=== PATIENT | female | born 1960 | race Caucasian/White ===

== ENCOUNTER 2017-07-10 11:45 | Emergency (ER) | payer BC ==
[2017-07-10] VITALS (10 sets, daily range): BP systolic 111–155; BP diastolic 61–92; PULSE 74–87; TEMP 36.5–37.1; O2SAT 96–100; Ht 157.5 cm; Wt 58.9 kg
[~2017-07-10] VITALS: Ht 157.5 cm; Wt 58.9 kg
--- NOTE | 2017-07-10 12:15 | EMERGENCY ROOM VISIT NOTE ---
History Report prepared by Anupama: Shruthi Robles Under the Supervision of: Dr. Manuel Cummings D.O. First contact with patient: 12:02 Chief Complaint: OTHER COMPLAINT Stated Complaint: "SENT FROM DR FOR TRANSFUSION AND SCAN" History of Present Illness The patient is a 56 year old female who presents to the Emergency Room with complaints of constant leg swelling beginning four days ago. The patient went to her PCP, Dr. Fontenot, four days ago for her leg swelling. Her PCP ordered the patient to have blood work done. The patient had blood work done yesterday and her hemoglobin level was 5. The patient states her PCP told her she needed to come into the ED for a blood transfusion and scan of her pancreas. The patient states she was told by her PCP that she would be able to go home tonight if she came into the ED for a blood transfusion. The patient states she is unable to stay in the hospital tonight because she does not have "coverage" at work. The patient denies any chest pain, shortness of breath, dark stool, nausea, or vomiting. The patient has a history of hypertension and she is on lisinopril. She notes tobacco use. The patient states she drinks alcohol every night. Source of History: patient Onset: four days ago Position: leg (bilateral) Quality: other (swelling) Timing: constant Associated Symptoms: No chest pain, No SOB, No nausea, No vomiting Review of Systems See HPI for pertinent positives & negatives. A total of 10 systems reviewed and were otherwise negative. Past Medical & Surgical Medical Problems: (1) Hypertension Family History Patient reports no known family medical history. Social History Smoking Status: Current Every Day Smoker Alcohol Use: other (daily) Marital Status: Housing Status: lives with family Occupation Status: employed Current/Historical Medications Scheduled Lisinopril (Zestril), 30 MG PO DAILY Allergies Coded Allergies: No Known Allergies (Unverified , 07/10/17) Physical Exam Vital Signs Date Time Temp Pulse Resp B/P (MAP) Pulse Ox O2 Delivery O2 Flow Rate FiO2 07/10/17 18:13 82 18 144/89 98 Room Air 07/10/17 18:11 36.5 82 18 144/89 96 07/10/17 17:13 36.7 74 20 155/92 97 07/10/17 16:39 36.8 80 18 132/88 96 07/10/17 16:26 80 18 135/81 95 Room Air 07/10/17 16:18 36.8 78 16 135/81 96 07/10/17 15:00 37.1 84 20 125/77 98 07/10/17 14:56 07/10/17 14:35 36.9 83 20 122/61 99 07/10/17 14:20 36.7 85 20 125/82 100 07/10/17 14:10 36.9 87 18 111/74 99 07/10/17 14:04 36.6 84 20 130/64 100 07/10/17 12:56 80 18 134/89 98 Room Air 07/10/17 12:24 81 07/10/17 12:10 97 Room Air 07/10/17 12:09 86 18 136/94 97 Room Air 07/10/17 11:53 36.6 86 20 118/68 98 Room Air Physical Exam GENERAL: Patient is awake, alert, and in no acute distress. Patient is resting comfortably and showing no signs of anxiety EYES: The conjunctivae are clear. The pupils are round and reactive. EARS, NOSE, MOUTH AND THROAT: The nose is without any evidence of any deformity. Mucous membranes are moist tongue is midline NECK: The neck is nontender and supple. RESPIRATORY: Normal respiratory effort is noted there is no evidence of wheezing rhonchi or rales CARDIOVASCULAR: Regular rate and rhythm noted there no murmurs rubs or gallops normal S1 normal S2 GASTROINTESTINAL: The abdomen is soft. Bowel sounds are present in all quadrants. Abdomen is nontender MUSCULOSKELETAL/EXTREMITIES: Pedal edema bilaterally. There is no evidence of gross deformity full range of motion is noted in the hips and shoulders SKIN: There is no obvious evidence of any rash. There are no petechiae, pallor or cyanosis noted. RECTAL: brown stool heme negative. NEUROLOGIC: Patient is awake alert and oriented x3 Medical Decision & Procedures ER Provider Diagnostic Interpretation: Radiology results as stated below per my review and radiologist interpretation: CHEST ONE VIEW PORTABLE FINDINGS: Mild cardiomegaly. Prominent basilar pulmonary vasculature are combined with mild interstitial curly B lines. IMPRESSION: Developing congestive heart failure. Mild cardia megaly. The above report was generated using voice recognition software. It may contain grammatical, syntax or spelling errors. Electronically signed by: Marcos Carla, M.D. CT SCAN OF THE ABDOMEN AND PELVIS WITH IV CONTRAST FINDINGS: Lung bases: The heart is normal in size and without pericardial effusion. Emphysematous change is present at both lung bases. No airspace consolidation or pleural effusion is identified atelectasis is noted at the right lung base. Liver: The contrast-enhanced liver is normal in size, contour, and attenuation. There is no intrahepatic biliary ductal dilatation. The hepatic veins and portal veins are patent. Gallbladder: Unremarkable. Spleen: Normal in size and attenuation. Pancreas: The pancreas is normal as visualized. No peripancreatic stranding or fluid is identified. The gland enhances homogeneously. Adrenal glands: Unremarkable. Kidneys: The contrast enhanced kidneys are normal in size and without hydronephrosis. The kidneys enhance symmetrically. Abdominal vasculature: The abdominal aorta is normal in course and caliber noting advanced atherosclerotic calcification. Bowel: The small bowel and colon are normal in course and caliber. The appendix is well-visualized and normal. Peritoneum: There is no intraperitoneal free air or abdominal ascites. Lymphadenopathy: None. Pelvic viscera: The bladder is partially decompressed and grossly unremarkable. The uterus and adnexa are normal as visualized. There is trace free fluid in the cul-de-sac. Skeletal structures: No lytic or blastic lesions are seen. IMPRESSION: 1. There are no acute infectious or inflammatory findings in the abdomen or pelvis. 2. There is trace nonspecific free fluid in the cul-de-sac, possibly within physiologic limits. Clinical correlation will be required. 3. Emphysema. 4. Additional findings as above. Electronically signed by: Marcelino Webb M.D. Laboratory Results 07/10/17 12:06 Red Blood Count 3.70, Mean Corpuscular Volume 64.6, Mean Corpuscular Hemoglobin 16.8, Mean Corpuscular Hemoglobin Concent 25.9, Mean Platelet Volume 8.3, Neutrophils (%) (Auto) 61.0, Lymphocytes (%) (Auto) 25.7, Monocytes (%) (Auto) 9.5, Eosinophils (%) (Auto) 1.4, Basophils (%) (Auto) 2.2, Neutrophils # (Auto) 3.85, Lymphocytes # (Auto) 1.62, Monocytes # (Auto) 0.60, Eosinophils # (Auto) 0.09, Basophils # (Auto) 0.14 07/10/17 12:06 Test 07/10/17 12:06 07/10/17 12:57 White Blood Count 6.31 K/uL (4.8-10.8) Red Blood Count 3.70 M/uL (4.2-5.4) Hemoglobin 6.2 g/dL (12.0-16.0) Hematocrit 23.9 % (37-47) Mean Corpuscular Volume 64.6 fL (80-100) Mean Corpuscular Hemoglobin 16.8 pg (25-34) Mean Corpuscular Hemoglobin Concent 25.9 g/dl (32-36) Platelet Count 886 K/uL (130-400) Mean Platelet Volume 8.3 fL (7.4-10.4) Neutrophils (%) (Auto) 61.0 % Lymphocytes (%) (Auto) 25.7 % Monocytes (%) (Auto) 9.5 % Eosinophils (%) (Auto) 1.4 % Basophils (%) (Auto) 2.2 % Neutrophils # (Auto) 3.85 K/uL (1.4-6.5) Lymphocytes # (Auto) 1.62 K/uL (1.2-3.4) Monocytes # (Auto) 0.60 K/uL (0.11-0.59) Eosinophils # (Auto) 0.09 K/uL (0-0.5) Basophils # (Auto) 0.14 K/uL (0-0.2) RDW Standard Deviation 66.2 fL (36.4-46.3) RDW Coefficient of Variation 28.0 % (11.5-14.5) Immature Granulocyte % (Auto) 0.2 % Immature Granulocyte # (Auto) 0.01 K/uL (0.00-0.02) Nucleated RBC Absolute Count (auto) 0.28 K/uL (0-0) Nucleated Red Blood Cells % 4.4 % Hypersegmented Polys 1+ Polychromasia 1+ Hypochromasia PRESENT Anisocytosis PRESENT Microcytosis PRESENT Tear Drop Cells 2+ Schistocytes 1+ Prothrombin Time 11.5 SECONDS (9.0-12.0) Prothromb Time International Ratio 1.1 (0.9-1.1) Activated Partial Thromboplast Time 24.3 SECONDS (21.0-31.0) Partial Thromboplastin Ratio 0.9 Anion Gap 6.0 mmol/L (3-11) Est Creatinine Clear Calc Drug Dose 88.7 ml/min Estimated GFR () 120.8 Estimated GFR (Non- 104.2 BUN/Creatinine Ratio 14.1 (10-20) Calcium Level 8.4 mg/dl (8.5-10.1) Magnesium Level 2.0 mg/dl (1.8-2.4) Total Bilirubin 0.6 mg/dl (0.2-1) Direct Bilirubin 0.2 mg/dl (0-0.2) Aspartate Amino Transf (AST/SGOT) 17 U/L (15-37) Alanine Aminotransferase (ALT/SGPT) 23 U/L (12-78) Alkaline Phosphatase 52 U/L (45-117) Troponin I < 0.015 ng/ml (0-0.045) Total Protein 7.2 gm/dl (6.4-8.2) Albumin 3.6 gm/dl (3.4-5.0) Amylase Level 96 U/L (25-115) Lipase 597 U/L (73-393) Urine Color YELLOW Urine Appearance CLEAR (CLEAR) Urine pH 7.0 (4.5-7.5) Urine Specific [place] 1.012 (1.000-1.030) Urine Protein NEG (NEG) Urine Glucose (UA) NEG (NEG) Urine Ketones NEG (NEG) Urine Occult Blood NEG (NEG) Urine Nitrite NEG (NEG) Urine Bilirubin NEG (NEG) Urine Urobilinogen NEG (NEG) Urine Leukocyte Esterase NEG (NEG) Laboratory results per my review. ECG Indication: other (abnormal labs) Rate (beats per minute): 79 Rhythm: normal sinus Findings: no ectopy, other (no acute ST segments ) Comparison ECG Date: no prior available Change: EKG interpreted by me. ED Course 1203: The patient was evaluated in room A9B. A complete history and physical examination were performed. 1222: I discussed the patient's case with Dr. [place]ot[place] [place] She acknowledged the patient would most likely not want to stay in the hospital. She advised we do as much testing as the patient would allow. She will follow up with the patient. 1228: I updated the patient on my conversation with Dr. Fontenot. 1650: I updated the patient on her test results. 1820: Upon reevaluation, the patient is resting comfortably. I discussed the results and treatment plan with the patient. She verbalized agreement of the treatment plan. The patient was discharged home. Medical Decision Differential diagnosis: Etiologies such as metabolic, infection, hypo/hyperglycemia, electrolyte abnormalities, cardiac sources, intracerebral event, toxicologic, neurologic, as well as others were entertained. Nursing notes reviewed. Additional history is obtained from the patient's primary care physician. The patient is a 56-year-old female who presented to the emergency department for an evaluation of abnormal laboratory studies. She states that she's had ongoing lower extremity edema for approximately 1 year. Her symptoms started to worsen and she started noticing weakness and dyspnea exertion. The patient had laboratory tests done with her primary care physician this week. She was sent to the emergency department because of significant anemia. The patient did not wish to stay in the hospital although I discussed that she should likely be considered for inpatient management for blood transfusion as well as for further testing including trying to figure out why the patient is anemic. She was heme-negative on rectal exam. The patient does have a significant alcohol history and it is possible that she may have chronic abnormality secondary to this. She was also found have a very high platelet count. I discussed the patient's laboratory radiographic studies with her. She was encouraged to rest and avoid any strenuous activity. She was also encouraged to follow-up with primary care physician for further evaluation and for further testing. She was also encouraged return to the emergency department immediately if symptoms change or if the need arises. She was also encouraged to avoid any further alcoholic beverages. Medication Reconcilliation Current Medication List: was personally reviewed by me Blood Pressure Screening Patient's blood pressure: Normal blood pressure Consults Time Called: 1220 Consulting Physician: Dr. Emeka DUKE Returned Call: 1222 I discussed the patient's case with Dr. Kruger. She acknowledged the patient would most likely not want to stay in the hospital. She advised we do as much testing as the patient would allow. She will follow up with the patient. Impression Primary Impression: Anemia Additional Impressions: Peripheral edema Alcohol abuse Thrombocythemia Scribe Attestation The scribe's documentation has been prepared under my direction and personally reviewed by me in its entirety. I confirm that the note above accurately reflects all work, treatment, procedures, and medical decision making performed by me. Departure Information Dispostion Being Evaluated By Hospitalist Referrals Cookie Fontenot C.R.N.P. (PCP) Forms HOME CARE DOCUMENTATION FORM, IMPORTANT VISIT INFORMATION, WORK / SCHOOL INSTRUCTIONS Patient Instructions Anemia, ED Leg Swelling Bilateral, My [facility] Additional Instructions Continue all medications as prescribed. Call your family doctor in the morning to schedule a follow-up appointment for further testing and possibly further blood transfusion. Rest and avoid any strenuous activity. Return to the emergency department immediately if symptoms change worsen or the need arises. Problem Qualifiers Primary Impression: Anemia Anemia type: unspecified type Qualified Codes: D64.9 - Anemia, unspecified
[2017-07-10 12:33] LABS: INR 1.1 (0.9-1.1); PTT PATIENT 24.3 SECONDS (21.0-31.0)
[2017-07-10 12:34] LABS: HEMATOCRIT 23.9 % (37-47); HEMOGLOBIN 6.2 g/dL (12.0-16.0); MEAN CELL VOLUME 64.6 fL (80-100); MEAN CORPUSCULAR HEMOGLOBIN 16.8 pg (25-34); MEAN CORPUSCULAR HGB CONC 25.9 g/dl (32-36); MEAN PLATELET VOLUME 8.3 fL (7.4-10.4); NUCLEATED RED BLOOD CELL ABS 0.28 K/uL (0-0); PLATELET COUNT 886 K/uL (130-400); RED CELL DISTRIBUTION WIDTH SD 66.2 fL (36.4-46.3); WHITE BLOOD COUNT 6.31 K/uL (4.8-10.8)
[2017-07-10 12:40] LABS: ALBUMIN 3.6 gm/dl (3.4-5.0); ALT/SGPT 23 U/L (12-78); AST/SGOT 17 U/L (15-37); BLOOD UREA NITROGEN 8 mg/dl (7-18); CALCIUM 8.4 mg/dl (8.5-10.1); CARBON DIOXIDE 29 mmol/L (21-32); CREATININE 0.56 mg/dl (0.60-1.20); GLUCOSE 89 mg/dl (70-99); LIPASE 597 U/L (73-393); POTASSIUM 3.7 mmol/L (3.5-5.1); SODIUM 128 mmol/L (136-145)
[2017-07-10 12:45] LABS: ALKALINE PHOSPHATASE 52 U/L (45-117); TOTAL PROTEIN 7.2 gm/dl (6.4-8.2)
[2017-07-10 12:50] LABS: BASO % 2.2 %; BASO ABS # 0.14 K/uL (0-0.2); EOS % 1.4 %; EOS ABS # 0.09 K/uL (0-0.5); IG# 0.01 K/uL (0.00-0.02); LYMPH % 25.7 %; LYMPH ABS # 1.62 K/uL (1.2-3.4); MONO % 9.5 %; NEUT ABS # 3.85 K/uL (1.4-6.5)
[2017-07-10] MEDS ORDERED: OPTIRAY 320 IV PRN (13:00)
--- NOTE | 2017-07-10 13:20 | DIAGNOSTIC IMAGING REPORT ---
CHEST ONE VIEW PORTABLE CLINICAL HISTORY: ABDOMINAL PAIN/GI pain. Nausea. COMPARISON STUDY: No previous studies for comparison. FINDINGS: Mild cardiomegaly. Prominent basilar pulmonary vasculature are combined with mild interstitial curly B lines. IMPRESSION: Developing congestive heart failure. Mild cardia megaly. The above report was generated using voice recognition software. It may contain grammatical, syntax or spelling errors. Electronically signed by: Marcos Aguirre M.D. 07/10/2017 1:18 PM Dictated Date/Time: 07/10/2017 1:18 PM
[2017-07-10] MEDS ORDERED: LISI1TAB3 PO (14:04)
--- NOTE | 2017-07-10 16:28 | DIAGNOSTIC IMAGING REPORT ---
CT SCAN OF THE ABDOMEN AND PELVIS WITH IV CONTRAST CLINICAL HISTORY: Epigastric abdominal pain. Elevated pancreatic enzymes. COMPARISON STUDY: No priors. TECHNIQUE: Following the IV administration of 116 cc of Optiray 320, CT scan of the abdomen and pelvis is performed from the lung bases to the proximal femora. Images are reviewed in the axial, sagittal, and coronal planes. IV contrast was administered without complication. A dose lowering technique was utilized adhering to the principles of ALARA. CT DOSE: 293.02 mGycm FINDINGS: Lung bases: The heart is normal in size and without pericardial effusion. Emphysematous change is present at both lung bases. No airspace consolidation or pleural effusion is identified atelectasis is noted at the right lung base. Liver: The contrast-enhanced liver is normal in size, contour, and attenuation. There is no intrahepatic biliary ductal dilatation. The hepatic veins and portal veins are patent. Gallbladder: Unremarkable. Spleen: Normal in size and attenuation. Pancreas: The pancreas is normal as visualized. No peripancreatic stranding or fluid is identified. The gland enhances homogeneously. Adrenal glands: Unremarkable. Kidneys: The contrast enhanced kidneys are normal in size and without hydronephrosis. The kidneys enhance symmetrically. Abdominal vasculature: The abdominal aorta is normal in course and caliber noting advanced atherosclerotic calcification. Bowel: The small bowel and colon are normal in course and caliber. The appendix is well-visualized and normal. Peritoneum: There is no intraperitoneal free air or abdominal ascites. Lymphadenopathy: None. Pelvic viscera: The bladder is partially decompressed and grossly unremarkable. The uterus and adnexa are normal as visualized. There is trace free fluid in the cul-de-sac. Skeletal structures: No lytic or blastic lesions are seen. IMPRESSION: 1. There are no acute infectious or inflammatory findings in the abdomen or pelvis. 2. There is trace nonspecific free fluid in the cul-de-sac, possibly within physiologic limits. Clinical correlation will be required. 3. Emphysema. 4. Additional findings as above. Electronically signed by: Marcelino Webb M.D. 07/10/2017 4:27 PM Dictated Date/Time: 07/10/2017 4:22 PM
== END 2017-07-10 18:20 | disposition home or self-care (01) ==
LOC: C.EDB 11:47 → C.EDA 18:20
DX: D64.9 Anemia, unspecified (principal); R60.9 Edema, unspecified; F10.10 Alcohol abuse, uncomplicated; D47.3 Essential (hemorrhagic) thrombocythemia; J43.9 Emphysema, unspecified; F17.200 Nicotine dependence, unspecified, uncomplicated; I10 Essential (primary) hypertension

== ENCOUNTER 2017-09-25 13:04 | Inpatient (IN) | payer OTHER ==
[~2017-09-25] VITALS: Ht 157.5 cm; Wt 50.3 kg
[~2017-09-25 13:04] MED LIST: LISI1TAB3 PO
[2017-09-25] MEDS ORDERED: SODIUM CHLORIDE 0.9% 1000ML 1,000 ML IV STA (13:27)
--- NOTE | 2017-09-25 13:49 | DIAGNOSTIC IMAGING REPORT ---
CHEST ONE VIEW PORTABLE CLINICAL HISTORY: EVALUATE RESPIRATORY DISTRESS.DYSPNEA COMPARISON STUDY: Chest radiograph July 10, 2017. FINDINGS: There is no pneumothorax. Slight blunting of both costophrenic angles is unchanged. Cardiomediastinal silhouette is stable. Linear left suprahilar opacity favors atelectasis or normal vessels. There is no consolidation to suggest pneumonia. There is pulmonary vascular congestion without overt pulmonary edema. IMPRESSION: Pulmonary vascular congestion without overt pulmonary edema. Electronically signed by: Ortiz Mojica M.D. 09/25/2017 1:48 PM Dictated Date/Time: 09/25/2017 1:46 PM
[2017-09-25 14:25] LABS: HEMATOCRIT 31.4 % (37-47); HEMOGLOBIN 8.4 g/dL (12.0-16.0); MEAN CELL VOLUME 67.4 fL (80-100); MEAN CORPUSCULAR HGB CONC 26.8 g/dl (32-36); NUCLEATED RED BLOOD CELL ABS 0.06 K/uL (0-0); PLATELET COUNT 198 K/uL (130-400); RED CELL DISTRIBUTION WIDTH CV 24.8 % (11.5-14.5); RED CELL DISTRIBUTION WIDTH SD 60.3 fL (36.4-46.3); WHITE BLOOD COUNT 6.59 K/uL (4.8-10.8)
[2017-09-25 14:27] LABS: INR 1.1 (0.9-1.1)
[2017-09-25 14:31] LABS: ALBUMIN 3.9 gm/dl (3.4-5.0); ALT/SGPT 32 U/L (12-78); BLOOD UREA NITROGEN 4 mg/dl (7-18); CALCIUM 8.3 mg/dl (8.5-10.1); CARBON DIOXIDE 28 mmol/L (21-32); GLUCOSE 95 mg/dl (70-99); POTASSIUM 4.2 mmol/L (3.5-5.1); SODIUM 124 mmol/L (136-145)
[2017-09-25 14:36] LABS: BASO % 2.3 %; BASO ABS # 0.15 K/uL (0-0.2); EOS % 0.2 %; EOS ABS # 0.01 K/uL (0-0.5); IG# 0.02 K/uL (0.00-0.02); LYMPH ABS # 0.79 K/uL (1.2-3.4); MONO % 11.4 %; MONO ABS # 0.75 K/uL (0.11-0.59); NEUT % 73.8 %; NEUT ABS # 4.87 K/uL (1.4-6.5)
[2017-09-25 14:38] LABS: ALKALINE PHOSPHATASE 60 U/L (45-117); AST/SGOT 34 U/L (15-37); TOTAL PROTEIN 7.4 gm/dl (6.4-8.2)
[2017-09-25] MEDS ORDERED: CEFTRIAXONE SOD INJ 1 GM ADDVIAL IV STA (15:10)
[2017-09-25] MEDS ORDERED: PANTOprazole INJ 80 MG in DEXTROSE 5% 100ML IV STA (15:14)
[2017-09-25] MEDS ORDERED: OPTIRAY 320 IV PRN (15:30)
[2017-09-25] MEDS ORDERED: PANTOprazole INJ 40 MG in DEXTROSE 5% 100ML IV SCH (15:30)
--- NOTE | 2017-09-25 15:46 | DIAGNOSTIC IMAGING REPORT ---
CT ANGIOGRAM OF THE CHEST CLINICAL HISTORY: Hypoxia. COMPARISON STUDY: Chest x-ray dated 09/25/2017. TECHNIQUE: Following the IV administration of 85 cc of Optiray 320, CT angiogram of the chest was performed from the upper abdomen to the thoracic inlet utilizing the pulmonary embolus protocol. Images are reviewed in the axial, sagittal, and coronal planes. 3-D MIPS images are created and assessed. IV contrast was administered without complication. A dose lowering technique was utilized adhering to the principles of ALARA. CT DOSE: 201.01 mGy.cm FINDINGS: Thyroid: Imaged portions of the thyroid gland are normal in size and attenuation. A 1.4 cm low-attenuation nodule is seen in the left lobe. Thoracic aorta: There is advanced atherosclerotic calcification of the thoracic aorta, which is normal in caliber and demonstrates standard 3-vessel arch anatomy. No dissection is seen. Pulmonary vasculature: The pulmonary trunk is mildly dilated suggesting pulmonary artery hypertension. There are no filling defects identified in main, lobar, or segmental pulmonary branches to suggest pulmonary embolus. Heart: The heart is enlarged and without pericardial effusion. The coronary arteries are densely calcified. Lungs and pleural spaces: Advanced emphysematous change is identified. 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 The trachea and central airways are clear. There is patchy consolidation identified in the left upper lobe, best seen on image #199. Milder patchy consolidative change is seen in the right lower lobe. Scarring/fibrosis is present in the right middle lobe and lingula. Foci of linear atelectasis/scarring are present in the lower lobes. Mediastinum: There is no mediastinal lymphadenopathy. Kendy: Clear. Axillae: There is no axillary lymphadenopathy. Upper abdomen: Partially visualized upper abdominal viscera is within normal limits. Skeletal structures: The skeletal structures are osteopenic. No lytic or blastic bony lesions are seen. IMPRESSION: 1. There is no evidence of pulmonary embolus in the main, lobar, or segmental pulmonary arteries. 2. Cardiomegaly and advanced emphysema. 3. Patchy airspace consolidation is identified in the left upper lobe. Mild patchy opacities are also seen at the right lung base. This likely represents an infectious/inflammatory pneumonitis. 3-4 month follow-up chest CT is recommended to document resolution. 4. There is a 1.4 cm low-attenuation nodule identified in the left lobe of the thyroid gland. Follow-up with a nonemergent thyroid ultrasound is recommended for further assessment. Electronically signed by: Marcelino Webb M.D. 09/25/2017 3:44 PM Dictated Date/Time: 09/25/2017 3:39 PM
[2017-09-25] MEDS ORDERED: LEVAQUIN 750MG / 150ML D5W IV STA (15:54)
--- NOTE | 2017-09-25 16:04 | History and Physical ---
History & Physical Date & Time of Service: Sep 25, 2017 at 16:04 Chief Complaint: Low Hemoglobin Primary Care Physician: Cookie Fontenot C.R.NHaiPHai History of Present Illness Source: patient 57 yo female presents to the hospital with SOB and fatigue for the past few days. Patient is known to the [facility] [employer] [facility]. Patient has history of asthma, anemia, hypertension. Patient reports worsening of SOB, weak, and tired over the past 24-48 hours. Patient denies fever, chills, nausea, vomiting. Patient reports drinking alcohol daily. Patient was seen in ER and was found to have low sodium. Oxygen sat was in the 70s. Patient was placed on oxygen mask and responded with an O2 sat of 100% on 5 liters. Past Medical/Surgical History Medical Problems: (1) Alcohol abuse (2) Anemia (3) Hypertension (4) Peripheral edema (5) Thrombocythemia (6) Thrombocytopenia Family History Patient reports no known family medical history. Social History Smoking Status: Current Every Day Smoker Marital Status: Occupational Status: employed Immunizations History of Influenza Vaccine: Unknown History of Tetanus Vaccine?: Unknown History of Pneumococcal: Unknown History of Hepatitis B Vaccine: Unknown Allergies Coded Allergies: No Known Allergies (Unverified , 09/25/17) Home Medications Scheduled Lisinopril (Zestril), 30 MG PO DAILY [proair], 2 PUFFS INH Q4H Scheduled PRN Acetamin/Butalbital/Caffeine (Fioricet), 1 TAB PO Q6H PRN for Pain Hydroxyzine HCl (Hydroxyzine HCl), 1 TAB PO TID PRN for Anxiety Review of Systems Constitutional: No fever, No chills Eyes: No worsening of vision ENT: No hearing loss Respiratory: + cough, + shortness of breath, + dyspnea on exertion Cardiovascular: No chest pain Abdomen: No pain Musculoskeletal: No joint pain, No muscle pain Neurologic: No memory loss Psychiatric: No depression symptoms Endocrine: No fatigue Hematologic / Lymphatic: No abnormal bleeding/bruising Integumentary: No rash, No itch Allergic / Immunologic: No environmental allergies Physical Exam Vital Signs Date Time Temp Pulse Resp B/P (MAP) Pulse Ox O2 Delivery O2 Flow Rate FiO2 09/25/17 14:31 97 16 166/101 100 Oxymask 6.0 09/25/17 13:56 100 33 161/99 98 Oxymask 6.0 09/25/17 13:33 94 09/25/17 13:23 99 Oxymask 5.0 09/25/17 13:18 Nasal Cannula 2.0 09/25/17 13:15 37.6 96 16 129/80 76 Room Air General Appearance: WD/WN, no apparent distress Head: normocephalic Eyes: normal inspection ENT: normal ENT inspection Neck: supple, no adenopathy Respiratory/Chest: chest non-tender, + rhonchi (bilateral) Cardiovascular: no edema, no murmur, + tachycardia Abdomen/GI: normal bowel sounds, non tender, soft Back: normal inspection Extremities/Musculoskelatal: normal inspection Neurologic/Psych: alert, oriented x 3 Skin: normal color Lymphatic: no adenopathy Diagnostics Laboratory Results Results Past 24 Hours Test 09/25/17 13:35 09/25/17 13:40 09/25/17 13:55 09/25/17 14:15 Range/Units White Blood Count 6.59 4.8-10.8 K/uL Red Blood Count 4.66 4.2-5.4 M/uL Hemoglobin 8.4 12.0-16.0 g/dL Hematocrit 31.4 37-47 % Mean Corpuscular Volume 67.4 80-100 fL Mean Corpuscular Hemoglobin 18.0 25-34 pg Mean Corpuscular Hemoglobin Concent 26.8 32-36 g/dl Platelet Count 198 130-400 K/uL Neutrophils (%) (Auto) 73.8 % Lymphocytes (%) (Auto) 12.0 % Monocytes (%) (Auto) 11.4 % Eosinophils (%) (Auto) 0.2 % Basophils (%) (Auto) 2.3 % Neutrophils # (Auto) 4.87 1.4-6.5 K/uL Lymphocytes # (Auto) 0.79 1.2-3.4 K/uL Monocytes # (Auto) 0.75 0.11-0.59 K/uL Eosinophils # (Auto) 0.01 0-0.5 K/uL Basophils # (Auto) 0.15 0-0.2 K/uL RDW Standard Deviation 60.3 36.4-46.3 fL RDW Coefficient of Variation 24.8 11.5-14.5 % Immature Granulocyte % (Auto) 0.3 % Immature Granulocyte # (Auto) 0.02 0.00-0.02 K/uL Nucleated RBC Absolute Count (auto) 0.06 0-0 K/uL Nucleated Red Blood Cells % 0.9 % Giant Platelets 2+ Hypochromasia PRESENT Anisocytosis PRESENT Microcytosis PRESENT Prothrombin Time 11.4 9.0-12.0 SECONDS Prothromb Time International Ratio 1.1 0.9-1.1 Activated Partial Thromboplast Time 29.0 21.0-31.0 SECONDS Partial Thromboplastin Ratio 1.1 Sodium Level 124 136-145 mmol/L Potassium Level 4.2 3.5-5.1 mmol/L Chloride Level 90 98-107 mmol/L Carbon Dioxide Level 28 21-32 mmol/L Anion Gap 6.0 3-11 mmol/L Blood Urea Nitrogen 4 7-18 mg/dl Creatinine 0.50 0.60-1.20 mg/dl Est Creatinine Clear Calc Drug Dose 98.2 ml/min Estimated GFR () 124.5 Estimated GFR (Non- 107.4 BUN/Creatinine Ratio 8.6 10-20 Random Glucose 95 70-99 mg/dl Calcium Level 8.3 8.5-10.1 mg/dl Total Bilirubin 0.7 0.2-1 mg/dl Aspartate Amino Transf (AST/SGOT) 34 15-37 U/L Alanine Aminotransferase (ALT/SGPT) 32 12-78 U/L Alkaline Phosphatase 60 45-117 U/L Troponin I < 0.015 0-0.045 ng/ml Pro-B-Type Natriuretic Peptide 997 0-900 pg/ml Total Protein 7.4 6.4-8.2 gm/dl Albumin 3.9 3.4-5.0 gm/dl Globulin 3.5 2.5-4.0 gm/dl Albumin/Globulin Ratio 1.1 0.9-2 Urine Color YELLOW Urine Appearance CLEAR CLEAR Urine pH 5.5 4.5-7.5 Urine Specific [place] 1.014 1.000-1.030 Urine Protein NEG NEG Urine Glucose (UA) NEG NEG Urine Ketones NEG NEG Urine Occult Blood NEG NEG Urine Nitrite NEG NEG Urine Bilirubin NEG NEG Urine Urobilinogen NEG NEG Urine Leukocyte Esterase NEG NEG Test 09/25/17 15:51 Range/Units Diagnostic Radiology CT ANGIOGRAM OF THE CHEST CLINICAL HISTORY: Hypoxia. COMPARISON STUDY: Chest x-ray dated 09/25/2017. TECHNIQUE: Following the IV administration of 85 cc of Optiray 320, CT angiogram of the chest was performed from the upper abdomen to the thoracic inlet utilizing the pulmonary embolus protocol. Images are reviewed in the axial, sagittal, and coronal planes. 3-D MIPS images are created and assessed. IV contrast was administered without complication. A dose lowering technique was utilized adhering to the principles of ALARA. CT DOSE: 201.01 mGy.cm FINDINGS: Thyroid: Imaged portions of the thyroid gland are normal in size and attenuation. A 1.4 cm low-attenuation nodule is seen in the left lobe. Thoracic aorta: There is advanced atherosclerotic calcification of the thoracic aorta, which is normal in caliber and demonstrates standard 3-vessel arch anatomy. No dissection is seen. Pulmonary vasculature: The pulmonary trunk is mildly dilated suggesting pulmonary artery hypertension. There are no filling defects identified in main, lobar, or segmental pulmonary branches to suggest pulmonary embolus. Heart: The heart is enlarged and without pericardial effusion. The coronary arteries are densely calcified. Lungs and pleural spaces: Advanced emphysematous change is identified. 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 The trachea and central airways are clear. There is patchy consolidation identified in the left upper lobe, best seen on image #199. Milder patchy consolidative change is seen in the right lower lobe. Scarring/fibrosis is present in the right middle lobe and lingula. Foci of linear atelectasis/scarring are present in the lower lobes. Mediastinum: There is no mediastinal lymphadenopathy. Kendy: Clear. Axillae: There is no axillary lymphadenopathy. Upper abdomen: Partially visualized upper abdominal viscera is within normal limits. Skeletal structures: The skeletal structures are osteopenic. No lytic or blastic bony lesions are seen. IMPRESSION: 1. There is no evidence of pulmonary embolus in the main, lobar, or segmental pulmonary arteries. 2. Cardiomegaly and advanced emphysema. 3. Patchy airspace consolidation is identified in the left upper lobe. Mild patchy opacities are also seen at the right lung base. This likely represents an infectious/inflammatory pneumonitis. 3-4 month follow-up chest CT is recommended to document resolution. 4. There is a 1.4 cm low-attenuation nodule identified in the left lobe of the thyroid gland. Follow-up with a nonemergent thyroid ultrasound is recommended for further assessment. Electronically signed by: Marcelino Webb M.D. 09/25/2017 3:44 PM CHEST ONE VIEW PORTABLE CLINICAL HISTORY: EVALUATE RESPIRATORY DISTRESS.DYSPNEA COMPARISON STUDY: Chest radiograph July 10, 2017. FINDINGS: There is no pneumothorax. Slight blunting of both costophrenic angles is unchanged. Cardiomediastinal silhouette is stable. Linear left suprahilar opacity favors atelectasis or normal vessels. There is no consolidation to suggest pneumonia. There is pulmonary vascular congestion without overt pulmonary edema. IMPRESSION: Pulmonary vascular congestion without overt pulmonary edema. EKG Normal sinus rhythm Incomplete right bundle branch block When compared with ECG of 10-JUL-2017 12:23, No significant change was found Confirmed by Usman Ricketts ([id number]) on 09/25/2017 3:09:56 PM Impression Assessment and Plan Hypoxia, SOB and fatigue in a 57 yo female with history of Asthma 1. Acute hypoxic HYPERCAPNIC respiratory failure Admit to tele VBG shows likely respiratory acidosis with elevated CO2. Patient received levaquin in ER. Patient will receive azithromycin and ceftriaxone tomorrow. Will on IV solumedrol [address] scan shows evidence of possible aspiration and COPD changes. Patient has long standing history of smoking. Will place on BIPAP. 2.COPD/ ASTHMA cont. albuterol. Patient ay benefit from LABA. patient should consider smoking cessation 3. Hyponatremia Likely secondary to alcoholism. Patient received NS bolus in ED. Will repeat sodium in evening. If no significant improvement, likely SIADH. for now, will hold fluid. 4. Alcoholism will place on CIWA protocol. 5. Hypertension will resume lisinopril. spent 30 minutes in critical care time due to respiratory acidosis Advanced Directives Existing Advance Directive: No Existing Living Will: No Existing Power of Water Taxi Captain: No Existing Health Care Proxy: No Resuscitation Status VTE Prophylaxis Will order VTE Prophylaxis: Yes Note Total Time: Critical Care 30 - 74 minutes
[2017-09-25] MEDS ORDERED: ALBUTEROL 0.083% NEBU SOLN 3 ML VIAL INH PRN (16:15)
[2017-09-25] MEDS ORDERED: FRCT/ PO (17:21)
[2017-09-25] MEDS ORDERED: ATR10 PO (17:24)
--- NOTE | 2017-09-25 17:29 | EMERGENCY ROOM VISIT NOTE ---
History Report prepared by Anupama: Hernán Urban Under the Supervision of: Dr. Yury Holcomb D.O. First contact with patient: 13:20 Chief Complaint: ABNORMAL LABS Stated Complaint: LOW HEMOGLOBIN History of Present Illness The patient is a 57 year old female who presents to the Emergency Room with complaints of worsening shortness of breath. The patient states that she has been unusually short of breath, weak, and tired over the past 24-48 hours. The patient does have a history anemia and has had low hemoglobin levels recently. She denies any bloody bowel movements recently. Rest does improve her symptoms. She has a history of hypertension. She denies any current chest pain. She notes she was referred here by PCP after obtaining blood work with a sodium of 120 and hemoglobin in the sevens. Shortness of breath is significantly worsened with any exertion. History is limited due to her shortness of breath. Source of History: patient Onset: 48 hours Position: chest Quality: other (SOB) Timing: worsening Associated Symptoms: + fatigue, + weakness Review of Systems See HPI for pertinent positives & negatives. A total of 10 systems reviewed and were otherwise negative. Past Medical & Surgical Medical Problems: (1) Acute respiratory failure with hypoxia (2) Hypertension Family History Patient reports no known family medical history. Social History Smoking Status: Current Every Day Smoker Alcohol Use: other Marital Status: Housing Status: lives with family Occupation Status: employed Current/Historical Medications Scheduled Lisinopril (Zestril), 30 MG PO DAILY Scheduled PRN Acetamin/Butalbital/Caffeine (Fioricet), 1 TAB PO Q6H PRN for Pain Allergies Coded Allergies: No Known Allergies (Unverified , 09/25/17) Physical Exam Vital Signs Date Time Temp Pulse Resp B/P (MAP) Pulse Ox O2 Delivery O2 Flow Rate FiO2 09/25/17 17:20 95 Nasal Cannula 4.0 09/25/17 16:24 89 09/25/17 16:00 95 22 145/89 100 Oxymask 6.0 09/25/17 14:31 97 16 166/101 100 Oxymask 6.0 09/25/17 13:56 100 33 161/99 98 Oxymask 6.0 09/25/17 13:33 94 09/25/17 13:23 99 Oxymask 5.0 09/25/17 13:18 Nasal Cannula 2.0 09/25/17 13:15 37.6 96 16 129/80 76 Room Air Physical Exam GENERAL: Sitting up in bed, alert, ill-appearing, moderate distress EYE EXAM: normal conjunctiva. OROPHARYNX: no exudate, no erythema, lips, buccal mucosa, and tongue normal and mucous membranes are dry NECK: supple, no nuchal rigidity, no adenopathy, non-tender. No JVD. LUNGS: Breath sounds are diminished at the bases. Normal chest wall mechanics HEART: Tachycardic HR. no murmurs, S1 normal and S2 normal ABDOMEN: abdomen soft, non-tender, normo-active bowel sounds, no masses, no rebound or guarding. BACK: Back is symmetrical on inspection and there is no deformity, no midline tenderness, no CVA tenderness. SKIN: no rashes and no bruising UPPER EXTREMITIES: upper extremities are grossly normal. LOWER EXTREMITIES: No pitting edema. NEURO EXAM: Normal sensorium, cranial nerves II-XII grossly intact, normal speech, no gross weakness of arms, no gross weakness of legs. RECTAL: The rectal exam is heme negative. Medical Decision & Procedures ER Provider Diagnostic Interpretation: Radiology results as stated below per my review and the radiologist's interpretation: CT ANGIOGRAM OF THE CHEST CLINICAL HISTORY: Hypoxia. COMPARISON STUDY: Chest x-ray dated 09/25/2017. TECHNIQUE: Following the IV administration of 85 cc of Optiray 320, CT angiogram of the chest was performed from the upper abdomen to the thoracic inlet utilizing the pulmonary embolus protocol. Images are reviewed in the axial, sagittal, and coronal planes. 3-D MIPS images are created and assessed. IV contrast was administered without complication. A dose lowering technique was utilized adhering to the principles of ALARA. CT DOSE: 201.01 mGy.cm FINDINGS: Thyroid: Imaged portions of the thyroid gland are normal in size and attenuation. A 1.4 cm low-attenuation nodule is seen in the left lobe. Thoracic aorta: There is advanced atherosclerotic calcification of the thoracic aorta, which is normal in caliber and demonstrates standard 3-vessel arch anatomy. No dissection is seen. Pulmonary vasculature: The pulmonary trunk is mildly dilated suggesting pulmonary artery hypertension. There are no filling defects identified in main, lobar, or segmental pulmonary branches to suggest pulmonary embolus. Heart: The heart is enlarged and without pericardial effusion. The coronary arteries are densely calcified. Lungs and pleural spaces: Advanced emphysematous change is identified. 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 The trachea and central airways are clear. There is patchy consolidation identified in the left upper lobe, best seen on image #199. Milder patchy consolidative change is seen in the right lower lobe. Scarring/fibrosis is present in the right middle lobe and lingula. Foci of linear atelectasis/scarring are present in the lower lobes. Mediastinum: There is no mediastinal lymphadenopathy. Kendy: Clear. Axillae: There is no axillary lymphadenopathy. Upper abdomen: Partially visualized upper abdominal viscera is within normal limits. Skeletal structures: The skeletal structures are osteopenic. No lytic or blastic bony lesions are seen. IMPRESSION: 1. There is no evidence of pulmonary embolus in the main, lobar, or segmental pulmonary arteries. 2. Cardiomegaly and advanced emphysema. 3. Patchy airspace consolidation is identified in the left upper lobe. Mild patchy opacities are also seen at the right lung base. This likely represents an infectious/inflammatory pneumonitis. 3-4 month follow-up chest CT is recommended to document resolution. 4. There is a 1.4 cm low-attenuation nodule identified in the left lobe of the thyroid gland. Follow-up with a nonemergent thyroid ultrasound is recommended for further assessment. Electronically signed by: Marcelino Webb M.D. 09/25/2017 3:44 PM Dictated Date/Time: 09/25/2017 3:39 PM+ CHEST ONE VIEW PORTABLE CLINICAL HISTORY: EVALUATE RESPIRATORY DISTRESS.DYSPNEA COMPARISON STUDY: Chest radiograph July 10, 2017. FINDINGS: There is no pneumothorax. Slight blunting of both costophrenic angles is unchanged. Cardiomediastinal silhouette is stable. Linear left suprahilar opacity favors atelectasis or normal vessels. There is no consolidation to suggest pneumonia. There is pulmonary vascular congestion without overt pulmonary edema. IMPRESSION: Pulmonary vascular congestion without overt pulmonary edema. Electronically signed by: Ortiz Mojica M.D. 09/25/2017 1:48 PM Dictated Date/Time: 09/25/2017 1:46 PM Laboratory Results 09/25/17 13:35 Red Blood Count 4.66, Mean Corpuscular Volume 67.4, Mean Corpuscular Hemoglobin 18.0, Mean Corpuscular Hemoglobin Concent 26.8, Neutrophils (%) (Auto) 73.8, Lymphocytes (%) (Auto) 12.0, Monocytes (%) (Auto) 11.4, Eosinophils (%) (Auto) 0.2, Basophils (%) (Auto) 2.3, Neutrophils # (Auto) 4.87, Lymphocytes # (Auto) 0.79, Monocytes # (Auto) 0.75, Eosinophils # (Auto) 0.01, Basophils # (Auto) 0.15 09/25/17 13:40 Test 09/25/17 13:35 09/25/17 13:40 09/25/17 13:55 09/25/17 14:15 White Blood Count 6.59 K/uL (4.8-10.8) Red Blood Count 4.66 M/uL (4.2-5.4) Hemoglobin 8.4 g/dL (12.0-16.0) Hematocrit 31.4 % (37-47) Mean Corpuscular Volume 67.4 fL (80-100) Mean Corpuscular Hemoglobin 18.0 pg (25-34) Mean Corpuscular Hemoglobin Concent 26.8 g/dl (32-36) Platelet Count 198 K/uL (130-400) Neutrophils (%) (Auto) 73.8 % Lymphocytes (%) (Auto) 12.0 % Monocytes (%) (Auto) 11.4 % Eosinophils (%) (Auto) 0.2 % Basophils (%) (Auto) 2.3 % Neutrophils # (Auto) 4.87 K/uL (1.4-6.5) Lymphocytes # (Auto) 0.79 K/uL (1.2-3.4) Monocytes # (Auto) 0.75 K/uL (0.11-0.59) Eosinophils # (Auto) 0.01 K/uL (0-0.5) Basophils # (Auto) 0.15 K/uL (0-0.2) RDW Standard Deviation 60.3 fL (36.4-46.3) RDW Coefficient of Variation 24.8 % (11.5-14.5) Immature Granulocyte % (Auto) 0.3 % Immature Granulocyte # (Auto) 0.02 K/uL (0.00-0.02) Nucleated RBC Absolute Count (auto) 0.06 K/uL (0-0) Nucleated Red Blood Cells % 0.9 % Giant Platelets 2+ Hypochromasia PRESENT Anisocytosis PRESENT Microcytosis PRESENT Prothrombin Time 11.4 SECONDS (9.0-12.0) Prothromb Time International Ratio 1.1 (0.9-1.1) Activated Partial Thromboplast Time 29.0 SECONDS (21.0-31.0) Partial Thromboplastin Ratio 1.1 Anion Gap 6.0 mmol/L (3-11) Est Creatinine Clear Calc Drug Dose 98.2 ml/min Estimated GFR () 124.5 Estimated GFR (Non- 107.4 BUN/Creatinine Ratio 8.6 (10-20) Calcium Level 8.3 mg/dl (8.5-10.1) Total Bilirubin 0.7 mg/dl (0.2-1) Aspartate Amino Transf (AST/SGOT) 34 U/L (15-37) Alanine Aminotransferase (ALT/SGPT) 32 U/L (12-78) Alkaline Phosphatase 60 U/L (45-117) Troponin I < 0.015 ng/ml (0-0.045) Pro-B-Type Natriuretic Peptide 997 pg/ml (0-900) Total Protein 7.4 gm/dl (6.4-8.2) Albumin 3.9 gm/dl (3.4-5.0) Globulin 3.5 gm/dl (2.5-4.0) Albumin/Globulin Ratio 1.1 (0.9-2) Magnesium Level 1.8 mg/dl (1.8-2.4) Urine Color YELLOW Urine Appearance CLEAR (CLEAR) Urine pH 5.5 (4.5-7.5) Urine Specific [place] 1.014 (1.000-1.030) Urine Protein NEG (NEG) Urine Glucose (UA) NEG (NEG) Urine Ketones NEG (NEG) Urine Occult Blood NEG (NEG) Urine Nitrite NEG (NEG) Urine Bilirubin NEG (NEG) Urine Urobilinogen NEG (NEG) Urine Leukocyte Esterase NEG (NEG) Test 09/25/17 15:51 Venous Blood pH 7.18 (7.36-7.41) Venous Blood Partial Pressure CO2 70 mmHg (38.0-50.0) Venous Blood Partial Pressure O2 35 mmHg Venous Blood HCO3 26 mmol/L Venous Blood Oxygen Saturation < 60.0 % Venous Blood Base Excess -3.0 mEq/L Ammonia 19.4 umol/L (11-32) Laboratory results per my review. Medications Administered Medications (Trade) Dose Ordered Sig/[place] Route Start Time Stop Time Status Last Admin Dose Admin Sodium Chloride 1,000 ml @ 999 mls/hr Q1H1M STAT IV 09/25/17 13:27 09/25/17 14:27 DC 09/25/17 13:55 999 MLS/HR Ceftriaxone Sodium (Rocephin Inj) 1 gm NOW STAT IV 09/25/17 15:10 09/25/17 15:12 DC 09/25/17 15:56 1 GM Pantoprazole Sodium 80 mg/ Dextrose 120 ml @ 480 mls/hr NOW STAT IV 09/25/17 15:14 09/25/17 15:28 DC 09/25/17 15:14 480 MLS/HR Pantoprazole Sodium 40 mg/ Dextrose 100 ml @ 20 mls/hr Q5H IV 09/25/17 15:30 09/25/17 20:29 09/25/17 16:19 20 MLS/HR Levofloxacin (Levaquin / D5W) 750 mg NOW STAT IV 09/25/17 15:54 09/25/17 15:55 DC 09/25/17 16:21 750 MG ECG Per My Interpretation Indication: weakness Rate (beats per minute): 100 Rhythm: sinus tachycardia Findings: Q waves (Septal), other (Normal [place]) ED Course ED COURSE: Vital signs were reviewed and showed hypertensive The patients medical record was reviewed The above diagnostic studies were performed and reviewed. ED treatments and interventions as stated above. 1322: The patient was evaluated in room B2. A complete history and physical examination was performed. 1327: Ordered Sodium Chloride 1000 mL @ 999 mL/hr IV. 1510: Ordered Rocephin 1 gm IV. 1512: I checked on the patient and performed a rectal exam. The patient's informed me that she drink 6 beers per night. 1514: Ordered Pantoprazole 120 mL @ 480 mL/hr IV. 1515: I discussed the case with Dr. Ragsdale - [facility] Hospitalist. He will evaluate the patient for further treatment. 1554: Ordered Levofloxacin 750 mg IV. []: Upon reevaluation, the patient is [].I discussed my findings with the [ patient] and [] understands and agrees with the treatment plan. Based on the patients age, coexisting illnesses, exam and lab findings the decision to treat as an [inpatient][outpatient] was made. The patient remained stable while under my care. [The patient appeared well at the time of discharge.] [The patient will be evaluated for further management.] Medical Decision Differential Diagnosis includes but is not limited to dehydration, stroke, anemia, hypoglycemia, hyponatremia, hypernatremia, urinary tract infection, pneumonia, bronchitis, sepsis, gastroenteritis, additional abdominal pathology, metabolic abnormalities and infections. Patient is a 57-year-old female who presents the ER short of breath. This is significantly worsened over the past 24-48 hours. Blood work was obtained and she was referred in by PCP. She presents in moderate distress. Pulse ox was 76 % on room air. She is placed on nonrebreather. She was very lethargic. She is a heavy drinker and drinks 6 beers a day. He does have hyponatremia. Uncertain of the true etiology of the anemia however is concern for GI bleed bleed even though rectal was heme-negative. Protonix drip and bolus and Rocephin was given. Ammonia was unremarkable. VBG with a pH of 7.18. CO2 is elevated at 70. On multiple reevaluation patient awakens to voice and follows commands and is oriented appropriately. CT PE was performed and did show pneumonia. She was covered with broad-spectrum antibiotics and admitted. Medication Reconcilliation Current Medication List: was personally reviewed by me Blood Pressure Screening Patient's blood pressure: Elevated blood pressure Consults Time Called: 1515 Consulting Physician: Dr. Jn Dao [facility] Hospitalist Returned Call: 1515 I discussed the case with Dr. Jn Dao [facility] Hospitalist. He will evaluate the patient for further treatment. Impression Primary Impression: Acute respiratory failure with hypoxia Additional Impressions: Hypoxia Pneumonia Hyponatremia Scribe Attestation The scribe's documentation has been prepared under my direction and personally reviewed by me in its entirety. I confirm that the note above accurately reflects all work, treatment, procedures, and medical decision making performed by me. Departure Information Dispostion Being Evaluated By Hospitalist Referrals Cookie Fontenot C.R.N.P. (PCP) Patient Instructions My [facility] Problem Qualifiers Additional Impressions: Pneumonia Pneumonia type: due to unspecified organism Laterality: unspecified laterality Lung location: unspecified part of lung Qualified Codes: J18.9 - Pneumonia, unspecified organism
[2017-09-25] MEDS ORDERED: proair INH (17:36)
[2017-09-25 18:04] VITALS: BP 161/91; TEMP 37.3; O2SAT 97
[2017-09-25] MEDS ORDERED: METHYLPREDNISOLONE IV 40 MG in SYRINGE 0 ML IV ONE (18:06)
[2017-09-25] MEDS ORDERED: NSS + 20MEQ KCL 1000ML 1,000 ML IV SCH (18:15)
[2017-09-25 20:02] VITALS: BP 161/91; TEMP 37.3; O2SAT 97; Ht 157.5 cm; Wt 50.3 kg
[2017-09-25 20:37] LABS: CALCIUM 7.2 mg/dl (8.5-10.1); CREATININE 0.4 mg/dl (0.60-1.20); POTASSIUM 4.2 mmol/L (3.5-5.1)
[2017-09-25] MEDS ORDERED: ENOXAPARIN 40 MG/0.4 ML SYR SC SCH (21:00)
[2017-09-25] MEDS: ACETAMINOPHEN 325 MG TAB PO PRN (22:35)
[2017-09-25 23:08] VITALS: BP 136/83; PULSE 96; TEMP 37.2; O2SAT 95
[2017-09-26] VITALS (20 sets, daily range): BP systolic 89–113; BP diastolic 52–78; PULSE 64–101; TEMP 36.5–37.7; O2SAT 88–100
[2017-09-26] MEDS ORDERED: ALBUT/IPRATROP 3MG/0.5MG NEB 3 ML VIAL INH STA (00:13)
[2017-09-26 00:35] LABS: CALCIUM 7.4 mg/dl (8.5-10.1); CREATININE 0.42 mg/dl (0.60-1.20); POTASSIUM 4.4 mmol/L (3.5-5.1)
[2017-09-26 06:01] LABS: HEMATOCRIT 29.4 % (37-47); HEMOGLOBIN 7.4 g/dL (12.0-16.0); MEAN CORPUSCULAR HEMOGLOBIN 17.4 pg (25-34); MEAN CORPUSCULAR HGB CONC 25.2 g/dl (32-36); NUCLEATED RED BLOOD CELL ABS 0.11 K/uL (0-0); PLATELET COUNT 212 K/uL (130-400); RED CELL DISTRIBUTION WIDTH CV 23.9 % (11.5-14.5); RED CELL DISTRIBUTION WIDTH SD 59.6 fL (36.4-46.3); WHITE BLOOD COUNT 4.81 K/uL (4.8-10.8)
[2017-09-26 06:29] LABS: CALCIUM 7.5 mg/dl (8.5-10.1); CREATININE 0.43 mg/dl (0.60-1.20)
[2017-09-26] MEDS: ALBUT/IPRATROP 3MG/0.5MG NEB 3 ML VIAL INH SCH ×4 (07:52→18:46)
[2017-09-26] MEDS: LISINOPRIL 10 MG TAB PO SCH (08:32)
[2017-09-26] MEDS: CEFTRIAXONE SOD INJ 1 GM in DEXTROSE 5% ADD-VANTAGE 50ML 50 ML IV SCH (08:32)
[2017-09-26] MEDS: AZITHROMYCIN 250 MG TAB PO SCH (08:32)
[2017-09-26] MEDS ORDERED: METHYLPREDNISOLONE IV 40 MG in SYRINGE 0 ML IV SCH (09:00)
[2017-09-26] MEDS: NICOTINE 21 MG/24 HR TDSY TD SCH (09:18)
[2017-09-26] MEDS ORDERED: ONDANSETRON INJ 2 MG/ML 2 ML VIAL IV PRN (10:15)
[2017-09-26] MEDS ORDERED: IRON SUCROSE INJ 300 MG in SODIUM CHLORIDE 0.9% 250ML 250 ML IV SCH (10:15)
--- NOTE | 2017-09-26 10:27 | Family Medicine Progress Note ---
Progress Note Date of Service Sep 26, 2017. Subjective Pt evaluation today including: conversation w/ patient, physical exam, chart review, lab review, review of studies, review of inpatient medication list Voiding: no voiding problems Does not feel much improvement since admission. No shortness of breath at rest, mainly fatigue and short of breath with movement therefore hasn't noticed much of a change with duoneb treatment. Dry cough for the past week. No fever or chills. Spent an hour discussing her condition and need for continued hospital admission. She was under the impression she was to come to the ER for blood transfusions and then leave like her last ER visit in June. All Other Systems: Reviewed and Negative Medications Current Inpatient Medications Medications (Trade) Dose Ordered Sig/Hernando Route Start Time Stop Time Status Last Admin Dose Admin Ioversol (Optiray 320) 100 ml UD PRN IV 09/25/17 15:30 09/29/17 15:29 Potassium Chloride/Sodium Chloride 1,000 ml @ 125 mls/hr Q8H IV 09/25/17 18:15 10/25/17 18:14 Future Hold 09/25/17 18:40 125 MLS/HR Azithromycin (Zithromax Tab) 500 mg QAM PO 09/26/17 09:00 10/03/17 08:59 09/26/17 08:32 500 MG Ceftriaxone Sodium 1 gm/ Dextrose 50 ml @ 100 mls/hr Q24H IV 09/26/17 10:00 10/03/17 09:59 09/26/17 08:32 100 MLS/HR Albuterol Sulfate (Ventolin 0.083% 2.5MG/3ML Neb) 2.5 mg Q4H PRN INH 09/25/17 16:15 10/25/17 16:14 Methylprednisolone Sodium Succinate 40 mg/Syringe 0.64 ml @ 1.5 mls/min DAILY IV 09/26/17 09:00 10/26/17 08:59 09/26/17 08:32 1.5 MLS/MIN Acetaminophen (Tylenol Tab) 650 mg Q4H PRN PO 09/25/17 22:30 10/25/17 22:29 09/25/17 22:35 650 MG Lisinopril (Zestril Tab) 30 mg DAILY PO 09/26/17 09:00 5/13/18 08:59 09/26/17 08:32 30 MG Albuterol/ Ipratropium (Duoneb) 3 ml QIDR INH 09/26/17 08:00 10/26/17 07:59 09/26/17 07:52 3 ML Nicotine (Nicoderm Cq 21MG Patch) 1 patch QAM TD 09/26/17 09:00 10/26/17 08:59 09/26/17 09:18 1 PATCH Miscellaneous (Remove Nicoderm Patch) 1 ea HS N/A 09/26/17 21:00 10/26/17 20:59 Iron Sucrose 300 mg/Sodium Chloride 265 ml @ 176.667 mls/hr TODAY@1015 IV 09/26/17 10:15 09/26/17 11:44 09/26/17 10:03 176.667 MLS/HR Objective Vital Signs Date Time Temp Pulse Resp B/P (MAP) Pulse Ox O2 Delivery O2 Flow Rate FiO2 09/26/17 08:09 36.5 87 18 95/61 (72) 93 BiPAP 2.0 09/26/17 08:00 BiPAP 2.0 09/26/17 07:53 85 14 92 Nasal Cannula 2.0 09/26/17 04:47 36.6 64 17 111/57 (75) 93 Room Air 09/26/17 04:00 BiPAP 2.0 09/26/17 00:34 88 14 98 Nasal Cannula 4.0 09/26/17 00:00 Nasal Cannula 2.0 09/25/17 23:08 37.2 96 18 136/83 (100) 95 Room Air 4.0 09/25/17 20:02 37.3 22 161/91 97 Nasal Cannula 4.0 09/25/17 18:04 37.3 22 161/91 (114) 97 Nasal Cannula 4.0 09/25/17 17:31 91 18 136/86 99 09/25/17 17:20 95 Nasal Cannula 4.0 09/25/17 16:24 89 09/25/17 16:00 95 22 145/89 100 Oxymask 6.0 09/25/17 14:31 97 16 166/101 100 Oxymask 6.0 09/25/17 13:56 100 33 161/99 98 Oxymask 6.0 09/25/17 13:33 94 09/25/17 13:23 99 Oxymask 5.0 09/25/17 13:18 Nasal Cannula 2.0 09/25/17 13:15 37.6 96 16 129/80 76 Room Air Physical Exam General Appearance: + thin, + pertinent finding (appears very anxious) Eyes: normal inspection (pupils equal) Neck: no adenopathy, trachea midline Respiratory/Chest: no respiratory distress, no accessory muscle use, + wheezing (expiratory wheeze throughout front and back of chest, no crackles/rhonchi, reduced air entry bilaterally) Cardiovascular: regular rate, rhythm, no edema, no murmur Abdomen: normal bowel sounds, non tender, soft Extremities: no pedal edema, no calf tenderness, normal capillary refill 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 (no facial droop), no motor/ sensory deficits, alert, oriented x 3 Skin: normal color (no clear pallor), no rash Laboratory Results 09/26/17 05:18 09/26/17 05:18 Test 09/25/17 13:35 09/25/17 13:40 09/25/17 13:55 09/25/17 14:15 Immature Granulocyte % (Auto) 0.3 % White Blood Count 6.59 K/uL (4.8-10.8) Red Blood Count 4.66 M/uL (4.2-5.4) Hemoglobin 8.4 g/dL (12.0-16.0) Hematocrit 31.4 % (37-47) Mean Corpuscular Volume 67.4 fL (80-100) Mean Corpuscular Hemoglobin 18.0 pg (25-34) Mean Corpuscular Hemoglobin Concent 26.8 g/dl (32-36) Platelet Count 198 K/uL (130-400) Neutrophils (%) (Auto) 73.8 % Lymphocytes (%) (Auto) 12.0 % Monocytes (%) (Auto) 11.4 % Eosinophils (%) (Auto) 0.2 % Basophils (%) (Auto) 2.3 % Neutrophils # (Auto) 4.87 K/uL (1.4-6.5) Lymphocytes # (Auto) 0.79 K/uL (1.2-3.4) Monocytes # (Auto) 0.75 K/uL (0.11-0.59) Eosinophils # (Auto) 0.01 K/uL (0-0.5) Basophils # (Auto) 0.15 K/uL (0-0.2) Immature Granulocyte # (Auto) 0.02 K/uL (0.00-0.02) Giant Platelets 2+ Hypochromasia PRESENT Anisocytosis PRESENT Microcytosis PRESENT Prothrombin Time 11.4 SECONDS (9.0-12.0) Prothromb Time International Ratio 1.1 (0.9-1.1) Activated Partial Thromboplast Time 29.0 SECONDS (21.0-31.0) Partial Thromboplastin Ratio 1.1 Total Bilirubin 0.7 mg/dl (0.2-1) Aspartate Amino Transf (AST/SGOT) 34 U/L (15-37) Alanine Aminotransferase (ALT/SGPT) 32 U/L (12-78) Alkaline Phosphatase 60 U/L (45-117) Troponin I < 0.015 ng/ml (0-0.045) Pro-B-Type Natriuretic Peptide 997 pg/ml (0-900) Total Protein 7.4 gm/dl (6.4-8.2) Albumin 3.9 gm/dl (3.4-5.0) Globulin 3.5 gm/dl (2.5-4.0) Albumin/Globulin Ratio 1.1 (0.9-2) Magnesium Level 1.8 mg/dl (1.8-2.4) Urine Color YELLOW Urine Appearance CLEAR (CLEAR) Urine pH 5.5 (4.5-7.5) Urine Specific [place] 1.014 (1.000-1.030) Urine Protein NEG (NEG) Urine Glucose (UA) NEG (NEG) Urine Ketones NEG (NEG) Urine Occult Blood NEG (NEG) Urine Nitrite NEG (NEG) Urine Bilirubin NEG (NEG) Urine Urobilinogen NEG (NEG) Urine Leukocyte Esterase NEG (NEG) Test 09/25/17 15:51 09/26/17 00:22 09/26/17 00:30 09/26/17 05:18 Venous Blood pH 7.18 (7.36-7.41) Venous Blood Partial Pressure CO2 70 mmHg (38.0-50.0) Venous Blood Partial Pressure O2 35 mmHg Venous Blood HCO3 26 mmol/L Venous Blood Oxygen Saturation < 60.0 % Venous Blood Base Excess -3.0 mEq/L Ammonia 19.4 umol/L (11-32) Arterial Blood pH 7.23 (7.35-7.45) Arterial Blood Partial Pressure CO2 69 mmHg (35-46) Arterial Blood Partial Pressure O2 90 mm/Hg (80-95) Arterial Blood HCO3 28 mmol/L (19-24) Arterial Blood Oxygen Saturation 92.5 % (90-95) Arterial Blood Base Excess 0.4 mEq/L (-9-1.8) Arterial Blood Gas Delivery 4 L Rhett Test POS (POS) Ethyl Alcohol mg/dL < 3.0 mg/dl (0-3) Red Blood Count 4.26 M/uL (4.2-5.4) Mean Corpuscular Volume 69.0 fL (80-100) Mean Corpuscular Hemoglobin 17.4 pg (25-34) Mean Corpuscular Hemoglobin Concent 25.2 g/dl (32-36) RDW Standard Deviation 59.6 fL (36.4-46.3) RDW Coefficient of Variation 23.9 % (11.5-14.5) Nucleated RBC Absolute Count (auto) 0.11 K/uL (0-0) Nucleated Red Blood Cells % 2.3 % Anion Gap 2.0 mmol/L (3-11) Est Creatinine Clear Calc Drug Dose 114.2 ml/min Estimated GFR () 130.9 Estimated GFR (Non- 112.9 BUN/Creatinine Ratio 8.2 (10-20) Calcium Level 7.5 mg/dl (8.5-10.1) Thyroid Stimulating Hormone (TSH) 1.060 uIu/ml (0.300-4.500) Test 09/26/17 08:25 Iron Level 11 mcg/dl (35-150) Total Iron Binding Capacity 474 mcg/dl (250-450) Ferritin 8.3 ng/ml (8.0-388.0) Vitamin B12 Level 332 pg/mL (211-911) Folate 19.95 ng/mL (>5.38) Assessment and Plan 57 year old female admission for shortness of breath admitted with pneumonia, COPD exacerbation and anemia (although appears chronic). Hypotension/Vasovagal syncope - Code purple called. BP dropped to systolic of 50 while getting venofer. - Given IV fluids and one unit of blood - Labs ordered. - Stat Echo ordered. - BP stable since then. Acute hypoxic hypercapnic respiratory failure - suspect hypercapnia to some extent chronic given elevated Bicarb on ABG - improvement in respiratory acidosis this morning, some reluctance to use BiPAP last night - recommend aiming O2 sats around 90% to avoid hypercapnia - agitation likely secondary to underlying anxiety and hospital admission rather than hypercapnia but need for close monitor if she becomes confused will need to repeat ABG and place back on BiPAP. COPD exacerbation - methylprednisone 40mg IV (switch from daily to BID) if leaves will need to switch to prednisone - Continue duonebs - Start Symbicort 2 puffs BID, consider Spiriva on d/c Community acquired pneumonia - Continue ceftriaxone and azithromycin - Follow up CT chest with IV contrast in 3-6 months Microcytic anemia - Iron deficient (ferritin 8.7), Fe/TIBC - 2.3% - appears to be chronic with admission in June with Hgb 6.4 (had two units of blood at that time), Hgb 8.4 on admission, 7.4 this morning - given one dose of venofer 300mgs. had syncopal event and received one unit of blood then. Incidental thyroid nodule - 1.4 cm low-attenuation nodule identified in the left lobe of the thyroid gland - TSH normal - o/p follow up with [place] Alcohol use disorder - negative alcohol level on admission - AWSS score, lorazepam mg PO for score > 5 Tobacco use disorder 1.5 ppd - nicotine patch 21 mcg - nicotine gum HTN - cont lisinopril VTE prophylaxis - refused last night, will defer chemical prophylaxis Code Full Disposition continue on telemetry Resident Tracking Resident Involvement: Resident Care Provided Care Provided: Adult Hospital Medicine Reviewed: Pt Seen/Exam by Me History breathing somewhat improved but still with a lot of shortness of breath. passed out with hypotension BP of 50 systolic. code purple called. received one unit of blood Constitutional: denies: fever Cardiovascular: denies chest pain Gastrointestinal/Abdominal: negative: abdominal pain General Appearance: mild distress Ears, Nose, Throat: hearing grossly normal Neck: supple Respiratory: respiratory distress, decreased breath sounds Cardiovascular: regular rate, rhythm Gastrointestinal: soft Neurologic/Psychiatric: alert, oriented x 3, other (anxious) Skin Characteristics: warm/dry Assessment/Plan Resident Physician Supervision Note: I independently interviewed and examined the patient and verified the drummond history and physical, reviewed labs and image studies, discussed the case with the resident Dr. Franklin and agree with the findings and care plan. Spent 40 min of critical care time caring due to patient becoming hypotensive. Received IV fluids, one unit of blood, labs drawn, Echo ordered. Respiratory status stayed stable.
[2017-09-26 13:35] LABS: INR 1.3 (0.9-1.1)
[2017-09-26 13:56] LABS: ALBUMIN 2.5 gm/dl (3.4-5.0); CALCIUM 7.3 mg/dl (8.5-10.1); CREATININE 0.51 mg/dl (0.60-1.20); POTASSIUM 4.1 mmol/L (3.5-5.1)
[2017-09-26 13:59] LABS: TOTAL PROTEIN 5.4 gm/dl (6.4-8.2)
[2017-09-26 14:21] LABS: HEMATOCRIT 32.5 % (37-47); HEMOGLOBIN 8.3 g/dL (12.0-16.0); MEAN CELL VOLUME 68.6 fL (80-100); MEAN CORPUSCULAR HEMOGLOBIN 17.5 pg (25-34); MEAN CORPUSCULAR HGB CONC 25.5 g/dl (32-36); NUCLEATED RED BLOOD CELL ABS 0.23 K/uL (0-0); PLATELET COUNT 248 K/uL (130-400); RED CELL DISTRIBUTION WIDTH SD 59.8 fL (36.4-46.3); WHITE BLOOD COUNT 6.31 K/uL (4.8-10.8)
[2017-09-26 14:24] LABS: BASO % 0.6 %; BASO ABS # 0.04 K/uL (0-0.2); IG# 0.04 K/uL (0.00-0.02); LYMPH ABS # 0.38 K/uL (1.2-3.4); MONO % 7.4 %; MONO ABS # 0.47 K/uL (0.11-0.59); NEUT % 85.4 %; NEUT ABS # 5.38 K/uL (1.4-6.5)
--- NOTE | 2017-09-26 15:01 | ECHOCARDIOGRAM REPORT ---
*NOTICE TO RECEIVING REPUBLICAN AGENCY This information is strictly Confidential and protected under [place] law. [place] law prohibits you from making any further disclosure of this information unless further disclosure is expressly permitted by the written consent of the person to whom it pertains or is authorized by law. A general authorization for the release of medical or other information is not sufficient for this purpose. Hospital accepts no responsibility if the information is made available to any other person, INCLUDING THE PATIENT. Interpretation Summary * Name: LEILANI LUCIANO Study Date: 09/26/2017 01:50 PM BP: 105/73 mmHg * Patient Location: [facility]\S\[id number]\S\[id number] HR: 89 * : 1960 (M/d/yyyy) Gender: Female Height: 62 in * Age: 57 yrs Ethnicity: CA Weight: 113 lb * Ordering Physician: Ayse Mead * Referring Physician: Cookie Fontenot * Performed By: Siri Baker RDCS * * Reason For Study: Hypotension * BSA: 1.5 m2 * -- Conclusions -- * 1. Normal LV size. Mild concentric LVH. * 2. Hyperdynamic LV. LVEF >70 %. No regional wall motion abnormalities. * 3. Borderline RV size, normal function. * 4. No significant valvular pathology. * 5. Normal estimated PA and RA pressures. Procedure Details * A complete two-dimensional transthoracic echocardiogram was performed (2D, M-mode, Doppler and color flow Doppler). Left Ventricle * The left ventricle is grossly normal size. * There is mild concentric left ventricular hypertrophy. * Ejection Fraction = >70 %. Right Ventricle * The right ventricle is borderline dilated. * The right ventricular systolic function is normal as assessed by tricuspid annular plane systolic excursion (TAPSE) (normal >1.5 cm). Atria * The left atrial size is normal. * Right atrial size is normal. * No ASD detected; PFO is not assessed. Mitral Valve * The mitral valve is grossly normal. * There is no mitral valve stenosis. * Significant mitral regurgitation is absent. Tricuspid Valve * There is trace tricuspid regurgitation. Aortic Valve * The aortic valve opens well. * The aortic valve is trileaflet. * No hemodynamically significant valvular aortic stenosis. * There is no significant aortic regurgitation. Pulmonic Valve * The pulmonary valve is inadequately visualized, but the Doppler data is adequate for interpretation. * There is no pulmonic valvular stenosis. * There is no significant pulmonary regurgitation. Great Vessels * The aortic root and proximal ascending aorta are normal sized. Pericardium/Pleural * There is no pericardial effusion. Great Vessels * Normal inferior vena cava size and collapsability with sniff indicates a normal right atrial pressure of 3 mmHg * There is no evidence of pulmonary hypertension. The PA systolic pressure is less than 36 mmHg. MMode 2D Measurements and Calculations IVSd 0.82 cm LVIDd 3.6 cm LVIDs 1.9 cm LVPWd 1.4 cm IVS/LVPW 0.57 FS 45.7 % EDV(Teich) 52.8 ml ESV(Teich) 11.6 ml EF(Teich) 78.0 % EDV(cubed) 45.0 ml ESV(cubed) 7.2 ml EF(cubed) 84.0 % LV mass(C)d 127.1 grams LV mass(C)dI 84.8 grams/m\S\2 SV(Teich) 41.2 ml SI(Teich) 27.5 ml/m\S\2 SV(cubed) 37.8 ml SI(cubed) 25.2 ml/m\S\2 Ao root diam 2.9 cm Ao root area 6.7 cm\S\2 ACS 1.8 cm LA dimension 2.4 cm asc Aorta Diam 2.2 cm LA/Ao 0.83 LVOT diam 2.0 cm LVOT area 3.1 cm\S\2 LVAd ap4 15.7 cm\S\2 LVLd ap4 6.4 cm EDV(MOD-sp4) 33.5 ml EDV(sp4-el) 32.5 ml LVAs ap4 6.7 cm\S\2 LVLs ap4 5.3 cm ESV(MOD-sp4) 7.2 ml ESV(sp4-el) 7.1 ml EF(MOD-sp4) 78.6 % EF(sp4-el) 78.0 % LVAd ap2 18.0 cm\S\2 LVLd ap2 6.6 cm EDV(MOD-sp2) 39.1 ml EDV(sp2-el) 41.3 ml LVAs ap2 7.8 cm\S\2 LVLs ap2 5.9 cm ESV(MOD-sp2) 9.4 ml ESV(sp2-el) 8.7 ml EF(MOD-sp2) 76.1 % EF(sp2-el) 78.9 % LVLd %diff 3.2 % EDV(MOD-bp) 37.0 ml LVLs %diff 10.6 % ESV(MOD-bp) 8.4 ml EF(MOD-bp) 77.2 % SV(MOD-sp4) 26.4 ml SI(MOD-sp4) 17.6 ml/m\S\2 SV(MOD-sp2) 29.8 ml SI(MOD-sp2) 19.8 ml/m\S\2 SV(MOD-bp) 28.5 ml SI(MOD-bp) 19.0 ml/m\S\2 SV(sp4-el) 25.3 ml SI(sp4-el) 16.9 ml/m\S\2 SV(sp2-el) 32.6 ml SI(sp2-el) 21.7 ml/m\S\2 Doppler Measurements and Calculations MV E max ramya 72.3 cm/sec MV A max ramya 62.0 cm/sec MV E/A 1.2 MV dec time 0.22 sec Ao V2 max 144.8 cm/sec Ao max PG 8.4 mmHg Ao max PG (full) 4.6 mmHg CHRISTINE(V,A) 2.1 cm\S\2 CHRISTINE(V,D) 2.1 cm\S\2 LV V1 max PG 3.8 mmHg LV V1 max 96.9 cm/sec PA V2 max 98.4 cm/sec PA max PG 3.9 mmHg PA acc slope 469.1 cm/sec\S\2 PA acc time 0.17 sec TR max ramya 257.1 cm/sec PA pr(Accel) 4.0 mmHg
--- NOTE | 2017-09-26 15:23 | DIAGNOSTIC IMAGING REPORT ---
CHEST ONE VIEW PORTABLE HISTORY: hypotension COMPARISON: Chest CT 09/25/2017. FINDINGS: Stable small patchy airspace opacity within the left upper lobe. The heart is normal in size. Trace bilateral pleural effusions. No evidence for pulmonary edema. No pneumothorax. IMPRESSION: 1. Stable small patchy airspace opacity within the left upper lobe. This favors a pneumonia. 2. Trace bilateral pleural effusions. Electronically signed by: Mateo Alvarado M.D. 09/26/2017 3:22 PM Dictated Date/Time: 09/26/2017 3:21 PM
[2017-09-26] MEDS: METHYLPREDNISOLONE IV 40 MG in SYRINGE 0 ML IV SCH (20:16)
[2017-09-26] MEDS: ACETAMINOPHEN 325 MG TAB PO PRN (20:16)
[2017-09-26] MEDS ORDERED: LORAZEPAM 1 MG TAB PO PRN (20:45)
[2017-09-26] MEDS ORDERED: NICOTINE POLACRILEX 2 MG GUM MT PRN (20:45)
--- NOTE | 2017-09-26 20:53 | Progress Note ---
Progress Note Date of Service Sep 26, 2017. Progress Note Update to events during the day. Around 1:05pm code lucy called due to patient hypotensive with sBP approximately 60 and tachycardic approximately 100. Patient was alert and responsive when seen. Feeling dizzy. Denies chest pain, shortness of breath, abdominal pain or bowel movements. She had the venofer 30 minutes before this episode. A: patent B: no wheezing noted, good air entry bilaterally, no accessory muscle use, sats 98% on 8L oxymask, RR 18 C: good radial pulses b/l, HS 1+2+no murmurs, BP approximately 60/40, HR 90-100 , cap refil 3-4 seconds D: Alert BSG 154 E: Abdo SNT Plan: Initial bolus NSS approximately 250 MLS given before packed RBC then stopped 1 unit packed RBC given before labs came back - consent signed CBC, CMP, troponin, EKG, CXR Discussed with Dr Mead and recommended echo She rapidly recovered her BP and Hgb 8.3 therefore suspect this was a vagal event related to the Venofer medication. Will keep the patient on telemetry. Resident Tracking Resident Involvement: Resident Care Provided Care Provided: Adult Hospital Medicine
[2017-09-26] MEDS: BUDESONIDE/FORMOTEROL FUMARATE 160/4.5 60 PUFFS/INHALER INH SCH (21:42)
[2017-09-27] VITALS (12 sets, daily range): BP systolic 97–120; BP diastolic 62–78; PULSE 87–107; TEMP 37.1–37.4; O2SAT 86–97
[2017-09-27] MEDS: ALBUT/IPRATROP 3MG/0.5MG NEB 3 ML VIAL INH SCH ×4 (06:49→19:17)
[2017-09-27 07:04] LABS: HEMATOCRIT 32.9 % (37-47); HEMOGLOBIN 8.9 g/dL (12.0-16.0); MEAN CELL VOLUME 69.4 fL (80-100); MEAN CORPUSCULAR HEMOGLOBIN 18.8 pg (25-34); MEAN CORPUSCULAR HGB CONC 27.1 g/dl (32-36); NUCLEATED RED BLOOD CELL ABS 0.22 K/uL (0-0); PLATELET COUNT 285 K/uL (130-400); RED CELL DISTRIBUTION WIDTH CV 24.3 % (11.5-14.5); RED CELL DISTRIBUTION WIDTH SD 61.8 fL (36.4-46.3); WHITE BLOOD COUNT 6.11 K/uL (4.8-10.8)
[2017-09-27 07:08] LABS: ALBUMIN 2.9 gm/dl (3.4-5.0); ALT/SGPT 37 U/L (12-78); BLOOD UREA NITROGEN 4 mg/dl (7-18); CALCIUM 8.1 mg/dl (8.5-10.1); CARBON DIOXIDE 31 mmol/L (21-32); GLUCOSE 107 mg/dl (70-99); POTASSIUM 4.1 mmol/L (3.5-5.1); SODIUM 129 mmol/L (136-145)
[2017-09-27 07:14] LABS: ALKALINE PHOSPHATASE 45 U/L (45-117); AST/SGOT 33 U/L (15-37); BASO % 0.3 %; BASO ABS # 0.02 K/uL (0-0.2); IG# 0.04 K/uL (0.00-0.02); LYMPH % 14.2 %; LYMPH ABS # 0.87 K/uL (1.2-3.4); MONO % 13.6 %; MONO ABS # 0.83 K/uL (0.11-0.59); NEUT % 71.2 %; NEUT ABS # 4.35 K/uL (1.4-6.5); TOTAL PROTEIN 5.6 gm/dl (6.4-8.2)
[2017-09-27] MEDS: AZITHROMYCIN 250 MG TAB PO SCH (07:35)
[2017-09-27] MEDS: BUDESONIDE/FORMOTEROL FUMARATE 160/4.5 60 PUFFS/INHALER INH SCH ×2 (07:35→20:15)
[2017-09-27] MEDS: CEFTRIAXONE SOD INJ 1 GM in DEXTROSE 5% ADD-VANTAGE 50ML 50 ML IV SCH (07:35)
[2017-09-27] MEDS: METHYLPREDNISOLONE IV 40 MG in SYRINGE 0 ML IV SCH ×2 (07:35→20:30)
[2017-09-27] MEDS: NICOTINE 21 MG/24 HR TDSY TD SCH (07:36)
[2017-09-27] MEDS: LISINOPRIL 10 MG TAB PO SCH (07:36)
[2017-09-27] MEDS: ACETAMINOPHEN 325 MG TAB PO PRN ×2 (07:48→20:14)
[2017-09-27] MEDS ORDERED: TIOT1SPR INH (11:22)
[2017-09-27] MEDS ORDERED: SYMIN INH (11:22)
[2017-09-27] MEDS ORDERED: AZIT-57 PO (11:22)
[2017-09-27] MEDS ORDERED: PRED10TA PO (11:22)
[2017-09-27] MEDS ORDERED: CEFD1CAP14 PO (11:26)
[2017-09-27] MEDS ORDERED: FERR1TAB13 PO (11:27)
--- NOTE | 2017-09-27 11:36 | Discharge Instructions ---
Discharge Instructions Date of Service Sep 27, 2017. Admission Reason for Admission: Acute Respiratory Failure With Hypoxia Discharge Discharge Diagnosis / Problem: COPD exacerbation, anemia Discharge Goals Goal(s): Diagnostic testing, Therapeutic intervention Activity Recommendations Activity Limitations: resume your previous activity . Instructions / Follow-Up Instructions / Follow-Up You were admitted to the hospital for the treatment of you pneumonia and COPD exacerbation. You were also evaluated for your anemia. Your pneumonia was treated with antibiotics that were IV and called Azithromycin and Rocephin. You were transitioned to Omnicef and Azithromycin. Please take Azithromycin daily for three more days. Take the full course of Omnicef. You will be receiving steroids to help control the symptoms of your COPD exacerbation as well as two new inhalers. These are MAINTENANCE inhalers. They are NOT rescue inhalers. You are to take them on a daily basis as prescribed. Finally, with regards to your anemia. You received a dose of Iron IV in the hospital however you will need to take iron regularly. You will take one pill every other day. You will need an outpatient work up for this anemia and can be discussed further with your PCP. Further testing will most likely include colonoscopy. Current Hospital Diet Patient's current hospital diet: Regular Diet Pending Studies Studies pending at discharge: no Medical Emergencies . Who to Call and When: Medical Emergencies: If at any time you feel your situation is an emergency, please call 911 immediately. . Non-Emergent Contact . . "Provider Documentation" section prepared by Chaya Younger. .
--- NOTE | 2017-09-27 11:59 | Family Medicine Progress Note ---
Progress Note Date of Service Sep 27, 2017. Subjective Pt evaluation today including: conversation w/ patient, physical exam, chart review, lab review, review of studies Pain: 0/10 PO Intake: WNL Voiding: no voiding problems Poor sleep overnight because of her roommate, continues to requiring 4L of oxymask secondary to hypoxia to 70s at rest Constitutional: No fever Eyes: No worsening of vision ENT: No hearing loss Respiratory: + cough (non productive), + wheezing, + shortness of breath, + dyspnea on exertion, + dyspnea at rest, No sputum, No hemoptysis Cardiovascular: No chest pain Abdomen: No pain, No nausea, No vomiting, No diarrhea, No constipation Musculoskeletal: No joint pain, No muscle pain Female : No dysuria, No hematuria Neurologic: No weakness, No balance problems Psychiatric: No depression symptoms, No anxiety Heme: No abnormal bleeding/bruising Endo: + fatigue Skin: No rash Medications Medications Administered Medications (Trade) Dose Ordered Sig/Hernando Route Start Time Stop Time Status Last Admin Dose Admin Sodium Chloride 1,000 ml @ 999 mls/hr Q1H1M STAT IV 09/25/17 13:27 09/25/17 14:27 DC 09/25/17 13:55 999 MLS/HR Ceftriaxone Sodium (Rocephin Inj) 1 gm NOW STAT IV 09/25/17 15:10 09/25/17 15:12 DC 09/25/17 15:56 1 GM Pantoprazole Sodium 80 mg/ Dextrose 120 ml @ 480 mls/hr NOW STAT IV 09/25/17 15:14 09/25/17 15:28 DC 09/25/17 15:14 480 MLS/HR Pantoprazole Sodium 40 mg/ Dextrose 100 ml @ 20 mls/hr Q5H IV 09/25/17 15:30 09/25/17 20:29 DC 09/25/17 16:19 20 MLS/HR Levofloxacin (Levaquin / D5W) 750 mg NOW STAT IV 09/25/17 15:54 09/25/17 15:55 DC 09/25/17 16:21 750 MG Potassium Chloride/Sodium Chloride 1,000 ml @ 125 mls/hr Q8H IV 09/25/17 18:15 10/25/17 18:14 Future Hold 09/25/17 18:40 125 MLS/HR Azithromycin (Zithromax Tab) 500 mg QAM PO 09/26/17 09:00 10/03/17 08:59 09/27/17 07:35 500 MG Ceftriaxone Sodium 1 gm/ Dextrose 50 ml @ 100 mls/hr Q24H IV 09/26/17 10:00 10/03/17 09:59 09/27/17 07:35 100 MLS/HR Methylprednisolone Sodium Succinate 40 mg/Syringe 0.64 ml @ 1.5 mls/min DAILY IV 09/26/17 09:00 09/26/17 14:52 DC 09/26/17 08:32 1.5 MLS/MIN Methylprednisolone Sodium Succinate 40 mg/Syringe 0.64 ml @ 1.5 mls/min NOW ONCE IV 09/25/17 18:06 09/25/17 18:07 DC 09/25/17 18:40 1.5 MLS/MIN Acetaminophen (Tylenol Tab) 650 mg Q4H PRN PO 09/25/17 22:30 10/25/17 22:29 09/27/17 07:48 650 MG Lisinopril (Zestril Tab) 30 mg DAILY PO 09/26/17 09:00 10/26/17 08:59 09/27/17 07:36 30 MG Albuterol/ Ipratropium (Duoneb) 3 ml QIDR INH 09/26/17 08:00 10/26/17 07:59 09/27/17 11:24 3 ML Albuterol/ Ipratropium (Duoneb) 3 ml NOW STAT INH 09/26/17 00:13 09/26/17 00:20 DC 09/26/17 00:34 3 ML Nicotine (Nicoderm Cq 21MG Patch) 1 patch QAM TD 09/26/17 09:00 10/26/17 08:59 09/27/17 07:36 1 PATCH Iron Sucrose 300 mg/Sodium Chloride 265 ml @ 176.667 mls/hr TODAY@1015 IV 09/26/17 10:15 09/26/17 11:44 DC 09/26/17 10:03 176.667 MLS/HR Methylprednisolone Sodium Succinate 40 mg/Syringe 0.64 ml @ 1.5 mls/min BID IV 09/26/17 21:00 10/26/17 08:59 09/27/17 07:35 1.5 MLS/MIN Budesonide/ Formoterol Fumarate (Symbicort 160/ 4.5 Inh) 2 puffs BID INH 09/26/17 21:00 10/26/17 20:59 09/27/17 07:35 2 PUFFS Objective Vital Signs Date Time Temp Pulse Resp B/P (MAP) Pulse Ox O2 Delivery O2 Flow Rate FiO2 09/27/17 12:00 Oxymask 4.0 09/27/17 11:24 94 18 90 Mask 4.0 09/27/17 08:00 Oxymask 4.0 09/27/17 07:43 37.1 87 18 111/70 (84) 91 Room Air 09/27/17 07:38 92 109/70 (83) 09/27/17 06:49 93 18 90 Mask 4.0 09/27/17 04:59 37.2 89 18 101/67 (78) 93 4.0 09/27/17 04:00 Oxymask 4.0 09/27/17 00:00 Oxymask 4.0 09/26/17 23:00 36.8 94 18 89/52 (64) 92 Nasal Cannula 4.0 09/26/17 22:33 101 93 2.0 09/26/17 22:00 36.8 96 16 91 Oxymask 4.0 09/26/17 20:10 37.7 95 95 Oxymask 2.0 09/26/17 20:00 91 Oxymask 4.0 09/26/17 19:37 37.5 91 20 113/76 (88) 97 Room Air 09/26/17 18:48 91 16 91 Mask 6.0 09/26/17 16:00 91 Oxymask 6.0 09/26/17 15:53 37.2 91 20 102/70 (81) 93 Oxymask 5.0 09/26/17 15:19 91 16 88 Mask 4.0 09/26/17 15:05 37.0 89 18 107/78 98 6.0 09/26/17 14:00 37.3 90 18 107/72 99 8.0 09/26/17 13:45 37.3 88 18 103/69 100 8.0 09/26/17 13:30 36.6 89 18 105/73 98 8.0 09/26/17 13:15 36.7 89 18 91/63 98 8.0 Physical Exam General Appearance: no apparent distress, + thin Eyes: normal inspection ENT: normal ENT inspection Neck: supple Respiratory/Chest: no respiratory distress, no accessory muscle use, + decreased breath sounds (throughout with diminished throughout ) Cardiovascular: regular rate, rhythm, no murmur Abdomen: normal bowel sounds, non tender, soft Extremities: non-tender, normal inspection, no pedal edema, no calf tenderness Neurologic/Psychiatric: alert, normal mood/affect, oriented x 3 Skin: warm/dry, no rash, + pallor Lymphatic: no adenopathy Laboratory Results Results Past 24 Hours Test 09/26/17 13:06 09/26/17 13:19 09/27/17 06:30 Range/Units Bedside Glucose 154 70-90 mg/dl White Blood Count 6.31 6.11 4.8-10.8 K/uL Red Blood Count 4.74 4.74 4.2-5.4 M/uL Hemoglobin 8.3 8.9 12.0-16.0 g/dL Hematocrit 32.5 32.9 37-47 % Mean Corpuscular Volume 68.6 69.4 80-100 fL Mean Corpuscular Hemoglobin 17.5 18.8 25-34 pg Mean Corpuscular Hemoglobin Concent 25.5 27.1 32-36 g/dl Platelet Count 248 285 130-400 K/uL Neutrophils (%) (Auto) 85.4 71.2 % Lymphocytes (%) (Auto) 6.0 14.2 % Monocytes (%) (Auto) 7.4 13.6 % Eosinophils (%) (Auto) 0.0 0.0 % Basophils (%) (Auto) 0.6 0.3 % Neutrophils # (Auto) 5.38 4.35 1.4-6.5 K/uL Lymphocytes # (Auto) 0.38 0.87 1.2-3.4 K/uL Monocytes # (Auto) 0.47 0.83 0.11-0.59 K/uL Eosinophils # (Auto) 0.00 0.00 0-0.5 K/uL Basophils # (Auto) 0.04 0.02 0-0.2 K/uL RDW Standard Deviation 59.8 61.8 36.4-46.3 fL RDW Coefficient of Variation 24.0 24.3 11.5-14.5 % Immature Granulocyte % (Auto) 0.6 0.7 % Immature Granulocyte # (Auto) 0.04 0.04 0.00-0.02 K/uL Nucleated RBC Absolute Count (auto) 0.23 0.22 0-0 K/uL Nucleated Red Blood Cells % 3.7 3.5 % Giant Platelets 2+ 2+ Hypochromasia PRESENT PRESENT Anisocytosis PRESENT PRESENT Microcytosis PRESENT PRESENT Prothrombin Time 13.4 9.0-12.0 SECONDS Prothromb Time International Ratio 1.3 0.9-1.1 Venous Blood pH 7.32 7.33 7.36-7.41 Venous Blood Partial Pressure CO2 56 62 38.0-50.0 mmHg Venous Blood Partial Pressure O2 24 46 mmHg Venous Blood HCO3 28 32 mmol/L Venous Blood Oxygen Saturation < 60.0 75.9 % Venous Blood Base Excess 1.7 5.2 mEq/L Sodium Level 122 129 136-145 mmol/L Potassium Level 4.1 4.1 3.5-5.1 mmol/L Chloride Level 90 95 98-107 mmol/L Carbon Dioxide Level 28 31 21-32 mmol/L Anion Gap 4.0 4.0 3-11 mmol/L Blood Urea Nitrogen 8 4 7-18 mg/dl Creatinine 0.51 0.40 0.60-1.20 mg/dl Est Creatinine Clear Calc Drug Dose 96.3 122.8 ml/min Estimated GFR () 123.7 134.0 Estimated GFR (Non- 106.7 115.6 BUN/Creatinine Ratio 15.7 9.4 10-20 Random Glucose 153 107 70-99 mg/dl Calcium Level 7.3 8.1 8.5-10.1 mg/dl Total Bilirubin 0.3 0.4 0.2-1 mg/dl Aspartate Amino Transf (AST/SGOT) 36 33 15-37 U/L Alanine Aminotransferase (ALT/SGPT) 36 37 12-78 U/L Alkaline Phosphatase 44 45 45-117 U/L Troponin I < 0.015 < 0.015 0-0.045 ng/ml Total Protein 5.4 5.6 6.4-8.2 gm/dl Albumin 2.5 2.9 3.4-5.0 gm/dl Globulin 2.9 2.7 2.5-4.0 gm/dl Albumin/Globulin Ratio 0.9 1.1 0.9-2 Assessment and Plan 57 year old female admission for shortness of breath admitted with pneumonia, COPD exacerbation and anemia (although appears chronic). Acute hypoxic hypercapnic respiratory failure secondary to COPD exacerbation and complicated by PNA - ongoing O2 requirement at rest, anxious for discharge home - Methylpred 40 mg bid IV continued - Symbicort 2 puffs bid - plan to d/c home with Spiriva as well - Azithromycin day 07/21, Rocephin 07/26 9 plan to transition to Omnicef on discharge Microcytic anemia - Iron deficient (ferritin 8.7), Fe/TIBC - 2.3% - given one dose of venofer 300mgs. had syncopal event and received one unit of blood then - plan for d/c home with ferrous sulphate q 48 h - arrange PCP follow up to discuss eval for this which should include colonoscopy/EGD Syncopal episode - likely vasovagal. - Echo normal. No arrhythmia. Incidental thyroid nodule - 1.4 cm low-attenuation nodule identified in the left lobe of the thyroid gland - TSH normal - o/p follow up with US Alcohol use disorder - AWSS score, lorazepam mg PO for score > 5 Tobacco use disorder 1.5 ppd - refusing nicotine supplementation - tobacco cessation counselling HTN - cont lisinopril Insomnia - Vistaril HS for insomnia prn VTE prophylaxis - refused last night, will defer chemical prophylaxis - SCD Code Full Disposition hemodynamically stable, transfer to [facility] surg Continued [facility] stay due to: abnormal vital signs, other Discharge planning: uncertain Reviewed: Pt Seen/Exam by Me History breathing improving. still requiring oxygen Constitutional: denies: fever Cardiovascular: denies chest pain General Appearance: mild distress Respiratory: respiratory distress, decreased breath sounds, wheezing Cardiovascular: regular rate, rhythm Neurologic/Psychiatric: alert, oriented x 3 Skin Characteristics: warm/dry Assessment/Plan Resident Physician Supervision Note: I independently interviewed and examined the patient and verified the drummond history and physical, reviewed labs and image studies, discussed the case with the resident Dr. Younger and agree with the findings and care plan.
[2017-09-28] MEDS: ACETAMINOPHEN 325 MG TAB PO PRN (04:52)
[2017-09-28 06:29] LABS: CALCIUM 8.4 mg/dl (8.5-10.1); CREATININE 0.41 mg/dl (0.60-1.20); POTASSIUM 3.9 mmol/L (3.5-5.1)
[2017-09-28 06:54] LABS: HEMATOCRIT 30.8 % (37-47); HEMOGLOBIN 8.4 g/dL (12.0-16.0); MEAN CELL VOLUME 70.3 fL (80-100); MEAN CORPUSCULAR HEMOGLOBIN 19.2 pg (25-34); MEAN CORPUSCULAR HGB CONC 27.3 g/dl (32-36); NUCLEATED RED BLOOD CELL ABS 0.23 K/uL (0-0); PLATELET COUNT 316 K/uL (130-400); RED CELL DISTRIBUTION WIDTH CV 25.1 % (11.5-14.5); RED CELL DISTRIBUTION WIDTH SD 63.8 fL (36.4-46.3); WHITE BLOOD COUNT 8.55 K/uL (4.8-10.8)
[2017-09-28 06:57] LABS: BASO % 0.2 %; BASO ABS # 0.02 K/uL (0-0.2); IG# 0.04 K/uL (0.00-0.02); LYMPH % 10.5 %; MONO % 10.5 %; NEUT % 78.3 %; NEUT ABS # 6.69 K/uL (1.4-6.5)
[2017-09-28] MEDS: ALBUT/IPRATROP 3MG/0.5MG NEB 3 ML VIAL INH SCH ×3 (07:14→14:47)
[2017-09-28 07:17] VITALS: PULSE 86; O2SAT 93
[2017-09-28 07:20] VITALS: BP 123/79; PULSE 88; TEMP 36.5; O2SAT 92
[2017-09-28] MEDS ORDERED: FERROUS GLUCONATE 324 MG TAB PO SCH (08:00)
[2017-09-28] MEDS: BUDESONIDE/FORMOTEROL FUMARATE 160/4.5 60 PUFFS/INHALER INH SCH (08:23)
[2017-09-28] MEDS: METHYLPREDNISOLONE IV 40 MG in SYRINGE 0 ML IV SCH (08:24)
[2017-09-28] MEDS: AZITHROMYCIN 250 MG TAB PO SCH (08:31)
[2017-09-28] MEDS: LISINOPRIL 10 MG TAB PO SCH (08:31)
[2017-09-28] MEDS: NICOTINE 21 MG/24 HR TDSY TD SCH (08:34)
[2017-09-28] MEDS: CEFTRIAXONE SOD INJ 1 GM in DEXTROSE 5% ADD-VANTAGE 50ML 50 ML IV SCH (10:27)
[2017-09-28 11:10] VITALS: PULSE 79; O2SAT 84
[2017-09-28] MEDS ORDERED: AZIT-57 PO (13:02)
[2017-09-28] MEDS ORDERED: CEFD1CAP14 PO (13:03)
[2017-09-28] MEDS ORDERED: PRED10TA PO (13:03)
--- NOTE | 2017-09-28 13:11 | Family Medicine Progress Note ---
Progress Note Date of Service Sep 28, 2017. Subjective Pt evaluation today including: conversation w/ patient, physical exam, chart review, lab review, review of studies, review of inpatient medication list Pain: 0/10 PO Intake: wnl Voiding: no voiding problems Patient states that she feels that her stools are more loose than normal and greenish/ dark brown almost black in colour starting today. She notes that she also has been feeling a little drained today but slept well with the room change We did discuss discharge and importance of appropriate follow up Constitutional: No fever Eyes: No worsening of vision ENT: No hearing loss Respiratory: + cough, + shortness of breath, + dyspnea on exertion, + dyspnea at rest, No sputum, No wheezing, No hemoptysis Cardiovascular: No chest pain Abdomen: + problem reported (as above ), No pain, No nausea, No vomiting, No diarrhea, No constipation Musculoskeletal: No joint pain, No muscle pain, No swelling Female : No dysuria, No hematuria Neurologic: + weakness, No balance problems Psychiatric: No depression symptoms Heme: No abnormal bleeding/bruising Endo: + fatigue Skin: No rash Medications Medications Administered Medications (Trade) Dose Ordered Sig/Hernando Route Start Time Stop Time Status Last Admin Dose Admin Sodium Chloride 1,000 ml @ 999 mls/hr Q1H1M STAT IV 09/25/17 13:27 09/25/17 14:27 DC 09/25/17 13:55 999 MLS/HR Ceftriaxone Sodium (Rocephin Inj) 1 gm NOW STAT IV 09/25/17 15:10 09/25/17 15:12 DC 09/25/17 15:56 1 GM Pantoprazole Sodium 80 mg/ Dextrose 120 ml @ 480 mls/hr NOW STAT IV 09/25/17 15:14 09/25/17 15:28 DC 09/25/17 15:14 480 MLS/HR Pantoprazole Sodium 40 mg/ Dextrose 100 ml @ 20 mls/hr Q5H IV 09/25/17 15:30 09/25/17 20:29 DC 09/25/17 16:19 20 MLS/HR Levofloxacin (Levaquin / D5W) 750 mg NOW STAT IV 09/25/17 15:54 09/25/17 15:55 DC 09/25/17 16:21 750 MG Potassium Chloride/Sodium Chloride 1,000 ml @ 125 mls/hr Q8H IV 09/25/17 18:15 10/25/17 18:14 Future Hold 09/25/17 18:40 125 MLS/HR Azithromycin (Zithromax Tab) 500 mg QAM PO 09/26/17 09:00 09/28/17 08:12 DC 09/28/17 08:31 500 MG Ceftriaxone Sodium 1 gm/ Dextrose 50 ml @ 100 mls/hr Q24H IV 09/26/17 10:00 10/03/17 09:59 09/28/17 10:27 100 MLS/HR Methylprednisolone Sodium Succinate 40 mg/Syringe 0.64 ml @ 1.5 mls/min DAILY IV 09/26/17 09:00 09/26/17 14:52 DC 09/26/17 08:32 1.5 MLS/MIN Methylprednisolone Sodium Succinate 40 mg/Syringe 0.64 ml @ 1.5 mls/min NOW ONCE IV 09/25/17 18:06 09/25/17 18:07 DC 09/25/17 18:40 1.5 MLS/MIN Acetaminophen (Tylenol Tab) 650 mg Q4H PRN PO 09/25/17 22:30 10/25/17 22:29 09/28/17 04:52 650 MG Lisinopril (Zestril Tab) 30 mg DAILY PO 09/26/17 09:00 10/26/17 08:59 09/28/17 08:31 30 MG Albuterol/ Ipratropium (Duoneb) 3 ml QIDR INH 09/26/17 08:00 10/26/17 07:59 09/28/17 11:10 3 ML Albuterol/ Ipratropium (Duoneb) 3 ml NOW STAT INH 09/26/17 00:13 09/26/17 00:20 DC 09/26/17 00:34 3 ML Nicotine (Nicoderm Cq 21MG Patch) 1 patch QAM TD 09/26/17 09:00 10/26/17 08:59 09/28/17 08:34 1 PATCH Iron Sucrose 300 mg/Sodium Chloride 265 ml @ 176.667 mls/hr TODAY@1015 IV 09/26/17 10:15 09/26/17 11:44 DC 09/26/17 10:03 176.667 MLS/HR Methylprednisolone Sodium Succinate 40 mg/Syringe 0.64 ml @ 1.5 mls/min BID IV 09/26/17 21:00 10/26/17 08:59 09/28/17 08:24 1.5 MLS/MIN Budesonide/ Formoterol Fumarate (Symbicort 160/ 4.5 Inh) 2 puffs BID INH 09/26/17 21:00 10/26/17 20:59 09/28/17 08:23 2 PUFFS Nicotine Polacrilex (Nicorette 2MG Gum) 1 piece Q1H PRN MT 09/26/17 20:45 10/26/17 20:44 09/28/17 05:38 1 PIECE Ferrous Gluconate (Ferrous Gluconate Tab) 324 mg Q48H PO 09/28/17 08:00 10/28/17 07:59 09/28/17 08:30 324 MG Objective Vital Signs Date Time Temp Pulse Resp B/P (MAP) Pulse Ox O2 Delivery O2 Flow Rate FiO2 09/28/17 11:10 79 18 84 Nasal Cannula 1.0 09/28/17 08:00 Nasal Cannula 2.0 09/28/17 07:20 36.5 88 18 123/79 (94) 92 Nasal Cannula 2.0 09/28/17 07:17 86 18 93 Mask 2.0 09/28/17 00:00 Nasal Cannula 2.0 09/27/17 23:25 37.2 93 20 120/78 (92) 97 09/27/17 20:00 93 Nasal Cannula 2.0 09/27/17 19:17 107 18 95 Nasal Cannula 2.0 09/27/17 18:06 93 Nasal Cannula 2.0 09/27/17 14:44 95 18 86 Nasal Cannula 4.0 Physical Exam General Appearance: no apparent distress Eyes: normal inspection ENT: normal ENT inspection Neck: supple, no JVD Respiratory/Chest: + decreased breath sounds (however improved air movement with few exp wheezing, no crackles) Cardiovascular: regular rate, rhythm, no murmur Abdomen: normal bowel sounds, non tender, soft Extremities: normal range of motion, non-tender, normal inspection, no pedal edema, no calf tenderness Neurologic/Psychiatric: alert, normal mood/affect, oriented x 3 Skin: normal color, warm/dry, no rash Lymphatic: no adenopathy Laboratory Results Results Past 24 Hours Test 09/28/17 05:23 Range/Units White Blood Count 8.55 4.8-10.8 K/uL Red Blood Count 4.38 4.2-5.4 M/uL Hemoglobin 8.4 12.0-16.0 g/dL Hematocrit 30.8 37-47 % Mean Corpuscular Volume 70.3 80-100 fL Mean Corpuscular Hemoglobin 19.2 25-34 pg Mean Corpuscular Hemoglobin Concent 27.3 32-36 g/dl Platelet Count 316 130-400 K/uL Neutrophils (%) (Auto) 78.3 % Lymphocytes (%) (Auto) 10.5 % Monocytes (%) (Auto) 10.5 % Eosinophils (%) (Auto) 0.0 % Basophils (%) (Auto) 0.2 % Neutrophils # (Auto) 6.69 1.4-6.5 K/uL Lymphocytes # (Auto) 0.90 1.2-3.4 K/uL Monocytes # (Auto) 0.90 0.11-0.59 K/uL Eosinophils # (Auto) 0.00 0-0.5 K/uL Basophils # (Auto) 0.02 0-0.2 K/uL RDW Standard Deviation 63.8 36.4-46.3 fL RDW Coefficient of Variation 25.1 11.5-14.5 % Immature Granulocyte % (Auto) 0.5 % Immature Granulocyte # (Auto) 0.04 0.00-0.02 K/uL Nucleated RBC Absolute Count (auto) 0.23 0-0 K/uL Nucleated Red Blood Cells % 2.7 % Large Platelets 1+ Hypochromasia PRESENT Anisocytosis PRESENT Microcytosis PRESENT Sodium Level 130 136-145 mmol/L Potassium Level 3.9 3.5-5.1 mmol/L Chloride Level 94 98-107 mmol/L Carbon Dioxide Level 33 21-32 mmol/L Anion Gap 3.0 3-11 mmol/L Blood Urea Nitrogen 4 7-18 mg/dl Creatinine 0.41 0.60-1.20 mg/dl Est Creatinine Clear Calc Drug Dose 119.8 ml/min Estimated GFR () 132.9 Estimated GFR (Non- 114.7 BUN/Creatinine Ratio 10.5 10-20 Random Glucose 110 70-99 mg/dl Calcium Level 8.4 8.5-10.1 mg/dl Assessment and Plan 57 year old female admission for shortness of breath admitted with pneumonia, COPD exacerbation and anemia (although appears chronic). Acute hypoxic hypercapnic respiratory failure secondary to COPD exacerbation and complicated by PNA - ongoing O2 requirement at rest, anxious for discharge home - Methylpred 40 mg bid IV continued- transition to pred taper on d/c - Symbicort 2 puffs bid - plan to d/c home with Spiriva as well - Azithromycin day 08/18, Rocephin 08/23 plan to transition to Omnicef on discharge - Patient completed a 2 step, unable to confirm home O2 coverage until tomorrow - script given and in chart for 2L at rest and 3 L with ambulation Microcytic anemia - Iron deficient (ferritin 8.7), Fe/TIBC - 2.3% - given one dose of venofer 300mgs. had syncopal event and received one unit of blood then - plan for d/c home with ferrous sulphate q 48 h - arrange PCP follow up to discuss eval for this which should include colonoscopy/EGD Incidental thyroid nodule - 1.4 cm low-attenuation nodule identified in the left lobe of the thyroid gland - TSH normal - o/p follow up with US Alcohol use disorder - AWSS score, lorazepam mg PO for score > 5 Tobacco use disorder 1.5 ppd - refusing nicotine supplementation - tobacco cessation counselling HTN - cont lisinopril Insomnia - Vistaril HS for insomnia prn VTE prophylaxis - refused last night, will defer chemical prophylaxis - SCD Code Full Disposition hemodynamically stable, plan for d/c tomorrow with approval of O2 Continued [facility] stay due to: abnormal vital signs, home environment unsafe for pt Discharge planning: uncertain
[2017-09-28 14:47] VITALS: PULSE 91; O2SAT 97
[2017-09-28 14:49] VITALS: BP 119/82; PULSE 91; TEMP 36.7; O2SAT 97
--- NOTE | 2017-09-28 15:32 | Discharge Instructions ---
Discharge Instructions Date of Service Sep 28, 2017. Admission Reason for Admission: Acute Respiratory Failure With Hypoxia Discharge Discharge Diagnosis / Problem: Acute resp failure Discharge Goals Goal(s): Decrease discomfort, Improve disease control, Diagnostic testing, Therapeutic intervention Activity Recommendations Activity Limitations: resume your previous activity . Instructions / Follow-Up Instructions / Follow-Up You were admitted to the hospital for the treatment of you pneumonia and COPD exacerbation. You were also evaluated for your anemia. Your pneumonia was treated with antibiotics that were IV and called Azithromycin and Rocephin. You were transitioned to Omnicef and Azithromycin. Please take Azithromycin daily for Two more days. Take the full course of Omnicef. You will be receiving steroids to help control the symptoms of your COPD exacerbation as well as two new inhalers. These are MAINTENANCE inhalers. They are NOT rescue inhalers. You are to take them on a daily basis as prescribed. You are not to smoke around the oxygen tank as this is dangerous. We continue to encourage you to stop smoking as well. Finally, with regards to your anemia. You received a dose of Iron IV in the hospital however you will need to take iron regularly. You will take one pill every other day. You will need an outpatient work up for this anemia and can be discussed further with your PCP. Further testing will most likely include colonoscopy. Current Hospital Diet Patient's current hospital diet: Regular Diet Discharge Diet Recommended Diet: Regular Diet Pending Studies Studies pending at discharge: no Laboratory Results Results Past 24 Hours Test 09/28/17 05:23 Range/Units White Blood Count 8.55 4.8-10.8 K/uL Red Blood Count 4.38 4.2-5.4 M/uL Hemoglobin 8.4 12.0-16.0 g/dL Hematocrit 30.8 37-47 % Mean Corpuscular Volume 70.3 80-100 fL Mean Corpuscular Hemoglobin 19.2 25-34 pg Mean Corpuscular Hemoglobin Concent 27.3 32-36 g/dl Platelet Count 316 130-400 K/uL Neutrophils (%) (Auto) 78.3 % Lymphocytes (%) (Auto) 10.5 % Monocytes (%) (Auto) 10.5 % Eosinophils (%) (Auto) 0.0 % Basophils (%) (Auto) 0.2 % Neutrophils # (Auto) 6.69 1.4-6.5 K/uL Lymphocytes # (Auto) 0.90 1.2-3.4 K/uL Monocytes # (Auto) 0.90 0.11-0.59 K/uL Eosinophils # (Auto) 0.00 0-0.5 K/uL Basophils # (Auto) 0.02 0-0.2 K/uL RDW Standard Deviation 63.8 36.4-46.3 fL RDW Coefficient of Variation 25.1 11.5-14.5 % Immature Granulocyte % (Auto) 0.5 % Immature Granulocyte # (Auto) 0.04 0.00-0.02 K/uL Nucleated RBC Absolute Count (auto) 0.23 0-0 K/uL Nucleated Red Blood Cells % 2.7 % Large Platelets 1+ Hypochromasia PRESENT Anisocytosis PRESENT Microcytosis PRESENT Sodium Level 130 136-145 mmol/L Potassium Level 3.9 3.5-5.1 mmol/L Chloride Level 94 98-107 mmol/L Carbon Dioxide Level 33 21-32 mmol/L Anion Gap 3.0 3-11 mmol/L Blood Urea Nitrogen 4 7-18 mg/dl Creatinine 0.41 0.60-1.20 mg/dl Est Creatinine Clear Calc Drug Dose 119.8 ml/min Estimated GFR () 132.9 Estimated GFR (Non- 114.7 BUN/Creatinine Ratio 10.5 10-20 Random Glucose 110 70-99 mg/dl Calcium Level 8.4 8.5-10.1 mg/dl Medical Emergencies . Who to Call and When: Medical Emergencies: If at any time you feel your situation is an emergency, please call 911 immediately. . Non-Emergent Contact Non-Emergency issues call your: Primary Care Provider Call Non-Emergent contact if: you have a fever, your pain is unusual for you, you have any medication questions . . "Provider Documentation" section prepared by Chaya Younger. .
--- NOTE | 2017-09-28 15:44 | Discharge Summary ---
Discharge Summary Date of Service Sep 28, 2017. Discharge Summary Admission Date: Sep 25, 2017 at 16:18 Discharge Date: Sep 27, 2017 Discharge Disposition: Home Principal Diagnosis: Pneumonia Problems/Secondary Diagnoses: COPD exacerbation Anemia, iron deficiency hypertension incidental thyroid nodule Alcohol use disorder tobacco abuse Immunizations: Have You Had Influenza Vaccine: Unknown History of Tetanus Vaccine?: Unknown History of Pneumococcal: Unknown History of Hepatitis B Vaccine: Unknown Medication Reconciliation New Medications: Cefdinir (Omnicef) 300 Mg Cap 300 MG PO Q12H for 7 Days, #14 CAP Ferrous Sulfate (Kp Ferrous Sulfate) 325 Mg Tab 1 TAB PO Q48H for 30 Days, #15 TAB 3 Refills Prednisone (Prednisone) 10 Mg Tab 10 MG PO UD for 10 Days, #30 TAB 50mg x 2 days, 40 mg x 2 days, 30 mg x 2 days, 20 mg x 2 days, 10 mg x 2 days Tiotropium [place] (Spiriva Respimat) 2.5 Mcg/Act Spr 2 PUFF INH DAILY for 3 Days, #1 INHALER Azithromycin (Azithromycin) 250 Mg Tab 250 MG PO QAM for 5 Days, #6 TAB please take for two more days Budesonide/Formoterol Fumarate (Symbicort 160-4.5 Mcg/Act) 60 Puffs/Inhaler Aero 2 PUFFS INH BID for 30 Days, #1 INHALER Continued Medications: Acetamin/Butalbital/Caffeine (Fioricet) 1 Ea Tab 1 TAB PO Q6H PRN for Pain, TAB Hydroxyzine HCl (Hydroxyzine HCl) 10 Mg Tab 1 TAB PO TID PRN for Anxiety Lisinopril (Zestril) 30 Mg Tab 30 MG PO DAILY, TAB [proair] () 90mcg/inh AERO 2 PUFFS INH Q4H for Wheezing Discharge Exam Patient was evaluated and a script for oxygen given. Unable to confirm if the oxygen will be covered and she is insistent for discharge. Patient would prefer to take the risk of paying for the oxygen out of pocket. We discussed the discharge plan in detail and she understood the need for oxygen, the risks of smoking around the oxygen, the importance of follow up and the need to complete her evaluation for anemia. Patient reflected understanding and agreeable to dc Review of Systems: Constitutional: No fever Eyes: No worsening of vision ENT: No hearing loss Respiratory: + shortness of breath, + dyspnea on exertion, + dyspnea at rest , No cough, No sputum, No wheezing, No hemoptysis Cardiovascular: No chest pain Abdomen: No pain, No nausea, No vomiting, No diarrhea, No constipation Musculoskeletal: No joint pain, No muscle pain Genitourinary - Female: No dysuria, No hematuria Neurologic: + weakness, No numbness/tingling, No balance problems Psychiatric: No depression symptoms Endocrine: + fatigue Hematologic / Lymphatic: No abnormal bleeding/bruising Integumentary: No rash Physical Exam: General Appearance: no apparent distress Eyes: normal inspection ENT: normal ENT inspection Neck: supple Respiratory/Chest: + decreased breath sounds (throughout but improved air movement) Cardiovascular: regular rate, rhythm, no murmur, normal peripheral pulses Abdomen / GI: normal bowel sounds, non tender, soft Extremities: normal inspection, no calf tenderness, no pedal edema, normal range of motion Neurologic/Psychiatric: alert, normal mood/affect, oriented x 3 Skin: normal color, warm/dry, no rash Lymphatic: no adenopathy Hospital Course 57 year old female admission for shortness of breath admitted with pneumonia, COPD exacerbation and anemia (although appears chronic). Patient was admitted and treated with IV antibiotics ( Rocephin and azithro) , IV steroids and inhalers. She was transitioned to oral forms with close follow up in outpatient. She was also d/c on continuous home O2 of 2L at rest and 3 L with ambulation. She did not have the cost confirmed with her insurance company however would prefer to pay out of pocket then wait for d/c tomorrow. She was also found to have significant iron deficiency anemia. She was give IV Venofer here and d/c with oral iron supplements. She will need follow up for eval of the iron def. Acute hypoxic hypercapnic respiratory failure secondary to COPD exacerbation and complicated by PNA - Prednisone taper x 10 days -Azithro rx for two more days of medication and Omnicef x 7 days - O2 req 2L at rest and 3 L with ambulation Microcytic anemia - Iron deficient (ferritin 8.7), Fe/TIBC - 2.3% - given one dose of venofer 300mgs - plan for d/c home with ferrous sulphate q 48 h - arrange PCP follow up to discuss eval for this which should include colonoscopy/EGD Incidental thyroid nodule - 1.4 cm low-attenuation nodule identified in the left lobe of the thyroid gland - TSH normal - o/p follow up with US Alcohol use disorder - AWSS score, lorazepam mg PO for score > 5 VTE prophylaxis - SCD as patient refused chemical prophylaxis Code Full Total Time Spent: Greater than 30 minutes This includes examination of the patient, discharge planning, medication reconciliation, and communication with other providers. Discharge Instructions Please refer to the electronic Patient Visit Report (Discharge Instructions) for additional information. Additional Copies To Cookie Fontenot, C.R.N.P. Reviewed: Pt Seen/Exam by Me History breathing improved - back to baseline. no dizziness Constitutional: denies: fever Respiratory: positive: short of breath (baseline) Cardiovascular: denies chest pain Gastrointestinal/Abdominal: negative: abdominal pain General Appearance: no apparent distress Respiratory: lungs clear, no respiratory distress Gastrointestinal: soft Neurologic/Psychiatric: alert, oriented x 3 Skin Characteristics: warm/dry Assessment/Plan Resident Physician Supervision Note: I independently interviewed and examined the patient and verified the drummond history and physical, reviewed labs and image studies, discussed the case with the resident Dr. Younger and agree with the findings and care plan. Time spent in discharge 40 min
[2017-09-28 16:22] VITALS: BP 119/82; PULSE 91; TEMP 36.7; O2SAT 97
[2017-09-28] MEDS ORDERED: SACCHAROMYCES BOUL (FLORASTOR) 250 MG CAP PO SCH (20:00)
[2017-09-29] MEDS ORDERED: AZITHROMYCIN 250 MG TAB PO SCH (08:00)
== END 2017-09-28 18:15 | disposition home or self-care (01) | DRG 193 ==
LOC: C.EDB 13:05 → C.MED 16:18 → ENRESERV 17:02 → C.4E 09-27 12:56
PROVIDERS: ADMIT Internal Medicine Sports Medicine; ATTEND Internal Medicine Sports Medicine
DX: J18.9 Pneumonia, unspecified organism (principal); J96.01 Acute respiratory failure with hypoxia; J96.02 Acute respiratory failure with hypercapnia; J44.0 Chronic obstructive pulmonary disease with (acute) lower respiratory infection; J44.1 Chronic obstructive pulmonary disease with (acute) exacerbation; E87.1 Hypo-osmolality and hyponatremia; D50.9 Iron deficiency anemia, unspecified; F10.20 Alcohol dependence, uncomplicated; R55 Syncope and collapse; I95.2 Hypotension due to drugs; T45.4X5A Adverse effect of iron and its compounds, initial encounter; I10 Essential (primary) hypertension; E04.1 Nontoxic single thyroid nodule; F17.200 Nicotine dependence, unspecified, uncomplicated; Z79.899 Other long term (current) drug therapy

== ENCOUNTER → 2017-10-15 | Outpatient (CLI) | payer OTHER ==
[~2017-10-15] MED LIST changes: +ATR10 PO; +AZIT-57 PO; +FERR1TAB13 PO; +FRCT/ PO; +SYMIN INH; +TIOT1SPR INH; +proair INH
--- NOTE | 2017-10-15 14:16 | DIAGNOSTIC IMAGING REPORT ---
SOFT TISS HEAD/NECK-THYROID CLINICAL HISTORY: 57 years-old Female with THYROID NODULE ON CT. Follow-up study to assess thyroid nodule. COMPARISON: CTA of the chest 09/25/2017 TECHNIQUE: Multiple real time sonographic images of the thyroid were obtained accessing calncy scale appearance and color doppler flow. FINDINGS: MEASUREMENTS: Right lobe: 3.9 x 1.3 x 1.8 cm Left lobe: 3.6 x 1.9 x 1.6 cm Isthmus: 0.3 cm PARENCHYMA: The thyroid parenchymal echotexture is mildly heterogeneous. NODULES: Multiple subcentimeter cysts are seen within the right thyroid. There is an ovoid hypoechoic solid nodule of the mid right thyroid measuring 0.7 x 0.5 x 0.6 cm. Cyst of the mid left thyroid correlates with the finding seen on comparison CT measuring 1.6 x 0.9 x 1.1 cm without suspicious mural nodularity identified. IMPRESSION: 1. Mildly heterogeneous thyroid parenchyma without suspicious thyroid nodule identified. 2. 1.6 cm cyst of the left thyroid lobe correlates with the finding seen on recent CTA of the chest. The above report was generated using voice recognition software. It may contain grammatical, syntax or spelling errors. Electronically signed by: Jose Levin M.D. 10/15/2017 2:14 PM Dictated Date/Time: 10/15/2017 2:11 PM
== END | disposition home or self-care (01) ==
LOC: C.ULTRBC 13:44
PROVIDERS: ATTEND Nurse Practitioner Family
DX: E04.1 Nontoxic single thyroid nodule (principal)

== ENCOUNTER 2022-05-16 15:34 | Inpatient (IN) ==
--- NOTE | 2022-05-16 16:24 | Emergency Department Note ---
Impression & Plan Acute exacerbation of chronic obstructive pulmonary disease, Acute respiratory failure with hypoxia, Hypoxia ED Provider Note NAME: LEILANI LUCIANO AGE: 61 SEX: F : 1960 ARRIVES VIA: Walk-In INFORMANT: Patient, the patient's family member ED PROVIDER(S): Manuel Cummings DO CHIEF COMPLAINT: Shortness of breath HPI: The patient is a 61-year-old female who has a history of metastatic cancer who presented to the emergency department from the [facility] for an evaluation of shortness of breath. The patient states that she was sent to the emergency department for an evaluation and possibly a CAT scan of the chest. The patient states that she has been having shortness of breath and orthopnea for the last 2 weeks. She has not seen her family doctor for this. She is had no changes to her medications. She normally wears oxygen and her family member states that she has had to continuously increase her oxygen so she could be more comfortable and have a normal oxygen saturation. The patient denies having any fever. She denies having any hemoptysis. She denies having any recent traveling. She denies having any exposures to COVID-19. She has no history of CHF as far she knows. ROS: See above HPI for pertinent positives & negatives. A total of 10 systems reviewed and were otherwise negative. PAST MEDICAL HISTORY: See Below PAST SURGICAL HISTORY: See Below FAMILY HISTORY: See Below SOCIAL HISTORY: See Below HOME MEDICATIONS: See Below ALLERGIES: See Below VITALS: See Below PHYSICAL EXAMINATION: GENERAL: The patient is awake and alert. She is somewhat anxious appearing. EYES: The conjunctivae are clear. The pupils are round and reactive. EARS, NOSE, MOUTH AND THROAT: The nose is without any evidence of any deformity. NECK: The neck is nontender and supple. RESPIRATORY: Diminished breath sounds are noted throughout. There is significant conversational dyspnea. CARDIOVASCULAR: Tachycardic but regular heart sounds were noted auscultation. There is no definite murmur. GASTROINTESTINAL: The abdomen is soft. Abdomen is nontender. MUSCULOSKELETAL/EXTREMITIES: There is no evidence of gross deformity full range of motion is noted in the hips and shoulders. SKIN: Pedal edema was noted bilaterally. Skin was warm and dry. NEUROLOGIC: Patient is awake alert and oriented x3. MEDICAL DECISION MAKING: The patient is a 61-year-old female who presented to the emergency department from the cancer clinic for an evaluation of shortness of breath. The patient's had worsening shortness of breath over the course the last 2 weeks. She also had orthopnea. She does have a history of COPD. She was sent because they thought it was possible she might have a pulmonary embolism. I discussed the patient's laboratory and radiographic studies with her. She was treated with IV steroids as well as DuoNeb treatments in the emergency department. Her symptoms improved but she still had a very significant oxygen requirement. I discussed the patient's laboratory and radiographic studies with [facility] They have agreed to evaluate the patient in the emergency department for further management and disposition. Triage Nursing notes reviewed. Prior medical records reviewed Vital Signs: reviewed and remarkable for tachycardia and hypoxia. Differential diagnosis: Reactive airway disease, pneumonia, pneumothorax, COPD, CHF, infections, cardiac ischemia, pulmonary embolism, musculoskeletal, gastrointestinal, as well as other pathologies. ER treatment provided: See below Diagnostics interpreted by me: ECG: EKG was obtained in the emergency department. My interpretation is sinus tachycardia 115 bpm. There is no ectopy. There is no acute ST segment abnormalities noted. Low voltage was noted throughout. This was compared to a tracing from September 26, 2017. No changes were noted. Cardiac Monitoring: An order was placed for continuous cardiac monitoring. The monitor shows a rate of 115 bpm with sinus tachycardia. Laboratory studies: As stated above and show below. Imaging studies: See below Consultation(s): I discussed this case with Dr. Light who is on-call [facility]. ED COURSE: Procedures: none Critical Care: I have personally spent greater than 45 minutes of critical care time in the direct management of this patient. This includes bedside care, interpretation of diagnostic studies, and testing, discussion with consultants, patient, and family members, and other required patient management activities. This 45 minutes is in excess of all separately billable procedures. Past Med/Surg History Medical History (Updated 05/16/22 @ 22:21 by Manuel Cummings DO) Anxiety Breast cancer, left Dx 12/2020 COPD (chronic obstructive pulmonary disease) History of migraine Hypertension Iron deficiency anemia Hx iron infusions Lung cancer Non small cell cancer dx 12/2020; chemo/radiation (per pt, completed 3 mo ago but still on IV prophylaxis trtmt q3wks, Tecentriq per heme records) On home oxygen therapy oxygen at night 1.5 lpm via n/c Pulmonary hypertension Cardio feels likely secondary to COPD and possible MARTELL Thyroid nodule Surgical History H/O esophagogastroduodenoscopy History of breast biopsy History of lung biopsy History of tubal ligation Hx of colonoscopy Status post left breast lumpectomy (07/09/21) Left lumpectomy with sentinel lymph node biopsy and also excision of superior left axillary lymph node with additional axillary tissue. Dr. Andres 07/09/2021 Family History Father Myocardial infarction CABG x 3 Mother , 84yo Emphysema lung Smoker Brother No problems noted. Sister No problems noted. Sister Asthma Son No problems noted. Daughter No problems noted. 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 [employer] Safe at Home: Yes caffeine: Yes (2-4 cups/day) during the past year weight has: remained stable Assistive Devices: Glasses, Oxygen - at Night and Wheelchair Allergies Allergies Allergy/AdvReac Type Severity Reaction Status Date / Time paclitaxel AdvReac Severe Difficulty Verified 03/06/22 09:57 Breathing Home Meds Home Medications Medication Instructions Recorded Confirmed budesonide-formoterol HFA 160 2 puff inhalation BID 11/08/20 03/06/22 mcg-4.5 mcg/actuation aerosol inhaler (Symbicort) cyanocobalamin (vitamin B-12) 1,000 mcg PO QAM 11/08/20 03/06/22 1,000 mcg tablet (Vitamin B-12) hydroxyzine HCl 10 mg tablet 10 mg PO QID PRN Anxiety 11/08/20 03/06/22 albuterol sulfate 90 mcg/actuation 2 puff inhalation Q6H PRN sob 01/03/21 03/06/22 aerosol inhaler (ProAir HFA) acetaminophen 500 mg tablet 500 mg PO Q6H PRN Pain 01/31/21 03/06/22 (Tylenol Extra Strength) anastrozole 1 mg tablet (Arimidex) 1 mg PO QAM 01/31/21 08/14/21 bywkeudgjb-xeuvtgwimjsbq-rscestpz 1 tab PO Q6H PRN migraines 01/31/21 03/06/22 50 mg-325 mg-40 mg tablet diclofenac sodium 3 % topical gel 1 applic topical QID PRN 01/31/21 03/06/22 pain/swelling gabapentin 300 mg capsule 300 mg PO TID 01/31/21 03/06/22 spironolactone 25 mg tablet 12.5 mg PO Q OTHER DAY 01/31/21 03/06/22 lorazepam 0.5 mg tablet 0.5 mg PO UD PRN Anxiety 06/29/21 03/06/22 tiotropium bromide 1.25 1 puff inhalation DAILY 03/06/22 03/06/22 mcg/actuation mist for inhalation (Spiriva Respimat) Previous Rx's Medication Instructions Recorded oxycodone 5 mg tablet 5 - 10 mg PO Q6H PRN pain #30 tabs 07/09/21 dexamethasone 4 mg tablet 4 mg PO TID Vasogenic edema #30 03/06/22 tabs Results & Data (ED) Vital Signs Vital Signs - 24 hr 05/16/22 15:39 05/16/22 16:18 05/16/22 16:26 Temperature 36.8 C Temperature Source Temporal Artery Scan Pulse Rate 115 H Pulse Rate [Apical] 107 H Respiratory Rate 18 16 Blood Pressure 131/91 Blood Pressure [Left Arm] 142/92 H Blood Pressure Mean 104 Blood Pressure Mean [Left Arm] 108 Pulse Oximetry 99 99 95 Oxygen Delivery Method Nasal Cannula Nasal Cannula Nasal Cannula Oxygen Flow Rate 6 6 4 Sepsis Recent Fever Within 48 Hours No Sepsis New/Unexplained Change in Mental Status No Sepsis Action Taken by Nursing No Action Required Oxygen Flow Rate - Titration 4 Pulse Oximetry Post Tiitration 94 05/16/22 16:19 05/16/22 17:03 05/16/22 19:00 Temperature Temperature Source Pulse Rate 100 H Pulse Rate [Apical] 113 H Respiratory Rate 16 22 Blood Pressure Blood Pressure [Left Arm] 108/76 Blood Pressure Mean Blood Pressure Mean [Left Arm] 86 Pulse Oximetry 95 81 L 93 Oxygen Delivery Method Nasal Cannula Nasal Cannula [place] Oxygen Flow Rate 4 4 5 Sepsis Recent Fever Within 48 Hours Sepsis New/Unexplained Change in Mental Status Sepsis Action Taken by Nursing Oxygen Flow Rate - Titration Pulse Oximetry Post Tiitration Home Medications Current Medication List: was personally reviewed by me Laboratory Data Attestation: I reviewed the patient's lab results. Result diagrams: 05/16/22 16:01 05/16/22 16: Lab Results 05/16/22 05/16/22 05/16/22 Range/Units 16: 16: 16: WBC 6.42 (4.8-10.8) K/ul RBC 3.82 L (3.93-5.22) M/uL Hgb 12.3 (12.0-16.0) g/dl Hct 39.7 (34.1-44.9) % MCV 103.9 H (80.0-100.0) fL MCH 32.2 (25.0-34.0) pg MCHC 31.0 L (32.0-36.0) g/dL RDW Std Deviation 80.8 H (36.4-46.3) fL RDW Coeff of Kp 21.5 H (11.5-14.5) % Plt Count 196 (130-400) K/uL MPV 9.4 (9.4-12.3) fL Immature Gran % (Auto) 3.0 % Neut % (Auto) 81.7 % Lymph % (Auto) 11.7 % [place] % (Auto) 3.1 % Eos % (Auto) 0.2 % Baso % (Auto) 0.3 % Neut # (Auto) 5.25 (1.4-6.5) K/uL Lymph # (Auto) 0.75 L (1.2-3.4) K/uL [place] # (Auto) 0.20 L (0.24-0.82) K/uL Eos # (Auto) 0.01 (0-0.50) K/uL Baso # (Auto) 0.02 (0-0.2) K/uL Immature Gran # (Auto) 0.19 H (0.00-0.02) K/uL Absolute Nucleated RBC 0.32 H (0-0) K/uL Nucleated RBC % (auto) 5.0 % Polychromasia 1+ Basophilic Stippling 1+ PT 10.3 (9.0-12.0) Seconds INR 1.0 (0.9-1.1) APTT 22.2 (21.0-31.0) Seconds PTT Ratio 0.8 D-Dimer 760 H* (0-500) ug/L FEU VBG pH (7.36-7.41) VBG pCO2 (38-50) mmHg VBG pO2 mmHg VBG HCO3 mmol/L VBG O2 Saturation % VBG Base Excess mEq/L Sodium 135 L (136-145) mmol/L Potassium 4.6 (3.5-5.1) mmol/L Chloride 91 L (98-107) mmol/L Carbon Dioxide 41 H* (21-32) mmol/L Anion Gap 3 (3-11) BUN 18 (6-23) mg/dl Creatinine 0.54 L (0.6-1.2) mg/dl Est Cr Clr Drug Dosing 98.3 ml/min Est GFR ( Amer) 118.0 ml/min Est GFR (Non-Af Amer) 101.8 ml/min BUN/Creatinine Ratio 33.3 H (10-20) Glucose 173 H (70-99(Fasting)) mg/dl Calcium 8.3 L (8.5-10.1) mg/dl Magnesium 1.9 (1.7-2.4) mg/dl Total Bilirubin 0.8 (0.2-1.0) mg/dl AST 27 (13-39) U/L ALT 65 H (7-52) U/L Alkaline Phosphatase 39 (34-104) U/L Troponin I High Sens 23.7 H (0-14) pg/ml B-Natriuretic Peptide (0-100) pg/ml Total Protein 5.4 L (6.0-8.3) gm/dl Albumin 3.3 L (3.4-5.0) gm/dl Globulin 2.1 L (2.5-4.0) gm/dl Albumin/Globulin Ratio 1.6 (0.9-2) Urine Color Urine Appearance (Clear) Urine pH (4.5-7.5) Ur Specific [place] (1.000-1.030) Urine Protein (Negative) Urine Glucose (UA) (Negative) Urine Ketones (Negative) Urine Blood (Negative) Urine Nitrite (Negative) Urine Bilirubin (Negative) Urine Urobilinogen (Negative) Ur Leukocyte Esterase (Negative) Urine WBC (Auto) (0-5) /hpf Urine RBC (Auto) (0-4) /hpf U Hyaline Cast (Auto) (0-5) /lpf U Epithel Cells (Auto) (0-5) /lpf Urine Bacteria (Auto) (Negative) Ur Renal Epithelial Cell (0-5) /lpf SARS-CoV-2 (PCR) (Negative) Influenza Type A (PCR) (Neg) Influenza Type B (PCR) (Neg) RSV (RT-PCR) (Neg) 05/16/22 05/16/22 05/16/22 Range/Units 16:01 16:29 17:01 WBC (4.8-10.8) K/ul RBC (3.93-5.22) M/uL Hgb (12.0-16.0) g/dl Hct (34.1-44.9) % MCV (80.0-100.0) fL MCH (25.0-34.0) pg MCHC (32.0-36.0) g/dL RDW Std Deviation (36.4-46.3) fL RDW Coeff of Kp (11.5-14.5) % Plt Count (130-400) K/uL MPV (9.4-12.3) fL Immature Gran % (Auto) % Neut % (Auto) % Lymph % (Auto) % [place] % (Auto) % Eos % (Auto) % Baso % (Auto) % Neut # (Auto) (1.4-6.5) K/uL Lymph # (Auto) (1.2-3.4) K/uL [place] # (Auto) (0.24-0.82) K/uL Eos # (Auto) (0-0.50) K/uL Baso # (Auto) (0-0.2) K/uL Immature Gran # (Auto) (0.00-0.02) K/uL Absolute Nucleated RBC (0-0) K/uL Nucleated RBC % (auto) % Polychromasia Basophilic Stippling PT (9.0-12.0) Seconds INR (0.9-1.1) APTT (21.0-31.0) Seconds PTT Ratio D-Dimer (0-500) ug/L FEU VBG pH 7.26 L (7.36-7.41) VBG pCO2 109 H (38-50) mmHg VBG pO2 27 mmHg VBG HCO3 49 mmol/L VBG O2 Saturation < 60.0 % VBG Base Excess 16.4 mEq/L Sodium (136-145) mmol/L Potassium (3.5-5.1) mmol/L Chloride (98-107) mmol/L Carbon Dioxide (21-32) mmol/L Anion Gap (3-11) BUN (6-23) mg/dl Creatinine (0.6-1.2) mg/dl Est Cr Clr Drug Dosing ml/min Est GFR ( Amer) ml/min Est GFR (Non-Af Amer) ml/min BUN/Creatinine Ratio (10-20) Glucose (70-99(Fasting)) mg/dl Calcium (8.5-10.1) mg/dl Magnesium (1.7-2.4) mg/dl Total Bilirubin (0.2-1.0) mg/dl AST (13-39) U/L ALT (7-52) U/L Alkaline Phosphatase (34-104) U/L Troponin I High Sens (0-14) pg/ml B-Natriuretic Peptide 284 H (0-100) pg/ml Total Protein (6.0-8.3) gm/dl Albumin (3.4-5.0) gm/dl Globulin (2.5-4.0) gm/dl Albumin/Globulin Ratio (0.9-2) Urine Color Urine Appearance (Clear) Urine pH (4.5-7.5) Ur Specific [place] (1.000-1.030) Urine Protein (Negative) Urine Glucose (UA) (Negative) Urine Ketones (Negative) Urine Blood (Negative) Urine Nitrite (Negative) Urine Bilirubin (Negative) Urine Urobilinogen (Negative) Ur Leukocyte Esterase (Negative) Urine WBC (Auto) (0-5) /hpf Urine RBC (Auto) (0-4) /hpf U Hyaline Cast (Auto) (0-5) /lpf U Epithel Cells (Auto) (0-5) /lpf Urine Bacteria (Auto) (Negative) Ur Renal Epithelial Cell (0-5) /lpf SARS-CoV-2 (PCR) NEGATIVE (Negative) Influenza Type A (PCR) Negative (Neg) Influenza Type B (PCR) Negative (Neg) RSV (RT-PCR) Negative (Neg) 05/16/22 Range/Units 18:35 WBC (4.8-10.8) K/ul RBC (3.93-5.22) M/uL Hgb (12.0-16.0) g/dl Hct (34.1-44.9) % MCV (80.0-100.0) fL MCH (25.0-34.0) pg MCHC (32.0-36.0) g/dL RDW Std Deviation (36.4-46.3) fL RDW Coeff of Kp (11.5-14.5) % Plt Count (130-400) K/uL MPV (9.4-12.3) fL Immature Gran % (Auto) % Neut % (Auto) % Lymph % (Auto) % [place] % (Auto) % Eos % (Auto) % Baso % (Auto) % Neut # (Auto) (1.4-6.5) K/uL Lymph # (Auto) (1.2-3.4) K/uL [place] # (Auto) (0.24-0.82) K/uL Eos # (Auto) (0-0.50) K/uL Baso # (Auto) (0-0.2) K/uL Immature Gran # (Auto) (0.00-0.02) K/uL Absolute Nucleated RBC (0-0) K/uL Nucleated RBC % (auto) % Polychromasia Basophilic Stippling PT (9.0-12.0) Seconds INR (0.9-1.1) APTT (21.0-31.0) Seconds PTT Ratio D-Dimer (0-500) ug/L FEU VBG pH (7.36-7.41) VBG pCO2 (38-50) mmHg VBG pO2 mmHg VBG HCO3 mmol/L VBG O2 Saturation % VBG Base Excess mEq/L Sodium (136-145) mmol/L Potassium (3.5-5.1) mmol/L Chloride (98-107) mmol/L Carbon Dioxide (21-32) mmol/L Anion Gap (3-11) BUN (6-23) mg/dl Creatinine (0.6-1.2) mg/dl Est Cr Clr Drug Dosing ml/min Est GFR ( Amer) ml/min Est GFR (Non-Af Amer) ml/min BUN/Creatinine Ratio (10-20) Glucose (70-99(Fasting)) mg/dl Calcium (8.5-10.1) mg/dl Magnesium (1.7-2.4) mg/dl Total Bilirubin (0.2-1.0) mg/dl AST (13-39) U/L ALT (7-52) U/L Alkaline Phosphatase (34-104) U/L Troponin I High Sens (0-14) pg/ml B-Natriuretic Peptide (0-100) pg/ml Total Protein (6.0-8.3) gm/dl Albumin (3.4-5.0) gm/dl Globulin (2.5-4.0) gm/dl Albumin/Globulin Ratio (0.9-2) Urine Color Yellow Urine Appearance Clear (Clear) Urine pH 5.0 (4.5-7.5) Ur Specific [place] > 1.045 H (1.000-1.030) Urine Protein 1+ H (Negative) Urine Glucose (UA) Negative (Negative) Urine Ketones Negative (Negative) Urine Blood Negative (Negative) Urine Nitrite Negative (Negative) Urine Bilirubin Negative (Negative) Urine Urobilinogen Negative (Negative) Ur Leukocyte Esterase Trace H (Negative) Urine WBC (Auto) 5-10 H (0-5) /hpf Urine RBC (Auto) 0-4 (0-4) /hpf U Hyaline Cast (Auto) 5-10 H (0-5) /lpf U Epithel Cells (Auto) >30 H (0-5) /lpf Urine Bacteria (Auto) Negative (Negative) Ur Renal Epithelial Cell 0-5 (0-5) /lpf SARS-CoV-2 (PCR) (Negative) Influenza Type A (PCR) (Neg) Influenza Type B (PCR) (Neg) RSV (RT-PCR) (Neg) Administered Medications Discontinued Medications Albuterol (Albut/Ipratrop 3mg/0.5mg Neb 3 Ml Vial) 3 ml NEB NOW STA; Protocol Stop: 05/16/22 17:20 Last Admin: 05/16/22 17:26 Dose: 3 ml Documented By: KACIE Albuterol (Albut/Ipratrop 3mg/0.5mg Neb 3 Ml Vial) 3 ml NEB NOW STA; Protocol Stop: 05/16/22 18:03 Last Admin: 05/16/22 18:26 Dose: 3 ml Documented By: KACIE Azithromycin 500 mg/ Dextrose 255 mls @ 127.5 mls/hr IV NOW STA Stop: 05/16/22 21:21 Last Infusion: 05/16/22 22:17 Dose: 0 mls/hr Documented By: Admin: 05/16/22 20:12 Dose: 127.5 mls/hr Documented By: ANASTACIA Ioversol (Optiray 320 500ml) 116 ml IV ONCE ONE Stop: 05/16/22 18:25 Last Admin: 05/16/22 18:24 Dose: 116 ml Documented By: MEL Methylprednisolone (Methylprednisolone 125 Mg/2 Ml Vial) 125 mg IV NOW STA Stop: 05/16/22 18:03 Last Admin: 05/16/22 18:27 Dose: 125 mg Documented By: KACIE Imaging Data Radiologist's Impression: Chest X-Ray 05/16/22 16:19 XR chest 1V portable HISTORY: 61 years-old Female Dyspnea acute shortness of breath COMPARISON: Chest CT 03/28/2022 TECHNIQUE: AP view of the chest FINDINGS: Cardiac silhouette is enlarged. Atherosclerosis of the thoracic aorta. Emphysema with chronic interstitial coarsening. The previously described right upper lobe pulmonary nodules are better seen on the prior chest CT. Degenerative changes of the shoulders and spine. Left lung base Bochdalek hernia. IMPRESSION: 1. Emphysema without acute process. 2. The previously described right upper lobe nodules are better seen on the comparison chest CT. ACT 112: Negative or not required by law. The above report was generated using voice recognition software. It may contain grammatical, syntax or spelling errors. Electronically signed by: Cal Levin M.D. 05/16/2022 4:53 PM Chest CTA 05/16/22 17:15 CT ANGIOGRAM OF THE CHEST CLINICAL HISTORY: Dyspnea. Breast cancer. COMPARISON STUDY: Chest x-ray dated 05/16/2022. Chest CT dated 03/28/2022. TECHNIQUE: Following the IV administration of 116 cc of Optiray 320, CT angiogram of the chest was performed from the upper abdomen to the thoracic inlet utilizing the pulmonary embolus protocol. Images are reviewed in the axial, sagittal, and coronal planes. 3-D MIPS images are created and assessed. IV contrast was administered without complication. A dose lowering technique wa s utilized adhering to the principles of ALARA. CT DOSE: 505.69 mGycm FINDINGS: Thyroid: Normal in size and heterogeneous in attenuation. Thoracic aorta: There is atherosclerotic calcification of the thoracic aorta, which is normal in caliber and demonstrates standard 3-vessel arch anatomy. No d issection is seen. Pulmonary vasculature: The pulmonary trunk is normal in caliber. There are no filling defects identified in main, lobar, or segmental pulmonary branches to suggest pulmonary embolus. Heart: The heart is normal in size and without pericardial effusion. Lungs and pleural spaces: There is advanced emphysema. No air space consolidation typical for pneumonia or pleural effusion is identified. 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 The trachea and central airways are clear. Foci of parenchymal scarring are seen throughout both lungs. There are punctate calcified granulomas. A 1.8 x 1.2 cm irregular nodular density in the right upper lobe on image #199 is unchanged. A 4 mm residual nodule in the right lower lobe on image #142. This is also somewhat previous Mediastinum: There is no mediastinal lymphadenopathy. Kendy: Clear. Axillae: Surgical clips are noted in the left axilla. No axillary lymp hadenopathy is identified. There is mild stranding in the left axilla at the site of previously characterized lesions. Upper abdomen: There is a small hiatal hernia. Trace perisplenic ascites is noted. Skeletal structures: The skeletal structures are osteopenic. A mild superior end plate compression deformity of T7 is unchanged. No lytic or blastic bony lesions are seen. Soft tissues: Asymmetric dermal thickening is noted in the left breast. IMPRESSION: 1. There is no evidence of pulmonary embolus in the main, lobar, or segmental pulmonary arteries. 2. There is no airspace consolidation typical for pneumonia or pleural effusion. 3. Advanced emphysema. 4. Residual right lobe nodules are similar to the 03/28/2022 examination 5. Asymmetric dermal thickening is noted in the left breast and may represent treatment-related change. 6. Additional findings as above. ACT 112: Negative or not required by law. Electronically signed by: Marcelino Webb M.D. 05/16/2022 6:47 PM Discharge Plan Visit Data Chief Complaint: Shortness of Breath/Dyspnea Stated Complaint: HYPOXIA,TACHYCARDIA ED Provider: Manuel Cummings Discharge Problem: Acute exacerbation of chronic obstructive pulmonary disease, Acute respiratory failure with hypoxia, Hypoxia Patient Disposition: Admitted As Inpatient Discharge Instructions Interventions: ED Discharge Assessment Last Done: 05/16/22 22:01
--- NOTE | 2022-05-16 16:54 | XRay Report ---
XR chest 1V portable HISTORY: 61 years-old Female Dyspnea acute shortness of breath COMPARISON: Chest CT 03/28/2022 TECHNIQUE: AP view of the chest FINDINGS: Cardiac silhouette is enlarged. Atherosclerosis of the thoracic aorta. Emphysema with chronic interst itial coarsening. The previously described right upper lobe pulmonary nodules are better seen on the prior chest CT. Degenerative changes of the shoulders and spine. Left lung base Bochdalek hernia. IMPRESSION: 1. Emphysema without acute process. 2. The previously described right upper lobe nodules are better seen on the comparison chest CT. ACT 112: Negative or not required by law. The above report was generated using voice recognition software. It may contain grammatical, syntax o r spelling errors. Electronically signed by: Cal Levin M.D. 05/16/2022 4:53 PM
[2022-05-16 16:59] LABS: Basophils # (auto) 0.02 K/uL (0-0.2); Basophils % (auto) 0.3 %; Eosinophils # (auto) 0.01 K/uL (0-0.50); Eosinophils % (auto) 0.2 %; Hematocrit (blood only) 39.7 % (34.1-44.9); Hemoglobin 12.3 g/dl (12.0-16.0); Immature Granulocytes # (auto) 0.19 K/uL (0.00-0.02); Lymphocytes # (auto) 0.75 K/uL (1.2-3.4); Lymphocytes % (auto) 11.7 %; Mean Corpuscular Hemoglobin 32.2 pg (25.0-34.0); Mean Corpuscular Volume 103.9 fL (80.0-100.0); Mean Platelet Volume 9.4 fL (9.4-12.3); Monocytes % (auto) 3.1 %; Neutrophils # (auto) 5.25 K/uL (1.4-6.5); Neutrophils % (auto) 81.7 %; Nucleated RBC # (auto) 0.32 K/uL (0-0); Platelet Count 196 K/uL (130-400); RDW Coefficient of Variation 21.5 % (11.5-14.5); RDW Standard Deviation 80.8 fL (36.4-46.3); Red Blood Count 3.82 M/uL (3.93-5.22); White Blood Count 6.42 K/ul (4.8-10.8)
[2022-05-16 17:13] LABS: Base Excess VBG 16.4 mEq/L; HCO3 VBG 49 mmol/L; Oxygen Saturation VBG < 60.0 %; PCO2 VBG 109 mmHg (38-50); PO2 VBG 27 mmHg; pH VBG 7.26 (7.36-7.41)
[2022-05-16 17:18] LABS: Troponin I High Sensitivity 23.7 pg/ml (0-14)
[2022-05-16] MEDS ORDERED: ALBUT/IPRATROP 3MG/0.5MG NEB 3 ML VIAL NEB STA ×2 (17:19→18:02)
[2022-05-16 17:22] LABS: Partial Thromboplastin Ratio 0.8; Partial Thromboplastin Time 22.2 Seconds (21.0-31.0); Prothrombin Time 10.3 Seconds (9.0-12.0)
[2022-05-16 17:33] LABS: D Dimer 760 ug/L FEU (0-500)
[2022-05-16 17:43] LABS: Basophilic Stippling 1+; Polychromasia 1+
[2022-05-16 17:46] LABS: Influenza A virus by PCR Negative (Neg); Influenza B virus by PCR Negative (Neg); RSV by PCR Negative (Neg); SARS CoV2 RNA(COVID-19) Ceph NEGATIVE (Negative)
[2022-05-16 17:48] LABS: Albumin Globulin Ratio 1.6 (0.9-2); Albumin Level 3.3 gm/dl (3.4-5.0); BUN Creatinine Ratio 33.3 (10-20); Bilirubin,Total 0.8 mg/dl (0.2-1.0); Calcium 8.3 mg/dl (8.5-10.1); Creatinine Clr Calc Pharmacy 98.3 ml/min; Est GFR (Non-African American) 101.8 ml/min; Globulin 2.1 gm/dl (2.5-4.0); Magnesium 1.9 mg/dl (1.7-2.4); Potassium 4.6 mmol/L (3.5-5.1); Total Protein 5.4 gm/dl (6.0-8.3)
[2022-05-16] MEDS ORDERED: methylPREDNISolone 125 MG/2 ML VIAL IV STA (18:02)
[2022-05-16] MEDS ORDERED: OPTIRAY 320 500ml IV ONE (18:24)
--- NOTE | 2022-05-16 18:49 | CT Scan Report ---
CT ANGIOGRAM OF THE CHEST CLINICAL HISTORY: Dyspnea. Breast cancer. COMPARISON STUDY: Chest x-ray dated 05/16/2022. Chest CT dated 03/28/2022. TECHNIQUE: Following the IV administration of 116 cc of Optiray 320, CT angiogram of the chest was pe rformed from the upper abdomen to the thoracic inlet utilizing the pulmonary embolus protocol. Images are reviewed in the axial, sagittal, and coronal planes. 3-D MIPS images are created and assessed. I V contrast was administered without complication. A dose lowering technique was utilized adhering to the principles of ALARA. CT DOSE: 505.69 mGycm FINDINGS: Thyroid: Normal in size and heterogeneous in attenuation. Thoracic aorta: There is atherosclerotic calcification of the thoracic aorta, which is normal in zulema belinda and demonstrates standard 3-vessel arch anatomy. No dissection is seen. Pulmonary vasculature: The pulmonary trunk is normal in caliber. There are no filling defects identif ied in main, lobar, or segmental pulmonary branches to suggest pulmonary embolus. Heart: The heart is normal in size and without pericardial effusion. Lungs and pleural spaces: There is advanced emphysema. No air space consolidation typical for pneumon ia or pleural effusion is identified. A fat-containing Bochdalek hernia is noted at the left lung bas e. The trachea and central airways are clear. Foci of parenchymal scarring are seen throughout both l ungs. There are punctate calcified granulomas. A 1.8 x 1.2 cm irregular nodular density in the right upper lobe on image #199 is unchanged. A 4 mm residual nodule in the right lower lobe on image #142. This is also somewhat previous Mediastinum: There is no mediastinal lymphadenopathy. Kendy: Clear. Axillae: Surgical clips are noted in the left axilla. No axillary lymphadenopathy is identified. Ther e is mild stranding in the left axilla at the site of previously characterized lesions. Upper abdomen: There is a small hiatal hernia. Trace perisplenic ascites is noted. Skeletal structures: The skeletal structures are osteopenic. A mild superior end plate compression de formity of T7 is unchanged. No lytic or blastic bony lesions are seen. Soft tissues: Asymmetric dermal thickening is noted in the left breast. IMPRESSION: 1. There is no evidence of pulmonary embolus in the main, lobar, or segmental pulmonary arteries. 2. There is no airspace consolidation typical for pneumonia or pleural effusion. 3. Advanced emphysema. 4. Residual right lobe nodules are similar to the 03/28/2022 examination 5. Asymmetric dermal thickening is noted in the left breast and may represent treatment-related sexton e. 6. Additional findings as above. ACT 112: Negative or not required by law. Electronically signed by: Marcelino Webb M.D. 05/16/2022 6:47 PM
[2022-05-16 19:04] LABS: Appearance Urine Clear (Clear); Bacteria Urine Automated Negative (Negative); Bilirubin Urine Negative (Negative); Blood Urine Negative (Negative); Color Urine Yellow; Epithelial Cell Urine Auto >30 /lpf (0-5); Glucose Urine UA Negative (Negative); Ketones Urine Negative (Negative); Leukocyte Esterase Urine Trace (Negative); Nitrite Urine Negative (Negative); Protein Urine 1+ (Negative); Specific Gravity Urine > 1.045 (1.000-1.030); Urobilinogen Urine Negative (Negative)
[2022-05-16] MEDS ORDERED: AZITHROMYCIN 500 MG in DEXTROSE 5% 250 ML IV STA (19:22)
[2022-05-16 19:37] LABS: RBC Urine Automated 0-4 /hpf (0-4)
[2022-05-16 19:38] LABS: Renal Epithelial Cells Urine 0-5 /lpf (0-5)
--- NOTE | 2022-05-16 19:49 | History & Physical Report ---
Date of Service May 16, 2022 Assessment & Plan (1) COPD (chronic obstructive pulmonary disease): Plan: 61yo female presenting with DELUNA, progressive over the last several weeks. She denies cough, wheeze or URI symptoms. On exam she has diminished breath sounds with end-expiratory wheezing. Labs are suggestive of acute on chronic respiratory acidosis. 7.26/109/27 BiPAP initiated in the ER. -Admit to PCU -Continue BiPAP for hypoxic, hypercarbic respiratory failure most likely secondary to COPD -Repeat VBG at 12:00 -DuoNeb q 6 hours -Solumedrol 30mg IV TID -Albuterol q2 hours PRN -Flutter Valve, Guaifenesin -Fluticasone/Vilanterol/Umeclidinium -Continue Azithromycin (2) Lung cancer: Plan: Patient follows at [facility] (3) Brain metastasis: Plan: Patient is on a Dexamethasone taper for brain metastases with vasogenic edema. She was previously on 4 pills daily and currently on 2 pills daily. Will be receiving Solumedrol as above for suspected COPD exacerbation -Resume Dexamethasone on discharge (4) Malignant neoplasm of upper-outer quadrant of left breast in female, estrogen receptor positive: Plan: Patient follows with Oncology -Continue Anastrozole History of Present Illness Chief Complaint: SOB, DELUNA and hypoxia Primary Care Provider: ERMA Baltazar Yanet Guido is a pleasant 61yo female with history of invasive ductal carcinoma of the left breast and non-small cell lung cancer diagnosed in November 2020. She has completed chemoradiation to the lung with carboplatin as well as maintenance atezolizumab. She has completed radiation and surgical resection of her breast tumor. She is currently on Anastrazole. Patient found to have brain metastases x 2 on MRI in February 2022. Patient has been seen at [facility] for a second opinion. She underwent SRS to the 2 brain lesions in March. She is presently on Dexamethasone taper. Patient report 2-3 weeks of DELUNA. She does not feel that it is getting any worse. She denies cough, wheeze, chest tightness. No fever, chills, sputum production. No allergy or URI symptoms. No chest pain. She states that she feels fine when she is sitting still and playing her games on the I-pad but she becomes very short of breath with ambulating even short distances. Patient has O2 at home and was using it at night. She has been needing it continuously over the last 2 weeks. In the ER she is afebrile, tachycardic otherwise HD stable. Saturations of 81% with ambulation. She is presently on 5L Oxymask saturating 93%. Patient offers no additional complaints at this time. ER Course: Albuterol 3mL neb x 2 Solumedrol 125mg Azithromycin 500mgIV Allergies Allergy/AdvReac Type Severity Reaction Status Date / Time paclitaxel AdvReac Severe Difficulty Verified 03/06/22 09:57 Breathing Home Medications Medication Instructions Recorded Confirmed Type budesonide-formoterol HFA 160 2 puff inhalation BID 11/08/20 03/06/22 History mcg-4.5 mcg/actuation aerosol inhaler (Symbicort) cyanocobalamin (vitamin B-12) 1,000 mcg PO QAM 11/08/20 03/06/22 History 1,000 mcg tablet (Vitamin B-12) hydroxyzine HCl 10 mg tablet 10 mg PO QID PRN Anxiety 11/08/20 03/06/22 History albuterol sulfate 90 mcg/actuation 2 puff inhalation Q6H PRN sob 01/03/21 03/06/22 History aerosol inhaler (ProAir HFA) acetaminophen 500 mg tablet 500 mg PO Q6H PRN Pain 01/31/21 03/06/22 History (Tylenol Extra Strength) anastrozole 1 mg tablet (Arimidex) 1 mg PO QAM 01/31/21 08/14/21 History visjaowoeh-uldallkrdshpa-ananogbm 1 tab PO Q6H PRN migraines 01/31/21 03/06/22 H istory 50 mg-325 mg-40 mg tablet diclofenac sodium 3 % topical gel 1 applic topical QID PRN 01/31/21 03/06/22 History pain/swelling gabapentin 300 mg capsule 300 mg PO TID 01/31/21 03/06/22 History spironolactone 25 mg tablet 12.5 mg PO Q OTHER DAY 01/31/21 03/06/22 History lorazepam 0.5 mg tablet 0.5 mg PO UD PRN Anxiety 06/29/21 03/06/22 History oxycodone 5 mg tablet 5 - 10 mg PO Q6H PRN pain #30 tabs 07/09/21 03/06/22 Rx dexamethasone 4 mg tablet 4 mg PO TID Vasogenic edema #30 03/06/22 03/06/22 Rx tabs tiotropium bromide 1.25 1 puff inhalation DAILY 03/06/22 03/06/22 History mcg/actuation mist for inhalation (Spiriva Respimat) Past Med/Surg History Medical History (Updated 05/16/22 @ 22:21 by Manuel Cummings DO) Anxiety Breast cancer, left Dx 12/2020 COPD (chronic obstructive pulmonary disease) History of migraine Hypertension Iron deficiency anemia Hx iron infusions Lung cancer Non small cell cancer dx 12/2020; chemo/radiation (per pt, completed 3 mo ago but still on IV prophylaxis trtmt q3wks, Tecentriq per heme records) On home oxygen therapy oxygen at night 1.5 lpm via n/c Pulmonary hypertension Cardio feels likely secondary to COPD and possible MARTELL Thyroid nodule Surgical History H/O esophagogastroduodenoscopy History of breast biopsy History of lung biopsy History of tubal ligation Hx of colonoscopy Status post left breast lumpectomy (07/09/21) Left lumpectomy with sentinel lymph node biopsy and also excision of superior left axillary lymph node with additional axillary tissue. Dr. Andres 07/09/2021 Family History Father Myocardial infarction CABG x 3 Mother , 84yo Emphysema lung Smoker Brother No problems noted. Sister No problems noted. Sister Asthma Son No problems noted. Daughter No problems noted. 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 [employer] Feels Safe at Home: Yes caffeine: Yes (2-4 cups/day) during the past year weight has: remained stable Assistive Devices: Glasses, Oxygen - at Night and Wheelchair Review of Systems Review of Systems: All systems reviewed & are unremarkable except as noted in HPI & below Physical Exam Physical Exam: General: patient resting comfortably, NAD, non-toxic in appearance, AA&O x 4 Skin: warm, dry, intact, no rashes or lesions HEENT: NC/AT, PERRL, EOMI, anicteric sclera, conjunctiva without injection, external ear normal to inspection and nontender, nares patent, moist mucus membranes, dentition intact, no oropharyngeal lesions, neck supple, trachea midline, no LAD, no thyromegaly, no JVD Heart: +S1/S2, regular, tachycardic, no m/r/g Lungs: diminished breath sounds bilaterally with scattered end-expiratory wheezing, no rales or rhonchi Abd: +BS, soft, NT/ND, no masses/organomegaly/ascites Ext: cool, 3+ pitting edema of bilateral LE Neuro: nonfocal, patient AA&O x 4, speech intact, no facial droop, moving all extremities on command with equal strength 5/5, resting tremor noted Results & Data Results & Data ([facility]) Vital Signs (Past 12 Hours) Vital Signs Temp Pulse Pulse Resp BP BP Pulse Ox 05/16/22 19:00 113 H 22 108/76 93 05/16/22 17:03 81 L 05/16/22 16:19 100 H 16 95 05/16/22 16:26 107 H 16 142/92 H 95 05/16/22 16:18 99 05/16/22 15:39 36.8 C 115 H 18 131/91 99 O2 Del Method O2 Flow Rate 05/16/22 19:00 Oxymask 5 05/16/22 17:03 Nasal Cannula 4 05/16/22 16:19 Nasal Cannula 4 05/16/22 16:26 Nasal Cannula 4 05/16/22 16:18 Nasal Cannula 6 05/16/22 15:39 Nasal Cannula 6 Laboratory Results Laboratory Results WBC 6.42 K/ul (4.8-10.8) 05/16/22 16:01 RBC 3.82 M/uL (3.93-5.22) L 05/16/22 16:01 Hgb 12.3 g/dl (12.0-16.0) 05/16/22 16:01 Hct 39.7 % (34.1-44.9) 05/16/22 16: MCV 103.9 fL (80.0-100.0) H 05/16/22 16:01 MCH 32.2 pg (25.0-34.0) 05/16/22 16: MCHC 31.0 g/dL (32.0-36.0) L 05/16/22 16: RDW Std Deviation 80.8 fL (36.4-46.3) H 05/16/22 16:01 RDW Coeff of Kp 21.5 % (11.5-14.5) H 05/16/22 16: Plt Count 196 K/uL (130-400) 05/16/22 16: MPV 9.4 fL (9.4-12.3) 05/16/22 16: Immature Gran % (Auto) 3.0 % 05/16/22 16:01 Neut % (Auto) 81.7 % 05/16/22 16:01 Lymph % (Auto) 11.7 % 05/16/22 16:01 Tama % (Auto) 3.1 % 05/16/22 16:01 Eos % (Auto) 0.2 % 05/16/22 16:01 Baso % (Auto) 0.3 % 05/16/22 16:01 Neut # (Auto) 5.25 K/uL (1.4-6.5) 05/16/22 16:01 Lymph # (Auto) 0.75 K/uL (1.2-3.4) L 05/16/22 16:01 [place]ama # (Auto) 0.20 K/uL (0.24-0.82) L 05/16/22 16:01 Eos # (Auto) 0.01 K/uL (0-0.50) 05/16/22 16:01 Baso # (Auto) 0.02 K/uL (0-0.2) 05/16/22 16: Immature Gran # (Auto) 0.19 K/uL (0.00-0.02) H 05/16/22 16:01 Absolute Nucleated RBC 0.32 K/uL (0-0) H 05/16/22 16:01 Nucleated RBC % (auto) 5.0 % 05/16/22 16:01 Polychromasia 1+ 05/16/22 16:01 Basophilic Stippling 1+ 05/16/22 16:01 PT 10.3 Seconds (9.0-12.0) 05/16/22 16:01 INR 1.0 (0.9-1.1) 05/16/22 16:01 APTT 22.2 Seconds (21.0-31.0) 05/16/22 16: PTT Ratio 0.8 05/16/22 16:01 D-Dimer 760 ug/L FEU (0-500) H* 05/16/22 16:01 VBG pH 7.26 (7.36-7.41) L 05/16/22 17:01 VBG pCO2 109 mmHg (38-50) H 05/16/22 17:01 VBG pO2 27 mmHg 05/16/22 17:01 VBG HCO3 49 mmol/L 05/16/22 17:01 VBG O2 Saturation < 60.0 % 05/16/22 17:01 VBG Base Excess 16.4 mEq/L 05/16/22 17:01 Sodium 135 mmol/L (136-145) L 05/16/22 16:01 Potassium 4.6 mmol/L (3.5-5.1) 05/16/22 16:01 Chloride 91 mmol/L (98-107) L 05/16/22 16:01 Carbon Dioxide 41 mmol/L (21-32) H* 05/16/22 16:01 Anion Gap 3 (3-11) 05/16/22 16:01 BUN 18 mg/dl (6-23) 05/16/22 16:01 Creatinine 0.54 mg/dl (0.6-1.2) L 05/16/22 16:01 Est Cr Clr Drug Dosing 98.3 ml/min 05/16/22 16:01 Est GFR ( Amer) 118.0 ml/min 05/16/22 16: Est GFR (Non-Af Amer) 101.8 ml/min 05/16/22 16:01 BUN/Creatinine Ratio 33.3 (10-20) H 05/16/22 16:01 Glucose 173 mg/dl (70-99(Fasting)) H 05/16/22 16:01 Calcium 8.3 mg/dl (8.5-10.1) L 05/16/22 16:01 Magnesium 1.9 mg/dl (1.7-2.4) 05/16/22 16:01 Total Bilirubin 0.8 mg/dl (0.2-1.0) 05/16/22 16:01 AST 27 U/L (13-39) 05/16/22 16:01 ALT 65 U/L (7-52) H 05/16/22 16:01 Alkaline Phosphatase 39 U/L (34-104) 05/16/22 16:01 Troponin I High Sens 23.7 pg/ml (0-14) H 05/16/22 16:01 B-Natriuretic Peptide 284 pg/ml (0-100) H 05/16/22 16:01 Total Protein 5.4 gm/dl (6.0-8.3) L 05/16/22 16:01 Albumin 3.3 gm/dl (3.4-5.0) L 05/16/22 16:01 Globulin 2.1 gm/dl (2.5-4.0) L 05/16/22 16:01 Albumin/Globulin Ratio 1.6 (0.9-2) 05/16/22 16:01 Urine Color Yellow 05/16/22 18:35 Urine Appearance Clear (Clear) 05/16/22 18:35 Urine pH 5.0 (4.5-7.5) 05/16/22 18:35 Ur Specific [place] > 1.045 (1.000-1.030) H 05/16/22 18:35 Urine Protein 1+ (Negative) H 05/16/22 18:35 Urine Glucose (UA) Negative (Negative) 05/16/22 18:35 Urine Ketones Negative (Negative) 05/16/22 18:35 Urine Blood Negative (Negative) 05/16/22 18:35 Urine Nitrite Negative (Negative) 05/16/22 18:35 Urine Bilirubin Negative (Negative) 05/16/22 18:35 Urine Urobilinogen Negative (Negative) 05/16/22 18:35 Ur Leukocyte Esterase Trace (Negative) H 05/16/22 18:35 Urine WBC (Auto) 5-10 /hpf (0-5) H 05/16/22 18:35 Urine RBC (Auto) 0-4 /hpf (0-4) 05/16/22 18:35 U Hyaline Cast (Auto) 5-10 /lpf (0-5) H 05/16/22 18:35 U Epithel Cells (Auto) >30 /lpf (0-5) H 05/16/22 18:35 Urine Bacteria (Auto) Negative (Negative) 05/16/22 18:35 Ur Renal Epithelial Cell 0-5 /lpf (0-5) 05/16/22 18:35 SARS-CoV-2 (PCR) NEGATIVE (Negative) 05/16/22 16:29 Influenza Type A (PCR) Negative (Neg) 05/16/22 16:29 Influenza Type B (PCR) Negative (Neg) 05/16/22 16:29 RSV (RT-PCR) Negative (Neg) 05/16/22 16:29 Impressions Chest X-Ray 05/16/22 16:19 XR chest 1V portable HISTORY: 61 years-old Female Dyspnea acute shortness of breath COMPARISON: Chest CT 03/28/2022 TECHNIQUE: AP view of the chest FINDINGS: Cardiac silhouette is enlarged. Atherosclerosis of the thoracic aorta. Emphysema with chronic interstitial coarsening. The previously described right upper lobe pulmonary nodules are better seen on the prior chest CT. Degenerative changes of the shoulders and spine. Left lung base Bochdalek hernia. IMPRESSION: 1. Emphysema without acute process. 2. The previously described right upper lobe nodules are better seen on the comparison chest CT. ACT 112: Negative or not required by law. The above report was generated using voice recognition software. It may contain grammatical, syntax or spelling errors. Electronically signed by: Cal Levin M.D. 05/16/2022 4:53 PM Chest CTA 05/16/22 17:15 CT ANGIOGRAM OF THE CHEST CLINICAL HISTORY: Dyspnea. Breast cancer. COMPARISON STUDY: Chest x-ray dated 05/16/2022. Chest CT dated 03/28/2022. TECHNIQUE: Following the IV administration of 116 cc of Optiray 320, CT angiogram of the chest was performed from the upper abdomen to the thoracic inlet utilizing the pulmonary embolus protocol. Images are reviewed in the axial, sagittal, and coronal planes. 3-D MIPS images are created and assessed. IV contrast was administered without complication. A dose lowering technique was utilized adhering to the principles of ALARA. CT DOSE: 505.69 mGycm FINDINGS: Thyroid: Normal in size and heterogeneous in attenuation. Thoracic aorta: There is atherosclerotic calcification of the thoracic aorta, which is normal in caliber and demonstrates standard 3-vessel arch anatomy. No dissection is seen. Pulmonary vasculature: The pulmonary trunk is normal in caliber. There are no filling defects identified in main, lobar, or segmental pulmonary branches to suggest pulmonary embolus. Heart: The heart is normal in size and without pericardial effusion. Lungs and pleural spaces: There is advanced emphysema. No air space consolidation typical for pneumonia or pleural effusion is identified. A fat- containing Bochdalek hernia is noted at the left lung base. The trachea and central airways are clear. Foci of parenchymal scarring are seen throughout both lungs. There are punctate calcified granulomas. A 1.8 x 1.2 cm irregular nodular density in the right upper lobe on image #199 is unchanged. A 4 mm residual nodule in the right lower lobe on image #142. This is also somewhat previous Mediastinum: There is no mediastinal lymphadenopathy. Kendy: Clear. Axillae: Surgical clips are noted in the left axilla. No axillary lymphadenopathy is identified. There is mild stranding in the left axilla at the site of previously characterized lesions. Upper abdomen: There is a small hiatal hernia. Trace perisplenic ascites is noted. Skeletal structures: The skeletal structures are osteopenic. A mild superior end plate compression deformity of T7 is unchanged. No lytic or blastic bony lesions are seen. Soft tissues: Asymmetric dermal thickening is noted in the left breast. IMPRESSION: 1. There is no evidence of pulmonary embolus in the main, lobar, or segmental pulmonary arteries. 2. There is no airspace consolidation typical for pneumonia or pleural effusion. 3. Advanced emphysema. 4. Residual right lobe nodules are similar to the 03/28/2022 examination 5. Asymmetric dermal thickening is noted in the left breast and may represent treatment-related change. 6. Additional findings as above. ACT 112: Negative or not required by law. Electronically signed by: Marcelino Webb M.D. 05/16/2022 6:47 PM Code Status & VTE Plan VTE Prophylaxis Plan VTE Prophylaxis will be ordered: Yes PG Care Time/CCT Total # of Minutes Spent Total Time Spent with Patient: Total time spent is greater than 50% in coordination of care (as documented) at patient's floor/unit and/or counseling patient: Coding Level of Care Code 04749 Initial Inpt Care Lvl 2 Diagnoses COPD (chronic obstructive pulmonary disease) J44.9 Lung cancer C34.90 Brain metastasis C79.31 Malignant neoplasm of upper-outer quadrant of left breast in female, estrogen receptor positive C50.412; Z17.0
[2022-05-16] MEDS ORDERED: POLYETHYLENE (MIRALAX) 17 GM PACK PO PRN (22:00)
[2022-05-16] MEDS ORDERED: ALBUTEROL 0.5% NEB SOLN 2.5 MG/0.5 ML VIAL NEB PRN (22:00)
[2022-05-16] MEDS ORDERED: BUDESONIDE/FORMOTEROL FUMARATE 160/4.5 60 PUFFS/INHALER INH SCH (22:00)
[2022-05-16] MEDS ORDERED: ONDANSETRON INJ 2 MG/ML 2 ML VIAL IV PRN (22:00)
[2022-05-16] MEDS ORDERED: LORazepam 0.5 MG TAB PO PRN (22:00)
[2022-05-16] MEDS ORDERED: hydrOXYzine HCl 10 MG TAB PO PRN (22:00)
[2022-05-16] MEDS ORDERED: ALBUT/IPRATROP 3MG/0.5MG NEB 3 ML VIAL NEB PRN (22:20)
[2022-05-17] MEDS: guaiFENesin 600 MG TABCR PO SCH ×3 (00:04→19:46)
[2022-05-17] MEDS: GABAPENTIN 300 MG CAP PO SCH ×4 (00:05→19:46)
[2022-05-17] MEDS: ENOXAPARIN INJ 40 MG/0.4 ML SYR SQ SCH ×2 (00:06→20:19)
[2022-05-17] MEDS: FLUTICASONE/VILANTEROL 100/25MCG 14 PUFFS/INHALER INH SCH ×2 (00:06→09:55)
[2022-05-17] MEDS: methylPREDNISolone 30 MG in SYRINGE 0 ML IV SCH ×4 (01:05→20:19)
[2022-05-17 02:31] LABS: Base Excess VBG 19.2 mEq/L; HCO3 VBG 49 mmol/L; Oxygen Saturation VBG 93.3 %; PCO2 VBG 83 mmHg (38-50); PO2 VBG 61 mmHg; pH VBG 7.38 (7.36-7.41)
[2022-05-17 02:33] LABS: Hemoglobin 11.4 g/dl (12.0-16.0); Mean Corpuscular Hemoglobin 31.6 pg (25.0-34.0); Mean Corpuscular Hgb Conc 30.8 g/dL (32.0-36.0); Mean Corpuscular Volume 102.5 fL (80.0-100.0); Mean Platelet Volume 8.9 fL (9.4-12.3); Nucleated RBC # (auto) 0.23 K/uL (0-0); Platelet Count 164 K/uL (130-400); RDW Coefficient of Variation 21.4 % (11.5-14.5); Red Blood Count 3.61 M/uL (3.93-5.22); White Blood Count 4.64 K/ul (4.8-10.8)
[2022-05-17 03:17] LABS: Albumin Level 3.2 gm/dl (3.4-5.0); BUN Creatinine Ratio 36.1 (10-20); Bilirubin Direct 0.1 mg/dl (0-0.2); Bilirubin,Total 0.8 mg/dl (0.2-1.0); Calcium 8.1 mg/dl (8.5-10.1); Creatinine Clr Calc Pharmacy 147.4 ml/min; Est GFR (African American) 134.9 ml/min; Est GFR (Non-African American) 116.4 ml/min; Potassium 4.7 mmol/L (3.5-5.1); Total Protein 5.1 gm/dl (6.0-8.3)
[2022-05-17] MEDS: ALBUT/IPRATROP 3MG/0.5MG NEB 3 ML VIAL NEB SCH ×4 (07:05→19:28)
--- NOTE | 2022-05-17 07:57 | Hospitalist Progress Note ---
Date of Service May 17, 2022 Assessment & Plan (1) COPD (chronic obstructive pulmonary disease): Plan: 61yo female presenting with DELUNA, progressive over the last several weeks and having to use more home O2. She admits to some mild coughing. On exam she has diminished breath sounds with end-expiratory wheezing. Labs are suggestive of acute on chronic respiratory acidosis. She had an elevated D-dimer and a CTA with NO evidence of a Pulmonary Embolism BiPAP initiated in the ER. -Admitted to PCU (still in ER awaiting a bed) -Currently on 2 Liter NC (BiPAP as needed for hypoxic, hypercarbic respiratory failure most likely secondary to COPD) -DuoNeb q 6 hours -Solumedrol 30mg IV TID -Albuterol q2 hours PRN -Flutter Valve and Guaifenesin -Fluticasone/Vilanterol/Umeclidinium -Continue Azithromycin (2) Lung cancer: Plan: Patient follows at [facility] She has completed chemoradiation to the lung with carboplatin as well as maintenance atezolizumab. (3) Brain metastasis: Plan: Patient saw [facility] for a second opinion and she underwent SRS to the 2 brain lesions in March. Patient is on a Dexamethasone taper for brain metastases with vasogenic edema. She was previously on 4 pills daily and currently on 2 pills daily. Will be receiving Solumedrol as above for suspected COPD exacerbation -Resume Dexamethasone on discharge -Gel ice packs to head as needed for pain ( states this gives her relief ) (4) Malignant neoplasm of upper-outer quadrant of left breast in female, estrogen receptor positive: Plan: Patient follows with Oncology - She has completed radiation and surgical resection of her breast tumor. -Continue Anastrozole Plan Patient was discussed with Dr Connelly who assisted int he treatment and plan for this patient Admission and Anticipated Discharge Date Admission Date: May 16, 2022 Subjective Patient was seen in the ER today on rounds. She is currently awake sitting up in bed with Bipap in place and her only complaint is that she is hungry. Per nursing, patient was pulling off her Bipap and was given ativan 0.5mg and has seemed more comfortable since. Patient was sent to the ER by the cancer center for complaints of increasing SOB and having to use more of her home Oxygen to be comfortable. Later in day patient was moved out of the ER to [facility]. She is currently resting comfortably in bed on 2 Liters NC. Review of Systems Constitutional: + fatigue; no fever and no chills Respiratory: + dyspnea; no change in sputum and no hemoptysis SOB Cardiovascular: no chest pain, no syncope and no calf pain Gastrointestinal: no abdominal pain, no nausea, no vomiting, no constipation and no diarrhea/loose stools Integumentary: no rash, no lesions, no wounds, no pruritus and no yellowing of the skin Neurologic: + headache(s); no falls and no syncope Physical Exam Constitutional: Patient was sitting up in bed, in ER with Bipap on in NAD Neck: trachea midline, no thyromegaly Respiratory: no cough decreased breath sounds, bipap in place with some end expiratory wheezes noted Cardiovascular: Rate/Rhythm: regular rate, regular rhythm and + tachycardic Extremities: + edema; no calf tenderness Gastrointestinal (Abdomen): normal bowel sounds, soft, nontender, no hepatosplenomegaly Results & Data Results & Data ([facility]) Vital Signs (Past 12 Hours) Vital Signs Temp Pulse Pulse Resp BP Pulse Ox Pulse Ox 05/17/22 07:00 80 20 90 05/17/22 07:00 80 20 90 05/17/22 06:01 81 19 90 05/17/22 02:10 96 H 23 95 05/17/22 05:35 05/17/22 03:12 36.7 C 90 18 115/86 89 L 05/17/22 01:08 100 H 24 131/97 92 05/16/22 23:44 93 05/16/22 23:44 36.6 C 101 H 34 H 133/85 94 05/16/22 23:11 93 H 18 136/96 98 05/16/22 22:47 103 H 21 97 05/16/22 22:31 120 H 22 143/108 H 96 05/16/22 22:31 117 H 18 99 05/16/22 21:00 115 H 22 132/84 93 O2 Del Method O2 Del Method O2 Flow Rate O2 Flow Rate FiO2 05/17/22 07:00 30 05/17/22 07:00 BiPAP 30 05/17/22 06:01 45 05/17/22 02:10 45 05/17/22 05:35 Room Air 05/17/22 03:12 BiPAP 30 05/17/22 01:08 BiPAP 30 05/16/22 23:44 Nasal Cannula 2 05/16/22 23:44 Nasal Cannula 2 05/16/22 23:11 BiPAP 45 05/16/22 22:47 45 05/16/22 22:31 Oxymask 5 05/16/22 22:31 Oxymask 5 05/16/22 21:00 Oxymask 5 Laboratory Results Abnormal lab results 05/16/22 05/16/22 05/16/22 Range/Units 16:01 16:01 16:01 WBC (4.8-10.8) K/ul RBC 3.82 L (3.93-5.22) M/uL Hgb (12.0-16.0) g/dl MCV 103.9 H (80.0-100.0) fL MCHC 31.0 L (32.0-36.0) g/dL RDW Std Deviation 80.8 H (36.4-46.3) fL RDW Coeff of Kp 21.5 H (11.5-14.5) % MPV (9.4-12.3) fL Lymph # (Auto) 0.75 L (1.2-3.4) K/uL Austin # (Auto) 0.20 L (0.24-0.82) K/uL Immature Gran # (Auto) 0.19 H (0.00-0.02) K/uL Absolute Nucleated RBC 0.32 H (0-0) K/uL D-Dimer 760 H* (0-500) ug/L FEU VBG pH (7.36-7.41) VBG pCO2 (38-50) mmHg Sodium 135 L (136-145) mmol/L Chloride 91 L (98-107) mmol/L Carbon Dioxide 41 H* (21-32) mmol/L Anion Gap (3-11) Creatinine 0.54 L (0.6-1.2) mg/dl BUN/Creatinine Ratio 33.3 H (10-20) Glucose 173 H (70-99(Fasting)) mg/dl Calcium 8.3 L (8.5-10.1) mg/dl ALT 65 H (7-52) U/L Troponin I High Sens 23.7 H (0-14) pg/ml B-Natriuretic Peptide (0-100) pg/ml Total Protein 5.4 L (6.0-8.3) gm/dl Albumin 3.3 L (3.4-5.0) gm/dl Globulin 2.1 L (2.5-4.0) gm/dl Ur Specific Sherwood (1.000-1.030) Urine Protein (Negative) Ur Leukocyte Esterase (Negative) Urine WBC (Auto) (0-5) /hpf U Hyaline Cast (Auto) (0-5) /lpf U Epithel Cells (Auto) (0-5) /lpf 05/16/22 05/16/22 05/16/22 Range/Units 16:01 17:01 18:35 WBC (4.8-10.8) K/ul RBC (3.93-5.22) M/uL Hgb (12.0-16.0) g/dl MCV (80.0-100.0) fL MCHC (32.0-36.0) g/dL RDW Std Deviation (36.4-46.3) fL RDW Coeff of Kp (11.5-14.5) % MPV (9.4-12.3) fL Lymph # (Auto) (1.2-3.4) K/uL Austin # (Auto) (0.24-0.82) K/uL Immature Gran # (Auto) (0.00-0.02) K/uL Absolute Nucleated RBC (0-0) K/uL D-Dimer (0-500) ug/L FEU VBG pH 7.26 L (7.36-7.41) VBG pCO2 109 H (38-50) mmHg Sodium (136-145) mmol/L Chloride (98-107) mmol/L Carbon Dioxide (21-32) mmol/L Anion Gap (3-11) Creatinine (0.6-1.2) mg/dl BUN/Creatinine Ratio (10-20) Glucose (70-99(Fasting)) mg/dl Calcium (8.5-10.1) mg/dl ALT (7-52) U/L Troponin I High Sens (0-14) pg/ml B-Natriuretic Peptide 284 H (0-100) pg/ml Total Protein (6.0-8.3) gm/dl Albumin (3.4-5.0) gm/dl Globulin (2.5-4.0) gm/dl Ur Specific Sherwood > 1.045 H (1.000-1.030) Urine Protein 1+ H (Negative) Ur Leukocyte Esterase Trace H (Negative) Urine WBC (Auto) 5-10 H (0-5) /hpf U Hyaline Cast (Auto) 5-10 H (0-5) /lpf U Epithel Cells (Auto) >30 H (0-5) /lpf 05/17/22 05/17/22 05/17/22 Range/Units 02:21 02:21 02:21 WBC 4.64 L (4.8-10.8) K/ul RBC 3.61 L (3.93-5.22) M/uL Hgb 11.4 L (12.0-16.0) g/dl MCV 102.5 H (80.0-100.0) fL MCHC 30.8 L (32.0-36.0) g/dL RDW Std Deviation 79.0 H (36.4-46.3) fL RDW Coeff of Kp 21.4 H (11.5-14.5) % MPV 8.9 L (9.4-12.3) fL Lymph # (Auto) (1.2-3.4) K/uL Austin # (Auto) (0.24-0.82) K/uL Immature Gran # (Auto) (0.00-0.02) K/uL Absolute Nucleated RBC 0.23 H (0-0) K/uL D-Dimer (0-500) ug/L FEU VBG pH (7.36-7.41) VBG pCO2 83 H (38-50) mmHg Sodium 135 L (136-145) mmol/L Chloride 92 L (98-107) mmol/L Carbon Dioxide 41 H* (21-32) mmol/L Anion Gap 2 L (3-11) Creatinine 0.36 L (0.6-1.2) mg/dl BUN/Creatinine Ratio 36.1 H (10-20) Glucose 103 H (70-99(Fasting)) mg/dl Calcium 8.1 L (8.5-10.1) mg/dl ALT 67 H (7-52) U/L Troponin I High Sens (0-14) pg/ml B-Natriuretic Peptide (0-100) pg/ml Total Protein 5.1 L (6.0-8.3) gm/dl Albumin 3.2 L (3.4-5.0) gm/dl Globulin (2.5-4.0) gm/dl Ur Specific Sherwood (1.000-1.030) Urine Protein (Negative) Ur Leukocyte Esterase (Negative) Urine WBC (Auto) (0-5) /hpf U Hyaline Cast (Auto) (0-5) /lpf U Epithel Cells (Auto) (0-5) /lpf Diagnostic Findings Chest X-Ray 05/16/22 16:19 XR chest 1V portable HISTORY: 61 years-old Female Dyspnea acute shortness of breath COMPARISON: Chest CT 03/28/2022 TECHNIQUE: AP view of the chest FINDINGS: Cardiac silhouette is enlarged. Atherosclerosis of the thoracic aorta. Emphysema with chronic interstitial coarsening. The previously described right upper lobe pulmonary nodules are better seen on the prior chest CT. Degenerative changes of the shoulders and spine. Left lung base Bochdalek hernia. IMPRESSION: 1. Emphysema without acute process. 2. The previously described right upper lobe nodules are better seen on the comparison chest CT. ACT 112: Negative or not required by law. The above report was generated using voice recognition software. It may contain grammatical, syntax or spelling errors. Electronically signed by: Cal Levin M.D. 05/16/2022 4:53 PM Chest CTA 05/16/22 17:15 CT ANGIOGRAM OF THE CHEST CLINICAL HISTORY: Dyspnea. Breast cancer. COMPARISON STUDY: Chest x-ray dated 05/16/2022. Chest CT dated 03/28/2022. TECHNIQUE: Following the IV administration of 116 cc of Optiray 320, CT angiogram of the chest was performed from the upper abdomen to the thoracic inlet utilizing the pulmonary embolus protocol. Images are reviewed in the axial, sagittal, and coronal planes. 3-D MIPS images are created and assessed. IV contrast was administered without complication. A dose lowering technique was utilized adhering to the principles of ALARA. CT DOSE: 505.69 mGycm FINDINGS: Thyroid: Normal in size and heterogeneous in attenuation. Thoracic aorta: There is atherosclerotic calcification of the thoracic aorta, which is normal in caliber and demonstrates standard 3-vessel arch anatomy. No dissection is seen. Pulmonary vasculature: The pulmonary trunk is normal in caliber. There are no filling defects identified in main, lobar, or segmental pulmonary branches to suggest pulmonary embolus. Heart: The heart is normal in size and without pericardial effusion. Lungs and pleural spaces: There is advanced emphysema. No air space consolidation typical for pneumonia or pleural effusion is identified. A fat- containing Bochdalek hernia is noted at the left lung base. The trachea and central airways are clear. Foci of parenchymal scarring are seen throughout both lungs. There are punctate calcified granulomas. A 1.8 x 1.2 cm irregular nodular density in the right upper lobe on image #199 is unchanged. A 4 mm residual nodule in the right lower lobe on image #142. This is also somewhat previous Mediastinum: There is no mediastinal lymphadenopathy. Kendy: Clear. Axillae: Surgical clips are noted in the left axilla. No axillary lymphadenopathy is identified. There is mild stranding in the left axilla at the site of previously characterized lesions. Upper abdomen: There is a small hiatal hernia. Trace perisplenic ascites is noted. Skeletal structures: The skeletal structures are osteopenic. A mild superior end plate compression deformity of T7 is unchanged. No lytic or blastic bony lesions are seen. Soft tissues: Asymmetric dermal thickening is noted in the left breast. IMPRESSION: 1. There is no evidence of pulmonary embolus in the main, lobar, or segmental pulmonary arteries. 2. There is no airspace consolidation typical for pneumonia or pleural effusion. 3. Advanced emphysema. 4. Residual right lobe nodules are similar to the 03/28/2022 examination 5. Asymmetric dermal thickening is noted in the left breast and may represent treatment-related change. 6. Additional findings as above. ACT 112: Negative or not required by law. Electronically signed by: Marcelino Webb M.D. 05/16/2022 6:47 PM PG Care Time/CCT Total # of Minutes Spent Total Time Spent with Patient: Total time spent is greater than 50% in coordination of care (as documented) at patient's floor/unit and/or counseling patient: Coding [place] [address] Subseq Hosp Care Lvl 3 Patient Type Established Medical Decision Making Moderate Complexity Diagnoses COPD (chronic obstructive pulmonary disease) J44.9 Lung cancer C34.90 Brain metastasis C79.31 Malignant neoplasm of upper-outer quadrant of left breast in female, estrogen receptor positive C50.412; Z17.0 Time Spent (min) 30
[2022-05-17] MEDS ORDERED: LORazepam 0.5 MG TAB ONE (07:59)
[2022-05-17] MEDS ORDERED: NON-FORMULARY MEDICATION (Tiotropium Bromide [Spiriva Respimat] 1.25 mcg/actuation mist) INH SCH (09:00)
[2022-05-17] MEDS: ANASTROZOLE 1 MG TAB PO SCH (09:54)
[2022-05-17] MEDS: UMECLIDINIUM BROMIDE 62.5MCG/BLISTER 7 PUFFS/INHALER INH SCH (09:56)
[2022-05-17] MEDS: SPIRONOLACTONE 12.5 MG TAB PO SCH (09:57)
--- NOTE | 2022-05-17 11:23 | Electrocardiogram Report ---
Test Reason : Blood Pressure : / mmHG Vent. Rate : 115 BPM Atrial Rate : 115 BPM P-R Int : 126 ms QRS Dur : 060 ms QT Int : 268 ms P-R-T Axes : 078 073 044 degrees QTc Int : 370 ms Poor data quality, interpretation may be adversely affected Sinus tachycardia Possible Left atrial enlargement Abnormal ECG Confirmed by Usman Ricketts ([id number]) on 05/17/2022 11:23:32 AM Referred By: Confirmed By:Vitaliy Ricketts
[2022-05-17] MEDS: oxyCODONE HCL IR 5 MG TAB (IMMEDIATE RELEASE) PO PRN (19:40)
[2022-05-17] MEDS: AZITHROMYCIN 250 MG in DEXTROSE 5% 250 ML IV SCH (20:02)
[2022-05-18] MEDS ORDERED: oxyCODONE HCL IR 5 MG TAB (IMMEDIATE RELEASE) PO STA (00:10)
[2022-05-18] MEDS: oxyCODONE HCL IR 5 MG TAB (IMMEDIATE RELEASE) PO PRN ×3 (06:08→19:41)
[2022-05-18 07:02] LABS: Hematocrit (blood only) 36.6 % (34.1-44.9); Hemoglobin 11.5 g/dl (12.0-16.0); Mean Corpuscular Hemoglobin 31.9 pg (25.0-34.0); Mean Corpuscular Hgb Conc 31.4 g/dL (32.0-36.0); Mean Corpuscular Volume 101.4 fL (80.0-100.0); Mean Platelet Volume 9.4 fL (9.4-12.3); Nucleated RBC % (auto) 1.6 %; Platelet Count 202 K/uL (130-400); RDW Coefficient of Variation 20.7 % (11.5-14.5); RDW Standard Deviation 75.8 fL (36.4-46.3); Red Blood Count 3.61 M/uL (3.93-5.22); White Blood Count 6.29 K/ul (4.8-10.8)
[2022-05-18] MEDS: ALBUT/IPRATROP 3MG/0.5MG NEB 3 ML VIAL NEB SCH ×4 (07:28→19:39)
[2022-05-18 07:44] LABS: BUN Creatinine Ratio 29.3 (10-20); Calcium 8.4 mg/dl (8.5-10.1); Creatinine Clr Calc Pharmacy 129.4 ml/min; Est GFR (African American) 129.2 ml/min; Est GFR (Non-African American) 111.5 ml/min; Potassium 4.6 mmol/L (3.5-5.1)
--- NOTE | 2022-05-18 08:01 | Hospitalist Progress Note ---
Date of Service May 18, 2022 Assessment & Plan (1) COPD (chronic obstructive pulmonary disease): Plan: 61yo female presenting with DELUNA, progressive over the last several weeks and having to use more home O2. She admits to some mild coughing. On exam she has diminished breath sounds with end-expiratory wheezing. Labs are suggestive of acute on chronic respiratory acidosis. She had an elevated D-dimer and a CTA with NO evidence of a Pulmonary Embolism BiPAP initiated in the ER. -Admitted to PCU -Currently on 2 Liter NC (BiPAP as needed for hypoxic, hypercarbic respiratory failure most likely secondary to COPD - patient has continued to refuse any CPAP or BIPAP) (had a 80pack year history of smoking 2ppd x 40 years - Quit last year) -DuoNeb q 6 hours -Solumedrol 30mg IV TID -Albuterol q2 hours PRN -Flutter Valve and Guaifenesin -Fluticasone/Vilanterol/Umeclidinium -Continue Azithromycin -Respiratory evaluated patient this AM and attempted a 2 step. Patient's oxygen was decreased from 2L to 1L and then RA to desaturate patient to 85%. She was i ncreased back to 2 L and her O2 sats improved to the 90s. She walked 10 steps and then stated she needed to sit down and rest. Her saturations remained in the 90s. She refused to walk any further. -Awaiting PT evaluation -Discussed she needs to be able to walk to be able to be discharged home with her -Reviewed old records and patient had seen cardiology in the past and was recommended to follow up with pulmonology and possibly have a sleep study -Patient states she was never diagnosed with sleep apnea and never had a sleep study -Recommend to get a sleep study in the near future as an outpatient (2) Pulmonary hypertension: Plan: Reviewed cardiology note from 09/2020 who felt her pulmonary hypertension is l ikely secondary to COPD and possibly sleep apnea. It was recommended that she follow up with a [facility] and have sleep studies. Patient has never had a sleep study. Patient had a 80 pack year history of smoking and quit in 2020. (patient has smoked greater than 2 packs per day in the past) Last echo was Jul 03, 2021 and revealed normal LV size and systolic function with no regional wall motion abnormalities with EF 70% (3) Lung cancer: Plan: Patient follows at [facility] She has completed chemoradiation to the lung with carboplatin as well as maintenance atezolizumab. (4) Brain metastasis: Plan: Patient saw [facility] for a second opinion and she underwent SRS to the 2 brain lesions in March. Patient is on a Dexamethasone taper for brain metastases with vasogenic edema. She was previously on 4 pills daily and currently on 2 pills daily. Will be receiving Solumedrol as above for suspected COPD exacerbation -Resume Dexamethasone on discharge -Gel ice packs to head as needed for pain ( states this gives her relief ) (5) Malignant neoplasm of upper-outer quadrant of left breast in female, estrogen receptor positive: Plan: Patient follows with Oncology - She has completed radiation and surgical resection of her breast tumor. -Continue Anastrozole (6) Anxiety: Plan: Discontinued the Hydroxyzine (patient states made her dizzy and was rx as outpatient but didnt take it) Changed to Lorazepam 0.5mg (was rx as outpatient) one pill q 12 hours as needed and discussed no more than 2 pills daily Patient is aware of the risk of this medication with her lung disease Patient gets frequent anxiety and panic attacks. Especially when discussing her health issues. Patient seems in denial of the extent of her medical issues and prognosis Plan Patient was discussed with Dr Connelly who assisted int he treatment and plan for this patient Admission and Anticipated Discharge Date Admission Date: May 16, 2022 Subjective Patient was seen this AM on rounds. She is sitting up in recliner. She complains of bilateral ankle pain and asking for her oxycontin to be changed from q 6h to q 4h (she take this at home q 4 hours) she states when she has to go every 6 hours the ankle pain increases, then her anxiety increases and she feels like she cannot breath. She tells me that she is anxious about her declining health and having to use more oxygen at times to feel comfortable. Currently her only complaint is bilateral ankle pain and chills. She denies any current chest pain. She is asking if her oxygen can be changed from 2L to 4L. Explained to patient that her O2 saturation is good at 2Liters and increased O2 levels could potentially cause increased CO2 levels and hypercapnia. Review of Systems Constitutional: + fatigue; no fever and no chills Respiratory: + dyspnea; no change in sputum and no hemoptysis SOB Cardiovascular: no chest pain, no syncope and no calf pain Additional Comments: edema lower extremities Gastrointestinal: no abdominal pain, no nausea, no vomiting, no constipation and no diarrhea/loose stools Musculoskeletal: pain in bilateral ankles Integumentary: no rash, no lesions, no wounds, no pruritus and no yellowing of the skin Neurologic: + headache(s); no falls and no syncope Psychiatric: + panic attacks patient states she is anxious about her declining respiratory status Physical Exam Constitutional: sitting up in recliner Neck: trachea midline, no thyromegaly Respiratory: able to speak in complete sentences; no cough Cardiovascular: Rate/Rhythm: regular rate, regular rhythm and + tachycardic Extremities: + edema; no calf tenderness Gastrointestinal (Abdomen): normal bowel sounds, soft, nontender, no hepatosplenomegaly Results & Data Results & Data ([facility]) Vital Signs (Past 12 Hours) Vital Signs Temp Pulse Pulse Resp BP Pulse Ox O2 Del Method 05/18/22 07:33 88 05/18/22 07:28 68 20 91 Nasal Cannula 05/18/22 04:00 36.9 C 93 H 18 137/88 98 Nasal Cannula 05/18/22 00:10 Nasal Cannula 05/17/22 23:34 100 H 05/17/22 22:00 36.5 C 100 H 20 145/86 H 95 Nasal Cannula 05/17/22 20:08 36.3 C L 93 H 20 150/94 H 95 Nasal Cannula O2 Flow Rate 05/18/22 07:33 05/18/22 07:28 3 05/18/22 04:00 2 05/18/22 00:10 2 05/17/22 23:34 05/17/22 22:00 2 05/17/22 20:08 2 Laboratory Results Abnormal lab results 05/17/22 05/18/22 05/18/22 Range/Units 19:15 06:23 06:23 RBC 3.61 L (3.93-5.22) M/uL Hgb 11.5 L (12.0-16.0) g/dl MCV 101.4 H (80.0-100.0) fL MCHC 31.4 L (32.0-36.0) g/dL RDW Std Deviation 75.8 H (36.4-46.3) fL RDW Coeff of Kp 20.7 H (11.5-14.5) % Absolute Nucleated RBC 0.10 H (0-0) K/uL Sodium 134 L (136-145) mmol/L Chloride 89 L (98-107) mmol/L Carbon Dioxide 45 H* (21-32) mmol/L Anion Gap 0 L (3-11) Creatinine 0.41 L (0.6-1.2) mg/dl BUN/Creatinine Ratio 29.3 H (10-20) Calcium 8.4 L (8.5-10.1) mg/dl Troponin I High Sens 17.8 H D (0-14) pg/ml PG Care Time/CCT Total # of Minutes Spent Total Time Spent with Patient: Total time spent is greater than 50% in coordination of care (as documented) at patient's floor/unit and/or counseling patient: Coding [place] [address] Subseq Hosp Care Lvl 3 Patient Type Established Medical Decision Making High Complexity Diagnoses COPD (chronic obstructive pulmonary disease) J44.9 Pulmonary hypertension I27.20 Lung cancer C34.90 Brain metastasis C79.31 Malignant neoplasm of upper-outer quadrant of left breast in female, estrogen receptor positive C50.412; Z17.0 Anxiety F41.9 Time Spent (min) 30
[2022-05-18] MEDS: methylPREDNISolone 30 MG in SYRINGE 0 ML IV SCH ×3 (09:08→21:06)
[2022-05-18] MEDS: GABAPENTIN 300 MG CAP PO SCH ×3 (09:08→21:04)
[2022-05-18] MEDS: ANASTROZOLE 1 MG TAB PO SCH (09:09)
[2022-05-18] MEDS: guaiFENesin 600 MG TABCR PO SCH ×2 (09:09→21:05)
[2022-05-18] MEDS: UMECLIDINIUM BROMIDE 62.5MCG/BLISTER 7 PUFFS/INHALER INH SCH (09:10)
[2022-05-18] MEDS: FLUTICASONE/VILANTEROL 100/25MCG 14 PUFFS/INHALER INH SCH (09:10)
--- NOTE | 2022-05-18 14:34 | Electrocardiogram Report ---
Test Reason : Blood Pressure : / mmHG Vent. Rate : 086 BPM Atrial Rate : 086 BPM P-R Int : 120 ms QRS Dur : 066 ms QT Int : 324 ms P-R-T Axes : 078 076 063 degrees QTc Int : 387 ms Normal sinus rhythm Normal ECG When compared with ECG of 16-MAY-2022 15:54, No significant change was found Confirmed by Manuel Sun ([id number]) on 05/18/2022 2:34:00 PM Referred By: Karla Garcia Confirmed By:Manuel Sun
[2022-05-18 16:02] LABS: BUN Creatinine Ratio 27.1 (10-20); Calcium 8.3 mg/dl (8.5-10.1); Creatinine Clr Calc Pharmacy 110.6 ml/min; Est GFR (African American) 122.7 ml/min; Est GFR (Non-African American) 105.9 ml/min; Potassium 4.3 mmol/L (3.5-5.1)
[2022-05-18] MEDS: ENOXAPARIN INJ 40 MG/0.4 ML SYR SQ SCH (21:06)
[2022-05-18] MEDS: AZITHROMYCIN 250 MG in DEXTROSE 5% 250 ML IV SCH (21:07)
[2022-05-19] MEDS: LORazepam 0.5 MG TAB PO PRN ×3 (01:32→21:32)
[2022-05-19 06:20] LABS: Hematocrit (blood only) 35.3 % (34.1-44.9); Hemoglobin 11.1 g/dl (12.0-16.0); Mean Corpuscular Hemoglobin 31.8 pg (25.0-34.0); Mean Corpuscular Hgb Conc 31.4 g/dL (32.0-36.0); Mean Corpuscular Volume 101.1 fL (80.0-100.0); Mean Platelet Volume 9.4 fL (9.4-12.3); Nucleated RBC # (auto) 0.04 K/uL (0-0); Nucleated RBC % (auto) 0.8 %; Platelet Count 213 K/uL (130-400); RDW Coefficient of Variation 20.4 % (11.5-14.5); RDW Standard Deviation 74.7 fL (36.4-46.3); Red Blood Count 3.49 M/uL (3.93-5.22); White Blood Count 4.81 K/ul (4.8-10.8)
[2022-05-19 06:50] LABS: BUN Creatinine Ratio 25.6 (10-20); Calcium 8.2 mg/dl (8.5-10.1); Creatinine Clr Calc Pharmacy 134.5 ml/min; Est GFR (African American) 131.4 ml/min; Est GFR (Non-African American) 113.4 ml/min; Magnesium 1.9 mg/dl (1.7-2.4); Potassium 4.8 mmol/L (3.5-5.1)
[2022-05-19] MEDS: ALBUT/IPRATROP 3MG/0.5MG NEB 3 ML VIAL NEB SCH ×4 (07:47→17:47)
[2022-05-19] MEDS: oxyCODONE HCL IR 5 MG TAB (IMMEDIATE RELEASE) PO PRN ×2 (08:18→18:30)
[2022-05-19] MEDS: UMECLIDINIUM BROMIDE 62.5MCG/BLISTER 7 PUFFS/INHALER INH SCH (08:19)
[2022-05-19] MEDS: FLUTICASONE/VILANTEROL 100/25MCG 14 PUFFS/INHALER INH SCH (08:19)
[2022-05-19] MEDS: guaiFENesin 600 MG TABCR PO SCH ×2 (08:19→21:32)
[2022-05-19] MEDS: GABAPENTIN 300 MG CAP PO SCH ×3 (08:20→21:32)
[2022-05-19] MEDS: ANASTROZOLE 1 MG TAB PO SCH (08:20)
[2022-05-19] MEDS: SPIRONOLACTONE 12.5 MG TAB PO SCH (08:20)
[2022-05-19] MEDS: methylPREDNISolone 30 MG in SYRINGE 0 ML IV SCH ×3 (08:21→21:32)
--- NOTE | 2022-05-19 09:17 | Hospitalist Progress Note ---
Date of Service May 19, 2022 Assessment & Plan (1) COPD (chronic obstructive pulmonary disease): Plan: 61yo female presenting with DELUNA, progressive over the last several weeks and having to use more home O2. She admits to some mild coughing. On exam she has diminished breath sounds with end-expiratory wheezing. Labs are suggestive of acute on chronic respiratory acidosis. She had an elevated D-dimer and a CTA with NO evidence of a Pulmonary Embolism BiPAP initiated in the ER. -Admitted to PCU -Previously was on 2 Liter NC then later today patient had a drop in her saturation to 55-78% and she was placed on 8L Oxymask and currently is saturating at 93% (BiPAP as needed for hypoxic, hypercarbic respiratory failure most likely secondary to COPD - patient has continued to refuse any CPAP or BIPAP) (had a 80pack year history of smoking 2ppd x 40 years - Quit last year) -DuoNeb q 6 hours -Solumedrol 30mg IV TID -Albuterol q2 hours PRN -Flutter Valve and Guaifenesin -Fluticasone/Vilanterol/Umeclidinium -Continue Azithromycin -Respiratory evaluated patient 05/18/22 and attempted a 2 step. Patient's oxygen was decreased from 2L to 1L and then RA to desaturate patient to 85%. She was increased back to 2 L and her O2 sats improved to the 90s. She walked 10 steps and then stated she needed to sit down and rest. Her saturations remained in the 90s. She refused to walk any further. -Awaiting PT and OT evaluation -Discussed with that she needs evaluated to decide what is safe for her going forward and to be able to go back home with her . He tells me they have 1 story living, she was walking with a walker at home but they do have a wheel chair if needed. -Reviewed old records and patient had seen cardiology in the past and was recommended to follow up with pulmonology and possibly have a sleep study -Patient states she was never diagnosed with sleep apnea and never had a sleep study -Recommend to get a sleep study in the near future as an outpatient (2) Pulmonary hypertension: Plan: Reviewed cardiology note from 09/2020 who felt her pulmonary hypertension is likely secondary to COPD and possibly sleep apnea. It was recommended that she follow up with a mri ct tech and have sleep studies. Patient has never had a sleep study. Patient had a 80 pack year history of smoking and quit in 2020. (patient has smoked greater than 2 packs per day in the past) Last echo was Jul 03, 2021 and revealed normal LV size and systolic function with no regional wall motion abnormalities with EF 70% (3) Lung cancer: Plan: Patient follows at [facility] She has completed chemoradiation to the lung with carboplatin as well as maintenance atezolizumab. (4) Brain metastasis: Plan: Patient saw [facility] for a second opinion and she underwent SRS to the 2 brain lesions in March. Patient is on a Dexamethasone taper for brain metastases with vasogenic edema. She was previously on 4 pills daily and currently on 2 pills daily. Will be receiving Solumedrol as above for suspected COPD exacerbation -Resume Dexamethasone on discharge -Gel ice packs to head as needed for pain ( states this gives her relief ) (5) Malignant neoplasm of upper-outer quadrant of left breast in female, estrogen receptor positive: Plan: Patient follows with Oncology - She has completed radiation and surgical resection of her breast tumor. -Continue Anastrozole (6) Anxiety: Plan: Discontinued the Hydroxyzine (patient stated made her dizzy and was rx as outpatient but didnt take it) Changed to Lorazepam 0.5mg (was rx as outpatient) one pill q 12 hours as needed and discussed no more than 2 pills daily Patient is aware of the risk of this medication with her lung disease Patient gets frequent anxiety and panic attacks. Especially when discussing her health issues. Patient seems in denial of the extent of her medical issues and prognosis (7) Hypertension: Plan: Increase the Spironolactone 12.5mg to daily Continue to monitor BPs Continue to elevate legs Encourage up and out of bed - PT to evaluate Plan Patient was discussed with Dr Connelly who assisted int he treatment and plan for this patient Admission and Anticipated Discharge Date Admission Date: May 16, 2022 Subjective Patient was seen this AM on rounds. She is laying in bed complaining of a headache and asking for an icepack. She is tolerating the SCDs and feels they are helping her legs feel less swollen. She was also instructed to elevate her legs especially while sitting in recliner. Patient denies any chest pain. She still has anxiety and panic attacks at times. Review of Systems Constitutional: + fatigue; no fever and no chills Respiratory: + dyspnea; no change in sputum and no hemoptysis SOB Cardiovascular: no chest pain, no syncope and no calf pain Additional Comments: edema lower extremities Gastrointestinal: no abdominal pain, no nausea, no vomiting, no constipation and no diarrhea/loose stools Musculoskeletal: pain in bilateral ankles Integumentary: no rash, no lesions, no wounds, no pruritus and no yellowing of the skin Neurologic: + headache(s); no falls and no syncope Psychiatric: + panic attacks patient states she is anxious about her declining respiratory status Physical Exam Neck: trachea midline, no thyromegaly Respiratory: able to speak in complete sentences; no cough Cardiovascular: Rate/Rhythm: regular rate, regular rhythm and + tachycardic Extremities: + edema; no calf tenderness Gastrointestinal (Abdomen): normal bowel sounds, soft, nontender, no hepatosplenomegaly Results & Data Results & Data ([facility]) Vital Signs (Past 12 Hours) Vital Signs Temp Pulse Pulse Resp BP BP Pulse Ox 05/19/22 07:53 107 H 20 91 05/19/22 07:40 87 05/19/22 07:37 36.7 C 101 H 24 153/101 H 95 05/19/22 04:00 36.6 C 101 H 20 169/106 H 165/108 H 96 05/19/22 03:35 05/18/22 22:16 100 H 05/18/22 22:00 36.4 C L 99 H 20 148/96 H 99 O2 Del Method O2 Flow Rate 05/19/22 07:53 Nasal Cannula 2 05/19/22 07:40 05/19/22 07:37 Nasal Cannula 2 05/19/22 04:00 Nasal Cannula 2 05/19/22 03:35 Nasal Cannula 2 05/18/22 22:16 05/18/22 22:00 Nasal Cannula 2 Laboratory Results Abnormal lab results 05/18/22 05/19/22 05/19/22 Range/Units 14:51 05:08 05:08 RBC 3.49 L (3.93-5.22) M/uL Hgb 11.1 L (12.0-16.0) g/dl MCV 101.1 H (80.0-100.0) fL MCHC 31.4 L (32.0-36.0) g/dL RDW Std Deviation 74.7 H (36.4-46.3) fL RDW Coeff of Kp 20.4 H (11.5-14.5) % Absolute Nucleated RBC 0.04 H (0-0) K/uL Sodium 135 L (136-145) mmol/L Chloride 90 L 92 L (98-107) mmol/L Carbon Dioxide 41 H* 43 H* (21-32) mmol/L Anion Gap 1 L (3-11) Creatinine 0.48 L 0.39 L (0.6-1.2) mg/dl BUN/Creatinine Ratio 27.1 H 25.6 H (10-20) Glucose 152 H (70-99(Fasting)) mg/dl Calcium 8.3 L 8.2 L (8.5-10.1) mg/dl PG Care Time/CCT Total # of Minutes Spent Total Time Spent with Patient: Total time spent is greater than 50% in coordination of care (as documented) at patient's floor/unit and/or counseling patient: Coding Level of Care Code 26961 Subseq Hosp Care Lvl 3 Diagnoses COPD (chronic obstructive pulmonary disease) J44.9 Pulmonary hypertension I27.20 Lung cancer C34.90 Brain metastasis C79.31 Malignant neoplasm of upper-outer quadrant of left breast in female, estrogen receptor positive C50.412; Z17.0 Anxiety F41.9 Hypertension I10 Time Spent (min) 20
[2022-05-19] MEDS: AZITHROMYCIN 250 MG in DEXTROSE 5% 250 ML IV SCH (21:24)
[2022-05-19] MEDS: ENOXAPARIN INJ 40 MG/0.4 ML SYR SQ SCH (21:30)
[2022-05-19] MEDS: ACETAMINOPHEN 325 MG TAB PO PRN (21:51)
[2022-05-20 06:37] LABS: Hematocrit (blood only) 34.3 % (34.1-44.9); Hemoglobin 10.6 g/dl (12.0-16.0); Mean Corpuscular Hemoglobin 31.9 pg (25.0-34.0); Mean Corpuscular Hgb Conc 30.9 g/dL (32.0-36.0); Mean Corpuscular Volume 103.3 fL (80.0-100.0); Mean Platelet Volume 9.1 fL (9.4-12.3); Nucleated RBC # (auto) 0.03 K/uL (0-0); Nucleated RBC % (auto) 0.7 %; Platelet Count 219 K/uL (130-400); RDW Coefficient of Variation 20.3 % (11.5-14.5); Red Blood Count 3.32 M/uL (3.93-5.22); White Blood Count 4.61 K/ul (4.8-10.8)
[2022-05-20] MEDS: oxyCODONE HCL IR 5 MG TAB (IMMEDIATE RELEASE) PO PRN ×3 (06:40→14:02)
[2022-05-20 07:04] LABS: BUN Creatinine Ratio 27.5 (10-20); Blood Urea Nitrogen 11 mg/dl (6-23); Carbon Dioxide > 45 mmol/L (21-32); Chloride 89 mmol/L (98-107); Creatinine Clr Calc Pharmacy 126.8 ml/min; Est GFR (African American) 130.3 ml/min; Est GFR (Non-African American) 112.4 ml/min; Glucose 95 mg/dl (70-99(Fasting)); Potassium 4.3 mmol/L (3.5-5.1); Sodium 136 mmol/L (136-145)
[2022-05-20] MEDS: ALBUT/IPRATROP 3MG/0.5MG NEB 3 ML VIAL NEB SCH ×3 (07:08→15:11)
--- NOTE | 2022-05-20 08:03 | Hospitalist Progress Note ---
Date of Service May 20, 2022 Assessment & Plan (1) COPD (chronic obstructive pulmonary disease): Plan: 61yo female presenting with DELUNA, progressive over the last several weeks and having to use more home O2. She admits to some mild coughing. On exam she has diminished breath sounds with end-expiratory wheezing. Labs are suggestive of acute on chronic respiratory acidosis. She had an elevated D-dimer and a CTA with NO evidence of a Pulmonary Embolism BiPAP initiated in the ER. -Admitted to PCU -Previously was on 2 Liter NC then later today patient had a drop in her saturation to 55-78% and she was placed on 8L Oxymask and currently is saturating at 97% (BiPAP as needed for hypoxic, hypercarbic respiratory failure most likely secondary to COPD - patient has continued to refuse any CPAP or BIPAP) (had a 80pack year history of smoking 2ppd x 40 years - Quit last year) -DuoNeb q 6 hours -Solumedrol 30mg IV TID -Albuterol q2 hours PRN -Flutter Valve and Guaifenesin -Fluticasone/Vilanterol/Umeclidinium -Continue Azithromycin -Respiratory evaluated patient 05/18/22 and attempted a 2 step. Patient's oxygen was decreased from 2L to 1L and then RA to desaturate patient to 85%. She was increased back to 2 L and her O2 sats improved to the 90s. She walked 10 steps and then stated she needed to sit down and rest. Her saturations remained in the 90s. She refused to walk any further. -Awaiting PT and OT evaluation -Discussed with that she needs evaluated to decide what is safe for her going forward and to be able to go back home with her . He tells me they have 1 story living, she was walking with a walker at home but they do have a wheel chair if needed. He is aware of patient's prognosis and states he feels he is able to care for her as long as she is not " weight" and can help to get up and move around -Reviewed old records and patient had seen cardiology in the past and was recommended to follow up with pulmonology and possibly have a sleep study -Patient states she was never diagnosed with sleep apnea and never had a sleep study -Recommend to get a sleep study in the near future as an outpatient (2) Pulmonary hypertension: Plan: Reviewed cardiology note from 09/2020 who felt her pulmonary hypertension is likely secondary to COPD and possibly sleep apnea. It was recommended that she follow up with a dietetics professor and have sleep studies. Patient has never had a sleep study. Patient had a 80 pack year history of smoking and quit in 2020. (patient has smoked greater than 2 packs per day in the past) Last echo was Jul 03, 2021 and revealed normal LV size and systolic function with no regional wall motion abnormalities with EF 70% (3) Lung cancer: Plan: Patient follows at [facility] She has completed chemoradiation to the lung with carboplatin as well as maintenance atezolizumab. (4) Brain metastasis: Plan: Patient saw [facility] for a second opinion and she underwent SRS to the 2 brain lesions in March. Patient is on a Dexamethasone taper for brain metastases with vasogenic edema. She was previously on 4 pills daily and currently on 2 pills daily. Will be receiving Solumedrol as above for suspected COPD exacerbation -Resume Dexamethasone on discharge -Gel ice packs to head as needed for pain ( states this gives her relief ) (5) Malignant neoplasm of upper-outer quadrant of left breast in female, estrogen receptor positive: Plan: Patient follows with Oncology - She has completed radiation and surgical resection of her breast tumor. -Continue Anastrozole (6) Anxiety: Plan: Discontinued the Hydroxyzine (patient stated made her dizzy and was rx as outpatient but didnt take it) Changed to Lorazepam 0.5mg (was rx as outpatient) one pill q 12 hours as needed and discussed no more than 2 pills daily Patient is aware of the risk of this medication with her lung disease Patient gets frequent anxiety and panic attacks. Especially when discussing her health issues. Patient seems in denial of the extent of her medical issues and prognosis (7) Hypertension: Plan: Increase the Spironolactone 12.5mg to daily Continue to monitor BPs Continue to elevate legs Encourage up and out of bed - PT to evaluate Plan Awaiting PT and OT evaluation Patient was discussed with Dr Connelly who assisted int he treatment and plan for this patient Admission and Anticipated Discharge Date Admission Date: May 16, 2022 Subjective Patient was seen this AM on rounds. he is awake and sitting up in bed. She states she does not want to eat breakfast. She tells me that she does not usually eat much for breakfast because she likes to sleep in. She is complaining of a headache. Patient still has Oxymask in place on 8L Patient is down 6.3 Kg from admission. Review of Systems Constitutional: + fatigue; no fever and no chills Respiratory: + dyspnea; no change in sputum and no hemoptysis SOB Cardiovascular: no chest pain, no syncope and no calf pain Additional Comments: edema lower extremities Gastrointestinal: no abdominal pain, no nausea, no vomiting, no constipation and no diarrhea/loose stools Musculoskeletal: pain in bilateral ankles Integumentary: no rash, no lesions, no wounds, no pruritus and no yellowing of the skin Neurologic: + headache(s); no falls and no syncope Psychiatric: + panic attacks patient states she is anxious about her declining respiratory status Physical Exam Constitutional: Patient is sitting up in bed with breakfast tray in place. She appears comfortable in NAD. Neck: trachea midline, no thyromegaly Respiratory: able to speak in complete sentences; no cough Cardiovascular: Rate/Rhythm: regular rate, regular rhythm and + tachycardic Extremities: + edema (less edema lower extremities); no calf tenderness Gastrointestinal (Abdomen): normal bowel sounds, soft, nontender, no hepatosplenomegaly Results & Data Results & Data ([facility]) Vital Signs (Past 12 Hours) Vital Signs Temp Pulse Pulse Resp BP Pulse Ox O2 Del Method 05/20/22 07:00 36.6 C 101 H 22 148/88 H 100 Oxymask 05/20/22 07:23 90 05/20/22 07:08 90 18 97 Oxymask 05/20/22 02:37 36.5 C 87 20 142/83 H 98 Oxymask 05/20/22 03:21 Oxymask 05/19/22 22:09 101 H 05/19/22 23:19 36.7 C 101 H 20 145/88 H 97 Oxymask O2 Flow Rate 05/20/22 07:00 5 05/20/22 07:23 05/20/22 07:08 8 05/20/22 02:37 8 05/20/22 03:21 8 05/19/22 22:09 05/19/22 23:19 8 PG Care Time/CCT Total # of Minutes Spent Total Time Spent with Patient: Total time spent is greater than 50% in coordination of care (as documented) at patient's floor/unit and/or counseling patient: Coding Diagnoses COPD (chronic obstructive pulmonary disease) J44.9 Pulmonary hypertension I27.20 Lung cancer C34.90 Brain metastasis C79.31 Malignant neoplasm of upper-outer quadrant of left breast in female, estrogen receptor positive C50.412; Z17.0 Anxiety F41.9 Hypertension I10
[2022-05-20] MEDS ORDERED: SPIRONOLACTONE 12.5 MG TAB PO SCH (09:00)
[2022-05-20] MEDS: ACETAMINOPHEN 325 MG TAB PO PRN (09:06)
[2022-05-20] MEDS: guaiFENesin 600 MG TABCR PO SCH (09:06)
[2022-05-20] MEDS: LORazepam 0.5 MG TAB PO PRN (09:06)
[2022-05-20] MEDS: GABAPENTIN 300 MG CAP PO SCH ×2 (09:07→13:59)
[2022-05-20] MEDS: methylPREDNISolone 30 MG in SYRINGE 0 ML IV SCH (09:07)
[2022-05-20] MEDS: ANASTROZOLE 1 MG TAB PO SCH (09:07)
[2022-05-20] MEDS: FLUTICASONE/VILANTEROL 100/25MCG 14 PUFFS/INHALER INH SCH (09:08)
[2022-05-20] MEDS: UMECLIDINIUM BROMIDE 62.5MCG/BLISTER 7 PUFFS/INHALER INH SCH (09:08)
[2022-05-20 12:39] VITALS: TEMP 98.2
--- NOTE | 2022-05-20 14:22 | Discharge Summary ---
Date of Service May 20, 2022 Admission HPI Per Admitting Provider Yanet Guido is a pleasant 61yo female with history of invasive ductal carcinoma of the left breast and non-small cell lung cancer diagnosed in November 2020. She has completed chemoradiation to the lung with carboplatin as well as maintenance atezolizumab. She has completed radiation and surgical resection of her breast tumor. She is currently on Anastrazole. Patient found to have brain metastases x 2 on MRI in February 2022. Patient has been seen at [facility] for a second opinion. She underwent SRS to the 2 brain lesions in March. She is presently on Dexamethasone taper. Patient report 2-3 weeks of DELUNA. She does not feel that it is getting any worse. She denies cough, wheeze, chest tightness. No fever, chills, sputum production. No allergy or URI symptoms. No chest pain. She states that she feels fine when she is sitting still and playing her games on the I-pad but she becomes very short of breath with ambulating even short distances. Patient has O2 at home and was using it at night. She has been needing it continuously over the last 2 weeks. In the ER she is afebrile, tachycardic otherwise HD stable. Saturations of 81% with ambulation. She is presently on 5L Oxymask saturating 93%. Patient offers no additional complaints at this time. ER Course: Albuterol 3mL neb x 2 Solumedrol 125mg Azithromycin 500mgIV Principal Diagnosis COPD exacerbation Discharge Exam Constitutional: Patient is sitting up in bed with breakfast tray in place. She appears comfortable in NAD. Neck: trachea midline, no thyromegaly Respiratory: able to speak in complete sentences; no cough Cardiovascular: Rate/Rhythm: regular rate, regular rhythm and + tachycardic Extremities: + edema (less edema lower extremities); no calf tenderness Gastrointestinal (Abdomen): normal bowel sounds, soft, nontender, no hepatosplenomegaly Discharge Data Allergies Allergy/AdvReac Type Severity Reaction Status Date / Time paclitaxel AdvReac Severe Difficulty Verified 03/06/22 09:57 Breathing Consultations 05/16/22 19:22 ED Decision to Admit Stat Ordered Studies 05/16/22 17:15 CT angio chest PE protocol Stat Hospital Course (1) COPD (chronic obstructive pulmonary disease): 61yo female presenting with DELUNA, progressive over the last several weeks and having to use more home O2. She admits to some mild coughing. On exam she has diminished breath sounds with end-expiratory wheezing. Labs are suggestive of acute on chronic respiratory acidosis. She had an elevated D-dimer and a CTA with NO evidence of a Pulmonary Embolism BiPAP initiated in the ER. -Admitted to PCU -Previously was on 2 Liter NC then later today patient had a drop in her saturation to 55-78% and she was placed on 8L Oxymask and currently is saturating at 97% (BiPAP as needed for hypoxic, hypercarbic respiratory failure most likely secondary to COPD - patient has continued to refuse any CPAP or BIPAP) (had a 80pack year history of smoking 2ppd x 40 years - Quit last year) -DuoNeb q 6 hours -Solumedrol 30mg IV TID -Albuterol q2 hours PRN -Flutter Valve and Guaifenesin -Fluticasone/Vilanterol/Umeclidinium -Treated with Azithromycin -Respiratory evaluated patient 05/18/22 and attempted a 2 step. Patient's oxygen was decreased from 2L to 1L and then RA to desaturate patient to 85%. She was increased back to 2 L and her O2 sats improved to the 90s. She walked 10 steps and then stated she needed to sit down and rest. Her saturations remained in the 90s. She refused to walk any further. -Discussed with that she needs evaluated to decide what is safe for her going forward and to be able to go back home with her . He tells me they have 1 story living, she was walking with a walker at home but they do have a wheel chair if needed. He is aware of patient's prognosis and states he feels he is able to care for her as long as she is not " weight" and can help to get up and move around -Reviewed old records and patient had seen cardiology in the past and was recommended to follow up with pulmonology and possibly have a sleep study -Patient states she was never diagnosed with sleep apnea and never had a sleep study -Recommend to get a sleep study in the near future as an outpatient -PT and OT evaluated patient today and stated safe to go home with 24/7 care from her but recommended H/H PT 3-5 X per week -Patient and declined H/H and are aware they are able to have their PCP set this up for them in the future if they should change their minds (2) Pulmonary hypertension: Reviewed cardiology note from 09/2020 who felt her pulmonary hypertension is likely secondary to COPD and possibly sleep apnea. It was recommended that she follow up with a forest engineer and have sleep studies. Patient has never had a sleep study. Patient had a 80 pack year history of smoking and quit in 2020. (patient has smoked greater than 2 packs per day in the past) Last echo was Jul 03, 2021 and revealed normal LV size and systolic function with no regional wall motion abnormalities with EF 70% (3) Lung cancer: Patient follows at [facility] She has completed chemoradiation to the lung with carboplatin as well as maintenance atezolizumab (4) Brain metastasis: Patient saw [facility] for a second opinion and she underwent SRS to the 2 brain lesions in March. Patient is on a Dexamethasone taper for brain metastases with vasogenic edema. She was previously on 4 pills daily and currently on 2 pills daily. Will be receiving Solumedrol as above for suspected COPD exacerbation -Resume Dexamethasone on discharge -Gel ice packs to head as needed for pain ( states this gives her relief ) (5) Malignant neoplasm of upper-outer quadrant of left breast in female, estrogen receptor positive: Patient follows with Oncology - She has completed radiation and surgical resection of her breast tumor. -Continue Anastrozole (6) Anxiety: Discontinued the Hydroxyzine (patient stated made her dizzy and was rx as outpatient but didnt take it) Changed to Lorazepam 0.5mg (was rx as outpatient) one pill q 12 hours as needed and discussed no more than 2 pills daily Patient is aware of the risk of this medication with her lung disease Patient gets frequent anxiety and panic attacks. Especially when discussing her health issues. Patient seems in denial of the extent of her medical issues and prognosis (7) Hypertension: Increase the Spironolactone 12.5mg to daily Continue to monitor BPs Continue to elevate legs Encourage up and out of bed - PT to evaluate Plan Follow up with PCP in 1 week Follow up with Oncology and radiation Total Time Total Time Spent Total Time Spent (In Minutes): 45 Discharge Plan Discharge Items Patient Disposition: Home - Self-Care Reason For Visit: HYPOXIA, COPD EXACERBATION Discharge Diagnosis: COPD Condition on Discharge: Fair Activity: Resume your previous activity Non-emergency contact: Primary Care Provider Call non-emergency contact if: you have any medication questions and your symptoms worsen Follow-up/Referrals: Cookie Fontenot CRNP [Primary Care Provider] - (PLEASE CALL YOUR PRIMARY CARE PROVIDER TO SCHEDULE A DISCHARGE FOLLOW-UP APPOINTMENT WITHIN 7-10 DAYS.) Diet: Regular and Low Sodium (2gm) Addtl Attending Provider Instructions: You were admitted with complaints of increasing shortness of breath and were found to have low Oxygen saturation and high carbon dioxide. You were placed on a Bipap in the ER and eventually decreased to nasal canula 2 L of Oxygen and were maintaining your saturations. You were then placed on an Oxymask. You also had some lower extremity edema and had improvements with Spontaneous compression device. You were instructed to continue to follow a low sodium diet and elevated your legs when able. You asked about getting SCDs for at home use and [employer] do not carry these, but they can be ordered through [employer]. Discussed that you also could use compression stockings. Physical therapy and occupational therapy evaluated you and recommended it is ok to be discharged home with care from your and to use your walker. They also recommended some H/H PT 3-5 times per week for 2 weeks but you and your decided against this. You and your are aware that if you should change your mind that your primary care physician could order H/H for you going forward. You should follow up with your primary doctor with in 1 week and also follow up with oncology. Suggested a follow up with pulmonology per the discretion of your primary physician. You will be sent home with a rx for a nebulizer to use as needed. Medications that changed while in the hospital Spironolactone was changed from one every other day to one every day Oxycodone 5mg was one every 4 hours Lorazepam 0.5mg was one q 12 hours as needed Pending Studies at Discharge: No Stand-Alone Forms: My [facility] Medications and DC Order Prescriptions: New spironolactone 25 mg Tablet 12.5 mg PO DAILY Qty: 30 0RF ipratropium-albuterol 0.5 mg-3 mg(2.5 mg base)/3 mL Solution For Nebulization 3 ml NEB QIDR Qty: 30 0RF lorazepam 0.5 mg tablet 0.5 mg PO BID PRN (Reason: anxiety) Qty: 10 0RF Continued acetaminophen [Tylenol Extra Strength] 500 mg tablet 500 mg PO Q6H PRN (Reason: Pain) [id number]-[id number]-lcui 50-325-40 mg tablet 1 tab PO Q6H PRN (Reason: migraines) anastrozole [Arimidex] 1 mg tablet 1 mg PO QAM gabapentin 300 mg capsule 600 mg PO TID dexamethasone 4 mg tablet 4 mg PO TID Qty: 30 0RF albuterol sulfate [ProAir HFA] 90 mcg/actuation HFA aerosol inhaler 2 puff inhalation Q6H PRN (Reason: sob) cyanocobalamin (vitamin B-12) [Vitamin B-12] 1,000 mcg Tablet 1,000 mcg PO QAM budesonide-formoterol [Symbicort] 160-4.5 mcg/actuation Hfa Aerosol Inhaler 2 puff INHALATION BID diclofenac sodium 3 % gel 1 applic TOPICAL QID PRN (Reason: pain/swelling) Spiriva Respimat 1.25 mcg/actuation mist 1 puff INHALATION DAILY Changed oxycodone 5 mg tablet 5 mg PO Q4H PRN (Reason: pain) Qty: 18 0RF Discontinued hydroxyzine HCl 10 mg Tablet 10 mg PO QID PRN (Reason: Anxiety) spironolactone 25 mg tablet 12.5 mg PO Q OTHER DAY lorazepam 0.5 mg Tablet 0.5 mg PO UD PRN (Reason: Anxiety) No Action cyclobenzaprine [Flexeril] 10 mg Tablet 10 mg PO HS PRN (Reason: Spasms) prochlorperazine maleate 10 mg Tablet 10 mg PO Q6H PRN (Reason: Nausea And Vomiting) hydroxyzine HCl 10 mg Tablet 10 mg PO TID PRN (Reason: Anxiety) hydrochlorothiazide 12.5 mg Tablet 12.5 mg PO Q2D oxycodone 10 mg Tablet 10 mg PO Q4 PRN (Reason: Severe Pain (Scale Score 7-10)) Rx Instructions: q4-6 hrs Hematinic/Folic Acid 324 mg (106 mg iron)-1 mg Tablet 1 tab PO DAILY Rx Instructions: administer between meals Discharge Orders: Discharge Order (Routine); Ordered 05/20/22 Ordered By: Deborah Ontiveros Admission Data Admit Date/Time: 05/16/22 19:48 Attending Provider: Ben Connelly Admit Provider: Ratna Light Primary Care Provider: Cookie Fontenot Other Interventions: Discharge Summary Assessment (RN) Last Done: 05/20/22 14:51 Supervising Physician Co-Signing Physician Notes During face to face encounter with patient. I discussed the hospital course and obtained a physical examination. I discussed discharge plan with patient and MJ Ontiveros. I reviewed above note and agree with it. Patient will be discharged after being treated for a COPD exacerbation. Patient will continue on her inhalers and will prescribe short term rescue treatment for patient. Coding Level of Care Code D/C DAY MANAGEMENT >30 MINS Diagnoses COPD (chronic obstructive pulmonary disease) J44.9 Pulmonary hypertension I27.20 Lung cancer C34.90 Brain metastasis C79.31 Malignant neoplasm of upper-outer quadrant of left breast in female, estrogen receptor positive C50.412; Z17.0 Anxiety F41.9 Hypertension I10 Time Spent (min) 45
[2022-05-20 14:52] VITALS: BP 129/80
[2022-05-20 15:36] VITALS: PULSE 101; O2SAT 100
== END 2022-05-20 16:47 | disposition home or self-care (01) | DRG 189 ==
LOC: ED 15:34 → EDINP 19:48 → SUATTDRO 19:48 → 2N 22:01
DX: Z17.0 Estrogen receptor positive status [ER+]; Z88.8 Allergy status to other drugs, medicaments and biological substances; C34.90 Malignant neoplasm of unspecified part of unspecified bronchus or lung; C50.412 Malignant neoplasm of upper-outer quadrant of left female breast; J96.12 Chronic respiratory failure with hypercapnia; Z79.899 Other long term (current) drug therapy; J44.1 Chronic obstructive pulmonary disease with (acute) exacerbation; Z87.891 Personal history of nicotine dependence; J96.91 Respiratory failure, unspecified with hypoxia; C79.31 Secondary malignant neoplasm of brain; F41.9 Anxiety disorder, unspecified; I10 Essential (primary) hypertension; J96.92 Respiratory failure, unspecified with hypercapnia; G93.6 Cerebral edema

== ENCOUNTER 2022-05-21 12:24 | Inpatient (IN) ==
[2022-05-21] MEDS ORDERED: ALBUT/IPRATROP 3MG/0.5MG NEB 3 ML VIAL NEB STA (12:47)
[2022-05-21] MEDS ORDERED: CEFEPIME 2,000 MG/20 ML VIAL IV STA (12:47)
[2022-05-21 12:57] LABS: Basophils # (auto) 0.05 K/uL (0-0.2); Basophils % (auto) 0.7 %; Eosinophils # (auto) 0.02 K/uL (0-0.50); Eosinophils % (auto) 0.3 %; Hematocrit (blood only) 39.2 % (34.1-44.9); Hemoglobin 12.2 g/dl (12.0-16.0); Immature Granulocytes # (auto) 0.26 K/uL (0.00-0.02); Immature Granulocytes % (auto) 3.5 %; Lymphocytes # (auto) 0.73 K/uL (1.2-3.4); Lymphocytes % (auto) 9.8 %; Mean Corpuscular Hemoglobin 31.9 pg (25.0-34.0); Mean Corpuscular Hgb Conc 31.1 g/dL (32.0-36.0); Mean Corpuscular Volume 102.6 fL (80.0-100.0); Mean Platelet Volume 8.7 fL (9.4-12.3); Neutrophils # (auto) 6.11 K/uL (1.4-6.5); Neutrophils % (auto) 81.7 %; Nucleated RBC # (auto) 0.25 K/uL (0-0); Nucleated RBC % (auto) 3.3 %; Platelet Count 253 K/uL (130-400); RDW Coefficient of Variation 20.2 % (11.5-14.5); RDW Standard Deviation 76.7 fL (36.4-46.3); Red Blood Count 3.82 M/uL (3.93-5.22); White Blood Count 7.47 K/ul (4.8-10.8)
[2022-05-21] MEDS ORDERED: SODIUM CHLORIDE 0.9% 1000ML 500 ML IV SCH (13:00)
--- NOTE | 2022-05-21 13:07 | XRay Report ---
XR chest 1V portable HISTORY: Sepsis COMPARISON: Chest 05/16/2022. FINDINGS: No pneumothorax. The heart remains mildly enlarged. There is progressive interstitial/vascu lar thickening and small bilateral pleural effusions. There are patchy right basilar densities. Emphy sema again noted. Left-sided Bochdalek hernia remains unchanged. IMPRESSION: 1. Mild pulmonary vascular congestion without overt edema. 2. Emphysema. 3. Patchy right basilar densities may represent atelectasis or developing pneumonia. This is new from the prior study. ACT 112: Negative or not required by law. Electronically signed by: Mateo Alvarado M.D. 05/21/2022 1:05 PM
--- NOTE | 2022-05-21 13:08 | Emergency Department Note ---
Impression & Plan Respiratory failure, Respiratory acidosis, Altered mental status, Metastatic cancer ED Provider Note NAME: LEILANI LUCIANO AGE: 61 SEX: F : 1960 ARRIVES VIA: Ambulance INFORMANT: [EMS, , nursing] ED PROVIDER(S): [Marcelino Cordero MD] CHIEF COMPLAINT: Unresponsive HISTORY OF PRESENT ILLNESS: The patient is a 61-year-old female with metastatic cancer. She has been diagnosed with breast and lung cancer. She was discharged from the hospital yesterday after a COPD exacerbation. She has known mets to her brain. As per the , the patient had a bad night. She had a hard time breathing and was not doing well. She could not care for herself. She lost bowel continence at least 4 times. She was not responding to him this morning, EMS was summoned. She was brought for evaluation. The patient is not responding to voice or questioning, no further history obtainable. As per the , the patient is a full code. REVIEW OF SYSTEMS: Unobtainable given the mental state. PMHx/PSHx: See Below SOCIAL HISTORY: See Below. PHYSICAL EXAM: GENERAL: Patient is in significant distress, short of breath. HEENT: No acute trauma, normocephalic atraumatic, mucous membranes moist, no nasal congestion, no scleral icterus. Pupils equal and reactive to light. NECK: No stridor, no adenopathy, no meningismus, trachea is midline. LUNGS: Crackles bilaterally, increased respiratory rate, breath sounds equal bilaterally. Moderate respiratory distress noted HEART: Tachycardic, regular rhythm, no obvious murmur. ABDOMEN: Soft, nontender, bowel sounds positive, no peritonitis. EXTREMITIES: The patient's legs are mottled. There is bilateral pedal edema. NEUROLOGIC: Does move all extremities, does not respond to voice, currently nonverbal. SKIN: No jaundice, no diaphoresis. Mottled skin noted. DIFFERENTIAL DIAGNOSIS: Sepsis, UTI, pneumonia, exacerbation of COPD, intracranial bleeding, metabolic abnormality, electrolyte abnormalities, cardiac sources, cellulitis, bacteremia, intracerebral event, toxicologic etiology, neurologic event, as well as other pathologies. EMERGENCY DEPARTMENT COURSE/PROCEDURES: ECG: Indication was unresponsive state. The ECG shows a sinus tachycardia with some baseline artifact. There is some nonspecific ST change noted diffusely. There is no ST elevation. QTc is 426. Continuous Cardiac Monitoring: An order was placed for continuous cardiac monitoring. The monitor shows a rate of 124 with sinus tachycardia. Critical Care Note: I have personally spent 51 minutes of critical care time in the direct management of this patient. This includes bedside care, interpretation of diagnostic studies, and testing, discussion with consultants, patient, and family members, and other required patient management activities. This 51 minutes is in excess of all separately billable procedures. MEDICAL DECISION MAKING: There is no leukocytosis or concerning anemia. There is a normal platelet count. No coagulopathy. ABG showed a respiratory acidosis with a PCO2 over 100 and a pH of 7.24. Renal panel testing showed a high CO2 consistent with the respiratory acidosis. No renal failure. Lactic acid level was not elevated making severe sepsis less likely. There were a few subtle liver enzyme elevations however, the bilirubin was normal. Troponin was elevated at 114, this elevation could be consistent with cardiac injury or secondary to mismatch from her respiratory distress. ECG showed a sinus tachycardia, no ST elevation. Chest x-ray showed a potential right lower lung infiltrate versus atelectasis. No pneumothorax or heart failure. Urinalysis did not show infection. COVID, influenza and RSV test were negative. Brain CT showed potential vasogenic edema, no bleeding. On exam, the patient was having obvious respiratory distress. Her skin was mottled. She would not respond verbally but did seem to move all extremities. I spoke with the over the phone. The patient is to be a full code for now. If intubation is required, she is to be placed on the ventilator. The patient was immediately placed on BiPAP. She was given a DuoNeb and IV Tylenol. She was given IV cefepime as empiric antibiotic coverage. She was given IV Solu-Medrol. She received IV morphine for pain. She was given a 500 cc saline bolus. The patient has made improvement on the BiPAP and with the above-mentioned treatment. Her CO2 level has decreased as per the repeat ABG. Her tachycardia has improved, she seems much more comfortable. I spoke with the patient's son as well who was at bedside. I did explain to him that his mother was quite ill and that she may not survive this hospitalization. For now, I believe we can hold off on intubation. If the patient does not continue to improve, intubation may be necessary. I spoke with case management, the on-call hospitalist was consulted. Past Med/Surg History Medical History Anxiety Breast cancer, left Dx 12/2020 COPD (chronic obstructive pulmonary disease) History of migraine Hypertension Iron deficiency anemia Hx iron infusions Lung cancer Non small cell cancer dx 12/2020; chemo/radiation (per pt, completed 3 mo ago but still on IV prophylaxis trtmt q3wks, Tecentriq per heme records) On home oxygen therapy oxygen at night 1.5 lpm via n/c Pulmonary hypertension Cardio feels likely secondary to COPD and possible MARTELL Thyroid nodule Surgical History H/O esophagogastroduodenoscopy History of breast biopsy History of lung biopsy History of tubal ligation Hx of colonoscopy Status post left breast lumpectomy (07/09/21) Left lumpectomy with sentinel lymph node biopsy and also excision of superior left axillary lymph node with additional axillary tissue. Dr. Andres 07/09/2021 Family History Father Myocardial infarction CABG x 3 Mother , 84yo Emphysema lung Smoker Brother No problems noted. Sister No problems noted. Sister Asthma Son No problems noted. Daughter No problems noted. 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 [employer] Feels Safe at Home: Yes caffeine: Yes (2-4 cups/day) during the past year weight has: remained stable Assistive Devices: Walker Allergies Allergies Allergy/AdvReac Type Severity Reaction Status Date / Time paclitaxel AdvReac Severe Difficulty Verified 03/06/22 09:57 Breathing Home Meds Home Medications Medication Instructions Recorded Confirmed budesonide-formoterol HFA 160 2 puff inhalation BID 11/08/20 05/17/22 mcg-4.5 mcg/actuation aerosol inhaler (Symbicort) cyanocobalamin (vitamin B-12) 1,000 mcg PO QAM 11/08/20 05/17/22 1,000 mcg tablet (Vitamin B-12) albuterol sulfate 90 mcg/actuation 2 puff inhalation Q6H PRN sob 01/03/21 05/17/22 aerosol inhaler (ProAir HFA) acetaminophen 500 mg tablet 500 mg PO Q6H PRN Pain 01/31/21 05/17/22 (Tylenol Extra Strength) anastrozole 1 mg tablet (Arimidex) 1 mg PO QAM 01/31/21 05/17/22 fambwjeoep-tuawjutehbilu-hnxgkvda 1 tab PO Q6H PRN migraines 01/31/21 05/17/22 50 mg-325 mg-40 mg tablet diclofenac sodium 3 % topical gel 1 applic topical QID PRN 01/31/21 05/17/22 pain/swelling gabapentin 300 mg capsule 300 mg PO TID 01/31/21 05/17/22 tiotropium bromide 1.25 1 puff inhalation DAILY 03/06/22 05/17/22 mcg/actuation mist for inhalation (Spiriva Respimat) Previous Rx's Medication Instructions Recorded dexamethasone 4 mg tablet 4 mg PO TID Vasogenic edema #30 03/06/22 tabs ipratropium 0.5 mg-albuterol 3 mg 3 ml NEB QIDR #30 mL 05/20/22 (2.5 mg base)/3 mL nebulization soln lorazepam 0.5 mg tablet 0.5 mg PO BID PRN anxiety #10 tabs 05/20/22 lorazepam 0.5 mg tablet 0.5 mg PO Q12 PRN anxiety #10 tabs 05/20/22 oxycodone 5 mg tablet 5 mg PO Q4H PRN pain #18 tabs 05/20/22 oxycodone 5 mg tablet 5 mg PO Q4H PRN pain #20 tabs 05/20/22 spironolactone 25 mg tablet 12.5 mg PO DAILY #30 tabs 05/20/22 spironolactone 25 mg tablet 12.5 mg PO DAILY #30 tabs 05/20/22 Results & Data (ED) Vital Signs Vital Signs - 24 hr 12/06/22 12:18 05/21/22 13:20 05/21/22 13:20 Temperature 37.1 C Temperature Source Rectal Pulse Rate 124 H 128 H Pulse Rate [Right Apical] 128 H Pulse Rate from SpO2 Sensor Pulse Rhythm Pulse Rhythm [Right Apical] Respiratory Rate 32 H 22 24 Respiratory Effort / Characteristics Labored Spontaneous Non-Labored Spontaneous Respiratory Depth Shallow Shallow Respiratory Pattern Regular Blood Pressure 161/112 H Blood Pressure [Left Arm] Blood Pressure Mean 128 Blood Pressure Mean [Left Arm] Blood Pressure Position Sitting Blood Pressure Position [Left Arm] Pulse Oximetry 100 96 93 Oxygen Delivery Method Non-rebreather BiPAP Fraction of Inspired Oxygen 40 50 Sepsis New/Unexplained Change in Mental Status Yes Sepsis Action Taken by Nursing Physician Notified 05/21/22 14:01 05/21/22 14:26 05/21/22 14:32 Temperature Temperature Source Pulse Rate 106 H Pulse Rate [Right Apical] 102 H Pulse Rate from SpO2 Sensor Pulse Rhythm Regular Pulse Rhythm [Right Apical] Regular Respiratory Rate 26 H 26 H Respiratory Effort / Characteristics Non-Labored Respiratory Depth Normal Respiratory Pattern Regular Blood Pressure Blood Pressure [Left Arm] 100/74 Blood Pressure Mean Blood Pressure Mean [Left Arm] 82 Blood Pressure Position Blood Pressure Position [Left Arm] Lying Pulse Oximetry 100 96 93 Oxygen Delivery Method BiPAP BiPAP BiPAP Fraction of Inspired Oxygen Sepsis New/Unexplained Change in Mental Status Sepsis Action Taken by Nursing 05/21/22 12:31 05/21/22 12:31 05/21/22 12:45 Temperature Temperature Source Pulse Rate 128 H 118 H Pulse Rate [Right Apical] Pulse Rate from SpO2 Sensor 117 H Pulse Rhythm Pulse Rhythm [Right Apical] Respiratory Rate 35 H Respiratory Effort / Characteristics Respiratory Depth Respiratory Pattern Blood Pressure 160/124 H Blood Pressure [Left Arm] Blood Pressure Mean 136 Blood Pressure Mean [Left Arm] Blood Pressure Position Blood Pressure Position [Left Arm] Pulse Oximetry 100 Oxygen Delivery Method Fraction of Inspired Oxygen Sepsis New/Unexplained Change in Mental Status Sepsis Action Taken by Nursing 05/21/22 12:45 05/21/22 13:00 05/21/22 13:00 Temperature Temperature Source Pulse Rate 116 H Pulse Rate [Right Apical] Pulse Rate from SpO2 Sensor 117 H Pulse Rhythm Pulse Rhythm [Right Apical] Respiratory Rate 36 H Respiratory Effort / Characteristics Respiratory Depth Respiratory Pattern Blood Pressure 147/99 H 132/91 Blood Pressure [Left Arm] Blood Pressure Mean 115 104 Blood Pressure Mean [Left Arm] Blood Pressure Position Blood Pressure Position [Left Arm] Pulse Oximetry 100 Oxygen Delivery Method Fraction of Inspired Oxygen Sepsis New/Unexplained Change in Mental Status Sepsis Action Taken by Nursing 05/21/22 13:15 05/21/22 13:15 05/21/22 13:41 Temperature Temperature Source Pulse Rate 124 H 108 H Pulse Rate [Right Apical] Pulse Rate from SpO2 Sensor 126 H Pulse Rhythm Pulse Rhythm [Right Apical] Respiratory Rate 40 H 27 H Respiratory Effort / Characteristics Respiratory Depth Respiratory Pattern Blood Pressure 131/80 Blood Pressure [Left Arm] Blood Pressure Mean 97 Blood Pressure Mean [Left Arm] Blood Pressure Position Blood Pressure Position [Left Arm] Pulse Oximetry 97 Oxygen Delivery Method Fraction of Inspired Oxygen Sepsis New/Unexplained Change in Mental Status Sepsis Action Taken by Nursing 05/21/22 14:00 05/21/22 14:01 05/21/22 14:01 Temperature Temperature Source Pulse Rate 102 H 102 H Pulse Rate [Right Apical] Pulse Rate from SpO2 Sensor 103 H 102 H Pulse Rhythm Pulse Rhythm [Right Apical] Respiratory Rate 26 H 24 Respiratory Effort / Characteristics Respiratory Depth Respiratory Pattern Blood Pressure 103/66 Blood Pressure [Left Arm] Blood Pressure Mean 78 Blood Pressure Mean [Left Arm] Blood Pressure Position Blood Pressure Position [Left Arm] Pulse Oximetry 100 100 Oxygen Delivery Method Fraction of Inspired Oxygen Sepsis New/Unexplained Change in Mental Status Sepsis Action Taken by Nursing 05/21/22 14:15 05/21/22 14:15 05/21/22 14:30 Temperature Temperature Source Pulse Rate 100 H Pulse Rate [Right Apical] Pulse Rate from SpO2 Sensor 102 H Pulse Rhythm Pulse Rhythm [Right Apical] Respiratory Rate 30 H Respiratory Effort / Characteristics Respiratory Depth Respiratory Pattern Blood Pressure 100/74 101/70 Blood Pressure [Left Arm] Blood Pressure Mean 82 80 Blood Pressure Mean [Left Arm] Blood Pressure Position Blood Pressure Position [Left Arm] Pulse Oximetry 100 Oxygen Delivery Method Fraction of Inspired Oxygen Sepsis New/Unexplained Change in Mental Status Sepsis Action Taken by Nursing 05/21/22 14:30 Temperature Temperature Source Pulse Rate 104 H Pulse Rate [Right Apical] Pulse Rate from SpO2 Sensor 105 H Pulse Rhythm Pulse Rhythm [Right Apical] Respiratory Rate 25 H Respiratory Effort / Characteristics Respiratory Depth Respiratory Pattern Blood Pressure Blood Pressure [Left Arm] Blood Pressure Mean Blood Pressure Mean [Left Arm] Blood Pressure Position Blood Pressure Position [Left Arm] Pulse Oximetry 95 Oxygen Delivery Method Fraction of Inspired Oxygen Sepsis New/Unexplained Change in Mental Status Sepsis Action Taken by [facility] Medications Current Medication List: was personally reviewed by me Laboratory Data Attestation: I reviewed the patient's lab results. Result diagrams: 05/21/22 12:38 12 12:38 Lab Results 05/21/22 05/21/22 05/21/22 Range/Units 12:38 12:38 12:38 WBC 7.47 (4.8-10.8) K/ul RBC 3.82 L (3.93-5.22) M/uL Hgb 12.2 (12.0-16.0) g/dl POC Hgb (12.0-16.0) g/dl Hct 39.2 (34.1-44.9) % POC Hct (37-47) % MCV 102.6 H (80.0-100.0) fL MCH 31.9 (25.0-34.0) pg MCHC 31.1 L (32.0-36.0) g/dL RDW Std Deviation 76.7 H (36.4-46.3) fL RDW Coeff of Kp 20.2 H (11.5-14.5) % Plt Count 253 (130-400) K/uL MPV 8.7 L (9.4-12.3) fL Immature Gran % (Auto) 3.5 % Neut % (Auto) 81.7 % Lymph % (Auto) 9.8 % [place] % (Auto) 4.0 % Eos % (Auto) 0.3 % Baso % (Auto) 0.7 % Neut # (Auto) 6.11 (1.4-6.5) K/uL Lymph # (Auto) 0.73 L (1.2-3.4) K/uL [place] # (Auto) 0.30 (0.24-0.82) K/uL Eos # (Auto) 0.02 (0-0.50) K/uL Baso # (Auto) 0.05 (0-0.2) K/uL Immature Gran # (Auto) 0.26 H (0.00-0.02) K/uL Absolute Nucleated RBC 0.25 H (0-0) K/uL Nucleated RBC % (auto) 3.3 % Polychromasia 1+ PT (9.0-12.0) Seconds INR (0.9-1.1) APTT (21.0-31.0) Seconds PTT Ratio POC pH (7.35-7.45) POC pCO2 (35-46) mmHg POC pO2 (80-95) mmHg POC HCO3 (19-24) russell/L POC Total CO2 (24-31) mmol/L POC Base Excess (-9-1.8) russell/L POC ABG O2 Sat (90-95) % POC Sodium (135-144) mmol/L Sodium 134 L (136-145) mmol/L POC Potassium (3.3-5.0) mmol/L Potassium 4.5 (3.5-5.1) mmol/L Chloride 85 L (98-107) mmol/L Carbon Dioxide > 45 H* (21-32) mmol/L Anion Gap TNP BUN 15 (6-23) mg/dl Creatinine 0.42 L (0.6-1.2) mg/dl Est Cr Clr Drug Dosing Not Reportable Est GFR ( Amer) 128.2 ml/min Est GFR (Non-Af Amer) 110.6 ml/min BUN/Creatinine Ratio 35.7 H (10-20) Glucose 120 H (70-99(Fasting)) mg/dl Lactate (0.4-2.0) mmol/L Calcium 8.1 L (8.5-10.1) mg/dl Magnesium 1.8 (1.7-2.4) mg/dl Total Bilirubin 1.0 (0.2-1.0) mg/dl Direct Bilirubin 0.2 (0-0.2) mg/dl AST 43 H (13-39) U/L ALT 87 H (7-52) U/L Alkaline Phosphatase 53 (34-104) U/L Troponin I High Sens 114.4 H* (0-14) pg/ml Total Protein 5.4 L (6.0-8.3) gm/dl Albumin 3.5 (3.4-5.0) gm/dl Procalcitonin 1.03 H (0-0.5) ng/ml Urine Color Urine Appearance (Clear) Urine pH (4.5-7.5) Ur Specific Buena (1.000-1.030) Urine Protein (Negative) Urine Glucose (UA) (Negative) Urine Ketones (Negative) Urine Blood (Negative) Urine Nitrite (Negative) Urine Bilirubin (Negative) Urine Urobilinogen (Negative) Ur Leukocyte Esterase (Negative) SARS-CoV-2 (PCR) (Negative) Influenza Type A (PCR) (Neg) Influenza Type B (PCR) (Neg) RSV (RT-PCR) (Neg) 05/21/22 05/21/22 05/21/22 Range/Units 12:38 13:11 13:11 WBC (4.8-10.8) K/ul RBC (3.93-5.22) M/uL Hgb (12.0-16.0) g/dl POC Hgb 13.3 (12.0-16.0) g/dl Hct (34.1-44.9) % POC Hct 39 (37-47) % MCV (80.0-100.0) fL MCH (25.0-34.0) pg MCHC (32.0-36.0) g/dL RDW Std Deviation (36.4-46.3) fL RDW Coeff of Kp (11.5-14.5) % Plt Count (130-400) K/uL MPV (9.4-12.3) fL Immature Gran % (Auto) % Neut % (Auto) % Lymph % (Auto) % [place] % (Auto) % Eos % (Auto) % Baso % (Auto) % Neut # (Auto) (1.4-6.5) K/uL Lymph # (Auto) (1.2-3.4) K/uL [place] # (Auto) (0.24-0.82) K/uL Eos # (Auto) (0-0.50) K/uL Baso # (Auto) (0-0.2) K/uL Immature Gran # (Auto) (0.00-0.02) K/uL Absolute Nucleated RBC (0-0) K/uL Nucleated RBC % (auto) % Polychromasia PT 10.8 (9.0-12.0) Seconds INR 1.0 (0.9-1.1) APTT 22.5 (21.0-31.0) Seconds PTT Ratio 0.8 POC pH 7.24 L (7.35-7.45) POC pCO2 110 H (35-46) mmHg POC pO2 112 H (80-95) mmHg POC HCO3 47 H (19-24) russell/L POC Total CO2 > 40 H* (24-31) mmol/L POC Base Excess 19.0 H (-9-1.8) russell/L POC ABG O2 Sat 97.0 H (90-95) % POC Sodium 130 L (135-144) mmol/L Sodium (136-145) mmol/L POC Potassium 4.1 (3.3-5.0) mmol/L Potassium (3.5-5.1) mmol/L Chloride (98-107) mmol/L Carbon Dioxide (21-32) mmol/L Anion Gap BUN (6-23) mg/dl Creatinine (0.6-1.2) mg/dl Est Cr Clr Drug Dosing Est GFR ( Amer) ml/min Est GFR (Non-Af Amer) ml/min BUN/Creatinine Ratio (10-20) Glucose (70-99(Fasting)) mg/dl Lactate 1.2 (0.4-2.0) mmol/L Calcium (8.5-10.1) mg/dl Magnesium (1.7-2.4) mg/dl Total Bilirubin (0.2-1.0) mg/dl Direct Bilirubin (0-0.2) mg/dl AST (13-39) U/L ALT (7-52) U/L Alkaline Phosphatase (34-104) U/L Troponin I High Sens (0-14) pg/ml Total Protein (6.0-8.3) gm/dl Albumin (3.4-5.0) gm/dl Procalcitonin (0-0.5) ng/ml Urine Color Urine Appearance (Clear) Urine pH (4.5-7.5) Ur Specific [place] (1.000-1.030) Urine Protein (Negative) Urine Glucose (UA) (Negative) Urine Ketones (Negative) Urine Blood (Negative) Urine Nitrite (Negative) Urine Bilirubin (Negative) Urine Urobilinogen (Negative) Ur Leukocyte Esterase (Negative) SARS-CoV-2 (PCR) (Negative) Influenza Type A (PCR) (Neg) Influenza Type B (PCR) (Neg) RSV (RT-PCR) (Neg) 05/21/22 05/21/22 Range/Units 13:13 13:18 WBC (4.8-10.8) K/ul RBC (3.93-5.22) M/uL Hgb (12.0-16.0) g/dl POC Hgb (12.0-16.0) g/dl Hct (34.1-44.9) % POC Hct (37-47) % MCV (80.0-100.0) fL MCH (25.0-34.0) pg MCHC (32.0-36.0) g/dL RDW Std Deviation (36.4-46.3) fL RDW Coeff of Kp (11.5-14.5) % Plt Count (130-400) K/uL MPV (9.4-12.3) fL Immature Gran % (Auto) % Neut % (Auto) % Lymph % (Auto) % [place] % (Auto) % Eos % (Auto) % Baso % (Auto) % Neut # (Auto) (1.4-6.5) K/uL Lymph # (Auto) (1.2-3.4) K/uL [place] # (Auto) (0.24-0.82) K/uL Eos # (Auto) (0-0.50) K/uL Baso # (Auto) (0-0.2) K/uL Immature Gran # (Auto) (0.00-0.02) K/uL Absolute Nucleated RBC (0-0) K/uL Nucleated RBC % (auto) % Polychromasia PT (9.0-12.0) Seconds INR (0.9-1.1) APTT (21.0-31.0) Seconds PTT Ratio POC pH (7.35-7.45) POC pCO2 (35-46) mmHg POC pO2 (80-95) mmHg POC HCO3 (19-24) russell/L POC Total CO2 (24-31) mmol/L POC Base Excess (-9-1.8) russell/L POC ABG O2 Sat (90-95) % POC Sodium (135-144) mmol/L Sodium (136-145) mmol/L POC Potassium (3.3-5.0) mmol/L Potassium (3.5-5.1) mmol/L Chloride (98-107) mmol/L Carbon Dioxide (21-32) mmol/L Anion Gap BUN (6-23) mg/dl Creatinine (0.6-1.2) mg/dl Est Cr Clr Drug Dosing Est GFR ( Amer) ml/min Est GFR (Non-Af Amer) ml/min BUN/Creatinine Ratio (10-20) Glucose (70-99(Fasting)) mg/dl Lactate (0.4-2.0) mmol/L Calcium (8.5-10.1) mg/dl Magnesium (1.7-2.4) mg/dl Total Bilirubin (0.2-1.0) mg/dl Direct Bilirubin (0-0.2) mg/dl AST (13-39) U/L ALT (7-52) U/L Alkaline Phosphatase (34-104) U/L Troponin I High Sens (0-14) pg/ml Total Protein (6.0-8.3) gm/dl Albumin (3.4-5.0) gm/dl Procalcitonin (0-0.5) ng/ml Urine Color Yellow Urine Appearance Clear (Clear) Urine pH 5.5 (4.5-7.5) Ur Specific [place] 1.012 (1.000-1.030) Urine Protein Negative (Negative) Urine Glucose (UA) Negative (Negative) Urine Ketones Negative (Negative) Urine Blood Negative (Negative) Urine Nitrite Negative (Negative) Urine Bilirubin Negative (Negative) Urine Urobilinogen Negative (Negative) Ur Leukocyte Esterase Negative (Negative) SARS-CoV-2 (PCR) NEGATIVE (Negative) Influenza Type A (PCR) Negative (Neg) Influenza Type B (PCR) Negative (Neg) RSV (RT-PCR) Negative (Neg) Administered Medications Dexamethasone 6 mg/ Syringe 1.5 mls @ 1 mls/min IV Q24H [facility] Stop: 06/20/22 16:29 Last Admin: 05/21/22 16:51 Dose: 1 mls/min Documented By: AM Ampicillin Sodium/Sulbactam Sodium 3,000 mg/ Sodium Chloride 108 mls @ 200 mls/hr IV Q6H [facility]; Protocol Stop: 05/28/22 16:59 Last Infusion: 05/21/22 17:28 Dose: 0 mls/hr Documented By: Admin: 05/21/22 16:55 Dose: 200 mls/hr Documented By: AM Enalaprilat 0.625 mg/ Syringe 10 mls @ 2 mls/min IV Q6H ANA Stop: 06/20/22 15:59 Last Admin: 05/21/22 17:38 Dose: 2 mls/min Documented By: EDWIN Discontinued Medications Albuterol (Albut/Ipratrop 3mg/0.5mg Neb 3 Ml Vial) 3 ml NEB NOW STA; Protocol Stop: 05/21/22 12:48 Last Admin: 05/21/22 12:57 Dose: 3 ml Documented By: DEEPA Sodium Chloride (Nss 1000ml) 500 mls @ 999 mls/hr IV .Q31M ANA Stop: 05/21/22 13:30 Last Infusion: 05/21/22 14:40 Dose: 0 mls/hr Documented By: Admin: 05/21/22 13:12 Dose: 999 mls/hr Documented By: ROSITA Cefepime HCl (Maxipime) 2,000 mg in 20 mls @ 5 mls/min IV NOW STA; Protocol Stop: 05/21/22 12:50 Last Admin: 05/21/22 13:15 Dose: 5 mls/min Documented By: ROSITA Methylprednisolone (Methylprednisolone 125 Mg/2 Ml Vial) 80 mg IV NOW STA Stop: 05/21/22 13:11 Last Admin: 05/21/22 13:15 Dose: 80 mg Documented By: ROSITA Miscellaneous (Patient's Height &/Or Weight Needed) 1 each N/A Q30M [facility] Stop: 05/21/22 19:15 Last Admin: 05/21/22 17:11 Dose: 1 each Documented By: Admin: 05/21/22 16:51 Dose: 1 each Documented By: AM Morphine Sulfate (Morphine Sulfate 2 Mg/Ml Carp) 2 mg IV NOW STA Stop: 05/21/22 13:27 Last Admin: 05/21/22 13:27 Dose: 2 mg Documented By: FIDELIA Morphine Sulfate (Morphine Sulfate 2 Mg/Ml Carp) Confirm Administered Dose 2 mg .ROUTE .STK-MED ONE Stop: 05/21/22 13:27 Last Admin: 05/21/22 13:54 Dose: Not Given Documented By: FIDELIA Imaging Data Radiologist's Impression: Chest X-Ray 05/21/22 12:47 XR chest 1V portable HISTORY: Sepsis COMPARISON: Chest 05/16/2022. FINDINGS: No pneumothorax. The heart remains mildly enlarged. There is progressive interstitial/vascular thickening and small bilateral pleural effusions. There are patchy right basilar densities. Emphysema again noted. Left-sided Bochdalek hernia remains unchanged. IMPRESSION: 1. Mild pulmonary vascular congestion without overt edema. 2. Emphysema. 3. Patchy right basilar densities may represent atelectasis or developing pneumonia. This is new from the prior study. ACT 112: Negative or not required by law. Electronically signed by: Mateo Alvarado M.D. 05/21/2022 1:[address] 05/21/22 12:[address] DOSE: 614.27 mGy.cm HISTORY: Altered mental status. TECHNIQUE: Multiaxial CT images of the head were performed without the use of intravenous contrast. Automated exposure control was utilized for this study. A dose lowering technique was utilized adhering to the principles of ALARA. Comparison: Brain MRI 02/07/2021. Findings: The paranasal sinuses and mastoid air cells are clear. The calvarium and skull base are intact. No midline shift. The ventricles are normal in size. Patchy areas of hypodensity within the white matter of the left posterior frontal lobe and left parietal lobe. These are new from the prior brain MRI. The cortex appears spared. Impression: Patchy areas of hypodensity within the white matter of the left posterior frontal lobe and left parietal lobe which are new from the prior study. Since is nonspecific but could be due to underlying vasogenic edema or subacute infarcts. Follow-up brain MRI recommended for further evaluation. ACT 112: Negative or not required by law. Electronically signed by: Mateo Alvarado M.D. 05/21/2022 1:47 PM Discharge Plan Visit Data Chief Complaint: Unresponsive Stated Complaint: Responsive to verbal stimuli ED Provider: Marcelino Cordero Discharge Problem: Respiratory failure, Respiratory acidosis, Altered mental status, Metastatic cancer Patient Disposition: Admitted As Inpatient Condition: Serious Discharge Instructions Interventions: ED Discharge Assessment Last Done: 05/21/22 15:54
[2022-05-21 13:09] LABS: Partial Thromboplastin Ratio 0.8; Partial Thromboplastin Time 22.5 Seconds (21.0-31.0); Prothrombin Time 10.8 Seconds (9.0-12.0)
[2022-05-21] MEDS ORDERED: methylPREDNISolone 125 MG/2 ML VIAL IV STA (13:10)
[2022-05-21 13:26] LABS: iSTAT Arterial Blood Gas HCO3 47 meg/L (19-24); iSTAT Arterial Blood Gas pCO2 110 mmHg (35-46); iSTAT Arterial Blood Gas pH 7.24 (7.35-7.45); iSTAT Arterial Blood Gas pO2 112 mmHg (80-95); iSTAT Carbon Dioxide > 40 mmol/L (24-31); iSTAT Hematocrit 39 % (37-47); iSTAT Hemoglobin 13.3 g/dl (12.0-16.0); iSTAT Potassium 4.1 mmol/L (3.3-5.0); iSTAT Sodium 130 mmol/L (135-144)
[2022-05-21] MEDS ORDERED: MoRPHine SULFATE 2 MG/ML CARP IV STA (13:26)
[2022-05-21] MEDS ORDERED: MoRPHine SULFATE 2 MG/ML CARP IV PRN (13:26)
[2022-05-21] MEDS ORDERED: MoRPHine SULFATE 2 MG/ML CARP ONE (13:26)
[2022-05-21 13:35] LABS: Alanine Aminotransferase 87 U/L (7-52); Albumin Level 3.5 gm/dl (3.4-5.0); Alkaline Phosphatase 53 U/L (34-104); Aspartate Aminotransferase 43 U/L (13-39); BUN Creatinine Ratio 35.7 (10-20); Bilirubin Direct 0.2 mg/dl (0-0.2); Blood Urea Nitrogen 15 mg/dl (6-23); Calcium 8.1 mg/dl (8.5-10.1); Carbon Dioxide > 45 mmol/L (21-32); Chloride 85 mmol/L (98-107); Est GFR (African American) 128.2 ml/min; Est GFR (Non-African American) 110.6 ml/min; Glucose 120 mg/dl (70-99(Fasting)); Magnesium 1.8 mg/dl (1.7-2.4); Potassium 4.5 mmol/L (3.5-5.1); Sodium 134 mmol/L (136-145); Total Protein 5.4 gm/dl (6.0-8.3); Troponin I High Sensitivity 114.4 pg/ml (0-14)
--- NOTE | 2022-05-21 13:48 | CT Scan Report ---
HEAD CT NONCONTRAST CT DOSE: 614.27 mGy.cm HISTORY: Altered mental status. TECHNIQUE: Multiaxial CT images of the head were performed without the use of intravenous contrast. A utomated exposure control was utilized for this study. A dose lowering technique was utilized adheri ng to the principles of ALARA. Comparison: Brain MRI 02/07/2021. Findings: The paranasal sinuses and mastoid air cells are clear. The calvarium and skull base are int act. No midline shift. The ventricles are normal in size. Patchy areas of hypodensity within the whit e matter of the left posterior frontal lobe and left parietal lobe. These are new from the prior brai n MRI. The cortex appears spared. Impression: Patchy areas of hypodensity within the white matter of the left posterior frontal lobe and left parie dagmar lobe which are new from the prior study. Since is nonspecific but could be due to underlying vaso genic edema or subacute infarcts. Follow-up brain MRI recommended for further evaluation. ACT 112: Negative or not required by law. Electronically signed by: Mateo Alvarado M.D. 05/21/2022 1:47 PM
[2022-05-21 13:54] LABS: Polychromasia 1+
[2022-05-21 13:54] LABS: Appearance Urine Clear (Clear); Bilirubin Urine Negative (Negative); Blood Urine Negative (Negative); Color Urine Yellow; Glucose Urine UA Negative (Negative); Ketones Urine Negative (Negative); Leukocyte Esterase Urine Negative (Negative); Nitrite Urine Negative (Negative); Protein Urine Negative (Negative); Specific Gravity Urine 1.012 (1.000-1.030); Urobilinogen Urine Negative (Negative); pH Urine 5.5 (4.5-7.5)
--- NOTE | 2022-05-21 14:03 | History & Physical Report ---
Date of Service May 21, 2022 Assessment & Plan (1) Acute on chronic respiratory failure with hypercapnia: Plan: - Unresponsive this morning at home less than 24 hours after d/c for a COPD exacerbation. - Placed on 15 L NRB mask by EMS, unsure what her SpO2 was prior to this. - POC ABG: pH 7.24, CO2 110, O2 112, bicarb 47, base excess 19 - CXR: Mild pulmonary vascular congestion without overt edema, emphysema with patchy right basilar densities possibly representing a developing pneumonia. - WBC 7.4, PCT 1.03, lactate 1.2. - She is tachycardic but afebrile and maintaining MAP > 65 without IVF, pressor support. - Her respiratory failure is multifactorial due to combination of COPD, lung cancer, pneumonia, and evidence of volume overload on exam. She also has breast cancer with metastatic disease spread to the brain. - Patient initially brought in on nonrebreather mask, transition to BiPAP given ABG findings as above. - We will repeat an ABG 1 hour after BiPAP was initiated and then as indicated to help determine whether patient may remain on BiPAP or if intubation would be necessary, if consistent with patient's goals of care. - Treat her RLL as possible aspiration w/ Unasyn Q6h. Blood cultures collected in ED. - Patient is unresponsive, but based on recent admission conversation between her and ED provider, she is a full code. Her son is at bedside, who up until now has been unaware of how much his mother's illness has progressed. We did have a detailed conversation about CODE STATUS and what his mother may want, however he is significantly overwhelmed by the abundance of information and trying to process his mother's condition. I encouraged him to have his dad come to the hospital to see patient and to be able to participate in conversation with goals of care, but also offered that I or my attending physician, Dr. Olmstead, are happy to speak with him on the phone if he is not able to make it into the hospital today. - Palliative care consult placed. (2) Pneumonia: Plan: - CXR: Mild pulmonary vascular congestion without overt edema, emphysema with patchy right basilar densities possibly representing a developing pneumonia. - Treating for aspiration pneumonia with Unasyn, patient does not appear septic. Blood cultures were obtained in ED. (3) Lung cancer: Plan: - Completed chemoradiation to the lung with carboplatin and maintenance atezolizumab. - Receives care from [facility]. (4) Malignant neoplasm of upper-outer quadrant of left breast in female, estrogen receptor positive: Plan: - Follows with oncology. - She has completed radiation and surgical resection of her breast tumor. - Anastrozole on hold for now, can resume if patient alert enough to swallow. (5) Brain metastasis: Plan: - Head CT: Patchy areas of hypodensity within the white matter of left posterior frontal lobe and left parietal lobe which are new from the prior study, nonspecific findings but could be due to underlying vasogenic edema or subacute infarcts. Follow-up brain MRI is recommended. - Brain MRI w/ w/o contrast ordered. - Patient saw [facility] for a second opinion and she underwent SRS to the 2 brain lesions in March. - Patient is on a dexamethasone taper for brain metastases with vasogenic edema.Currently on dexamethasone 4 mg TID. Will convert to IV. (6) Hypertension: Plan: - Spironolactone on hold for now, can resume if patient alert enough to swallow. - Will initiate IV Vastoec 0.625 Q6h while unable to take PO. (7) Anxiety: Plan: - PO lorazepam on hold for now, can resume if patient alert enough to swallow. - Can add on IV Ativan prn if agitation becomes an issue. Plan - Admit to PCU. - SCDs for VTE ppx, defer on chemoppx given brain mets. - Full Code. History of Present Illness Chief Complaint: unresponsive at home this morning Primary Care Provider: ERMA Baltazar Yanet Guido is a 61-year-old female with metastatic breast cancer to brain, lung cancer, pulmonary hypertension, COPD, anxiety, hypertension presenting today from home via EMS after being found down on the ground and unresponsive by her . She has recently admitted to our facility 05/16- for COPD exacerbation and was discharged home just yesterday on her usual home oxygen. Patient has been home less than 24 hours and her said it was a hard night for her, as she was breathing very hard and still feeling as though she was not getting enough oxygen, felt too weak to car for herself, fell twice out of bed, and was incontinent of bowel on several occasions. This morning he found her down on the ground unresponsive, therefore EMS was summoned bring her to the ED for further evaluation. Patient was brought in by EMS on 15 L nonrebreather mask, in ED a POC ABG was obtained revealing a pH of 7.24 and CO2 110, bicarb 47. She was subsequently placed on BIPAP. She is also tachycardic in ED to 120s, hypertensive 161/112, afebrile. Labs are otherwise notable for troponin of 115, calcium 8.1, AST 43, ALT 87, PCT 1.03, lactate 1.2. CXR shows mild pulmonary congestion without overt edema and right lower lobe infiltrate. Head CT w/ patchy areas of hypodensity within the white matter of the left posterior frontal lobe and left parietal lobe which are new from the prior study. Since is nonspecific but could be due to underlying vasogenic edema or subacute infarcts. Allergies Allergy/AdvReac Type Severity Reaction Status Date / Time paclitaxel AdvReac Severe Difficulty Verified 03/06/22 09:57 Breathing Home Medications Medication Instructions Recorded Confirmed Type budesonide-formoterol HFA 160 2 puff inhalation BID 11/08/20 05/17/22 History mcg-4.5 mcg/actuation aerosol inhaler (Symbicort) cyanocobalamin (vitamin B-12) 1,000 mcg PO QAM 11/08/20 05/17/22 History 1,000 mcg tablet (Vitamin B-12) albuterol sulfate 90 mcg/actuation 2 puff inhalation Q6H PRN sob 01/03/21 05/17/22 History aerosol inhaler (ProAir HFA) acetaminophen 500 mg tablet 500 mg PO Q6H PRN Pain 01/31/21 05/17/22 History (Tylenol Extra Strength) anastrozole 1 mg tablet (Arimidex) 1 mg PO QAM 01/31/21 05/17/22 History ccfbhknyrr-ptnggippeupdt-ureivrmc 1 tab PO Q6H PRN migraines 01/31/21 05/17/22 History 50 mg-325 mg-40 mg tablet diclofenac sodium 3 % topical gel 1 applic topical QID PRN 01/31/21 05/17/22 History pain/swelling gabapentin 300 mg capsule 300 mg PO TID 01/31/21 05/17/22 History dexamethasone 4 mg tablet 4 mg PO TID Vasogenic edema #30 03/06/22 05/17/22 Rx tabs tiotropium bromide 1.25 1 puff inhalation DAILY 03/06/22 05/17/22 History mcg/actuation mist for inhalation (Spiriva Respimat) ipratropium 0.5 mg-albuterol 3 mg 3 ml NEB QIDR #30 mL 05/20/22 Rx (2.5 mg base)/3 mL nebulization soln lorazepam 0.5 mg tablet 0.5 mg PO BID PRN anxiety #10 tabs 05/20/22 Rx lorazepam 0.5 mg tablet 0.5 mg PO Q12 PRN anxiety #10 tabs 05/20/22 Rx oxycodone 5 mg tablet 5 mg PO Q4H PRN pain #18 tabs 05/20/22 Rx oxycodone 5 mg tablet 5 mg PO Q4H PRN pain #20 tabs 05/20/22 Rx spironolactone 25 mg tablet 12.5 mg PO DAILY #30 tabs 05/20/22 Rx spironolactone 25 mg tablet 12.5 mg PO DAILY #30 tabs 05/20/22 05/17/22 Rx Past Med/Surg History Medical History Anxiety Breast cancer, left Dx 12/2020 COPD (chronic obstructive pulmonary disease) History of migraine Hypertension Iron deficiency anemia Hx iron infusions Lung cancer Non small cell cancer dx 12/2020; chemo/radiation (per pt, completed 3 mo ago but still on IV prophylaxis trtmt q3wks, Tecentriq per heme records) On home oxygen therapy oxygen at night 1.5 lpm via n/c Pulmonary hypertension Cardio feels likely secondary to COPD and possible MARTELL Thyroid nodule Surgical History H/O esophagogastroduodenoscopy History of breast biopsy History of lung biopsy History of tubal ligation Hx of colonoscopy Status post left breast lumpectomy (07/09/21) Left lumpectomy with sentinel lymph node biopsy and also excision of superior left axillary lymph node with additional axillary tissue. Dr. Andres 07/09/2021 Family History Father Myocardial infarction CABG x 3 Mother , 84yo Emphysema lung Smoker Brother No problems noted. Sister No problems noted. Sister Asthma Son No problems noted. Daughter No problems noted. 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 Head: Normocephalic, atraumatic ENT: PERRL, EOMI, no pharyngeal exudate, mucous membranes moist Chest: Can appreciate expiratory wheezes throughout with reduced breath sounds at the bilateral lung bases Cardiac: Tachycardic, no murmur, no JVD, normal peripheral pulses, good capillary refill Abdominal: NABS x 4 quadrants, soft, nontender to palpation, no rebound, guarding or tenderness Extremities: Skin tears in her bilateral upper extremities, bilateral lower extremities with pitting edema, cool to the touch, pulses weak Psych: Unable to assess Neuro: Unable to assess Skin: no rash or erythema Results & Data Results & Data ([facility]) Vital Signs (Past 12 Hours) Vital Signs Temp Pulse Pulse Resp BP Pulse Ox O2 Del Method 05/21/22 14:01 100 BiPAP 05/21/22 13:20 128 H 24 93 05/21/22 13:20 128 H 22 96 BiPAP 05/21/22 12:18 37.1 C 124 H 32 H 161/112 H 100 Non-rebreather FiO2 05/21/22 14:01 05/21/22 13:20 50 05/21/22 13:20 40 05/21/22 12:18 Laboratory Results Abnormal lab results 05/21/22 05/21/22 05/21/22 Range/Units 12:38 12:38 12:38 RBC 3.82 L (3.93-5.22) M/uL MCV 102.6 H (80.0-100.0) fL MCHC 31.1 L (32.0-36.0) g/dL RDW Std Deviation 76.7 H (36.4-46.3) fL RDW Coeff of Kp 20.2 H (11.5-14.5) % MPV 8.7 L (9.4-12.3) fL Lymph # (Auto) 0.73 L (1.2-3.4) K/uL Immature Gran # (Auto) 0.26 H (0.00-0.02) K/uL Absolute Nucleated RBC 0.25 H (0-0) K/uL POC pH (7.35-7.45) POC pCO2 (35-46) mmHg POC pO2 (80-95) mmHg POC HCO3 (19-24) russell/L POC Total CO2 (24-31) mmol/L POC Base Excess (-9-1.8) russell/L POC ABG O2 Sat (90-95) % POC Sodium (135-144) mmol/L Sodium 134 L (136-145) mmol/L Chloride 85 L (98-107) mmol/L Carbon Dioxide > 45 H* (21-32) mmol/L Creatinine 0.42 L (0.6-1.2) mg/dl BUN/Creatinine Ratio 35.7 H (10-20) Glucose 120 H (70-99(Fasting)) mg/dl Calcium 8.1 L (8.5-10.1) mg/dl AST 43 H (13-39) U/L ALT 87 H (7-52) U/L Troponin I High Sens 114.4 H* (0-14) pg/ml Total Protein 5.4 L (6.0-8.3) gm/dl Procalcitonin 1.03 H (0-0.5) ng/ml 05/21/22 Range/Units 13:11 RBC (3.93-5.22) M/uL MCV (80.0-100.0) fL MCHC (32.0-36.0) g/dL RDW Std Deviation (36.4-46.3) fL RDW Coeff of Kp (11.5-14.5) % MPV (9.4-12.3) fL Lymph # (Auto) (1.2-3.4) K/uL Immature Gran # (Auto) (0.00-0.02) K/uL Absolute Nucleated RBC (0-0) K/uL POC pH 7.24 L (7.35-7.45) POC pCO2 110 H (35-46) mmHg POC pO2 112 H (80-95) mmHg POC HCO3 47 H (19-24) russell/L POC Total CO2 > 40 H* (24-31) mmol/L POC Base Excess 19.0 H (-9-1.8) russell/L POC ABG O2 Sat 97.0 H (90-95) % POC Sodium 130 L (135-144) mmol/L Sodium (136-145) mmol/L Chloride (98-107) mmol/L Carbon Dioxide (21-32) mmol/L Creatinine (0.6-1.2) mg/dl BUN/Creatinine Ratio (10-20) Glucose (70-99(Fasting)) mg/dl Calcium (8.5-10.1) mg/dl AST (13-39) U/L ALT (7-52) U/L Troponin I High Sens (0-14) pg/ml Total Protein (6.0-8.3) gm/dl Procalcitonin (0-0.5) ng/ml Diagnostic Findings Chest X-Ray 05/21/22 12:47 XR chest 1V portable HISTORY: Sepsis COMPARISON: Chest 05/16/2022. FINDINGS: No pneumothorax. The heart remains mildly enlarged. There is progressive interstitial/vascular thickening and small bilateral pleural effusions. There are patchy right basilar densities. Emphysema again noted. Left-sided Bochdalek hernia remains unchanged. IMPRESSION: 1. Mild pulmonary vascular congestion without overt edema. 2. Emphysema. 3. Patchy right basilar densities may represent atelectasis or developing pneumonia. This is new from the prior study. ACT 112: Negative or not required by law. Electronically signed by: Mateo Alvarado M.D. 05/21/2022 1:[address] 05/21/22 12:[address] DOSE: 614.27 mGy.cm HISTORY: Altered mental status. TECHNIQUE: Multiaxial CT images of the head were performed without the use of intravenous contrast. Automated exposure control was utilized for this study. A dose lowering technique was utilized adhering to the principles of ALARA. Comparison: Brain MRI 02/07/2021. Findings: The paranasal sinuses and mastoid air cells are clear. The calvarium and skull base are intact. No midline shift. The ventricles are normal in size. Patchy areas of hypodensity within the white matter of the left posterior frontal lobe and left parietal lobe. These are new from the prior brain MRI. The cortex appears spared. Impression: Patchy areas of hypodensity within the white matter of the left posterior frontal lobe and left parietal lobe which are new from the prior study. Since is nonspecific but could be due to underlying vasogenic edema or subacute infarcts. Follow-up brain MRI recommended for further evaluation. ACT 112: Negative or not required by law. Electronically signed by: Mateo Alvarado M.D. 05/21/2022 1:47 PM ECG Additional Comments: Poor data quality, interpretation may be adversely affected Sinus tachycardia with frequent , and consecutive Premature ventricular complexes with junctional escape complexes Biatrial enlargement Marked ST abnormality, possible lateral subendocardial injury Abnormal ECG When compared with ECG of 17-MAY-2022 19:23, Premature ventricular complexes are now Present Sinus rhythm is now with junctional escape complexes Vent. rate has increased BY 44 BPM Code Status & VTE Plan Code Status Full Code. Supervising Physician Co-Signing Physician Notes Patient was seen and examined independently I discussed the case with Magui SAN I reviewed pertinent past medical social family history and also the plan of care and agree with the plan of care. 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 The patient presents with hypercarbic respiratory failure presenting with a low pH and PCO2 of 110. Patient was on noninvasive positive pressure ventilation and PCO2 declined to 92 and her pH improved to 7.29. I spoke with the son at the bedside and on speaker phone with the trying to further define goals of care and DNR status. At this time she remains full code. The does understand that we may be entering a futile care state. We will treat a possible aspiration pneumonia continue to provide noninvasive positive pressure ventilation to reduce her hypercarbia and improve her alertness however I informed him that we may not be able to come off of the supportive care enough for her to go home and regain function. I did not address possible hospice or palliative care but that likely would be in the future. The says he will shortly be coming to the hospital. Physical examination finds her to be arousable to deep sternal rub but she easily falls back to sleep she is breathing in sync with the positive pressure ventilator she has coarse breath sounds bilaterally with decreased breath sounds at the bases she has peripheral edema that is 2+ and I cannot palpate peripheral pulses she is cool extremities with delayed capillary refill Patient is doing extremely poor with metastatic cancer of 2 primaries and underlying COPD presenting with hypercarbic respiratory failure requiring supportive care Patient was on outpatient steroids he is to be continued intravenously Patient be on antibiotics to cover possible aspiration pneumonia Any exceptions will be noted below PG Care Time/CCT Total # of Minutes Spent Total Time Spent with Patient: Total time spent is greater than 50% in coordination of care (as documented) at patient's floor/unit and/or counseling patient: Coding Level of Care Code 62340 Initial Inpt Care Lvl 3 Diagnoses Acute on chronic respiratory failure with hypercapnia J96.22 Pneumonia J18.9 Lung cancer C34.90 Malignant neoplasm of upper-outer quadrant of left breast in female, estrogen receptor positive C50.412; Z17.0 Brain metastasis C79.31 Hypertension I10 Anxiety F41.9
[2022-05-21 15:00] LABS: Influenza A virus by PCR Negative (Neg); Influenza B virus by PCR Negative (Neg); RSV by PCR Negative (Neg); SARS CoV2 RNA(COVID-19) Ceph NEGATIVE (Negative)
--- NOTE | 2022-05-21 16:49 | Electrocardiogram Report ---
Test Reason : Blood Pressure : / mmHG Vent. Rate : 130 BPM Atrial Rate : 130 BPM P-R Int : 138 ms QRS Dur : 070 ms QT Int : 290 ms P-R-T Axes : 074 077 057 degrees QTc Int : 426 ms Poor data quality, interpretation may be adversely affected Sinus tachycardia Biatrial enlargement Abnormal ECG When compared with ECG of 17-MAY-2022 19:23, Premature ventricular complexes are now Present Vent. rate has increased BY 44 BPM Confirmed by Manuel Sun ([id number]) on 05/21/2022 4:48:52 PM Referred By: REFERRED SELF Confirmed By:Manuel Sun
[2022-05-21] MEDS: Patient's HEIGHT &/or WEIGHT Needed SCH ×2 (16:51→17:11)
[2022-05-21] MEDS: dexAMETHasone 6 MG in SYRINGE 0 ML IV SCH (16:51)
[2022-05-21] MEDS: AMPICILLIN/SULBACTAM SOD 3,000 MG in 0.9 % SODIUM CHLORIDE 100 ML IV SCH ×2 (16:55→22:49)
[2022-05-21] MEDS: ENALAPRILAT 0.625 MG in SYRINGE 9.5 ML IV SCH ×2 (17:38→21:17)
[2022-05-21 17:54] LABS: iSTAT Arterial Blood Gas HCO3 42 meg/L (19-24); iSTAT Arterial Blood Gas pCO2 82 mmHg (35-46); iSTAT Arterial Blood Gas pH 7.32 (7.35-7.45); iSTAT Arterial Blood Gas pO2 90 mmHg (80-95); iSTAT Carbon Dioxide > 40 mmol/L (24-31); iSTAT Hematocrit 35 % (37-47); iSTAT Hemoglobin 11.9 g/dl (12.0-16.0); iSTAT Potassium 4.2 mmol/L (3.3-5.0); iSTAT Sodium 133 mmol/L (135-144)
[2022-05-21] MEDS ORDERED: LORazepam 0.5 MG in SYRINGE 0 ML IV STA (22:27)
[2022-05-21] MEDS: ACETAMINOPHEN 1,000 MG/100 ML VIAL IV PRN (22:29)
[2022-05-21] MEDS ORDERED: LORazepam 0.25 MG in SYRINGE 0 ML IV STA (22:39)
[2022-05-22] MEDS ORDERED: MoRPHine SULFATE 2 MG/ML CARP IV STA ×2 (02:55→03:11)
[2022-05-22] MEDS: ENALAPRILAT 0.625 MG in SYRINGE 9.5 ML IV SCH (03:22)
[2022-05-22] MEDS ORDERED: LACTATED RINGER'S 250 ML IV ONE (03:46)
--- NOTE | 2022-05-22 03:53 | Communication Note ---
Date of Service: May 22, 2022 Notified by patient's RN that patient flipped into atrial fibrillation around 0300 Patient was agitated shortly prior to when this happened and reported cancer- related pain for which she was given morphine BPs stable Atrial Fibrillation with RVR No prerecorded history of such that I can find Likely secondary to acute physiological stressors from respiratory failure, PNA, lung cancer TTE from 06/2021 reviewed I&Os reveal net negative balance since here - possible dehydration component contributing to higher rate LR 250cc bolus x 1 now Electrolytes acceptable - monitor on AM labs Given softer, but still normal, BPs -- trial Lopressor 2.5 mg x 1 and push other 2.5 if stable 10-15min after Not on AC/pharmacologic DVT PPX given brain mets. Plan communicated with RN
[2022-05-22] MEDS: METOPROLOL TARTRATE 1 MG/ML VIAL IV SCH ×2 (04:44→05:18)
[2022-05-22] MEDS ORDERED: LACTATED RINGER'S 500 ML IV ONE (04:49)
[2022-05-22] MEDS ORDERED: ALBUMIN 25% 100 mL 25 GM/100 ML VIAL IV ONE (05:13)
[2022-05-22] MEDS: MAGNESIUM SULFATE / D5W 1 GM/100 ML BAG IV SCH ×2 (05:25→07:55)
[2022-05-22 05:32] LABS: A calco-baum cmplx NotReported Not Detected (NotDetected); Bact fragilis Not Reported Not Detected (NotDetected); C auris Not Reported Not Detected (NotDetected); Calbicans Not Reported Not Detected (NotDetected); Candida glabrata Not Reported Not Detected (NotDetected); Candida krusei Not Reported Not Detected (NotDetected); Cneoformans/gatti Not Reported Not Detected (NotDetected); Cparapsilosis Not Reported Not Detected (NotDetected); Ctropicalis Not Reported Not Detected (NotDetected); E cloacae compx Not Reported Not Detected (NotDetected); Efaecalis Not Reported Not Detected (NotDetected); Efaecium Not Reported Not Detected (NotDetected); Enterobacterales Not Reported Not Detected (NotDetected); Escherichia coli Not Reported Not Detected (NotDetected); H influenzae Not Reported Not Detected (NotDetected); K aerogenes Not Reported Not Detected (NotDetected); Koxytoca Not Reported Not Detected (NotDetected); Kpneumoniae grp Not Reported Not Detected (NotDetected); Lmonocyt Not Reported Not Detected (NotDetected); N meningitidis Not Reported Not Detected (NotDetected); P aeruginosa Not Reported Not Detected (NotDetected); Proteus spp Not Reported Not Detected (NotDetected); Salmonella spp Not Reported Not Detected (NotDetected); Smarcescens Not Reported Not Detected (NotDetected); Staph lugdunensis Not Reported Not Detected (NotDetected); Staph spp. Not Reported Not Detected (NotDetected); Staphaureus Not Reported Not Detected (NotDetected); Staphepi Not Reported Not Detected (NotDetected); Stenmaltophilia Not Reported Not Detected (NotDetected); Strep agal(GrpB) Not Reported Not Detected (NotDetected); Strep pneum Not Reported Not Detected (NotDetected); Strep pyog (GrpA) Not Reported Not Detected (NotDetected); Strep spp Not Reported DETECTED (NotDetected)
[2022-05-22] MEDS: DIGOXIN 250 MCG in SYRINGE 9 ML IV SCH ×4 (06:01→23:03)
[2022-05-22 06:03] LABS: Base Excess ABG 18.1 mEq/L (-9-1.8); Basophils # (auto) 0.01 K/uL (0-0.2); Basophils % (auto) 0.1 %; HCO3 ABG 45 mmol/L (19-24); Hematocrit (blood only) 32.1 % (34.1-44.9); Hemoglobin 10.1 g/dl (12.0-16.0); Immature Granulocytes % (auto) 1.4 %; Lymphocytes # (auto) 0.79 K/uL (1.2-3.4); Lymphocytes % (auto) 10.7 %; Mean Corpuscular Hemoglobin 31.9 pg (25.0-34.0); Mean Corpuscular Hgb Conc 31.5 g/dL (32.0-36.0); Mean Corpuscular Volume 101.3 fL (80.0-100.0); Mean Platelet Volume 8.9 fL (9.4-12.3); Monocytes # (auto) 0.26 K/uL (0.24-0.82); Monocytes % (auto) 3.5 %; Neutrophils # (auto) 6.24 K/uL (1.4-6.5); Neutrophils % (auto) 84.3 %; Nucleated RBC # (auto) 0.03 K/uL (0-0); Nucleated RBC % (auto) 0.4 %; Oxygen Saturation ABG > 100.0 % (90-95); PCO2 ABG 57 mmHg (35-46); PO2 ABG 136 mmHg (80-95); Platelet Count 199 K/uL (130-400); RDW Standard Deviation 74.9 fL (36.4-46.3); Red Blood Count 3.17 M/uL (3.93-5.22)
[2022-05-22 06:04] LABS: Allen Test Pos (Pos)
[2022-05-22 06:09] LABS: Streptococcus spp DETECTED (NotDetected)
[2022-05-22 06:21] LABS: BUN Creatinine Ratio 58.6 (10-20); Calcium 7.8 mg/dl (8.5-10.1); Creatinine Clr Calc Pharmacy 176.4 ml/min; Est GFR (African American) 144.8 ml/min; Potassium 4.5 mmol/L (3.5-5.1)
[2022-05-22 06:30] LABS: Troponin I High Sensitivity 42.2 pg/ml (0-14)
[2022-05-22] MEDS: AMPICILLIN/SULBACTAM SOD 3,000 MG in 0.9 % SODIUM CHLORIDE 100 ML IV SCH ×4 (07:10→23:04)
[2022-05-22 07:11] LABS: iSTAT Arterial Blood Gas HCO3 44 meg/L (19-24); iSTAT Arterial Blood Gas pCO2 92 mmHg (35-46); iSTAT Arterial Blood Gas pH 7.29 (7.35-7.45); iSTAT Arterial Blood Gas pO2 58 mmHg (80-95); iSTAT Carbon Dioxide > 40 mmol/L (24-31); iSTAT Hematocrit 36 % (37-47); iSTAT Hemoglobin 12.2 g/dl (12.0-16.0); iSTAT Potassium 3.8 mmol/L (3.3-5.0); iSTAT Sodium 131 mmol/L (135-144)
--- NOTE | 2022-05-22 07:14 | Hospitalist Progress Note ---
Date of Service May 22, 2022 Assessment & Plan (1) Acute on chronic respiratory failure with hypercapnia: Plan: - Hypercarbic respiratory failure - Her respiratory failure is multifactorial due to combination of COPD, lung cancer, pneumonia, and evidence of volume overload on exam. She also has breast cancer with metastatic disease spread to the brain. - - Treat her RLL as possible aspiration w/ Unasyn Q6h. Blood cultures collected in ED. patient has a result of blood culture with Streptococcus species likely Enterococcus Patient's biggest problem seems to be her significant lung disease and failure of home therapy (2) Pneumonia: Plan: - CXR: Mild pulmonary vascular congestion without overt edema, emphysema with patchy right basilar densities possibly representing a developing pneumonia. - Treating for aspiration pneumonia with Unasyn, patient does not appear septic. Blood cultures tentatively positive for Enterococcus (3) Lung cancer: Plan: - Completed chemoradiation to the lung with carboplatin and maintenance atezolizumab. - Receives care from [facility]. Palliative care consultation will be undertaken given patient has 2 malignancies with metastasis (4) Malignant neoplasm of upper-outer quadrant of left breast in female, estrogen receptor positive: Plan: - Follows with oncology. - She has completed radiation and surgical resection of her breast tumor. - Anastrozole on hold for now, can resume if patient alert enough to swallow. (5) Brain metastasis: Plan: - Head CT: Patchy areas of hypodensity within the white matter of left posterior frontal lobe and left parietal lobe which are new from the prior study, nonspecific findings but could be due to underlying vasogenic edema or subacute infarcts. Family refused MRI - Patient saw [facility] for a second opinion and she underwent SRS to the 2 brain lesions in March. - Patient is on a dexamethasone taper for brain metastases with vasogenic edema.Currently on dexamethasone 4 mg TID. Will convert to IV. (6) Hypertension: Plan: - Patient's blood pressures have been low since admission medications have been held at this time (7) Anxiety: Plan: - PO lorazepam on hold for now, can resume if patient alert enough to swallow. - Can add on IV Ativan prn if agitation becomes an issue. (8) Atrial fibrillation: Plan: Patient had a brief bout of A. fib RVR overnight from 12 6-7 this resolved spontaneously. She remains in sinus rhythm, troponin was 114 but down trended to 42 on second check do not suspect ACS at this point Plan - Admit to PCU. - SCDs for VTE ppx, defer on chemoppx given brain mets. - Full Code. Admission and Anticipated Discharge Date Admission Date: May 21, 2022 Subjective Patient was seen in the company of her neighbor she was an extremely conversant with mostly shook her head yes or no he said she was in pain we did escalate her pain medication she states she was hungry we did give her her diet. There is a discussion of possible palliative care family consultation on 23 May Review of Systems Review of Systems: Mild distress and extreme fatigue no headache, no visual changes no speech or swallowing issues no chest pain, pressure or palpitations Significant shortness of breath nonproductive cough clubbing of fingers no abdominal pain, nausea or vomiting, diarrhea or constipation no dysuria, hematuria or frequency no focal joint pain or swelling Significant positional back pain, without CVA tenderness or radicular pain no bruising, bleeding or rashes no focal signs of weakness or numbness or altered sensation she would not physically speak to me today no complaints of anxiety or depression.. Physical Exam Physical Exam: The patient appeared chronically ill in moderate distress Vital signs as documented. Head exam is normocephalic atraumatic Neck is with 1 cm JVD, thyromegaly, or carotid bruits. Lungs are diminished throughout without focal air loss Cardiac exam, Rhythm is regular.. Systolic ejection murmur is heard Abdominal exam reveals normal bowel sounds, soft non tender, no masses Extremities are trace edematous and both pedal pulses are present Neurologic exam is alert and oriented she can nod her head yes or no does answer questions when asked with a yes no format,, no focal loss of strength or sensation Skin is without bruises or rashes Psychologically is with concerns for anxiety & depression.. Results & Data Results & Data ([facility]) Vital Signs (Past 12 Hours) Vital Signs Temp Pulse Pulse Resp BP BP Pulse Ox 05/22/22 06:30 97.7 F 137 H 21 99/70 L 98 05/22/22 06:01 167 H 05/22/22 05:40 97.0 F L 177 H 20 95/65 L 97 05/22/22 04:44 166 H 88/56 L 05/22/22 04:44 97.5 F L 166 H 20 88/56 L 96 05/22/22 03:30 97.7 F 165 H 22 105/74 96 05/22/22 03:17 100 H 22 100 05/22/22 01:28 97.5 F L 102 H 21 108/72 99 05/22/22 00:00 97.9 F 101 H 22 101/71 100 05/22/22 01:55 108 H 05/21/22 22:31 98.4 F 63 24 93/67 L 100 05/21/22 22:29 121 H 23 97 05/21/22 19:15 98.2 F 101 H 22 108/74 99 05/21/22 21:17 98/69 L 05/21/22 20:00 05/21/22 20:21 108/74 05/21/22 19:38 O2 Del Method FiO2 05/22/22 06:30 BiPAP 40 05/22/22 06:01 05/22/22 05:40 BiPAP 40 05/22/22 04:44 05/22/22 04:44 BiPAP 40 05/22/22 03:30 BiPAP 05/22/22 03:17 40 05/22/22 01:28 BiPAP 05/22/22 00:00 BiPAP 05/22/22 01:55 05/21/22 22:31 BiPAP 15 05/21/22 22:29 50 05/21/22 19:15 BiPAP 50 05/21/22 21:17 05/21/22 20:00 BiPAP 05/21/22 20:21 05/21/22 19:38 BiPAP PG Care Time/CCT Total # of Minutes Spent Total Time Spent with Patient: Total time spent is greater than 50% in coordination of care (as documented) at patient's floor/unit and/or counseling patient: Coding Level of Care Code 55454 Subseq Hosp Care Lvl 3 Diagnoses Acute on chronic respiratory failure with hypercapnia J96.22 Pneumonia J18.9 Lung cancer C34.90 Malignant neoplasm of upper-outer quadrant of left breast in female, estrogen receptor positive C50.412; Z17.0 Brain metastasis C79.31 Hypertension I10 Anxiety F41.9 Atrial fibrillation I48.91
[2022-05-22] MEDS: ACETAMINOPHEN 1,000 MG/100 ML VIAL IV PRN (07:55)
--- NOTE | 2022-05-22 10:52 | Palliative Care Consultation ---
Date of Consultation May 22, 2022 Assessment & Plan (1) Palliative care encounter: Patient was unable to participate in discussion. For Oncology Patients: Patient's Palliative Prognostic Score (PaP) Score = 12 points/ Interpretation:30-day survival probability <30% [email or web address]/[email or web address] Patient's Palliative Prognostic Index (PPI) Score = 15 points/Note:If the PPI is greater than 6.0, survival is less than three weeks (Sensitivity - 80%; Specificity - 85%). [email or web address]/[email or web address] (2) Counseling regarding advanced directives and goals of care: I had a 20-minute goals of care discussion with the right outside of the patient room and his preference. He states that he and his children have been discussing her overall decline, and his children have felt that it is time to begin having some deeper conversations about what patient's goals are at this time. They have also requested access to her chart electronically. and I discussed the patient's COPD on the last PFT was fairly advanced. The combination of advanced COPD, lung cancer breast cancer metastatic disease, continued weakness declining performance status and overall frailty overall indicators that patient may be transitioning to a more end-of-life process. I advised him clearly that she is not actively dying at this time but that in my opinion I do believe she may be transitioning from a process of living to a process of time. Patient's palliative prognostic scores indicate a relatively high risk of 30-day mortality and given her overall condition I would anticipate a survival of possibly weeks to maybe a few months. If her respiratory status further declined due to her advanced COPD this could certainly be a shorter timeframe. (3) Acute on chronic respiratory failure with hypercapnia: (4) Altered mental status: Altered mental status type: stupor Qualified Code(s): R40.1 - Stupor (5) Brain metastasis: (6) Lung cancer: (7) Breast cancer, left: Plan Discussion with as outlined above. He would like to have a broader conversation about advanced care planning and the goals of care when his children can participate either in person or by phone. He will contact them today and then communicate to nursing a time that works for all of them tomorrow either in the morning or early afternoon. I have updated the primary team as to the outcome of this conversation and the tentative plan for meeting tomorrow, time to be determined. I will continue to follow this patient . Thank you for this consult. Reina Tanner DNP Clinical Director, Palliative Medicine History of Present Illness Reason for Consultation: "goals of care" Attending Physician: Parth Olmstead MD History of Present Illness Admitted with acute on chronic respiratory failure with hypercapnia, found down at home following dc for AECOPD, pt was home < 24hr. ED notes report: "Placed on 15 L NRB mask by EMS, unsure what her SpO2 was prior to this. - POC ABG: pH 7.24, PX3332, O2112, bicarb 47, base excess 19 - CXR: Mild pulmonary vascular congestion without overt edema, emphysema with patchy right basilar densities possibly representing a developing pneumonia. - WBC 7.4, PCT 1.03, lactate 1.2. - She is tachycardic but afebrile and maintaining MAP > 65 without IVF, pressor support. - Her respiratory failure is multifactorial due to combination of COPD, lung cancer, pneumonia, and evidence of volume overload on exam. She also has breast cancer with metastatic disease spread to the brain." She also has hx of lung cancer for which she is s/p chemoradiation to lung with carboplatin and maintenance atezolizumab. This care is being managed @[facility]. For her brain mets, she was seen at [facility]: the brain CT demonstrated patchy areas of hypodensity within the white matter of left posterior frontal lobe and left parietal lobe which are new from the prior study, nonspecific findings but could be due to underlying vasogenic edema or subacute infarcts. Follow-up brain MRI is recommended (pending MRI this admission.) She is s/p SRS to the 2 brain lesions in March 2022 and remains on decadron 4mg TID taper for vasogenic edema. We have moved her to IV decadron given inability to take PO safely this admission. Chart review indicates pt has chronic anxiety which escalates when any discussion about her cancer/prognosis/mortality are attempted. She had some agitation and confusion overnight. Patient is seen at bedside together with her and a close family friend. She is lethargic and has just come off BiPAP. She is sitting upright in bed and will periodically open her eyes and occasionally nod yes or no to questions when asked. She is not able to provide me any history or background. Her states that they had been very insistent on returning home sooner during this last admission and had felt they could manage until arriving home and she started to more rapidly decline with multiple falls out of bed, weakness in the bathroom and transitioning from seated to standing positions as well as a declining mentation. He notes that since being admitted and being placed on BiPAP, she has had a dramatic improvement and he feels the BiPAP needs to be part of any discharge plan moving forward for her. He also notes that while he wants her back home and can help her on occasion, he is not able to provide [id number] or full support. He would need her to be somewhat independent in some of her transitions and self-care before returning home. Allergies Allergy/AdvReac Type Severity Reaction Status Date / Time paclitaxel AdvReac Severe Difficulty Verified 03/06/22 09:57 Breathing Home Medications Medication Instructions Recorded Confirmed Type budesonide-formoterol HFA 160 2 puff inhalation BID 11/08/20 05/17/22 History mcg-4.5 mcg/actuation aerosol inhaler (Symbicort) cyanocobalamin (vitamin B-12) 1,000 mcg PO QAM 11/08/20 05/17/22 History 1,000 mcg tablet (Vitamin B-12) albuterol sulfate 90 mcg/actuation 2 puff inhalation Q6H PRN sob 01/03/21 05/17/22 History aerosol inhaler (ProAir HFA) acetaminophen 500 mg tablet 500 mg PO Q6H PRN Pain 01/31/21 05/17/22 History (Tylenol Extra Strength) anastrozole 1 mg tablet (Arimidex) 1 mg PO QAM 01/31/21 05/17/22 History qaoshhtirg-uwjjmgofhphms-xpedbdre 1 tab PO Q6H PRN migraines 01/31/21 05/17/22 History 50 mg-325 mg-40 mg tablet diclofenac sodium 3 % topical gel 1 applic topical QID PRN 01/31/21 05/17/22 History pain/swelling gabapentin 300 mg capsule 300 mg PO TID 01/31/21 05/17/22 History dexamethasone 4 mg tablet 4 mg PO TID Vasogenic edema #30 03/06/22 05/17/22 Rx tabs tiotropium bromide 1.25 1 puff inhalation DAILY 03/06/22 05/17/22 History mcg/actuation mist for inhalation (Spiriva Respimat) ipratropium 0.5 mg-albuterol 3 mg 3 ml NEB QIDR #30 mL 05/20/22 Rx (2.5 mg base)/3 mL nebulization soln lorazepam 0.5 mg tablet 0.5 mg PO BID PRN anxiety #10 tabs 05/20/22 Rx lorazepam 0.5 mg tablet 0.5 mg PO Q12 PRN anxiety #10 tabs 05/20/22 Rx oxycodone 5 mg tablet 5 mg PO Q4H PRN pain #18 tabs 05/20/22 Rx oxycodone 5 mg tablet 5 mg PO Q4H PRN pain #20 tabs 05/20/22 Rx spironolactone 25 mg tablet 12.5 mg PO DAILY #30 tabs 05/20/22 Rx spironolactone 25 mg tablet 12.5 mg PO DAILY #30 tabs 05/20/22 05/17/22 Rx Patient History Medical History (Updated 05/22/22 @ 14:38 by Reina Tanner, ROSE MARIE) Anxiety Breast cancer, left Dx 12/2020 Cancer COPD (chronic obstructive pulmonary disease) Counseling regarding advanced directives and goals of care History of migraine Hypertension Iron deficiency anemia Hx iron infusions Lung cancer Non small cell cancer dx 12/2020; chemo/radiation (per pt, completed 3 mo ago but still on IV prophylaxis trtmt q3wks, Tecentriq per heme records) On home oxygen therapy oxygen at night 1.5 lpm via n/c Palliative care encounter Pulmonary hypertension Cardio feels likely secondary to COPD and possible MARTELL Thyroid nodule Surgical History H/O esophagogastroduodenoscopy History of breast biopsy History of lung biopsy History of tubal ligation Hx of colonoscopy Status post left breast lumpectomy (07/09/21) Left lumpectomy with sentinel lymph node biopsy and also excision of superior left axillary lymph node with additional axillary tissue. Dr. Andres 07/09/2021 Family History Father Myocardial infarction CABG x 3 Mother , 84yo Emphysema lung Smoker Brother No problems noted. Sister No problems noted. Sister Asthma Son No problems noted. Daughter No problems noted. 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 She will nod her head yes or no to very simple questions. She is tired appearing and chronically ill-appearing. There is no.bitemporal wasting noted. Pupils are equal, round and reactive. Color is pale. Skin is slightly warm and diaphoretic. Lungs are diminished overall. There are some scattered wheezing noted. Bases are especially quiet. S1 and S2 are appreciated, rhythm is tachycardic. I did not appreciate any JVD. Abdomen is soft and nontender. Mildly distended. Extremities with generalized weakness. Bilateral lower extremities with 1-2+ edema, pitting. Neurologically she is alert to self when called but unable to follow significant commands or answer many questions. She will occasionally answer yes or no to very simple questions such as are you having any pain. Results & Data ([facility]) Vital Signs (Past 12 Hours) Vital Signs Temp Pulse Pulse Resp BP BP Pulse Ox 05/22/22 08:21 98 H 18 98 05/22/22 07:25 36.5 C 104 H 17 113/76 100 05/22/22 06:30 36.5 C 137 H 21 99/70 L 98 05/22/22 06:01 167 H 05/22/22 05:40 36.1 C L 177 H 20 95/65 L 97 05/22/22 04:44 166 H 88/56 L 05/22/22 04:44 36.4 C L 166 H 20 88/56 L 96 05/22/22 03:30 36.5 C 165 H 22 105/74 96 05/22/22 03:17 100 H 22 100 05/22/22 01:28 36.4 C L 102 H 21 108/72 99 05/22/22 00:00 36.6 C 101 H 22 101/71 100 05/22/22 01:55 108 H O2 Del Method FiO2 05/22/22 08:21 40 05/22/22 07:25 BiPAP 05/22/22 06:30 BiPAP 40 05/22/22 06:01 05/22/22 05:40 BiPAP 40 05/22/22 04:44 05/22/22 04:44 BiPAP 40 05/22/22 03:30 BiPAP 05/22/22 03:17 40 05/22/22 01:28 BiPAP 05/22/22 00:00 BiPAP 05/22/22 01:55 Diagnostic Findings Labs and imaging reviewed PG Care Time/CCT Total # of Minutes Spent Total Time Spent: 70 Total Time Spent with Patient: Total time spent is greater than 50% in coordination of care (as documented) at patient's floor/unit and/or counseling patient: I spent 70 minutes overall addressing this case: 15 in medical data review/discussion with referring provider(s) and/or preparation for the visit 20 in direct interaction with the patient and/or 25 Advance Care Planning/Goals of Care discussions as detailed above in note (must be >16min) 5 in subsequent review and synthesis of assessment and plan 5 in communicating with other providers regarding the patient's case: [] Prolonged Care Time Prolonged Care Time: [place] [address] Inpt Consult Level 5 Patient Type New History Comprehensive Exam Detailed Medical Decision Making Moderate Complexity Diagnoses Palliative care encounter Z51.5 Counseling regarding advanced directives and goals of care Z71.89 Acute on chronic respiratory failure with hypercapnia J96.22 Altered mental status R40.1 Altered mental status type: stupor Brain metastasis C79.31 Lung cancer C34.90 Breast cancer, left C50.912 Additional Codes Prolonged Care Time - Prolonged Care Time: Yes ([id number])
--- NOTE | 2022-05-22 12:32 | XCELERA ---
[id number]
[2022-05-22] MEDS: MoRPHine SULFATE 4 MG/ML 1 ML CARP\\VIAL IV PRN ×3 (13:45→23:45)
[2022-05-22] MEDS: ONDANSETRON INJ 2 MG/ML 2 ML VIAL IV PRN (13:47)
--- NOTE | 2022-05-22 14:19 | Electrocardiogram Report ---
Test Reason : Blood Pressure : / mmHG Vent. Rate : 158 BPM Atrial Rate : 170 BPM P-R Int : 000 ms QRS Dur : 068 ms QT Int : 272 ms P-R-T Axes : 000 076 048 degrees QTc Int : 441 ms Atrial fibrillation with rapid ventricular response Septal infarct , age undetermined Abnormal ECG When compared with ECG of 21-MAY-2022 12:30, Atrial fibrillation has replaced Sinus rhythm Septal infarct is now Present Confirmed by Manuel Sun ([id number]) on 05/22/2022 2:19:06 PM Referred By: REFERRED SELF Confirmed By:Manuel Sun
[2022-05-22] MEDS: MoRPHine SULFATE 2 MG/ML CARP IV PRN ×2 (16:56→21:01)
[2022-05-22] MEDS: dexAMETHasone 6 MG in SYRINGE 0 ML IV SCH (16:56)
--- NOTE | 2022-05-22 18:12 | Magnetic Resonance Report ---
MR brain wo con CLINICAL HISTORY: brain mets TECHNIQUE: Multiplanar and multisequence MR images of the brain were obtained without intravenous con trast. Comparison: Comparison is made to MRI brain 02/28/2022 FINDINGS: Exam is limited by patient motion. The left temporal lesion measures 7 mm in diameter, slightly decreased from prior exam where it measu red 10 mm. The left parietal lesion measures 25 x 21 mm compared to 21 x 18 mm in prior exam. Interva l decrease in surrounding vasogenic edema. Flow voids of the major intracranial arterial vessels are identified. The imaged portions of the paranasal sinuses, mastoid air cells, and orbits are unremarka ble. IMPRESSION: Interval enlargement of the left parietal metastasis and interval decrease in size of left temporal m etastasis. Overall the amount of vasogenic edema has somewhat improved. No new metastatic foci are de finitely seen. ACT 112: Negative or not required by law. Electronically signed by: Isma Paiz M.D. 05/22/2022 6:10 PM
[2022-05-22] MEDS: KETOROLAC TROMETHAMINE 15 MG/ML VIAL IV PRN (18:29)
[2022-05-22] MEDS: oxyCODONE HCL IR 5 MG TAB (IMMEDIATE RELEASE) PO PRN (19:37)
[2022-05-23] MEDS: KETOROLAC TROMETHAMINE 15 MG/ML VIAL IV PRN (00:33)
[2022-05-23] MEDS: MoRPHine SULFATE 2 MG/ML CARP IV PRN ×3 (01:12→15:45)
[2022-05-23] MEDS: oxyCODONE HCL IR 5 MG TAB (IMMEDIATE RELEASE) PO PRN ×4 (02:36→22:18)
[2022-05-23] MEDS: ONDANSETRON INJ 2 MG/ML 2 ML VIAL IV PRN (02:46)
[2022-05-23] MEDS: MoRPHine SULFATE 4 MG/ML 1 ML CARP\\VIAL IV PRN (03:21)
[2022-05-23] MEDS ORDERED: LORazepam 0.5 MG in SYRINGE 0 ML IV STA (04:16)
[2022-05-23] MEDS: AMPICILLIN/SULBACTAM SOD 3,000 MG in 0.9 % SODIUM CHLORIDE 100 ML IV SCH ×3 (05:02→15:52)
[2022-05-23] MEDS: ACETAMINOPHEN 500 MG TAB PO PRN (12:05)
[2022-05-23] MEDS: dexAMETHasone 6 MG in SYRINGE 0 ML IV SCH (15:45)
--- NOTE | 2022-05-23 15:47 | Palliative Care Progress Note ---
Date of Service May 23, 2022 Assessment & Plan (1) Palliative care encounter: Plan: patient with very severe COPD, former very heavy smoker with complexity of lung and breast cancer concurrent with advancing COPD this is a readmission within 24hr of prior dc, during which pt cannot recall any details of having arrived home, fell out of bed repeatedly and now needing BiPAP. pt has very severe COPD, this is progressively worsening, she is now requiring NIV support and cannot meaningfully engage with medical teams. She is lethargic or drowsy much of the time, occasionally agitated theresa overnight where she will remove medical equipment in agitation. (2) Cancer related pain: Plan: Pt wakes up intermittently yelling for pain meds and for someone to help her. she reports pain in her foot. case d/w onc provider Padmini RITCHIE: pt has had extensive workup on this LE pain and no cause has been found. There is worry she may be trying to self medicate her anxiety/escape from facing the emotional intensity of her multiple advanced illnesses. I have increased her OxyIR to 15mg which she can have q4h prn, no change to MS IV prn orders. Would aim to use BiPAP theresa after IV meds are utilized. (3) Acute on chronic respiratory failure with hypercapnia: Plan: PFT 02/08/2021: VERY SEVERE obstruction, Lung volumes support hyperinflation and severely reduced DLCO (4) Pulmonary hypertension: Plan: secondary to very severe COPD (5) Lung cancer: (6) Brain metastasis: (7) Malignant neoplasm of upper-outer quadrant of left breast in female, estrogen receptor positive: Plan I have reviewed brain MRI and echo with : brain MRI showed interval enlargement of left parietal and decrease of left temporal lesions, no new lesions. Echo was unchanged from prior. has not discussed family meeting availability with the children, he again tells me he wants them to have online access to her medical record through pt portal. I have advised him to contact the help desk for the portal, I am not authorized to derek proxy access. Patient will need an ACP/GOC discussion when she is able to participate. If her mentation does not substantially improve it is likely a combination of her adv resp failure from very severe, smoking related COPD (this is incurable, not reversible and will continue to progress) along with the brain mets and need for opioid medications to manage her severe pain issues. 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 COPD is defined by the ATS and ERS define COPD as a preventable and treatable disease state characterized by airflow limitation that is not fully reversible. The airflow limitation is usually progressive and associated with a chronic inflammatory response of the lungs to noxious particles or gases.COPD is incurable and will worsen over time. Sometimes when patients stop smoking, the progression will slow down, but all COPD over time will get worse. Medications become less effective and do not work as well; in general these patients experience a significant decline in QOL. Patients with COPD constitute a large group of symptomatic patients with a common, chronic, and generally progressive respiratory disorder. Recent studies indicate that patients in this group, on the whole, receive less palliative care in their terminal phase than patients with lung cancer. We disc ussed that Palliative care can begin when a patient becomes symptomatic and is usually concurrent with restorative and life-prolonging care. Palliative care is titrated, analogous to curative/restorative care, to meet the needs of the patient and family in accord with their preferences. We will help manage their symptoms and assist with goals of care discussions. Patient is eligible for COPD as her hospice diagnosis if this was felt to be the plan of care they wish to pursue. For now we are unable to engage patient or family is any detailed ACP/GOC discussions. Home hospice would provide an extra layer of support for managing the symptoms of COPD. Hospice improves quality of life for patients and their families by addressing social, spiritual and practical issues, because living with COPD can be difficult theresa as disease progresses/PS declines; additionally we know it can be equally challenging for caregivers, but they don't have to face the challenges alone. Hospice will offer relief from the pain and symptoms of COPD, address the mental, social and spiritual needs of a patient. In fact, hospice is a type of palliative care during the final stage of life. The hospice eligibility guidelines for COPD/lung disease are provided here for reference/use as desired: Major characteristics a. Dyspnea at rest and/or with minimal exertion while on oxygen therapy b. Dyspnea unresponsive or poorly responsive to bronchodilator therapy c. Progression of chronic pulmonary disease as evidenced by one or more of the following: d. Frequent use of medical services, including hospitalizations, ED visits and/or physician outpatient visits, due to symptoms of pulmonary disease e. Frequent episodes of bronchitis or pneumonia f. Unintentional weight loss of >=10 percent body weight over the preceding six months g. Progressive inability to independently perform various activities of daily living (ADLs) or an increasing dependency with ADLs, resulting in a progressively lower performance status Other important critical factors h. Cor pulmonale i. Continuous chronic oxygen therapy j. Resting tachycardia > 100/minute k. Steroid-dependent l. Cyanosis Abnormal laboratory findings 2. While these laboratory studies may be helpful to the clinician when considering patient appropriateness for hospice services, they are not required for patient admission. a. FEV1 <=30 percent predicted post-bronchodilator b. Serial decreases in FEV1 of at least 40 ml/year over several years c. PO2 <=55 on room air d. O2 sat. <=88 percent on room air e. Persistent hypercarbia (PCO2) >=50 mm HG Admission and Anticipated Discharge Date Admission Date: May 21, 2022 Subjective pt is seen bedside, present she is sleeping , nasal cannula in place. she awakens to loud voice but is tired/cannot focus and drift back quickly. he reports she had another eventful night with agitation and he was called to come in to help soothe her, here since 630am. he is feeling frustrated with having to wait for results of brain mri and echo. also wants his children to be given electronic access to patient's record. Review of Systems Review of Systems: Unobtainable due to cognitive status Physical Exam Physical Exam: pt is resting in bed, curled up on her side and wearing nasal cannula. she is not able to provide HPI or follow commands she is breathing comfortably she awakens intermittently to cry out or will say "help me, can you help me" skin pink, warm, no cyanosis Results & Data ([facility]) Vital Signs (Past 12 Hours) Vital Signs Temp Pulse Pulse Resp BP Pulse Ox O2 Del Method 05/23/22 08:00 109 H 05/23/22 10:55 36.7 C 103 H 17 155/90 H 93 Nasal Cannula 05/23/22 07:30 36.5 C 93 H 20 144/88 H 99 BiPAP 05/23/22 07:11 107 H 05/23/22 05:42 107 H 15 98 BiPAP O2 Flow Rate FiO2 05/23/22 08:00 05/23/22 10:55 3 05/23/22 07:30 05/23/22 07:11 05/23/22 05:42 50 Diagnostic Findings PFT 02/08/2021: VERY SEVERE obstruction, Lung volumes support hyperinflation and severely reduced DLCO PG Care Time/CCT Total # of Minutes Spent Total Time Spent: 45 Total Time Spent with Patient: Total time spent is greater than 50% in coordination of care (as documented) at patient's floor/unit and/or counseling patient: [place] [address] Subseq Hosp Care Lvl 2 Patient Type Established Medical Decision Making Moderate Complexity Diagnoses Palliative care encounter Z51.5 Cancer related pain G89.3 Acute on chronic respiratory failure with hypercapnia J96.22 Pulmonary hypertension I27.20 Lung cancer C34.90 Brain metastasis C79.31 Malignant neoplasm of upper-outer quadrant of left breast in female, estrogen receptor positive C50.412; Z17.0
--- NOTE | 2022-05-23 18:54 | Hospitalist Progress Note ---
Date of Service May 23, 2022 Assessment & Plan (1) Acute on chronic respiratory failure with hypercapnia: Plan: - Hypercarbic respiratory failure - Her respiratory failure is multifactorial due to combination of COPD, lung cancer, pneumonia, and evidence of volume overload on exam. She also has breast cancer with metastatic disease spread to the brain. - - Treat her RLL as possible aspiration w/ Unasyn Q6h. 05/23 stop and give p.o. antibiotic to complete total 5 days blood cultures collected in ED. patient has a result of blood culture with Streptococcus species alpha strep Patient's biggest problem seems to be her significant COPDhistory of smoking h eavily per chart Remains a full code. (2) Pneumonia: Plan: - CXR: Mild pulmonary vascular congestion without overt edema, emphysema with patchy right basilar densities possibly representing a developing pneumonia. - Treating for aspiration pneumonia with Unasyn, patient does not appear septic. Blood cultures tentatively positive for Enterococcus (3) Lung cancer: Plan: - Completed chemoradiation to the lung with carboplatin and maintenance atezolizumab. - Receives care from [facility]. Palliative care consultation appreciated and note seen including today's: no family meeting could happen today as was planned. (4) Malignant neoplasm of upper-outer quadrant of left breast in female, estrogen receptor positive: Plan: - Follows with oncology. - She has completed radiation and surgical resection of her breast tumor. - Anastrozole resumed 05/23 as patient alert and eating now (5) Brain metastasis: Plan: - Head CT: Patchy areas of hypodensity within the white matter of left posterior frontal lobe and left parietal lobe which are new from the prior study, nonspecific findings but could be due to underlying vasogenic edema or subacute infarcts. Family refused MRI - Patient saw [facility] for a second opinion and she underwent SRS to the 2 brain lesions in March. - Patient is on a dexamethasone taper for brain metastases with vasogenic edema.Currently on dexamethasone 4 mg TID-was converted to IV will change back to oral now 05/23. (6) Hypertension: Plan: - Patient's blood pressures have been low since admission medications have been held Now resume gradually 05/23 as hypertensive (7) Anxiety: Plan: Resume p.o. lorazepam which was on hold. Patient is irritable this eveningmy first encounter with the patient (8) Atrial fibrillation: Plan: Patient had a brief bout of A. fib RVR overnight from 05/21- this resolved spontaneously. She remains in sinus rhythm on telemetry, troponin was 114 but down trended to 42 on second check. No suspicion of ACS per prior notes Plan - Admit to PCU. - SCDs for VTE ppx. Does ambulate around the room today - Full Code. Transition to home per family wishes. Will d/w with palliative care. My first encounter with this complicated patient Admission and Anticipated Discharge Date Admission Date: May 21, 2022 Subjective seen at 1800 h Sitting in bed, son's female partner at bedside, States her breathing is not that good. She gets short of breath when she walks but not at rest. Got 1 g of Tylenol this morning for pain. Independent with a walker to the bathroom today. No falls at home has been awake and alert since 9 AM per nursing. 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) Vital Signs (Past 12 Hours) Vital Signs Temp Pulse Pulse Resp BP Pulse Ox O2 Del Method 05/23/22 15:39 36.4 C L 102 H 22 150/91 H 90 Nasal Cannula 05/23/22 08:00 109 H 05/23/22 10:55 36.7 C 103 H 17 155/90 H 93 Nasal Cannula 05/23/22 07:30 36.5 C 93 H 20 144/88 H 99 BiPAP 05/23/22 07:11 107 H O2 Flow Rate 05/23/22 15:39 3 05/23/22 08:00 05/23/22 10:55 3 05/23/22 07:30 05/23/22 07:11 Laboratory Results No labs Medications Administered Home Medications Medication Instructions Recorded Confirmed Last Taken budesonide-formoterol HFA 160 2 puff inhalation BID 11/08/20 05/17/22 07/09/21 08:00 mcg-4.5 mcg/actuation aerosol inhaler (Symbicort) cyanocobalamin (vitamin B-12) 1,000 mcg PO QAM 11/08/20 05/17/22 07/08/21 08:00 1,000 mcg tablet (Vitamin B-12) albuterol sulfate 90 mcg/actuation 2 puff inhalation Q6H PRN sob 01/03/21 05/17/22 Unknown aerosol inhaler (ProAir HFA) acetaminophen 500 mg tablet 500 mg PO Q6H PRN Pain 01/31/21 05/17/22 07/08/21 20:00 (Tylenol Extra Strength) anastrozole 1 mg tablet (Arimidex) 1 mg PO QAM 01/31/21 05/17/22 07/09/21 08:00 [id number]-[id number]-mchpulkm 1 tab PO Q6H PRN migraines 01/31/21 05/17/22 Unknown 50 mg-325 mg-40 mg tablet diclofenac sodium 3 % topical gel 1 applic topical QID PRN 01/31/21 05/17/22 07/08/21 20:00 pain/swelling gabapentin 300 mg capsule 300 mg PO TID 01/31/21 05/17/22 07/08/21 18:00 dexamethasone 4 mg tablet 4 mg PO TID Vasogenic edema #30 03/06/22 05/17/22 Unknown tabs tiotropium bromide 1.25 1 puff inhalation DAILY 03/06/22 05/17/22 Unknown mcg/actuation mist for inhalation (Spiriva Respimat) ipratropium 0.5 mg-albuterol 3 mg 3 ml NEB QIDR #30 mL 05/20/22 Unknown (2.5 mg base)/3 mL nebulization soln lorazepam 0.5 mg tablet 0.5 mg PO BID PRN anxiety #10 tabs 05/20/22 Unknown lorazepam 0.5 mg tablet 0.5 mg PO Q12 PRN anxiety #10 tabs 05/20/22 Unknown oxycodone 5 mg tablet 5 mg PO Q4H PRN pain #18 tabs 05/20/22 Unknown oxycodone 5 mg tablet 5 mg PO Q4H PRN pain #20 tabs 05/20/22 Unknown spironolactone 25 mg tablet 12.5 mg PO DAILY #30 tabs 05/20/22 Unknown spironolactone 25 mg tablet 12.5 mg PO DAILY #30 tabs 05/20/22 05/17/22 07/08/21 08:00 Active Medications Generic Name Dose Route Start Last Admin Trade Name Freq PRN Reason Stop Dose Admin Acetaminophen 1,000 mg 05/22/22 13:08 05/23/22 12:05 Acetaminophen 500 Mg Tab PO 06/21/22 13:07 1,000 mg Q6H PRN Administration Pain (Scale 1-5) or Fever Dexamethasone 6 mg/ Syringe 1.5 mls @ 1 mls/min 05/21/22 16:30 05/23/22 15:45 IV 06/20/22 16:29 1 mls/min Q24H ANA Administration Ampicillin Sodium/Sulbactam 108 mls @ 200 mls/hr 05/21/22 17:00 05/23/22 17:00 Sodium 3,000 mg/ Sodium IV 05/28/22 16:59 Infused Chloride Q6H ANA Infusion Protocol Ketorolac Tromethamine 15 mg 05/22/22 13:15 05/23/22 00:33 Ketorolac Tromethamine 15 Mg/Ml Vial IV 05/27/22 13:14 15 mg Q6H PRN Administration Pain Morphine Sulfate 2 mg 05/22/22 13:08 05/23/22 15:45 Morphine Sulfate 2 Mg/Ml Carp IV 06/05/22 13:07 2 mg Q4 PRN Administration Moderate Pain Morphine Sulfate 4 mg 05/22/22 13:08 05/23/22 03:21 Morphine Sulfate 4 Mg/Ml 1 Ml Carp\Vial IV 06/05/22 13:07 4 mg Q4 PRN Administration Severe Pain Ondansetron HCl 4 mg 05/21/22 15:55 05/23/22 02:46 Ondansetron Inj 2 Mg/Ml 2 Ml Vial IV 06/20/22 15:54 4 mg Q6H PRN Administration Nausea Oxycodone HCl 15 mg 05/23/22 15:38 05/23/22 18:01 Oxycodone Hcl Ir 5 Mg Tab (Immediate Release) PO 06/05/22 13:07 15 mg Q4H PRN Administration Pain (Scale 6-10) PG Care Time/CCT Total # of Minutes Spent Total Time Spent with Patient: Total time spent is greater than 50% in coordination of care (as documented) at patient's floor/unit and/or counseling patient: Coding Level of Care Code 30208 Subseq Hosp Care Lvl 3 Diagnoses Acute on chronic respiratory failure with hypercapnia J96.22 Pneumonia J18.9 Lung cancer C34.90 Malignant neoplasm of upper-outer quadrant of left breast in female, estrogen receptor positive C50.412; Z17.0 Brain metastasis C79.31 Hypertension I10 Anxiety F41.9 Atrial fibrillation I48.91
[2022-05-23] MEDS: dexAMETHasone 4 MG TAB PO SCH ×3 (20:19→22:18)
[2022-05-24] MEDS: oxyCODONE HCL IR 5 MG TAB (IMMEDIATE RELEASE) PO PRN ×4 (08:41→23:33)
[2022-05-24] MEDS: ANASTROZOLE 1 MG TAB PO SCH (10:28)
[2022-05-24] MEDS: dexAMETHasone 4 MG TAB PO SCH ×3 (10:28→21:17)
[2022-05-24] MEDS: CYANOCOBALAMIN (B-12) 500 MCG TABLET PO SCH (10:29)
[2022-05-24] MEDS: AMOXICILLIN/CLAVULANATE 500 MG TAB PO SCH ×3 (10:29→18:01)
[2022-05-24] MEDS: amLODIPine BESYLATE 5 MG TAB PO SCH (10:36)
[2022-05-24] MEDS: GABAPENTIN 300 MG CAP PO SCH ×2 (13:13→21:17)
--- NOTE | 2022-05-24 17:02 | Pulmonary Consultation ---
Date of Consultation May 24, 2022 Assessment & Plan (1) Chronic hypercapnic respiratory failure: Due to chronic hypercapnic respiratory failure consequent to COPD, the patient now requires a noninvasive home ventilator. Bilevel therapy with and without a rate would be ineffective as patient requires a volume targeted mode. Ventilation is required to decrease work of breathing and improve pulmonary status. Interruption of ventilator support would lead to decline of health status. NIMV settings should be AVAPS-AE; Breath rate: auto; Inspiratory time: auto; Sigh: off; Tidal Volume: [350-450], PS min: [4-10 PS max: 12-20]; EPAP min: [6- 10]; EPAP max: [10-16]; AVAPS rate: [14 during sleep and as needed] We will add nebulized budesonide and formoterol to her nebulizer regimen while in the hospital. Continue Symbicort and Spiriva as an outpatient. Overall, she essentially has terminal COPD. History of Present Illness Reason for Consultation: Assistance in arranging an NIV Attending Physician: Jose Samayoa MD History of Present Illness 61-year-old female with past medical history of COPD Gold class D with very s evere airflow obstruction, metastatic lung cancer to the brain and breast cancer presenting to the hospital 05/21/2022. She was found to be hypercarbic. Patient complaining of chronic dyspnea and fatigue. Minimal cough. ABGs have consistently demonstrated chronic hypercapnic respiratory failure. CT chest with severe emphysema. Allergies Allergy/AdvReac Type Severity Reaction Status Date / Time paclitaxel AdvReac Severe Difficulty Verified 03/06/22 09:57 Breathing Home Medications Medication Instructions Recorded Confirmed Type budesonide-formoterol HFA 160 2 puff inhalation BID 11/08/20 05/17/22 History mcg-4.5 mcg/actuation aerosol inhaler (Symbicort) cyanocobalamin (vitamin B-12) 1,000 mcg PO QAM 11/08/20 05/17/22 History 1,000 mcg tablet (Vitamin B-12) albuterol sulfate 90 mcg/actuation 2 puff inhalation Q6H PRN sob 01/03/21 1 07/18/21 History aerosol inhaler (ProAir HFA) acetaminophen 500 mg tablet 500 mg PO Q6H PRN Pain 01/31/21 05/24/22 History (Tylenol Extra Strength) anastrozole 1 mg tablet (Arimidex) 1 mg PO QAM 01/31/21 05/24/22 History hjoadmrwst-xholckbxuhrqy-rekomvrw 1 tab PO Q6H PRN migraines 01/31/21 05/17/22 History 50 mg-325 mg-40 mg tablet diclofenac sodium 3 % topical gel 1 applic topical QID PRN 01/31/21 05/17/22 History pain/swelling gabapentin 300 mg capsule 600 mg PO TID 01/31/21 05/24/22 History dexamethasone 4 mg tablet 4 mg PO TID Vasogenic edema #30 03/06/22 05/24/22 Rx tabs tiotropium bromide 1.25 1 puff inhalation DAILY 03/06/22 05/17/22 History mcg/actuation mist for inhalation (Spiriva Respimat) ipratropium 0.5 mg-albuterol 3 mg 3 ml NEB QIDR #30 mL 05/20/22 Rx (2.5 mg base)/3 mL nebulization soln lorazepam 0.5 mg tablet 0.5 mg PO BID PRN anxiety #10 tabs 05/20/22 05/24/22 Rx oxycodone 5 mg tablet 5 mg PO Q4H PRN pain #18 tabs 05/20/22 05/24/22 Rx spironolactone 25 mg tablet 12.5 mg PO DAILY #30 tabs 05/20/22 05/24/22 Rx cyclobenzaprine 10 mg tablet 10 mg PO HS PRN Spasms 05/24/22 05/24/22 History ferrous fumarate-folic acid 324 mg 1 tab PO DAILY 05/24/22 05/24/22 History (106 mg iron)-1 mg tablet (Hematinic/Folic Acid) hydrochlorothiazide 12.5 mg tablet 12.5 mg PO Q2D 05/24/22 05/24/22 History hydroxyzine HCl 10 mg tablet 10 mg PO TID PRN Anxiety 05/24/22 05/24/22 History oxycodone 10 mg tablet 10 mg PO Q4 PRN Severe Pain (Scale 05/24/22 05/24/22 History Score 7-10) prochlorperazine maleate 10 mg 10 mg PO Q6H PRN Nausea And 05/24/22 05/24/22 History tablet Vomiting Patient History Medical History (Updated 05/24/22 @ 17:01 by Dominic Mojica MD) Anxiety Breast cancer, left Dx 12/2020 Cancer Cancer related pain Chronic hypercapnic respiratory failure COPD (chronic obstructive pulmonary disease) Counseling regarding advanced directives and goals of care History of migraine Hypertension Iron deficiency anemia Hx iron infusions Lung cancer Non small cell cancer dx 12/2020; chemo/radiation (per pt, completed 3 mo ago but still on IV prophylaxis trtmt q3wks, Tecentriq per heme records) On home oxygen therapy oxygen at night 1.5 lpm via n/c Palliative care encounter Pulmonary hypertension Cardio feels likely secondary to COPD and possible MARTELL Thyroid nodule Surgical History H/O esophagogastroduodenoscopy History of breast biopsy History of lung biopsy History of tubal ligation Hx of colonoscopy Status post left breast lumpectomy (07/09/21) Left lumpectomy with sentinel lymph node biopsy and also excision of superior left axillary lymph node with additional axillary tissue. Dr. Andres 07/09/2021 Family History Father Myocardial infarction CABG x 3 Mother , 84yo Emphysema lung Smoker Brother No problems noted. Sister No problems noted. Sister Asthma Son No problems noted. Daughter No problems noted. 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 Physical Exam Physical Exam: Confused and breathing comfortably on nasal cannula. Prolonged phase of exhalation. Moderate expiratory wheezes. Results & Data Results & Data ([facility]) Vital Signs (Past 12 Hours) Vital Signs Temp Pulse Pulse Resp BP Pulse Ox O2 Del Method 05/24/22 16:02 36.7 C 104 H 24 141/83 H 90 Nasal Cannula 05/24/22 08:00 93 H 05/24/22 11:43 36.6 C 90 19 155/89 H 93 Nasal Cannula 05/24/22 08:46 Nasal Cannula 05/24/22 08:21 36.5 C 101 H 20 142/89 H 93 Nasal Cannula O2 Flow Rate 05/24/22 16:02 3.5 05/24/22 08:00 05/24/22 11:43 3 05/24/22 08:46 3 05/24/22 08:21 3.0 PG Care Time/CCT Total # of Minutes Spent Total Time Spent with Patient: Total time spent is greater than 50% in coordination of care (as documented) at patient's floor/unit and/or counseling patient: Coding Level of Care Code 84020 Initial Inpt Care Lvl 2 Diagnoses Chronic hypercapnic respiratory failure J96.12
--- NOTE | 2022-05-24 20:01 | Hospitalist Progress Note ---
Date of Service May 24, 2022 Assessment & Plan (1) Acute on chronic respiratory failure with hypercapnia: Plan: - Hypercarbic respiratory failure with end-stage COPD. - Her respiratory failure is multifactorial due to combination of COPD, lung cancer, pneumonia, and evidence of volume overload on exam. She also has breast cancer with metastatic disease spread to the brain. - Patient's biggest problem seems to be her significant COPDhistory of smoking heavily per chart Remains a full code. Appreciate pulmonology consult 05/24 and NIV settings for home. Formoterol and budesonide added to her inhaler regimen (2) Pneumonia: Plan: - CXR: Mild pulmonary vascular congestion without overt edema, emphysema with patchy right basilar densities possibly representing a developing pneumonia. Augmentin to complete total 5 days antibiotic: Blood cultures tentatively positive for Enterococcus (3) Lung cancer: Plan: - Completed chemoradiation to the lung with carboplatin and maintenance atezolizumab. - Receives care from [facility]. Next appointment there for radiation of brain mets July 2022 Palliative care consultation appreciated and note seen including today's: no family meeting could happen today as was planned. (4) Malignant neoplasm of upper-outer quadrant of left breast in female, estrog en receptor positive: Plan: - Follows with oncology. - She has completed radiation and surgical resection of her breast tumor. - Anastrozole resumed 05/23 as patient alert and eating now (5) Brain metastasis: Plan: - Head CT: Patchy areas of hypodensity within the white matter of left posterior frontal lobe and left parietal lobe which are new from the prior study, nonspecific findings but could be due to underlying vasogenic edema or subacute infarcts. Family refused MRI - Patient saw [facility] for a second opinion and she underwent SRS to the 2 brain lesions in March. Next appointment July. - Patient is on a dexamethasone taper for brain metastases with vasogenic edema.Currently on dexamethasone 4 mg TID-was converted to IV will change back to oral now 05/23. (6) Hypertension: Plan: - Patient's blood pressures have been low since admission medications have been held Now resume gradually 05/23 as hypertensive (7) Anxiety: Plan: Resumed p.o. lorazepam which was on hold. Consider SSRI. Patient is irritable and quite depressed. (8) Atrial fibrillation: Plan: Patient had a brief bout of A. fib RVR overnight from 05/21- this resolved spontaneously. She remains in sinus rhythm on telemetry, troponin was 114 but down trended to 42 on second check. No suspicion of ACS per prior notes Plan - Admit to PCU. - SCDs for VTE ppx. Does ambulate around the room today - Full Code- likely to change 05/25 - see below. Transition to snf per PT recs-pending. 05/24 I had a long discussion with the patient and her in the room. Prior to that I spoke with the palliative care FLIGHT ENGINEER Ms Dai who has made many attempts to meet with the patient and children in a meeting. That has not yet materialized Patient wants to discuss her CODE STATUS with her and children. She expects to do that by tomorrow. I have offered my presence when they need it as I am working this weekend. was asking many questions about her medications and seems content with my answers. I have half to her home gabapentin dose at resumption this morning. Oxycodone 10 mg every 4 hours as needed with Tylenol for breakthrough pain. concerned she is on too many medications at home Patient reports she had some heart condition and that had resolved so she is on low-dose spironolactone at home. I explained to them that have started amlodipine for hypertension and there is no indication for spironolactone within normal LVEF on echo here. They were appreciative and the patient does understand her limited prognosis with metastatic breast/lung cancer on end-stage COPD. [facility] management working on [facility] facility per their wishes. Admission and Anticipated Discharge Date Admission Date: May 21, 2022 Subjective seen at 1500 h in the room Says she is short of breath all the time Wonders if she can walk around on her own Says she has ankle pain which prevents her from sleeping at night, also has pressure in the front of her head most of the time, is anxious and was briefly tearful Had eaten 75% of her breakfast. Results & Data Results & Data ([facility]) Vital Signs (Past 12 Hours) Vital Signs Temp Pulse Pulse Resp BP Pulse Ox O2 Del Method 05/24/22 19:00 36.6 C 106 H 20 151/94 H 90 Nasal Cannula 05/24/22 16:02 36.7 C 104 H 24 141/83 H 90 Nasal Cannula 05/24/22 08:00 93 H 05/24/22 11:43 36.6 C 90 19 155/89 H 93 Nasal Cannula 05/24/22 08:46 Nasal Cannula 05/24/22 08:21 36.5 C 101 H 20 142/89 H 93 Nasal Cannula O2 Flow Rate 05/24/22 19:00 3.5 05/24/22 16:02 3.5 05/24/22 08:00 05/24/22 11:43 3 05/24/22 08:46 3 05/24/22 08:21 3.0 PG Care Time/CCT Total # of Minutes Spent Total Time Spent with Patient: Total time spent is greater than 50% in coordination of care (as documented) at patient's floor/unit and/or counseling patient: Coding Level of Care Code 56839 Subseq Hosp Care Lvl 3 Diagnoses Acute on chronic respiratory failure with hypercapnia J96.22 Pneumonia J18.9 Lung cancer C34.90 Malignant neoplasm of upper-outer quadrant of left breast in female, estrogen receptor positive C50.412; Z17.0 Brain metastasis C79.31 Hypertension I10 Anxiety F41.9 Atrial fibrillation I48.91
[2022-05-24] MEDS: BUDESONIDE 0.5 MG/2 ML VIAL (PULMICORT) NEB SCH (20:19)
[2022-05-24] MEDS: FORMOTEROL 20 MCG/2 ML VIAL INH SCH (20:19)
[2022-05-24] MEDS: ALBUT/IPRATROP 3MG/0.5MG NEB 3 ML VIAL NEB SCH ×2 (20:20→22:31)
[2022-05-25] MEDS: ALBUT/IPRATROP 3MG/0.5MG NEB 3 ML VIAL NEB SCH ×5 (02:32→19:43)
[2022-05-25] MEDS: oxyCODONE HCL IR 5 MG TAB (IMMEDIATE RELEASE) PO PRN ×4 (06:20→20:04)
[2022-05-25] MEDS: BUDESONIDE 0.5 MG/2 ML VIAL (PULMICORT) NEB SCH ×2 (07:24→19:43)
[2022-05-25] MEDS: FORMOTEROL 20 MCG/2 ML VIAL INH SCH ×2 (07:24→19:43)
[2022-05-25] MEDS: GABAPENTIN 300 MG CAP PO SCH ×3 (08:09→20:03)
[2022-05-25] MEDS: ANASTROZOLE 1 MG TAB PO SCH (08:10)
[2022-05-25] MEDS: AMOXICILLIN/CLAVULANATE 500 MG TAB PO SCH ×3 (08:10→15:58)
[2022-05-25] MEDS: CYANOCOBALAMIN (B-12) 500 MCG TABLET PO SCH (08:10)
[2022-05-25] MEDS: dexAMETHasone 4 MG TAB PO SCH ×3 (08:10→20:03)
[2022-05-25] MEDS: amLODIPine BESYLATE 5 MG TAB PO SCH (08:10)
--- NOTE | 2022-05-25 18:12 | Hospitalist Progress Note ---
Date of Service May 25, 2022 Assessment & Plan (1) Acute on chronic respiratory failure with hypercapnia: Plan: - Hypercarbic respiratory failure with end-stage COPD. - Her respiratory failure is multifactorial due to combination of COPD, lung cancer, pneumonia, and evidence of volume overload on exam. She also has breast cancer with metastatic disease spread to the brain. - Patient's biggest problem seems to be her significant COPDhistory of smoking heavily until recently. Remains a full code. Significant acute on chronic respiratory failure needing 3 L of oxygen with significant D. Manuel saturation just by standing and taking 2 steps per the bed she has been postponing code status decision daily- 05/24-she and said they will discuss with the children today 05/25. was here today and stated he to the nurse that they will talk about it tomorrow now Appreciate pulmonology consult 05/24 and NIV settings 05/24 for home. Formoterol and budesonide added to her inhaler regimen (2) Pneumonia: Plan: - CXR: Mild pulmonary vascular congestion without overt edema, emphysema with patchy right basilar densities possibly representing a developing pneumonia. Augmentin to complete total 5 days antibiotic: Blood cultures tentatively positive for Enterococcus (3) Lung cancer: Plan: - Completed chemoradiation to the lung with carboplatin and maintenance atezolizumab. - Receives care from [facility]. Next appointment there for radiation of brain mets July 2022 Palliative care consultation appreciated and note seen including today's: no family meeting could happen today as was planned. (4) Malignant neoplasm of upper-outer quadrant of left breast in female, estrogen receptor positive: Plan: - Follows with oncology. - She has completed radiation and surgical resection of her breast tumor. - Anastrozole resumed 05/23 as patient alert and eating now (5) Brain metastasis: Plan: - Head CT: Patchy areas of hypodensity within the white matter of left posterior frontal lobe and left parietal lobe which are new from the prior study, nonspecific findings but could be due to underlying vasogenic edema or subacute infarcts. Family refused MRI - Patient saw [facility] for a second opinion and she underwent SRS to the 2 brain lesions in March. Next appointment July. - Patient is on a dexamethasone taper for brain metastases with vasogenic edema.Currently on dexamethasone 4 mg TID-was converted to IV will change back to oral now 05/23. (6) Hypertension: Plan: - Patient's blood pressures have been low since admission medications have been held Now resume gradually 05/23 as hypertensive (7) Anxiety: Plan: Resumed p.o. lorazepam which was on hold. Consider SSRI. Patient is irritable and quite depressed. (8) Atrial fibrillation: Plan: Patient had a brief bout of A. fib RVR overnight from 05/21- this resolved spontaneously. She remains in sinus rhythm on telemetry, troponin was 114 but down trended to 42 on second check. No suspicion of ACS per prior notes Plan - Admit to PCU. - SCDs for VTE ppx. Does ambulate around the room today - Full Code- likely to change 05/25 - see below. Transition to snf per PT recs-pending. 05/25-repeat ordered for 10 Last evaluated by PT 5 d ago. 05/24 I had a long discussion with the patient and her in the room. P arnoldr to that I spoke with the palliative care ROAD BOSS Ms Dai who has made many attempts to meet with the patient and children in a meeting. That has not yet materialized Patient wants to discuss her CODE STATUS with her and children. She expects to do that by tomorrow. I have offered my presence when they need it as I am working this weekend. was asking many questions about her medications and seems content with my answers. I have half to her home gabapentin dose at resumption this morning. Oxycodone 10 mg every 4 hours as needed with Tylenol for breakthrough pain. concerned she is on too many medications at home Patient reports she had some heart condition and that had resolved so she is on low-dose spironolactone at home. I explained to them that have started amlodipine for hypertension and there is no indication for spironolactone within normal LVEF on echo here. They were appreciative and the patient does understand her limited prognosis wit h metastatic breast/lung cancer on end-stage COPD. [facility] management working on [facility] facility per their wishes. Admission and Anticipated Discharge Date Admission Date: May 21, 2022 Subjective Seen around 9:30 AM this morning. The patient states her ankle pain is better. Mood is better. Gets very short of breath to bedside commode which is common. 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 HELPER grossly intact Affect not anxious today Results & Data Results & Data ([facility]) Vital Signs (Past 12 Hours) Vital Signs Temp Pulse Pulse Resp BP Pulse Ox O2 Del Method 05/25/22 16:21 36.6 C 102 H 18 147/88 H 88 L Nasal Cannula 05/25/22 15:34 113 H 22 90 Nasal Cannula 05/25/22 12:37 36.7 C 91 H 18 146/88 H 98 Nasal Cannula 05/25/22 11:14 94 H 18 98 Nasal Cannula 05/25/22 08:00 94 H 05/25/22 08:46 36.4 C L 93 H 18 159/84 H 89 L Nasal Cannula 05/25/22 07:27 99 H 20 90 Nasal Cannula O2 Flow Rate 05/25/22 16:21 3 05/25/22 15:34 4 05/25/22 12:37 3 05/25/22 11:14 5 05/25/22 08:00 05/25/22 08:46 4 05/25/22 07:27 4 Laboratory Results no labs PG Care Time/CCT Total # of Minutes Spent Total Time Spent with Patient: Total time spent is greater than 50% in coordination of care (as documented) at patient's floor/unit and/or counseling patient: Coding Level of Care Code 84107 Subseq Hosp Care Lvl 3 Diagnoses Acute on chronic respiratory failure with hypercapnia J96.22 Pneumonia J18.9 Lung cancer C34.90 Malignant neoplasm of upper-outer quadrant of left breast in female, estrogen receptor positive C50.412; Z17.0 Brain metastasis C79.31 Hypertension I10 Anxiety F41.9 Atrial fibrillation I48.91
[2022-05-26] MEDS: ALBUT/IPRATROP 3MG/0.5MG NEB 3 ML VIAL NEB SCH ×5 (00:08→15:19)
[2022-05-26] MEDS: oxyCODONE HCL IR 5 MG TAB (IMMEDIATE RELEASE) PO PRN ×4 (00:20→16:34)
[2022-05-26 05:08] LABS: Hematocrit (blood only) 33.4 % (34.1-44.9); Hemoglobin 10.2 g/dl (12.0-16.0); Mean Corpuscular Hemoglobin 31.3 pg (25.0-34.0); Mean Corpuscular Hgb Conc 30.5 g/dL (32.0-36.0); Mean Corpuscular Volume 102.5 fL (80.0-100.0); Mean Platelet Volume 9.1 fL (9.4-12.3); Nucleated RBC # (auto) 0.04 K/uL (0-0); Nucleated RBC % (auto) 0.6 %; Platelet Count 275 K/uL (130-400); RDW Coefficient of Variation 18.6 % (11.5-14.5); RDW Standard Deviation 71.2 fL (36.4-46.3); Red Blood Count 3.26 M/uL (3.93-5.22); White Blood Count 6.27 K/ul (4.8-10.8)
[2022-05-26 05:56] LABS: BUN Creatinine Ratio 21.1 (10-20); Blood Urea Nitrogen 8 mg/dl (6-23); Carbon Dioxide > 45 mmol/L (21-32); Chloride 86 mmol/L (98-107); Creatinine Clr Calc Pharmacy 136.8 ml/min; Est GFR (African American) 132.5 ml/min; Est GFR (Non-African American) 114.3 ml/min; Glucose 128 mg/dl (70-99(Fasting)); Sodium 136 mmol/L (136-145)
[2022-05-26] MEDS: BUDESONIDE 0.5 MG/2 ML VIAL (PULMICORT) NEB SCH ×2 (07:46→20:26)
[2022-05-26] MEDS: FORMOTEROL 20 MCG/2 ML VIAL INH SCH ×2 (07:46→20:26)
[2022-05-26] MEDS: dexAMETHasone 4 MG TAB PO SCH ×3 (08:33→21:41)
[2022-05-26] MEDS: GABAPENTIN 300 MG CAP PO SCH ×3 (08:33→21:41)
[2022-05-26] MEDS: CYANOCOBALAMIN (B-12) 500 MCG TABLET PO SCH (08:34)
[2022-05-26] MEDS: ANASTROZOLE 1 MG TAB PO SCH (08:35)
[2022-05-26] MEDS: amLODIPine BESYLATE 5 MG TAB PO SCH (08:35)
--- NOTE | 2022-05-26 21:22 | Hospitalist Progress Note ---
Date of Service May 26, 2022 Assessment & Plan (1) Acute on chronic respiratory failure with hypercapnia: Plan: - Hypercarbic respiratory failure with end-stage COPD. - Her respiratory failure is multifactorial due to combination of COPD, lung cancer, pneumonia, and evidence of volume overload on exam. She also has breast cancer with metastatic disease spread to the brain. - Patient's biggest problem seems to be her significant COPDhistory of smoking heavily until recently. Remains a full code. Significant acute on chronic respiratory failure needing 3 L of oxygen, today hiked up to 5 L because of desaturation with significant desaturation just by standing and taking 2 steps from bed she has been postponing code status decision daily- 05/24-she and said they will discuss with the children 05/25. but not done 05/26 : States her daughter lives in [facility] and has note there so she cannot come but will come tomorrow I spoke with the patient again today about wanting to ascertain her CODE STATUS before discharge. Discharge will likely be home with adequate equipment. She is now going to use BiPAP for the first time at home Appreciate pulmonology consult 05/24/22 and NIV settings 05/24 for home. Formoterol and budesonide added to her inhaler regimen (2) Pneumonia: Plan: - CXR: Mild pulmonary vascular congestion without overt edema, emphysema with patchy right basilar densities possibly representing a developing pneumonia. Augmentin completed total 5 days antibiotic 05/25: Blood cultures tentatively p ositive for Enterococcus (3) Lung cancer: Plan: - Completed chemoradiation to the lung with carboplatin and maintenance atezolizumab. - Receives care from [facility]. Next appointment there for radiation of brain mets July 2022 Palliative care consultation appreciated and note seen including today's: no family meeting could happen today as was planned. (4) Malignant neoplasm of upper-outer quadrant of left breast in female, estrogen receptor positive: Plan: - Follows with oncology. - She has completed radiation and surgical resection of her breast tumor. - Anastrozole resumed 05/23 as patient alert and eating now (5) Brain metastasis: Plan: - Head CT: Patchy areas of hypodensity within the white matter of left posterior frontal lobe and left parietal lobe which are new from the prior study, nonspecific findings but could be due to underlying vasogenic edema or subacute infarcts. Family refused MRI - Patient saw [facility] for a second opinion and she underwent SRS to the 2 brain lesions in March. Next appointment July. - Patient is on a dexamethasone taper for brain metastases with vasogenic edema.Currently on dexamethasone 4 mg TID-was converted to IV will change back to oral now 05/23. (6) Hypertension: Plan: - Patient's blood pressures have been low since admission medications have been held Now resume gradually 05/23 as hypertensive (7) Anxiety: Plan: Resumed p.o. lorazepam which was on hold. Consider SSRI. Patient is irritable and quite depressed. (8) Atrial fibrillation: Plan: Patient had a brief bout of A. fib RVR overnight from 05/21- this resolved spontaneously. She remains in sinus rhythm on telemetry, troponin was 114 but down trended to 42 on second check. No suspicion of ACS per prior notes Plan Home discharge once since things set up at home CODE STATUS discussion with family long pending, (patient wants to speak with her , son and daughter all present in person )hopefully 05/27 Admission and Anticipated Discharge Date Admission Date: May 21, 2022 Subjective seen at 0940 Feeling well. iPad in front of her but not watching any movie she says. She says she used a walker on her own twice yesterday while the occupational therapist was in the room. Minimal dizziness when she clarissa to walk. 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 grossly intact Affect not anxious today Results & Data Results & Data ([facility]) Vital Signs (Past 12 Hours) Vital Signs Temp Pulse Pulse Resp BP Pulse Ox O2 Del Method 05/26/22 20:36 102 H 20 95 Nasal Cannula 05/26/22 19:26 36.6 C 94 H 18 159/97 H 98 Nasal Cannula 05/26/22 16:21 102 H 05/26/22 15:49 36.7 C 101 H 20 177/93 H 92 Nasal Cannula 05/26/22 15:21 90 18 94 Nasal Cannula 05/26/22 11:59 36.7 C 97 H 19 132/77 91 Nasal Cannula 05/26/22 11:30 97 H 20 93 Nasal Cannula 05/26/22 10:29 Nasal Cannula O2 Flow Rate 05/26/22 20:36 5 05/26/22 19:26 05/26/22 16:21 05/26/22 15:49 3.5 05/26/22 15:21 4 05/26/22 11:59 3.5 05/26/22 11:30 3 05/26/22 10:29 4 Laboratory Results Abnormal lab results 05/26/22 05/26/22 Range/Units 04:09 04:09 RBC 3.26 L (3.93-5.22) M/uL Hgb 10.2 L (12.0-16.0) g/dl Hct 33.4 L (34.1-44.9) % MCV 102.5 H (80.0-100.0) fL MCHC 30.5 L (32.0-36.0) g/dL RDW Std Deviation 71.2 H (36.4-46.3) fL RDW Coeff of Kp 18.6 H (11.5-14.5) % MPV 9.1 L (9.4-12.3) fL Absolute Nucleated RBC 0.04 H (0-0) K/uL Chloride 86 L (98-107) mmol/L Carbon Dioxide > 45 H* (21-32) mmol/L Creatinine 0.38 L (0.6-1.2) mg/dl BUN/Creatinine Ratio 21.1 H (10-20) Glucose 128 H (70-99(Fasting)) mg/dl Calcium 8.0 L (8.5-10.1) mg/dl Medications Administered Home Medications Medication Instructions Recorded Confirmed Last Taken budesonide-formoterol HFA 160 2 puff inhalation BID 11/08/20 05/17/22 07/09/21 08:00 mcg-4.5 mcg/actuation aerosol inhaler (Symbicort) cyanocobalamin (vitamin B-12) 1,000 mcg PO QAM 11/08/20 05/17/22 07/08/21 08:00 1,000 mcg tablet (Vitamin B-12) albuterol sulfate 90 mcg/actuation 2 puff inhalation Q6H PRN sob 01/03/21 05/17/22 Unknown aerosol inhaler (ProAir HFA) acetaminophen 500 mg tablet 500 mg PO Q6H PRN Pain 01/31/21 05/24/22 07/08/21 20:00 (Tylenol Extra Strength) anastrozole 1 mg tablet (Arimidex) 1 mg PO QAM 01/31/21 05/24/22 07/09/21 08:00 cmpcrhwfvb-[id number]-klonvbdl 1 tab PO Q6H PRN migraines 01/31/21 05/17/22 Unknown 50 mg-325 mg-40 mg tablet diclofenac sodium 3 % topical gel 1 applic topical QID PRN 01/31/21 05/17/22 07/08/21 20:00 pain/swelling gabapentin 300 mg capsule 600 mg PO TID 01/31/21 05/24/22 07/08/21 18:00 dexamethasone 4 mg tablet 4 mg PO TID Vasogenic edema #30 03/06/22 05/24/22 Unknown tabs tiotropium bromide 1.25 1 puff inhalation DAILY 03/06/22 05/17/22 Unknown mcg/actuation mist for inhalation (Spiriva Respimat) ipratropium 0.5 mg-albuterol 3 mg 3 ml NEB QIDR #30 mL 05/20/22 Unknown (2.5 mg base)/3 mL nebulization soln lorazepam 0.5 mg tablet 0.5 mg PO BID PRN anxiety #10 tabs 05/20/22 05/24/22 Unknown oxycodone 5 mg tablet 5 mg PO Q4H PRN pain #18 tabs 05/20/22 05/24/22 Unknown spironolactone 25 mg tablet 12.5 mg PO DAILY #30 tabs 05/20/22 05/24/22 Unknown cyclobenzaprine 10 mg tablet 10 mg PO HS PRN Spasms 05/24/22 05/24/22 Unknown ferrous fumarate-folic acid 324 mg 1 tab PO DAILY 05/24/22 05/24/22 Unknown (106 mg iron)-1 mg tablet (Hematinic/Folic Acid) hydrochlorothiazide 12.5 mg tablet 12.5 mg PO Q2D 05/24/22 05/24/22 Unknown hydroxyzine HCl 10 mg tablet 10 mg PO TID PRN Anxiety 05/24/22 05/24/22 Unknown oxycodone 10 mg tablet 10 mg PO Q4 PRN Severe Pain (Scale 05/24/22 05/24/22 Unknown Score 7-10) prochlorperazine maleate 10 mg 10 mg PO Q6H PRN Nausea And 05/24/22 05/24/22 Unknown tablet Vomiting Active Medications Generic Name Dose Route Start Last Admin Trade Name Freq PRN Reason Stop Dose Admin Acetaminophen 1,000 mg 05/22/22 13:08 05/23/22 12:05 Acetaminophen 500 Mg Tab PO 06/21/22 13:07 1,000 mg Q6H PRN Administration Pain (Scale 1-5) or Fever Amlodipine Besylate 5 mg 05/24/22 09:00 05/26/22 08:35 Amlodipine Besylate 5 Mg Tab PO 06/23/22 08:59 5 mg QAM ANA Administration Anastrozole 1 mg 05/24/22 09:00 05/26/22 08:35 Anastrozole 1 Mg Tab PO 06/23/22 08:59 1 mg QAM ANA Administration Budesonide 0.5 mg 05/24/22 19:00 05/26/22 20:26 Budesonide 0.5 Mg/2 Ml Vial (Pulmicort) NEB 06/23/22 18:59 0.5 mg BIDR ANA Administration Cyanocobalamin 1,000 mcg 05/24/22 09:00 05/26/22 08:34 Cyanocobalamin (B-12) 500 Mcg Tablet PO 06/23/22 08:59 1,000 mcg QAM ANA Administration Dexamethasone 4 mg 05/23/22 21:00 05/26/22 13:45 Dexamethasone 4 Mg Tab PO 06/22/22 20:59 4 mg TID ANA Administration Formoterol Fumarate 20 mcg 05/24/22 19:00 05/26/22 20:26 Formoterol 20 Mcg/2 Ml Vial INH 06/23/22 18:59 20 mcg BIDR ANA Administration Gabapentin 300 mg 05/24/22 14:00 05/26/22 13:45 Gabapentin 300 Mg Cap PO 06/23/22 13:59 300 mg TID ANA Administration Ketorolac Tromethamine 15 mg 05/22/22 13:15 05/23/22 00:33 Ketorolac Tromethamine 15 Mg/Ml Vial IV 05/27/22 13:14 15 mg Q6H PRN Administration Pain Ondansetron HCl 4 mg 05/21/22 15:55 05/23/22 02:46 Ondansetron Inj 2 Mg/Ml 2 Ml Vial IV 06/20/22 15:54 4 mg Q6H PRN Administration Nausea Oxycodone HCl 10 mg 05/24/22 08:19 05/26/22 16:34 Oxycodone Hcl Ir 5 Mg Tab (Immediate Release) PO 06/07/22 08:18 10 mg Q4H PRN Administration Moderate Pain 4-6/10 PG Care Time/CCT Total # of Minutes Spent Total Time Spent with Patient: Total time spent is greater than 50% in coordination of care (as documented) at patient's floor/unit and/or counseling patient: Coding Level of Care Code 55831 Subseq Hosp Care Lvl 2 Diagnoses Acute on chronic respiratory failure with hypercapnia J96.22 Pneumonia J18.9 Lung cancer C34.90 Malignant neoplasm of upper-outer quadrant of left breast in female, estrogen receptor positive C50.412; Z17.0 Brain metastasis C79.31 Hypertension I10 Anxiety F41.9 Atrial fibrillation I48.91
[2022-05-27] MEDS: FORMOTEROL 20 MCG/2 ML VIAL INH SCH ×2 (07:39→19:16)
[2022-05-27] MEDS: BUDESONIDE 0.5 MG/2 ML VIAL (PULMICORT) NEB SCH ×2 (07:39→19:16)
[2022-05-27] MEDS: dexAMETHasone 4 MG TAB PO SCH ×3 (08:03→21:22)
[2022-05-27] MEDS: GABAPENTIN 300 MG CAP PO SCH ×3 (08:03→21:22)
[2022-05-27] MEDS: amLODIPine BESYLATE 5 MG TAB PO SCH (08:04)
[2022-05-27] MEDS: CYANOCOBALAMIN (B-12) 500 MCG TABLET PO SCH (08:04)
[2022-05-27] MEDS: ANASTROZOLE 1 MG TAB PO SCH (08:04)
[2022-05-27] MEDS: oxyCODONE HCL IR 5 MG TAB (IMMEDIATE RELEASE) PO PRN ×3 (08:07→22:11)
--- NOTE | 2022-05-27 09:03 | Communication Note ---
This is a late entry note: page received Friday/May 24, 2022 evening that patient's family arrived and wanted to meet. Unfortunately, did not communicate a time or date to me to confirm scheduling and I had already left work that evening. I am happy to help with a scheduled family meeting if needed; I defer scheduling of same to primary team and unit care mgt to assure they can be present as well. Reina Tanner DNP Clinical Director, Palliative Medicine
--- NOTE | 2022-05-27 20:45 | Hospitalist Progress Note ---
Date of Service May 27, 2022 Assessment & Plan (1) Acute on chronic respiratory failure with hypercapnia: Plan: - Hypercarbic respiratory failure with end-stage COPD. - Her respiratory failure is multifactorial due to combination of COPD, lung cancer, pneumonia, and evidence of volume overload on exam. She also has breast cancer with metastatic disease spread to the brain. - Patient's biggest problem seems to be her significant COPDhistory of smoking heavily until recently. Remains a full code. Significant acute on chronic respiratory failure needing 3 L of oxygen, presented with unresponsiveness 24 hours after she was discharged with with a diagnosis of COPD exacerbation now stable for discharge, with significant desaturation just by standing and taking 2 steps from bed she has been postponing code status decision daily- 05/24-she and said they will discuss with the children 05/25. but not done 05/26 : States her daughter lives in [facility] and has note there so she cannot come but will come tomorrow 05/27 daughter was here but son was not but they will both confer and tell the patient what they want to CODE STATUS to be tomorrow she says Main challenge this hospitalization has been commitment on the CODE STATUS status considering her poor pulmonary prognosis. Palliative care saw her last week and also try to meet with family a few times to discuss this but without success Appreciate pulmonology consult 05/24/22 and NIV settings 05/24 for home. Formoterol and budesonide added to her inhaler regimen by pulmonary (2) Pneumonia: Plan: - CXR: Mild pulmonary vascular congestion without overt edema, emphysema with patchy right basilar densities possibly representing a developing pneumonia. Augmentin completed total 5 days antibiotic 05/25: Blood cultures tentatively positive for Enterococcus (3) Lung cancer: Plan: - Completed chemoradiation to the lung with carboplatin and maintenance atezolizumab. - Receives care from [facility]. Next appointment there for radiation of brain mets July 2022 Palliative care consultation appreciated and note seen including today's: no family meeting could happen today as was planned. (4) Malignant neoplasm of upper-outer quadrant of left breast in female, estrogen receptor positive: Plan: - Follows with oncology. - She has completed radiation and surgical resection of her breast tumor. - Anastrozole resumed 05/23 as patient alert and eating now (5) Brain metastasis: Plan: - Head CT: Patchy areas of hypodensity within the white matter of left posterior frontal lobe and left parietal lobe which are new from the prior study, nonspecific findings but could be due to underlying vasogenic edema or subacute infarcts. Family refused MRI - Patient saw [facility] for a second opinion and she underwent SRS to the 2 brain lesions in March. Next appointment July. - Patient is on a dexamethasone taper for brain metastases with vasogenic edema.Currently on dexamethasone 4 mg TID-was converted to IV will change back to oral now 05/23. (6) Hypertension: Plan: - Patient's blood pressures have been low since admission medications have been held Now resume gradually 05/23 as hypertensive (7) Anxiety: Plan: Resumed p.o. lorazepam which was on hold. Consider SSRI. Patient is irritable and quite depressed. (8) Atrial fibrillation: Plan: Patient had a brief bout of A. fib RVR overnight from 05/21- this resolved spontaneously. She remains in sinus rhythm on telemetry, troponin was 114 but down trended to 42 on second check. No suspicion of ACS per prior notes Plan Home discharge once since things set up at home CODE STATUS discussion with family long pending, (patient wants to speak with her , son and daughter all present in person )hopefully 05/27 Admission and Anticipated Discharge Date Admission Date: May 21, 2022 Subjective Seen around 9:40 AM and then at 5 PM. Playing a game on her iPad both times. Sitting on the side of the bed. No complaints Oxygen saturations in the low 90s on 3 L. Requests that her oxygen be increased when she walks to the bathroom. 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) Vital Signs (Past 12 Hours) Vital Signs Temp Pulse Pulse Resp BP Pulse Ox O2 Del Method 05/27/22 19:47 36.5 C 103 H 18 146/89 H 97 Nasal Cannula 05/27/22 19:16 89 20 93 Nasal Cannula 05/27/22 18:00 100 H 05/27/22 15:46 36.6 C 95 H 22 130/86 96 Nasal Cannula 05/27/22 12:21 36.6 C 88 20 136/92 98 Nasal Cannula 05/27/22 11:03 Nasal Cannula O2 Flow Rate 05/27/22 19:47 4 05/27/22 19:16 5 05/27/22 18:00 05/27/22 15:46 4.0 05/27/22 12:21 4.0 05/27/22 11:03 4 PG Care Time/CCT Total # of Minutes Spent Total Time Spent with Patient: Total time spent is greater than 50% in coordination of care (as documented) at patient's floor/unit and/or counseling patient: Coding Level of Care Code 35178 Subseq Hosp Care Lvl 2 Diagnoses Acute on chronic respiratory failure with hypercapnia J96.22 Pneumonia J18.9 Lung cancer C34.90 Malignant neoplasm of upper-outer quadrant of left breast in female, estrogen receptor positive C50.412; Z17.0 Brain metastasis C79.31 Hypertension I10 Anxiety F41.9 Atrial fibrillation I48.91
[2022-05-28] MEDS: FORMOTEROL 20 MCG/2 ML VIAL INH SCH ×2 (07:12→20:18)
[2022-05-28] MEDS: BUDESONIDE 0.5 MG/2 ML VIAL (PULMICORT) NEB SCH ×2 (07:12→20:18)
[2022-05-28] MEDS: amLODIPine BESYLATE 5 MG TAB PO SCH (08:24)
[2022-05-28] MEDS: ANASTROZOLE 1 MG TAB PO SCH (08:24)
[2022-05-28] MEDS: GABAPENTIN 300 MG CAP PO SCH ×3 (08:24→21:45)
[2022-05-28] MEDS: dexAMETHasone 4 MG TAB PO SCH ×3 (08:24→21:45)
[2022-05-28] MEDS: CYANOCOBALAMIN (B-12) 500 MCG TABLET PO SCH (08:24)
[2022-05-28] MEDS: oxyCODONE HCL IR 5 MG TAB (IMMEDIATE RELEASE) PO PRN ×3 (08:28→18:26)
--- NOTE | 2022-05-28 15:07 | Hospitalist Progress Note ---
Date of Service May 28, 2022 Assessment & Plan (1) Acute on chronic respiratory failure with hypercapnia: Plan: Adjust oxygen to keep saturation low 90s to prevent worsening of CO2 retention. Continue nebulizer treatments and steroid therapy. Smoking cessation encouraged. Pulmonary medicine consultation appreciated. Formoterol and budesonide added to her inhaler regimen by pulmonary (2) Pneumonia: Plan: Possible right lower lobe infiltrate seen on x-ray. Augmentin completed 05/25. Blood cultures tentatively positive for Enterococcus (3) Lung cancer: Plan: Completed chemotherapy and radiation therapy with carboplatin and maintenance atezolizumab. Receives care from [facility]. Next appointment there for radiation of brain mets July 2022. Palliative care consult appreciated. (4) Malignant neoplasm of upper-outer quadrant of left breast in female, estrogen receptor positive: Plan: Follows with oncology. She has completed radiation and surgical resection of her breast tumor. Anastrozole therapy (5) Brain metastasis: Plan: Head CT: Patchy areas of hypodensity within the white matter of left posterior frontal lobe and left parietal lobe which are new from the prior study, nonspecific findings but could be due to underlying vasogenic edema or subacute infarcts. Family refused MRI. Patient went to [facility] for a second opinion and she underwent SRS to the 2 brain lesions in March. Next appointment July. She is on a dexamethasone taper for brain metastases causing vasogenic edema. (6) Hypertension: Plan: blood pressures were low on admission and medications were held. Amlodipine switched to diltiazem for heart rate control. (7) Anxiety: Plan: Treated with as needed lorazepam. (8) Atrial fibrillation: Plan: Telemetry. Cardiac echo report noted. Amlodipine switched to diltiazem. Plan Anticipate probable discharge to SNF facility later this week. CODE STATUS to be established after family discussion. Admission and Anticipated Discharge Date Admission Date: May 21, 2022 Subjective Alert and oriented. Family is at the bedside. She is short of breath after walking back and forth to the bathroom. She has episodes of atrial fibrillation with rapid ventricular response rate. Amlodipine switched to diltiazem. Cardiac echo reveals normal ejection fraction with no other findings as noted. She will be discussing her CODE STATUS later today with the family. Review of Systems Review of Systems: Constitutional-no fever or chills ENT-no blurred vision, no double vision, no epistaxis, no sore throat Respiratory-shortness of breath at rest and aggravated by minimal exertion. Occasional cough which is nonproductive. No hemoptysis. Cardiac-no chest pain, no syncope. Occasional palpitations GI-no nausea, vomiting, diarrhea, melena, hematochezia -no urinary retention, no urinary incontinence, no dysuria, no hematuria Musculoskeletal-no joint pain, no muscle tenderness Skin-no bruising, no rashes, no pruritus Neuro-no isolated weakness, no paresthesia, no weakness Psych-depressed affect Physical Exam Physical Exam: General-alert and oriented x3, no fevers, no chills HEENT-head atraumatic and normocephalic, pupils equal and reactive to light, extraocular muscles intact Neck-no lymphadenopathy or thyromegaly, trachea midline Chest-diminished breath sounds bilaterally. Increased AP diameter. No rales wheezing or rhonchi Cardiac-mildly tachycardic regular rhythm, normal S1 and S2 Abdomen-normal bowel sounds, nontender, no hepatosplenomegaly Extremities-no cyanosis, clubbing, or edema Neuro-cranial nerves II through XII intact, motor and sensory function within normal limits, strength symmetrical , no focal deficits Psych-depressed affect Results & Data Results & Data ([facility]) Vital Signs (Past 12 Hours) Vital Signs Temp Pulse Pulse Resp BP Pulse Ox O2 Del Method 05/28/22 11:54 36.4 C L 99 H 17 138/86 90 Nasal Cannula 05/28/22 08:00 Nasal Cannula 05/28/22 07:40 36.6 C 92 H 18 133/91 98 Nasal Cannula 05/28/22 07:14 91 H 18 98 Nasal Cannula 05/28/22 03:00 36.9 C 84 18 136/84 100 Nasal Cannula O2 Flow Rate 05/28/22 11:54 4 05/28/22 08:00 3 05/28/22 07:40 4 05/28/22 07:14 5 05/28/22 03:00 4 Laboratory Results 05/26/22 04:09 05/26/22 04:09 PG Care Time/CCT Total # of Minutes Spent Total Time Spent with Patient: Total time spent is greater than 50% in coordination of care (as documented) at patient's floor/unit and/or counseling patient: Coding Level of Care Code 06410 Subseq Hosp Care Lvl 3 Diagnoses Acute on chronic respiratory failure with hypercapnia J96.22 Pneumonia J18.9 Lung cancer C34.90 Malignant neoplasm of upper-outer quadrant of left breast in female, estrogen receptor positive C50.412; Z17.0 Brain metastasis C79.31 Hypertension I10 Anxiety F41.9 Atrial fibrillation I48.91
[2022-05-28] MEDS: dilTIAZem HCl 60 MG TAB PO SCH (21:45)
[2022-05-29] MEDS: BUDESONIDE 0.5 MG/2 ML VIAL (PULMICORT) NEB SCH ×2 (07:15→19:12)
[2022-05-29] MEDS: FORMOTEROL 20 MCG/2 ML VIAL INH SCH ×2 (07:15→19:11)
[2022-05-29] MEDS: GABAPENTIN 300 MG CAP PO SCH ×3 (08:29→19:52)
[2022-05-29] MEDS: dilTIAZem HCl 60 MG TAB PO SCH (08:29)
[2022-05-29] MEDS: dexAMETHasone 4 MG TAB PO SCH ×3 (08:29→19:53)
[2022-05-29] MEDS: ANASTROZOLE 1 MG TAB PO SCH (08:29)
[2022-05-29] MEDS: CYANOCOBALAMIN (B-12) 500 MCG TABLET PO SCH (08:29)
[2022-05-29] MEDS ORDERED: AMOXICILLIN/CLAVULANATE 875 MG TAB PO ONE (08:49)
--- NOTE | 2022-05-29 12:02 | Hospitalist Progress Note ---
Date of Service May 29, 2022 Assessment & Plan (1) Acute on chronic respiratory failure with hypercapnia: Plan: Adjust oxygen to keep saturation low 90s to prevent worsening of CO2 retention. Continue nebulizer treatments and steroid therapy. Smoking cessation encouraged. Pulmonary medicine consultation appreciated. Formoterol and budesonide added to her inhaler regimen by pulmonary (2) Pneumonia: Plan: Possible right lower lobe infiltrate seen on x-ray. Continue Augmentin therapy considering blood cultures are positive for alpha strep. (3) Lung cancer: Plan: Completed chemotherapy and radiation therapy with carboplatin and maintenance atezolizumab. Receives care from [facility]. Next appointment there for radiation of brain mets July 2022. Palliative care consult appreciated. (4) Malignant neoplasm of upper-outer quadrant of left breast in female, estrogen receptor positive: Plan: Follows with oncology. She has completed radiation and surgical resection of her breast tumor. Anastrozole therapy (5) Brain metastasis: Plan: Head CT: Patchy areas of hypodensity within the white matter of left posterior frontal lobe and left parietal lobe which are new from the prior study, nonspecific findings but could be due to underlying vasogenic edema or subacute infarcts. Family refused MRI. Patient went to [facility] for a second opinion and she underwent SRS to the 2 brain lesions in March. Next appointment July. She is on a dexamethasone taper for brain metastases causing vasogenic edema. (6) Hypertension: Plan: blood pressures were low on admission and medications were held. Amlodipine has been switched to diltiazem for heart rate control. (7) Anxiety: Plan: Treated with as needed lorazepam. (8) Atrial fibrillation: Plan: Telemetry. Cardiac echo report noted. Amlodipine switched to diltiazem this admission Plan Anticipate probable discharge to SNF facility later this week. CODE STATUS to be established after family discussion. Admission and Anticipated Discharge Date Admission Date: May 21, 2022 Subjective No significant change from yesterday, May 28. She is tolerating the oral diltiazem. Short acting formulation will be switched to once a day long-acting formulation. Augmentin ordered for the alpha strep found in the blood cultures. Review of Systems Review of Systems: Constitutional-no fever or chills ENT-no blurred vision, no double vision, no epistaxis, no sore throat Respiratory-shortness of breath at rest and aggravated by minimal exertion. Occasional cough which is nonproductive. No hemoptysis. Cardiac-no chest pain, no syncope. Occasional palpitations GI-no nausea, vomiting, diarrhea, melena, hematochezia -no urinary retention, no urinary incontinence, no dysuria, no hematuria Musculoskeletal-no joint pain, no muscle tenderness Skin-no bruising, no rashes, no pruritus Neuro-no isolated weakness, no paresthesia, no weakness Psych-depressed affect Physical Exam Physical Exam: General-alert and oriented x3, no fevers, no chills HEENT-head atraumatic and normocephalic, pupils equal and reactive to light, extraocular muscles intact Neck-no lymphadenopathy or thyromegaly, trachea midline Chest-diminished breath sounds bilaterally. Increased AP diameter. No rales wheezing or rhonchi Cardiac-mildly tachycardic regular rhythm, normal S1 and S2 Abdomen-normal bowel sounds, nontender, no hepatosplenomegaly Extremities-no cyanosis, clubbing, or edema Neuro-cranial nerves II through XII intact, motor and sensory function within normal limits, strength symmetrical , no focal deficits Psych-depressed affect Results & Data Results & Data ([facility]) Vital Signs (Past 12 Hours) Vital Signs Temp Pulse Pulse Resp BP Pulse Ox O2 Del Method 05/29/22 11:47 36.8 C 77 18 125/81 99 Nasal Cannula 05/29/22 08:00 89 05/29/22 08:00 Nasal Cannula 05/29/22 08:00 36.6 C 83 18 149/95 H 98 Nasal Cannula 05/29/22 07:16 86 16 97 Nasal Cannula 05/29/22 03:40 36.5 C 102 H 22 128/89 100 Nasal Cannula O2 Flow Rate 05/29/22 11:47 4 05/29/22 08:00 05/29/22 08:00 4 05/29/22 08:00 4 05/29/22 07:16 5 05/29/22 03:40 4 Laboratory Results 05/26/22 04:09 05/26/22 04:09 PG Care Time/CCT Total # of Minutes Spent Total Time Spent with Patient: Total time spent is greater than 50% in coordination of care (as documented) at patient's floor/unit and/or counseling patient: Coding Level of Care Code 03376 Subseq Hosp Care Lvl 3 Diagnoses Acute on chronic respiratory failure with hypercapnia J96.22 Pneumonia J18.9 Lung cancer C34.90 Malignant neoplasm of upper-outer quadrant of left breast in female, estrogen receptor positive C50.412; Z17.0 Brain metastasis C79.31 Hypertension I10 Anxiety F41.9 Atrial fibrillation I48.91
[2022-05-29] MEDS: dilTIAZem HCL 180 MG CAPCR PO SCH (12:28)
[2022-05-29] MEDS: oxyCODONE HCL IR 5 MG TAB (IMMEDIATE RELEASE) PO PRN ×2 (12:57→19:37)
[2022-05-29] MEDS: AMOXICILLIN/CLAVULANATE 875 MG TAB PO SCH (16:29)
[2022-05-30] MEDS: BUDESONIDE 0.5 MG/2 ML VIAL (PULMICORT) NEB SCH ×2 (07:32→19:35)
[2022-05-30] MEDS: FORMOTEROL 20 MCG/2 ML VIAL INH SCH ×2 (07:34→19:35)
[2022-05-30] MEDS: ANASTROZOLE 1 MG TAB PO SCH (08:54)
[2022-05-30] MEDS: dexAMETHasone 4 MG TAB PO SCH ×3 (08:54→20:43)
[2022-05-30] MEDS: CYANOCOBALAMIN (B-12) 500 MCG TABLET PO SCH (08:54)
[2022-05-30] MEDS: GABAPENTIN 300 MG CAP PO SCH ×3 (08:54→20:42)
[2022-05-30] MEDS: AMOXICILLIN/CLAVULANATE 875 MG TAB PO SCH ×2 (08:55→13:32)
[2022-05-30] MEDS: dilTIAZem HCL 180 MG CAPCR PO SCH (08:55)
[2022-05-30] MEDS: oxyCODONE HCL IR 5 MG TAB (IMMEDIATE RELEASE) PO PRN ×3 (09:00→20:42)
--- NOTE | 2022-05-30 15:41 | Hospitalist Progress Note ---
Date of Service May 30, 2022 Assessment & Plan (1) Acute on chronic respiratory failure with hypercapnia: Plan: Adjust oxygen to keep saturation low 90s to prevent worsening of CO2 retention. Continue nebulizer treatments and steroid therapy. Smoking cessation encouraged. Pulmonary medicine consultation appreciated. Formoterol and budesonide added to her inhaler regimen by pulmonary (2) Pneumonia: Plan: Possible right lower lobe infiltrate seen on x-ray. Continue Augmentin therapy considering blood cultures are positive for alpha strep. (3) Lung cancer: Plan: Completed chemotherapy and radiation therapy with carboplatin and maintenance atezolizumab. Receives care from [facility]. Next appointment there for radiation of brain mets July 2022. Palliative care consult appreciated. (4) Malignant neoplasm of upper-outer quadrant of left breast in female, estrogen receptor positive: Plan: Follows with oncology. She has completed radiation and surgical resection of her breast tumor. Anastrozole therapy (5) Brain metastasis: Plan: Head CT: Patchy areas of hypodensity within the white matter of left posterior frontal lobe and left parietal lobe which are new from the prior study, nonspecific findings but could be due to underlying vasogenic edema or subacute infarcts. Family refused MRI. Patient went to [facility] for a second opinion and she underwent SRS to the 2 brain lesions in March. Next appointment July. She is on a dexamethasone taper for brain metastases causing vasogenic edema. (6) Hypertension: Plan: blood pressures were low on admission and medications were held. Amlodipine has been switched to diltiazem for heart rate control. (7) Anxiety: Plan: Treated with as needed lorazepam. (8) Atrial fibrillation: Plan: Telemetry NSR 90s to 110. Cardiac echo report noted. Amlodipine switched to diltiazem this admission. (9) Leg pain, bilateral: Plan: for which is on gabapentin and oxycodone. Former begun at half home dose- here on 300 mg bid Oxycodone 5 mg bid prn and Tylenol 1000 mg po bid prn Will stop iv oxycodone. Per oncology, no bone mets, cause of pail undiagnosed. Plan Anticipate probable discharge to SNF facility later this week. CODE STATUS to be established after family discussion. 05/30 tells me she will tell us tomorrow for sure re code status ( she has said this many days in the past as well) Admission and Anticipated Discharge Date Admission Date: May 21, 2022 Subjective at 1530 h, was sitting in a chair by window, napping. Feels breathing is better RN reports on 4 l NC last 2 days which has to be hiked to 5 l when she moves out of bed the smallest distance Patient denies n/v/CP Mood fine Physical Exam Physical Exam: Cheerful and conversant, multiple cookie and peanut butter cups lying on table in front of her. 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 Affect not anxious today. Results & Data Results & Data ([facility]) Vital Signs (Past 12 Hours) Vital Signs Temp Pulse Pulse Pulse Resp BP Pulse Ox 05/30/22 11:42 36.8 C 90 22 143/82 H 94 05/30/22 11:16 93 05/30/22 08:00 83 05/30/22 08:00 05/30/22 07:34 86 20 92 05/30/22 07:03 36.8 C 80 20 129/90 93 05/30/22 03:36 36.5 C 76 20 138/97 98 O2 Del Method O2 Flow Rate 05/30/22 11:42 Nasal Cannula 4 05/30/22 11:16 4 05/30/22 08:00 05/30/22 08:00 Nasal Cannula 4 05/30/22 07:34 Nasal Cannula 4 05/30/22 07:03 Nasal Cannula 4 05/30/22 03:36 Nasal Cannula 4 Laboratory Results none Medications Administered Home Medications Medication Instructions Recorded Confirmed Last Taken budesonide-formoterol HFA 160 2 puff inhalation BID 11/08/20 05/17/22 07/09/21 08:00 mcg-4.5 mcg/actuation aerosol inhaler (Symbicort) cyanocobalamin (vitamin B-12) 1,000 mcg PO QAM 11/08/20 05/17/22 07/08/21 08:00 1,000 mcg tablet (Vitamin B-12) albuterol sulfate 90 mcg/actuation 2 puff inhalation Q6H PRN sob 01/03/21 05/17/22 Unknown aerosol inhaler (ProAir HFA) acetaminophen 500 mg tablet 500 mg PO Q6H PRN Pain 01/31/21 05/24/22 07/08/21 20:00 (Tylenol Extra Strength) anastrozole 1 mg tablet (Arimidex) 1 mg PO QAM 01/31/21 05/24/22 07/09/21 08:00 [id number]-[id number]-[id number] 1 tab PO Q6H PRN migraines 01/31/21 05/17/22 Unknown 50 mg-325 mg-40 mg tablet diclofenac sodium 3 % topical gel 1 applic topical QID PRN 01/31/21 05/17/22 07/08/21 20:00 pain/swelling gabapentin 300 mg capsule 600 mg PO TID 01/31/21 05/24/22 07/08/21 18:00 dexamethasone 4 mg tablet 4 mg PO TID Vasogenic edema #30 03/06/22 05/24/22 Unknown tabs tiotropium bromide 1.25 1 puff inhalation DAILY 03/06/22 05/17/22 Unknown mcg/actuation mist for inhalation (Spiriva Respimat) ipratropium 0.5 mg-albuterol 3 mg 3 ml NEB QIDR #30 mL 05/20/22 Unknown (2.5 mg base)/3 mL nebulization soln lorazepam 0.5 mg tablet 0.5 mg PO BID PRN anxiety #10 tabs 05/20/22 05/24/22 Unknown oxycodone 5 mg tablet 5 mg PO Q4H PRN pain #18 tabs 05/20/22 05/24/22 Unknown spironolactone 25 mg tablet 12.5 mg PO DAILY #30 tabs 05/20/22 05/24/22 Unknown cyclobenzaprine 10 mg tablet 10 mg PO HS PRN Spasms 05/24/22 05/24/22 Unknown ferrous fumarate-folic acid 324 mg 1 tab PO DAILY 05/24/22 05/24/22 Unknown (106 mg iron)-1 mg tablet (Hematinic/Folic Acid) hydrochlorothiazide 12.5 mg tablet 12.5 mg PO Q2D 05/24/22 05/24/22 Unknown hydroxyzine HCl 10 mg tablet 10 mg PO TID PRN Anxiety 05/24/22 05/24/22 Unknown oxycodone 10 mg tablet 10 mg PO Q4 PRN Severe Pain (Scale 05/24/22 05/24/22 Unknown Score 7-10) prochlorperazine maleate 10 mg 10 mg PO Q6H PRN Nausea And 05/24/22 05/24/22 Unknown tablet Vomiting Active Medications Generic Name Dose Route Start Last Admin Trade Name Kristie PRN Reason Stop Dose Admin Acetaminophen 1,000 mg 05/22/22 13:08 05/23/22 12:05 Acetaminophen 500 Mg Tab PO 06/21/22 13:07 1,000 mg Q6H PRN Administration Pain (Scale 1-5) or Fever Amoxicillin/Clavulanate Potassium 1 tab 05/29/22 17:00 05/30/22 13:32 Amoxicillin/Clavulanate 875 Mg Tab PO 06/12/22 16:59 Not Given BIDM ANA Anastrozole 1 mg 05/24/22 09:00 05/30/22 08:54 Anastrozole 1 Mg Tab PO 06/23/22 08:59 1 mg QAM ANA Administration Budesonide 0.5 mg 05/24/22 19:00 05/30/22 07:32 Budesonide 0.5 Mg/2 Ml Vial (Pulmicort) NEB 06/23/22 18:59 0.5 mg BIDR ANA Administration Cyanocobalamin 1,000 mcg 05/24/22 09:00 05/30/22 08:54 Cyanocobalamin (B-12) 500 Mcg Tablet PO 06/23/22 08:59 1,000 mcg QAM ANA Administration Dexamethasone 4 mg 05/23/22 21:00 05/30/22 13:32 Dexamethasone 4 Mg Tab PO 06/22/22 20:59 4 mg TID ANA Administration Diltiazem HCl 180 mg 05/29/22 12:15 05/30/22 08:55 Diltiazem Hcl 180 Mg Capcr PO 06/28/22 12:14 180 mg QAM ANA Administration Formoterol Fumarate 20 mcg 05/24/22 19:00 05/30/22 07:34 Formoterol 20 Mcg/2 Ml Vial INH 06/23/22 18:59 Not Given BIDR ANA Gabapentin 300 mg 05/24/22 14:00 05/30/22 13:32 Gabapentin 300 Mg Cap PO 06/23/22 13:59 300 mg TID ANA Administration Ondansetron HCl 4 mg 05/21/22 15:55 05/23/22 02:46 Ondansetron Inj 2 Mg/Ml 2 Ml Vial IV 06/20/22 15:54 4 mg Q6H PRN Administration Nausea Oxycodone HCl 10 mg 05/24/22 08:19 05/30/22 13:35 Oxycodone Hcl Ir 5 Mg Tab (Immediate Release) PO 06/07/22 08:18 10 mg Q4H PRN Administration Moderate Pain 4-6/10 PG Care Time/CCT Total # of Minutes Spent Total Time Spent with Patient: Total time spent is greater than 50% in coordination of care (as documented) at patient's floor/unit and/or counseling patient: Coding Level of Care Code 66730 Subseq Hosp Care Lvl 2 Diagnoses Acute on chronic respiratory failure with hypercapnia J96.22 Pneumonia J18.9 Lung cancer C34.90 Malignant neoplasm of upper-outer quadrant of left breast in female, estrogen receptor positive C50.412; Z17.0 Brain metastasis C79.31 Hypertension I10 Anxiety F41.9 Atrial fibrillation I48.91 Leg pain, bilateral M79.604; M79.605
[2022-05-30] MEDS: LORazepam 0.5 MG TAB PO PRN (20:42)
[2022-05-31] MEDS: oxyCODONE HCL IR 5 MG TAB (IMMEDIATE RELEASE) PO PRN ×2 (06:17→13:22)
[2022-05-31] MEDS: FORMOTEROL 20 MCG/2 ML VIAL INH SCH ×2 (08:06→19:35)
[2022-05-31] MEDS: BUDESONIDE 0.5 MG/2 ML VIAL (PULMICORT) NEB SCH ×2 (08:06→19:35)
[2022-05-31] MEDS: ANASTROZOLE 1 MG TAB PO SCH (09:39)
[2022-05-31] MEDS: CYANOCOBALAMIN (B-12) 500 MCG TABLET PO SCH (09:39)
[2022-05-31] MEDS: dilTIAZem HCL 180 MG CAPCR PO SCH (09:39)
[2022-05-31] MEDS: GABAPENTIN 300 MG CAP PO SCH ×3 (09:40→21:12)
[2022-05-31] MEDS: dexAMETHasone 4 MG TAB PO SCH ×3 (09:40→21:12)
[2022-05-31] MEDS: FERROUS SULFATE 325 MG TAB PO SCH (10:11)
[2022-05-31] MEDS: FOLIC ACID 1 MG TAB PO SCH (10:11)
--- NOTE | 2022-05-31 18:32 | Hospitalist Progress Note ---
Date of Service May 31, 2022 Assessment & Plan (1) Acute on chronic respiratory failure with hypercapnia: Plan: Doing well on 3 L of oxygen mostly but when moves desaturates continue nebulizer treatments and steroid therapy. Smoking cessation encouraged. Has advanced terminal COPD plus mets to the lung from a breast cancer primary (2) Pneumonia: Plan: Possible right lower lobe infiltrate seen on x-ray. Continue Augmentin therapy considering blood cultures are positive for alpha strep. (3) Lung cancer: Plan: Completed chemotherapy and radiation therapy with carboplatin and maintenance atezolizumab. Receives care from [facility]. Next appointment there for radiation of brain mets July 2022. Palliative care consult appreciated. (4) Malignant neoplasm of upper-outer quadrant of left breast in female, estrogen receptor positive: Plan: Follows with oncology. She has completed radiation and surgical resection of her breast tumor. Anastrozole therapy (5) Brain metastasis: Plan: Head CT: Patchy areas of hypodensity within the white matter of left posterior frontal lobe and left parietal lobe which are new from the prior study, nonspecific findings but could be due to underlying vasogenic edema or subacute infarcts. Family refused MRI. Patient went to [facility] for a second opinion and she underwent SRS to the 2 brain lesions in March. Next ap pointment July. She is on a dexamethasone taper for brain metastases causing vasogenic edema. (6) Hypertension: Plan: blood pressures were low on admission and medications were held. Amlodipine has been switched to diltiazem for heart rate control. (7) Anxiety: Plan: Treated with as needed lorazepam. (8) Atrial fibrillation: Plan: Telemetry NSR 90s to 110. Amlodipine switched to diltiazem this admission. Diltiazem 180 mg every morning-raised to 240 mg since BP running high (9) Leg pain, bilateral: Plan: for which is on gabapentin and oxycodone. Former begun at half home dose- here on 300 mg bid Oxycodone 5 mg bid prn and Tylenol 1000 mg po bid prn Adequate pain control . Per oncology, no bone mets, cause of pain undiagnosed. Plan 1. CODE STATUS to be established after family discussion. Multiple unsuccessful attempts made daily for the last 10 days to establish CODE STATUS which apparently patient wants to do with the family present and that has not materialized 05/30 tells me she will tell us tomorrow for sure re code status ( she has said this many days in the past as well) 05/31-ICU case management note mentioning the patient will have a family meeting with Ms. Tanner of palliative care Friday regarding CODE STATUS. The patient did not inform me about this but it would be great to affirm her code status clearly finally. 2. SNF placement is a challenge (today's case management note )and going home is now an option because the patient is fairly independent and stronger now. I expect the patient to be here over the weekend and and to see her when I return on service Sunday 06/03 Admission and Anticipated Discharge Date Admission Date: May 21, 2022 Subjective at 915 am , was standing by her tray table which was placed by the window. She just returned from the bathroom No complaints mood is good and so is the appetite Physical Exam Physical Exam: Cheerful and conversant, multiple cookie and peanut butter cups lying on table in front of her. Several cans of Coke lined on the window Head and neck moist oral mucosa, chest CTA, v low intensity breath sounds b/l, abdomen slightly distended nontender, extremities trace edema, ASSIGNMENT OFFICER grossly intact, gait not observed. Affect pleasant and cheerful, normal insight and judgment Results & Data Results & Data ([facility]) Vital Signs (Past 12 Hours) Vital Signs Temp Pulse Pulse Pulse Resp BP Pulse Ox 05/31/22 16:09 36.5 C 88 20 147/85 H 98 05/31/22 15:14 93 H 05/31/22 08:00 05/31/22 12:21 36.9 C 86 18 137/84 97 05/31/22 08:06 88 22 97 05/31/22 08:03 36.9 C 85 22 154/92 H 96 O2 Del Method O2 Flow Rate 05/31/22 16:09 Nasal Cannula 4.0 05/31/22 15:14 05/31/22 08:00 Nasal Cannula 4 05/31/22 12:21 Nasal Cannula 4 05/31/22 08:06 Nasal Cannula 6 05/31/22 08:03 Nasal Cannula 4 Laboratory Results No labs Medications Administered Home Medications Medication Instructions Recorded Confirmed Last Taken budesonide-formoterol HFA 160 2 puff inhalation BID 11/08/20 05/17/22 07/09/21 08:00 mcg-4.5 mcg/actuation aerosol inhaler (Symbicort) cyanocobalamin (vitamin B-12) 1,000 mcg PO QAM 11/08/20 05/17/22 07/08/21 08:00 1,000 mcg tablet (Vitamin B-12) albuterol sulfate 90 mcg/actuation 2 puff inhalation Q6H PRN sob 01/03/21 05/17/22 Unknown aerosol inhaler (ProAir HFA) acetaminophen 500 mg tablet 500 mg PO Q6H PRN Pain 01/31/21 05/24/22 07/08/21 20:00 (Tylenol Extra Strength) anastrozole 1 mg tablet (Arimidex) 1 mg PO QAM 01/31/21 05/24/22 07/09/21 08:00 [id number]-[id number]-[id number] 1 tab PO Q6H PRN migraines 01/31/21 05/17/22 Unknown 50 mg-325 mg-40 mg tablet diclofenac sodium 3 % topical gel 1 applic topical QID PRN 01/31/21 05/17/22 07/08/21 20:00 pain/swelling gabapentin 300 mg capsule 600 mg PO TID 01/31/21 05/24/22 07/08/21 18:00 dexamethasone 4 mg tablet 4 mg PO TID Vasogenic edema #30 03/06/22 05/24/22 Un known tabs tiotropium bromide 1.25 1 puff inhalation DAILY 03/06/22 05/17/22 Unknown mcg/actuation mist for inhalation (Spiriva Respimat) ipratropium 0.5 mg-albuterol 3 mg 3 ml NEB QIDR #30 mL 05/20/22 Unknown (2.5 mg base)/3 mL nebulization soln lorazepam 0.5 mg tablet 0.5 mg PO BID PRN anxiety #10 tabs 05/20/22 05/24/22 Unknown oxycodone 5 mg tablet 5 mg PO Q4H PRN pain #18 tabs 05/20/22 05/24/22 Unknown spironolactone 25 mg tablet 12.5 mg PO DAILY #30 tabs 05/20/22 05/24/22 Unknown cyclobenzaprine 10 mg tablet 10 mg PO HS PRN Spasms 05/24/22 05/24/22 Unknown ferrous fumarate-folic acid 324 mg 1 tab PO DAILY 05/24/22 05/24/22 Unknown (106 mg iron)-1 mg tablet (Hematinic/Folic Acid) hydrochlorothiazide 12.5 mg tablet 12.5 mg PO Q2D 05/24/22 05/24/22 Unknown hydroxyzine HCl 10 mg tablet 10 mg PO TID PRN Anxiety 05/24/22 05/24/22 Unknown oxycodone 10 mg tablet 10 mg PO Q4 PRN Severe Pain (Scale 05/24/22 05/24/22 Unknown Score 7-10) prochlorperazine maleate 10 mg 10 mg PO Q6H PRN Nausea And 05/24/22 05/24/22 Unknown tablet Vomiting Active Medications Generic Name Dose Route Start Last Admin Trade Name Freq PRN Reason Stop Dose Admin Acetaminophen 1,000 mg 05/22/22 13:08 05/23/22 12:05 Acetaminophen 500 Mg Tab PO 06/21/22 13:07 1,000 mg Q6H PRN Administration Pain (Scale 1-5) or Fever Anastrozole 1 mg 05/24/22 09:00 05/31/22 09:39 Anastrozole 1 Mg Tab PO 06/23/22 08:59 1 mg QAM ANA Administration Budesonide 0.5 mg 05/24/22 19:00 05/31/22 08:06 Budesonide 0.5 Mg/2 Ml Vial (Pulmicort) NEB 06/23/22 18:59 0.5 mg BIDR ANA Administration Cyanocobalamin 1,000 mcg 05/24/22 09:00 05/31/22 09:39 Cyanocobalamin (B-12) 500 Mcg Tablet PO 06/23/22 08:59 1,000 mcg QAM ANA Administration Dexamethasone 4 mg 05/23/22 21:00 05/31/22 13:01 Dexamethasone 4 Mg Tab PO 06/22/22 20:59 4 mg TID ANA Administration Diltiazem HCl 180 mg 05/29/22 12:15 05/31/22 09:39 Diltiazem Hcl 180 Mg Capcr PO 06/28/22 12:14 180 mg QAM ANA Administration Ferrous Sulfate 325 mg 05/31/22 09:00 05/31/22 10:11 Ferrous Sulfate 325 Mg Tab PO 06/30/22 08:59 325 mg DAILY ANA Administration Folic Acid 1 mg 05/31/22 09:00 05/31/22 10:11 Folic Acid 1 Mg Tab PO 06/30/22 08:59 1 mg DAILY ANA Administration Formoterol Fumarate 20 mcg 05/24/22 19:00 05/31/22 08:06 Formoterol 20 Mcg/2 Ml Vial INH 06/23/22 18:59 20 mcg BIDR ANA Administration Gabapentin 300 mg 05/24/22 14:00 05/31/22 13:01 Gabapentin 300 Mg Cap PO 06/23/22 13:59 300 mg TID ANA Administration Lorazepam 0.5 mg 05/23/22 19:11 05/30/22 20:42 Lorazepam 0.5 Mg Tab PO 06/22/22 19:10 0.5 mg BID PRN Administration Anxiety Ondansetron HCl 4 mg 05/21/22 15:55 05/23/22 02:46 Ondansetron Inj 2 Mg/Ml 2 Ml Vial IV 06/20/22 15:54 4 mg Q6H PRN Administration Nausea Oxycodone HCl 10 mg 05/24/22 08:19 05/31/22 13:22 Oxycodone Hcl Ir 5 Mg Tab (Immediate Release) PO 06/07/22 08:18 10 mg Q4H PRN Administration Moderate Pain 4-6/10 PG Care Time/CCT Total # of Minutes Spent Total Time Spent with Patient: Total time spent is greater than 50% in coordination of care (as documented) at patient's floor/unit and/or counseling patient: Coding Level of Care Code 31643 Subseq Hosp Care Lvl 2 Diagnoses Acute on chronic respiratory failure with hypercapnia J96.22 Pneumonia J18.9 Lung cancer C34.90 Malignant neoplasm of upper-outer quadrant of left breast in female, estrogen receptor positive C50.412; Z17.0 Brain metastasis C79.31 Hypertension I10 Anxiety F41.9 Atrial fibrillation I48.91 Leg pain, bilateral M79.604; M79.605
[2022-05-31] MEDS: LORazepam 0.5 MG TAB PO PRN (21:58)
[2022-06-01] MEDS: FORMOTEROL 20 MCG/2 ML VIAL INH SCH ×2 (07:50→20:18)
[2022-06-01] MEDS: BUDESONIDE 0.5 MG/2 ML VIAL (PULMICORT) NEB SCH ×2 (07:50→20:17)
[2022-06-01] MEDS: GABAPENTIN 300 MG CAP PO SCH ×3 (08:36→20:00)
[2022-06-01] MEDS: dexAMETHasone 4 MG TAB PO SCH ×3 (08:37→20:00)
[2022-06-01] MEDS: FERROUS SULFATE 325 MG TAB PO SCH (08:37)
[2022-06-01] MEDS: CYANOCOBALAMIN (B-12) 500 MCG TABLET PO SCH (08:37)
[2022-06-01] MEDS: FOLIC ACID 1 MG TAB PO SCH (08:37)
[2022-06-01] MEDS: ANASTROZOLE 1 MG TAB PO SCH (08:38)
[2022-06-01] MEDS: oxyCODONE HCL IR 5 MG TAB (IMMEDIATE RELEASE) PO PRN ×3 (09:16→20:00)
[2022-06-01] MEDS: dilTIAZem HCL 240 MG CAPCR PO SCH (09:41)
[2022-06-01] MEDS ORDERED: POLYETHYLENE (MIRALAX) 17 GM PACK PO PRN (12:38)
--- NOTE | 2022-06-01 14:16 | Hospitalist Progress Note ---
Date of Service June 01, 2022 Assessment & Plan (1) Acute on chronic respiratory failure with hypercapnia: Plan: Mrs. Guido is a 61 yo woman with a history of breast cancer with mets to the lung and brain, admitted for acute on chronic hypoxia. - currently at baseline of 4-5 liters of O2, typically needs the 5L when ambulating. - As for etiology: has advanced terminal COPD plus mets to the lung from a breast cancer primary. As for acute worsening, patient with RLL infiltrate noted on CXR. Treating this as an acute PNA with Augmentin - continue nebulizer treatments and steroid therapy. - Smoking cessation encouraged. (2) Pneumonia: Plan: - Possible right lower lobe infiltrate seen on x-ray. - Continue Augmentin therapy considering blood cultures (from 05/21/22) are positive for alpha strep. - Despite patient subjectively feeling worse today, stable O2 requirement (at baseline) and lack of fever makes progression of PNA or antimicrobial non- response unlikley - If she worsens overnight or feels unwell tomorrow, would be reasonable to check CBC and repeat CXR. If new fever, repeat blood cultures. (3) Lung cancer: Plan: - Completed chemotherapy and radiation therapy with carboplatin and maintenance atezolizumab. - Receives care from [facility]. - Next appointment there for radiation of brain mets July 2022. - Palliative care consult appreciated. (4) Malignant neoplasm of upper-outer quadrant of left breast in female, estrogen receptor positive: Plan: - Follows with oncology. She has completed radiation and surgical resection of her breast tumor. Continuing on Anastrozole therapy (5) Brain metastasis: Plan: - Head CT: Patchy areas of hypodensity within the white matter of left posterior frontal lobe and left parietal lobe which are new from the prior study, nonspecific findings but could be due to underlying vasogenic edema or subacute infarcts. Family refused MRI. Patient went to [facility] for a second opinion and she underwent SRS to the 2 brain lesions in March. Next appointment July. She is on a dexamethasone taper for brain metastases causing vasogenic edema. (6) Hypertension: Plan: blood pressures were low on admission and medications were held. Amlodipine has been switched to diltiazem for heart rate control. (7) Anxiety: Plan: Treated with as needed lorazepam. (8) Atrial fibrillation: Plan: - Patient with one brief run of Afib since hospitalization, nataleeley due to the acute physiologic stress of PNA - Amlodipine switched to diltiazem this admission. Diltiazem 180 mg every morning-raised to 240 mg since BP running high (9) Leg pain, bilateral: Plan: for which is on gabapentin and oxycodone. Former begun at half home dose- here on 300 mg bid Oxycodone 5 mg bid prn and Tylenol 1000 mg po bid prn Adequate pain control Per oncology, no bone mets, cause of pain undiagnosed. Diet: regular Dvt ppx: Started Lovenox 06/01/22 Dispo: Downgraded to Med/surg - she had one brief run of afib while in house, nothing sustained. Code: Full pending palliative discussion Plan 1. CODE STATUS to be established after family discussion. Multiple unsuccessful attempts made daily for the last 10 days to establish CODE STATUS which apparently patient wants to do with the family present and that has not materialized 05/30 tells me she will tell us tomorrow for sure re code status ( she has said this many days in the past as well) 05/31-ICU case management note mentioning the patient will have a family meeting with Ms. Tanner of palliative care 06/03/22 at 9:00 AM regarding CODE STATUS. 2. SNF placement is a challenge. CM with pending referrals; going home is now an option because the patient is fairly independent and stronger now. Admission and Anticipated Discharge Date Admission Date: May 21, 2022 Subjective no acute events overnight. Patient says she feels a little weaker today Review of Systems Review of Systems: All systems reviewed & are unremarkable except as noted in HPI & below Physical Exam Constitutional: WD/WN, vitals as above Eyes: + anicteric sclerae ENMT: external ear and nose normal, oropharynx normal Neck: trachea midline, no thyromegaly Respiratory: normal respiratory effort; no cough Auscultation: + wheezes (faint, RLQ on expiration ) equal air movement Cardiovascular: Rate/Rhythm: + irregularly irregular + clubbing Musculoskeletal: Head/Neck/Chest: normocephalic and head atraumatic Skin: no rashes, warm and dry Neurologic: moves all extremities Psychiatric: A+Ox3, euthymic affect Results & Data Results & Data ([facility]) Vital Signs (Past 12 Hours) Vital Signs Temp Pulse Pulse Resp BP Pulse Ox O2 Del Method 06/01/22 11:55 36.4 C L 85 21 147/94 H 93 Nasal Cannula 06/01/22 07:30 Nasal Cannula 06/01/22 07:30 74 06/01/22 07:51 88 20 99 Nasal Cannula 06/01/22 07:06 36.4 C L 86 20 142/89 H 93 Nasal Cannula 06/01/22 03:47 36.6 C 68 20 128/78 98 Nasal Cannula O2 Flow Rate 06/01/22 11:55 4 06/01/22 07:30 5 06/01/22 07:30 06/01/22 07:51 4 06/01/22 07:06 4 06/01/22 03:47 PG Care Time/CCT Total # of Minutes Spent Total Time Spent with Patient: Total time spent is greater than 50% in coordination of care (as documented) at patient's floor/unit and/or counseling patient: Coding Level of Care Code 50630 Subseq Obs Care Lvl 2 Diagnoses Acute on chronic respiratory failure with hypercapnia J96.22 Pneumonia J18.9 Lung cancer C34.90 Malignant neoplasm of upper-outer quadrant of left breast in female, estrogen receptor positive C50.412; Z17.0 Brain metastasis C79.31 Hypertension I10 Anxiety F41.9 Atrial fibrillation I48.91 Leg pain, bilateral M79.604; M79.605
[2022-06-01] MEDS: ENOXAPARIN INJ 40 MG/0.4 ML SYR SQ SCH (16:04)
[2022-06-02] MEDS: FORMOTEROL 20 MCG/2 ML VIAL INH SCH ×2 (07:47→19:33)
[2022-06-02] MEDS: BUDESONIDE 0.5 MG/2 ML VIAL (PULMICORT) NEB SCH ×2 (07:47→19:33)
[2022-06-02] MEDS: dilTIAZem HCL 240 MG CAPCR PO SCH (08:31)
[2022-06-02] MEDS: GABAPENTIN 300 MG CAP PO SCH ×3 (08:31→20:33)
[2022-06-02] MEDS: CYANOCOBALAMIN (B-12) 500 MCG TABLET PO SCH (08:32)
[2022-06-02] MEDS: FERROUS SULFATE 325 MG TAB PO SCH (08:32)
[2022-06-02] MEDS: dexAMETHasone 4 MG TAB PO SCH ×3 (08:32→20:33)
[2022-06-02] MEDS: FOLIC ACID 1 MG TAB PO SCH (08:32)
[2022-06-02] MEDS: ENOXAPARIN INJ 40 MG/0.4 ML SYR SQ SCH (08:34)
[2022-06-02] MEDS: ANASTROZOLE 1 MG TAB PO SCH (08:43)
[2022-06-02] MEDS: oxyCODONE HCL IR 5 MG TAB (IMMEDIATE RELEASE) PO PRN ×3 (10:06→19:20)
--- NOTE | 2022-06-02 10:21 | Hospitalist Progress Note ---
Date of Service June 02, 2022 Assessment & Plan (1) Acute on chronic respiratory failure with hypercapnia: Plan: Mrs. Guido is a 61 yo woman with a history of breast cancer with mets to the lung and brain, admitted for acute on chronic hypoxia. - currently at baseline of 4-5 liters of O2, typically needs the 5L when ambulating. - As for etiology: has advanced terminal COPD plus mets to the lung from a breast cancer primary. As for acute worsening, patient with RLL infiltrate noted on CXR. Treated this as an acute PNA with Augmentin (course completed) - continue nebulizer treatments (per pulm) and steroid therapy (for brain mets to reduce edema) - Smoking cessation encouraged (2) Pneumonia: Plan: - Possible right lower lobe infiltrate seen on x-ray. - Treated with augmentin considering blood cultures (from 05/21/22) are positive for alpha strep. (3) Lung cancer: Plan: - Completed chemotherapy and radiation therapy with carboplatin and maintenance atezolizumab. - Receives care from [facility]. - Next appointment there for radiation of brain mets July 2022. - Palliative care consult appreciated. (4) Malignant neoplasm of upper-outer quadrant of left breast in female, estrogen receptor positive: Plan: - Follows with oncology. She has completed radiation and surgical resection of her breast tumor. Continuing on Anastrozole therapy (5) Brain metastasis: Plan: - Head CT: Patchy areas of hypodensity within the white matter of left posterior frontal lobe and left parietal lobe which are new from the prior study, nonspecific findings but could be due to underlying vasogenic edema or subacute infarcts. Family refused MRI. Patient went to [facility] for a second opinion and she underwent SRS to the 2 brain lesions in March. Next appointment July. She is on a dexamethasone taper for brain metastases causing vasogenic edema. (6) Hypertension: Plan: blood pressures were low on admission and medications were held. Amlodipine has been switched to diltiazem for heart rate control. (7) Anxiety: Plan: Treated with as needed lorazepam. (8) Atrial fibrillation: Plan: - Patient with one brief run of Afib since hospitalization, [place] due to the acute physiologic stress of PNA - Amlodipine switched to diltiazem this admission. Diltiazem 180 mg every morning-raised to 240 mg since BP running high (9) Leg pain, bilateral: Plan: for which is on gabapentin and oxycodone. Former begun at half home dose- here on 300 mg bid Oxycodone 5 mg bid prn and Tylenol 1000 mg po bid prn Adequate pain control Per oncology, no bone mets, cause of pain undiagnosed. Diet: regular Dvt ppx: Started Lovenox 06/01/22 Dispo: Downgraded to Med/surg - she had one brief run of afib while in house, nothing sustained. Code: Full pending palliative discussion Plan 1. CODE STATUS to be established after family discussion. Multiple unsuccessful attempts made daily for the last 10 days to establish CODE STATUS which apparently patient wants to do with the family present and that has not materialized 05/30 tells me she will tell us tomorrow for sure re code status ( she has said this many days in the past as well) 05/31-ICU case management note mentioning the patient will have a family meeting with Ms. Tanner of palliative care 06/03/22 at 9:00 AM regarding CODE STATUS. 2. SNF placement is a challenge. CM with pending referrals; going home is now an option because the patient is fairly independent and stronger now. Admission and Anticipated Discharge Date Admission Date: May 21, 2022 Subjective no acute events overnight. Yesterday she said she felt weak - today she is actually feeling somewhat better. She did sleep good Review of Systems Review of Systems: All systems reviewed & are unremarkable except as noted in HPI & below Physical Exam Constitutional: WD/WN, vitals as above Eyes: + anicteric sclerae ENMT: external ear and nose normal, oropharynx normal Neck: trachea midline, no thyromegaly Respiratory: normal respiratory effort; no cough Auscultation: + wheezes (faint, RLQ on expiration ) Cardiovascular: Rate/Rhythm: regular rate and + irregularly irregular Heart Sounds: normal S1 and normal S2 Musculoskeletal: Head/Neck/Chest: normocephalic and head atraumatic Skin: no rashes, warm and dry Neurologic: moves all extremities Psychiatric: A+Ox3, euthymic affect Results & Data Results & Data ([facility]) Vital Signs (Past 12 Hours) Vital Signs Temp Pulse Resp BP Pulse Ox O2 Del Method O2 Flow Rate 06/02/22 07:40 Nasal Cannula 4 06/02/22 07:47 86 20 97 Nasal Cannula 4 06/02/22 07:21 36.7 C 78 19 134/83 98 Nasal Cannula 4 06/01/22 22:56 36.6 C 63 18 126/79 99 Nasal Cannula PG Care Time/CCT Total # of Minutes Spent Total Time Spent with Patient: Total time spent is greater than 50% in coordination of care (as documented) at patient's floor/unit and/or counseling patient: Coding Level of Care Code 50784 Subseq Hosp Care Lvl 1 Diagnoses Acute on chronic respiratory failure with hypercapnia J96.22 Pneumonia J18.9 Lung cancer C34.90 Malignant neoplasm of upper-outer quadrant of left breast in female, estrogen receptor positive C50.412; Z17.0 Brain metastasis C79.31 Hypertension I10 Anxiety F41.9 Atrial fibrillation I48.91 Leg pain, bilateral M79.604; M79.605
[2022-06-02] MEDS: LORazepam 0.5 MG TAB PO PRN (22:16)
[2022-06-03] MEDS: oxyCODONE HCL IR 5 MG TAB (IMMEDIATE RELEASE) PO PRN ×4 (06:24→19:41)
[2022-06-03] MEDS: BUDESONIDE 0.5 MG/2 ML VIAL (PULMICORT) NEB SCH ×2 (07:44→19:25)
[2022-06-03] MEDS: FORMOTEROL 20 MCG/2 ML VIAL INH SCH ×2 (07:45→19:25)
[2022-06-03] MEDS: dexAMETHasone 4 MG TAB PO SCH ×3 (08:32→19:42)
[2022-06-03] MEDS: FERROUS SULFATE 325 MG TAB PO SCH (08:33)
[2022-06-03] MEDS: CYANOCOBALAMIN (B-12) 500 MCG TABLET PO SCH (08:33)
[2022-06-03] MEDS: ENOXAPARIN INJ 40 MG/0.4 ML SYR SQ SCH (08:33)
[2022-06-03] MEDS: FOLIC ACID 1 MG TAB PO SCH (08:33)
[2022-06-03] MEDS: dilTIAZem HCL 240 MG CAPCR PO SCH (08:33)
[2022-06-03] MEDS: GABAPENTIN 300 MG CAP PO SCH ×3 (08:33→19:42)
[2022-06-03] MEDS: ANASTROZOLE 1 MG TAB PO SCH (08:34)
--- NOTE | 2022-06-03 14:33 | Palliative Care Progress Note ---
Date of Service June 03, 2022 Assessment & Plan (1) Palliative care encounter: Plan: A very concise and detailed discussion was held with pt, her at bedside along with son Estrada present on cell phone. I reviewed patient has very severe COPD, former very heavy smoker with complexity of lung and breast cancer concurrent with advancing COPD (this is a readmission within 24hr of prior dc, during which pt cannot recall any details of having arrived home, fell out of bed repeatedly and now needing BiPAP.) She has very severe COPD, progressively worsening, now requiring NIV support. She has been seen by pulmonary med, whose reccs for home NIV are greatly appreciated. notes she has not been given NIV for past several days. Upon discussion with nursing it was noted pt has been refusing BiPAP. She asked me to explain palliative medicine to her. I provided education that Palliative medicine is a subspecialty of medicine that, like cardiology is for heart or pulmonary is for lung disease, is specialized medical care for people living with a serious illness. This type of care is focused on providing relief from the symptoms and stress of the illness. The goal is to improve quality of life for both the patient and the family. Palliative care is provided by a specially-trained team of doctors, nurses and other specialists who work together with a patients other doctors to provide an extra layer of support. Palliative care is based on the needs of the patient, not on the patients prognosis. It is appropriate at any age and at any stage in a serious illness, and it can be provided along with curative treatment. I also advised her that Palliative medicine providers have additional specialized training in advanced communication techniques and assist with Advance illness planning conversations, which are conducted to review goals and expectations, support shared decision-making, and engage in disease specific advance care planning. This type of advance care planning is sometimes referred to as 'preparedness planning. It is used to review the risks and benefits of offered therapy, elicit and deepen understanding of the underlying illness and therapeutic options, ensure adequate psychosocial support, address existential concerns and coping, and engage in end-of-life planning. Preparedness planning is not meant to replace informed consent discussions.I advised her that Palliative medicine plays a role in the process of deepening a patients understanding of this specific medical intervention and ensuring this treatment aligns with their goals of care remains a central tenet of the planning c onversation. ADVANCED CARE PLANNING DISCUSSION 30MIN: We spoke about her advanced/very severe COPD. I reviewed her last PFTs. I reviewed the nature of COPD: ATS and ERS define COPD as a preventable and treatable disease state characterized by airflow limitation that is not fully reversible. The airflow limitation is usually progressive and associated with a chronic inflammatory response of the lungs to noxious particles or gases. COPD is incurable and will worsen over time. In many cases this may be from smoking, and smoking related COPD/emphysema will worsen over time, causing lung failure/increasing dependence on medications/interventions to maintain some level of functionality though over time, that too will keep declining. We reviewed that sometimes when patients stop smoking, the progression will slow down, but all COPD over time will get worse. Medications become less effective and do not work as well; in general these patients experience a significant decline in QOL. Patients with COPD constitute a large group of symptomatic patients with a common, chronic, and generally progressive respiratory disorder. Recent studies indicate that patients in this group, on the whole, receive less palliative care in their terminal phase than patients with lung cancer.We discussed that Palliative care can begin when a patient becomes symptomatic and is usually concurrent with restorative and life-prolonging care. Palliative care is titrated, analogous to curative/restorative care, to meet the needs of the patient and family in accord with their preferences. We will help manage their symptoms and assist with goals of care discussions. Patient states she is willing to use NIV at home. She states her goal is to "get better," so I asked her to give me 3 specific examples of what "better" would mean for her and she replied as follows: be able to do her ADLs, return home/spend time with her family, be able to do some more around her house/improve energy. She agrees to try rehab as I advised this is the best chance we have to see how much stronger she can become. We then moved onto to attempt code status discussion?ACP x 30min: I educated pt and family that as lung failure worsens, pt will derive less and less benefit from aggressive ventilatory strategies and have a very low to no likelihood of coming off a vent successfully to resume SCALE ADJUSTER baseline. These patients often require trach/peg and VENT SNF placement for longer term weaning, which could potentially become LTC. As lung failure worsens, further cancer directed therapy may not be possible. [facility] lung failure leads to eventual right heart failure known as pulmonary hypertension, this causes further decline/weakening and PS decline. Surprisingly, pt very clearly and strongly stated "I don't want a tube down my throat and I don't want to be on any machines, EVER!" Her nodded in agreement. She then asked m if there were forms she could sign to document her w ishes. We reviewed the POLST: The POLST form was reviewed and discussed with patient/family today. We specifically discussed that POLST is an approach to end-of-life planning that emphasizes patients wishes about the care they receive. The POLST Paradigm, which stands for Physician Orders for Life Sustaining Treatment, is an approach to end-of-life planning emphasizing: (i) advance care planning conversations between patients, health adult day care worker and loved ones; (ii) shared decision-making between a patient and his/her health care pr ofessional about the care the patient would like to receive at the end of his/her life and (iii) ensuring patient wishes are honored. We discussed that the POLST form is a medical order indicating a patients wishes regarding treatments that are commonly used in a medical crisis. It is a medical order, therefore emergency personnel such as paramedics, machine brusher, and emergency physicians must follow these orders. Without a POLST form, paramedics and machine brusher are required to provide every possible medical treatment to sustain life. Patient/family advised that the [place] POLST form is a very bright PINK colored form designed for immediate, easy location and which gives them a way to tell doctors, nurses, and other health adult day care worker what types of treatment they do and do not want. Pt asked if POLST could be completed while she is in the hospital. Answered affirmatively, then her son then became upset and stated "Mom you understand what she's saying is that you might not come off the machine but there's a chance you might; you can't fing just listen to her on everything." Son was then repeatedly disruptive through remaining discussion stating "We get it, we know what the BiPAP is, you don't have to tell us that" (at a time where we were not discussing BiPAP.) Pt then told son "well that's fine, we don't have to sign anything today." Yanet asked me what my recommendations would be for her at this junction and I advised her I would suggest a trial of rehab to see if she can optimize strength to achieve her personal goals of being able to manage her ADLs. I also told her I would use NIV faithfully, with both sleep and rest, to help reduce the burden of her resp effort on the heart. While I feel comfortable that pt expressed a clear wish for DNI, she was more evasive in the remainder of a CPR discussion and advised she was tired/did not want to speak any further. She asked me to return tomorrow to speak with her further and she stated she was very appreciative of my time, this meeting and the detailed discussions we were able t have this morning. She felt she had more clarity about her medical issues. (2) Cancer related pain: Plan: Pain regimen underway (3) Acute on chronic respiratory failure with hypercapnia: Plan: PFT 02/08/2021: VERY SEVERE obstruction, Lung volumes support hyperinflation and severely reduced DLCO (4) Lung cancer: (5) Brain metastasis: (6) Malignant neoplasm of upper-outer quadrant of left breast in female, estrogen receptor positive: Plan * Family meeting and extensive discussion as outlined above x 60 min/face to face. * I will routinely see pt for attempts at ongoing code discussion: no change to code status today as her final decision was not forthcoming. * approached me after I left the room and advised this was by far the most productive discussion he felt anyone had had with Yanet re her illness and what she wants. he states they met as a family over weekend and told her it was not fair to burden them with decisions about her care while not informing them of her preferences/making her wishes known - he felt it unfair for them to have to guess at what she might want. He feels this helped "open the door to making her start thinking about things. We also had a discussion about palliative care and what you do with another friend of the family." * I have updated nursing and primary team. Reina Tanner DNP Clinical Director, Palliative Medicine Admission and Anticipated Discharge Date Admission Date: May 21, 2022 Subjective Contacted by CM over the weekend for assistance with family meeting - scheduled today 9am with pt, and their son Estrada. Time was selected to accommodate son's work schedule, per CM. arrived to room, pt and present. states they will call son on phone. pt states she has been hearing all weekend that she ahs a meeting with me and she has no idea why. many questions re what is pallaiive medicine/why do we have to meet etc. she states she is feeling more clear than last week frustrated by her physical limitations establishes a clear limit and boundary at onset of this meeting that she tires from conversation and it overwhelms her, she set ground rules with her family for interruptions etc.\\ breathing limited, easily dyspneic, needs helps with all ADLs appetite ok, brought in pt preferred foods and snacks Review of Systems Review of Systems: All systems reviewed & are unremarkable except as noted in Subjective Physical Exam Physical Exam: pt is seated OOB recliner chair by the window conversational dyspnea noted, +use of accessory muscles skin pink, warm, no cyanosis mood vacillates between cooperative to frustrated Results & Data ([facility]) Vital Signs (Past 12 Hours) Vital Signs Temp Pulse Resp BP Pulse Ox O2 Del Method O2 Flow Rate 06/03/22 07:45 Nasal Cannula 4 06/03/22 08:21 36.4 C L 86 22 148/89 H 96 Nasal Cannula 4.0 06/03/22 07:50 83 18 93 Nasal Cannula 4 PG Care Time/CCT Total # of Minutes Spent Total Time Spent: 75 Total Time Spent with Patient: Total time spent is greater than 50% in coordination of care (as documented) at patient's floor/unit and/or counseling patient: Prolonged Care Time Prolonged Care Time: Yes [place] [address] Subseq Hosp Care Lvl 3 Patient Type Established History Comprehensive Exam Expanded Problem Focused Medical Decision Making High Complexity Diagnoses Palliative care encounter Z51.5 Cancer related pain G89.3 Acute on chronic respiratory failure with hypercapnia J96.22 Lung cancer C34.90 Brain metastasis C79.31 Malignant neoplasm of upper-outer quadrant of left breast in female, estrogen receptor positive C50.412; Z17.0 Additional Codes Prolonged Care Time - Prolonged Care Time: Yes ([id number])
[2022-06-03] MEDS: ACETAMINOPHEN 500 MG TAB PO PRN (17:58)
--- NOTE | 2022-06-03 20:33 | Hospitalist Progress Note ---
Date of Service June 03, 2022 Assessment & Plan (1) Acute on chronic respiratory failure with hypercapnia: Plan: Doing well on 3 L of oxygen mostly but when moves desaturates continue nebulizers Smoking cessation encouraged. Has been in hospital for a couple of w eeks and not smoked. Not on nicotine patch Has advanced terminal COPD plus mets to the lung from a breast cancer primary (2) Pneumonia: Plan: Possible right lower lobe infiltrate seen on x-ray. Continue Augmentin therapy considering blood cultures are positive for alpha strep. (3) Lung cancer: Plan: Completed chemotherapy and radiation therapy with carboplatin and maintenance atezolizumab. Receives care from [facility]. Next appointment there for ra diatharvinder of brain mets July 2022. Palliative care consult appreciated. (4) Malignant neoplasm of upper-outer quadrant of left breast in female, estrogen receptor positive: Plan: Follows with oncology. She has completed radiation and surgical resection of her breast tumor. Anastrozole therapy (5) Brain metastasis: Plan: Head CT: Patchy areas of hypodensity within the white matter of left posterior frontal lobe and left parietal lobe which are new from the prior study, nonspecific findings but could be due to underlying vasogenic edema or subacute infarcts. Family refused MRI. Patient went to [facility] for a second opinion and she underwent SRS to the 2 brain lesions in March. Next appointment July. She is on a dexamethasone taper for brain metastases causing vasogenic edema. (6) Hypertension: Plan: blood pressures were low on admission and medications were held. Amlodipine has been switched to diltiazem for heart rate control. (7) Anxiety: Plan: Treated with as needed lorazepam. (8) Atrial fibrillation: Plan: Telemetry NSR 90s to 110. Amlodipine switched to diltiazem this admission. Diltiazem 180 mg every morning-raised to 240 mg 05/31 -BP controlled more or less (9) Leg pain, bilateral: Plan: for which is on gabapentin and oxycodone. Former begun at half home dose- here on 300 mg bid Oxycodone 5 mg bid prn and Tylenol 1000 mg po bid prn Adequate pain control . Per oncology, no bone mets, cause of pain undiagnosed. Plan 1. CODE STATUS to be established after family discussion. Multiple unsuccessful attempts made daily for the last 12 days to establish CODE STATUS which apparently patient wants to do with the family present and that has not materialized 05/30 tells me she will tell us tomorrow for sure re code status ( she has said this many days in the past as well) 06/03-CODE STATUS unchanged after family meeting with Hai Flores of palliative care. Another meeting planned tomorrow. 2. SNF placement is a challenge and pending Admission and Anticipated Discharge Date Admission Date: May 21, 2022 Subjective at 9am and then around 1630 h, no complaints. Appetite is fine. Waiting for SNF , breathing stable 3-1/2 to 4 L oxygen per RN Physical Exam Physical Exam: Cheerful and conversant, sitting on side of bed playing cards with her son's partner Head and neck moist oral mucosa, chest CTA, v low intensity breath sounds b/l, abdomen slightly distended nontender, extremities trace edema, [employer] grossly intact, gait not observed. Affect pleasant and cheerful, normal insight and judgment Results & Data Results & Data ([facility]) Vital Signs (Past 12 Hours) Vital Signs Temp Pulse Resp BP Pulse Ox O2 Del Method O2 Flow Rate 06/03/22 19:29 36.5 C 82 18 154/94 H 99 Nasal Cannula 4 06/03/22 19:35 Nasal Cannula 4 06/03/22 19:27 83 18 96 Nasal Cannula 5 06/03/22 16:33 36.4 C L 83 24 133/83 96 Nasal Cannula 4.0 Laboratory Results No labs Medications Administered Home Medications Medication Instructions Recorded Confirmed Last Taken budesonide-formoterol HFA 160 2 puff inhalation BID 11/08/20 05/17/22 07/09/21 08:00 mcg-4.5 mcg/actuation aerosol inhaler (Symbicort) cyanocobalamin (vitamin B-12) 1,000 mcg PO QAM 11/08/20 05/17/22 07/08/21 08:00 1,000 mcg tablet (Vitamin B-12) albuterol sulfate 90 mcg/actuation 2 puff inhalation Q6H PRN sob 01/03/21 05/17/22 Unknown aerosol inhaler (ProAir HFA) acetaminophen 500 mg tablet 500 mg PO Q6H PRN Pain 01/31/21 05/24/22 07/08/21 20:00 (Tylenol Extra Strength) anastrozole 1 mg tablet (Arimidex) 1 mg PO QAM 01/31/21 05/24/2207/09/22 08:00 [id number] 1 tab PO Q6H PRN migraines 01/31/21 05/17/22 Unknown 50 mg-325 mg-40 mg tablet diclofenac sodium 3 % topical gel 1 applic topical QID PRN 01/31/21 05/17/22 07/08/21 20:00 pain/swelling gabapentin 300 mg capsule 600 mg PO TID 01/31/21 05/24/22 07/08/21 18:00 dexamethasone 4 mg tablet 4 mg PO TID Vasogenic edema #30 03/06/22 05/24/22 Unknown tabs tiotropium bromide 1.25 1 puff inhalation DAILY 03/06/22 05/17/22 Unknown mcg/actuation mist for inhalation (Spiriva Respimat) ipratropium 0.5 mg-albuterol 3 mg 3 ml NEB QIDR #30 mL 05/20/22 Unknown (2.5 mg base)/3 mL nebulization soln lorazepam 0.5 mg tablet 0.5 mg PO BID PRN anxiety #10 tabs 05/20/22 05/24/22 Unknown oxycodone 5 mg tablet 5 mg PO Q4H PRN pain #18 tabs 05/20/22 05/24/22 Unknown spironolactone 25 mg tablet 12.5 mg PO DAILY #30 tabs 05/20/22 05/24/22 Unknown cyclobenzaprine 10 mg tablet 10 mg PO HS PRN Spasms 05/24/22 05/24/22 Unknown ferrous fumarate-folic acid 324 mg 1 tab PO DAILY 05/24/22 05/24/22 Unknown (106 mg iron)-1 mg tablet (Hematinic/Folic Acid) hydrochlorothiazide 12.5 mg tablet 12.5 mg PO Q2D 05/24/22 05/24/22 Unknown hydroxyzine HCl 10 mg tablet 10 mg PO TID PRN Anxiety 05/24/22 05/24/22 Unknown oxycodone 10 mg tablet 10 mg PO Q4 PRN Severe Pain (Scale 05/24/22 05/24/22 Unknown Score 7-10) prochlorperazine maleate 10 mg 10 mg PO Q6H PRN Nausea And 05/24/22 05/24/22 Unknown tablet Vomiting Active Medications Generic Name Dose Route Start Last Admin Trade Name Freq PRN Reason Stop Dose Admin Acetaminophen 1,000 mg 05/22/22 13:08 06/03/22 17:58 Acetaminophen 500 Mg Tab PO 06/21/22 13:07 1,000 mg Q6H PRN Administration Pain (Scale 1-5) or Fever Anastrozole 1 mg 05/24/22 09:00 06/03/22 08:34 Anastrozole 1 Mg Tab PO 06/23/22 08:59 1 mg QAM ANA Administration Budesonide 0.5 mg 05/24/22 19:00 06/03/22 19:25 Budesonide 0.5 Mg/2 Ml Vial (Pulmicort) NEB 06/23/22 18:59 0.5 mg BIDR ANA Administration Cyanocobalamin 1,000 mcg 05/24/22 09:00 06/03/22 08:33 Cyanocobalamin (B-12) 500 Mcg Tablet PO 06/23/22 08:59 1,000 mcg QAM ANA Administration Dexamethasone 4 mg 05/23/22 21:00 06/03/22 19:42 Dexamethasone 4 Mg Tab PO 06/22/22 20:59 4 mg TID ANA Administration Diltiazem HCl 240 mg 06/01/22 09:00 06/03/22 08:33 Diltiazem Hcl 240 Mg Capcr PO 07/01/22 08:59 240 mg QAM ANA Administration Enoxaparin Sodium 40 mg 06/01/22 14:30 06/03/22 08:33 Enoxaparin Inj 40 Mg/0.4 Ml Syr SQ 07/01/22 14:29 40 mg QAM ANA Administration Ferrous Sulfate 325 mg 05/31/22 09:00 06/03/22 08:33 Ferrous Sulfate 325 Mg Tab PO 06/30/22 08:59 325 mg DAILY ANA Administration Folic Acid 1 mg 05/31/22 09:00 06/03/22 08:33 Folic Acid 1 Mg Tab PO 06/30/22 08:59 1 mg DAILY ANA Administration Formoterol Fumarate 20 mcg 05/24/22 19:00 06/03/22 19:25 Formoterol 20 Mcg/2 Ml Vial INH 06/23/22 18:59 20 mcg BIDR ANA Administration Gabapentin 300 mg 05/24/22 14:00 06/03/22 19:42 Gabapentin 300 Mg Cap PO 06/23/22 13:59 300 mg TID ANA Administration Lorazepam 0.5 mg 05/23/22 19:11 06/02/22 22:16 Lorazepam 0.5 Mg Tab PO 06/22/22 19:10 0.5 mg BID PRN Administration Anxiety Ondansetron HCl 4 mg 05/21/22 15:55 05/23/22 02:46 Ondansetron Inj 2 Mg/Ml 2 Ml Vial IV 06/20/22 15:54 4 mg Q6H PRN Administration Nausea Oxycodone HCl 10 mg 05/24/22 08:19 06/03/22 19:41 Oxycodone Hcl Ir 5 Mg Tab (Immediate Release) PO 06/07/22 08:18 10 mg Q4H PRN Administration Moderate Pain 4-6/10 Polyethylene Glycol 17 gm 06/01/22 12:38 06/01/22 13:42 Polyethylene (Miralax) 17 Gm Pack PO 07/01/22 12:37 17 gm DAILY PRN Administration Constipation PG Care Time/CCT Total # of Minutes Spent Total Time Spent with Patient: Total time spent is greater than 50% in coordination of care (as documented) at patient's floor/unit and/or counseling patient: Coding Level of Care Code 92591 Subseq Hosp Care Lvl 1 Diagnoses Acute on chronic respiratory failure with hypercapnia J96.22 Pneumonia J18.9 Lung cancer C34.90 Malignant neoplasm of upper-outer quadrant of left breast in female, estrogen receptor positive C50.412; Z17.0 Brain metastasis C79.31 Hypertension I10 Anxiety F41.9 Atrial fibrillation I48.91 Leg pain, bilateral M79.604; M79.605
[2022-06-03] MEDS: LORazepam 0.5 MG TAB PO PRN (21:07)
[2022-06-04] MEDS: FORMOTEROL 20 MCG/2 ML VIAL INH SCH ×2 (07:37→20:06)
[2022-06-04] MEDS: BUDESONIDE 0.5 MG/2 ML VIAL (PULMICORT) NEB SCH ×2 (07:38→20:06)
[2022-06-04] MEDS: FERROUS SULFATE 325 MG TAB PO SCH (08:06)
[2022-06-04] MEDS: dexAMETHasone 4 MG TAB PO SCH ×3 (08:06→20:36)
[2022-06-04] MEDS: ENOXAPARIN INJ 40 MG/0.4 ML SYR SQ SCH (08:06)
[2022-06-04] MEDS: GABAPENTIN 300 MG CAP PO SCH ×3 (08:06→20:36)
[2022-06-04] MEDS: oxyCODONE HCL IR 5 MG TAB (IMMEDIATE RELEASE) PO PRN ×4 (08:06→20:37)
[2022-06-04] MEDS: CYANOCOBALAMIN (B-12) 500 MCG TABLET PO SCH (08:06)
[2022-06-04] MEDS: dilTIAZem HCL 240 MG CAPCR PO SCH (08:06)
[2022-06-04] MEDS: FOLIC ACID 1 MG TAB PO SCH (08:06)
[2022-06-04] MEDS: ANASTROZOLE 1 MG TAB PO SCH (08:07)
--- NOTE | 2022-06-04 09:53 | Hospitalist Progress Note ---
Date of Service June 04, 2022 Assessment & Plan (1) Acute on chronic respiratory failure with hypercapnia: Plan: COPD Gold Class D Pul has recommended NIMV for chronic resp failure- see their 05/24 note Doing well on 3 L of oxygen AT REST- TWO STEP TODAY FOR HOME 02 NEED Smoking cessation encouraged. Has been in hospital for a couple of weeks and not smoked. Not on nicotine patch Has advanced terminal COPD plus mets to the lung from a breast cancer primary (2) Pneumonia: Plan: Possible right lower lobe infiltrate seen on x-ray on admission. Continue Augmentin therapy considering blood cultures are positive for alpha strep. (3) Lung cancer: Plan: Completed chemotherapy and radiation therapy with carboplatin and maintenance atezolizumab. Receives care from [facility]. Next appointment there for radiation of brain mets July 2022. Palliative care consult appreciated. (4) Malignant neoplasm of upper-outer quadrant of left breast in female, estrogen receptor positive: Plan: Follows with oncology. She has completed radiation and surgical resection of her breast tumor. Anastrozole therapy (5) Brain metastasis: Plan: Head CT: Patchy areas of hypodensity within the white matter of left posterior frontal lobe and left parietal lobe which are new from the prior study, nonspecific findings but could be due to underlying vasogenic edema or subacute infarcts. Family refused MRI. Patient went to [facility] for a second opinion and she underwent SRS to the 2 brain lesions in March. Next appointment July. She is on a dexamethasone taper for brain metastases causing vasogenic edema. (6) Hypertension: Plan: blood pressures were low on admission and medications were held. Amlodipine has been switched to diltiazem for heart rate control. (7) Anxiety: Plan: Treated with as needed lorazepam. (8) Atrial fibrillation: Plan: Telemetry NSR 90s to 110. Amlodipine switched to diltiazem this admission. Diltiazem 180 mg every morning-raised to 240 mg 05/31 -BP controlled more or less (9) Leg pain, bilateral: Plan: for which is on gabapentin and oxycodone. Former begun at half home dose- here on 300 mg bid Oxycodone 5 mg bid prn and Tylenol 1000 mg po bid prn Adequate pain control . Per oncology, no bone mets, cause of pain undiagnosed. Plan 1. CODE STATUS to be established after family discussion. Multiple unsuccessful attempts made daily for the last 12 days to establish CODE STATUS which apparently patient wants to do with the family present and that has not materialized 05/30 tells me she will tell us tomorrow for sure re code status ( has said this many days in the past as well) 06/03-CODE STATUS unchanged after family meeting with Flores of palliative care. Another meeting planned tomorrow. 2. SNF placement is a challenge and pending-- does well independently and today she and her ask if home discharge possible. Patient had declined home discharge last week. Now willing- d/w [place] and being arranged . overnight pulse oximetry on NC followed by early am ABG- if PCO2 over 55 , can be prescribed home bipap at pulmonology recommended setting ( 05/24) overnight use. D/W Teresa Lundberg, RT this am. Also 2 step for home o2 ordered for today. Admission and Anticipated Discharge Date Admission Date: May 21, 2022 Subjective at 9 am, feel s well. Sleeps fine- declining bipap last few nights . in room Physical Exam Physical Exam: Sitting in chair by window filing nails, in room sats mid 90s on 3 l o2 Head and neck moist oral mucosa, chest exp wheezes post b/l abdomen slightly distended nontender, extremities trace edema, HYDROMETEOROLOGIST 5/5 knee extensors, gait not observed. sad affect, normal insight and judgment Results & Data Results & Data ([facility]) Vital Signs (Past 12 Hours) Vital Signs Temp Pulse Resp BP Pulse Ox O2 Del Method O2 Flow Rate 06/04/22 07:20 Nasal Cannula 3 06/04/22 07:38 86 18 95 Nasal Cannula 3 06/04/22 07:07 36.5 C 82 20 136/93 96 Nasal Cannula 3 Laboratory Results none Medications Administered Home Medications Medication Instructions Recorded Confirmed Last Taken budesonide-formoterol HFA 160 2 puff inhalation BID 11/08/20 05/17/22 07/09/21 08:00 mcg-4.5 mcg/actuation aerosol inhaler (Symbicort) cyanocobalamin (vitamin B-12) 1,000 mcg PO QAM 11/08/20 05/17/22 07/08/21 08:00 1,000 mcg tablet (Vitamin B-12) albuterol sulfate 90 mcg/actuation 2 puff inhalation Q6H PRN sob 01/03/21 05/17/22 Unknown aerosol inhaler (ProAir HFA) acetaminophen 500 mg tablet 500 mg PO Q6H PRN Pain 01/31/21 05/24/22 07/08/21 20:00 (Tylenol Extra Strength) anastrozole 1 mg tablet (Arimidex) 1 mg PO QAM 01/31/21 05/24/22 07/09/21 08:00 [id number] 1 tab PO Q6H PRN migraines 01/31/21 05/17/22 Unknown 50 mg-325 mg-40 mg tablet diclofenac sodium 3 % topical gel 1 applic topical QID PRN 01/31/21 05/17/22 07/08/21 20:00 pain/swelling gabapentin 300 mg capsule 600 mg PO TID 01/31/21 05/24/22 07/08/21 18:00 dexamethasone 4 mg tablet 4 mg PO TID Vasogenic edema #30 03/06/22 05/24/22 Unknown tabs tiotropium bromide 1.25 1 puff inhalation DAILY 03/06/22 05/17/22 Unknown mcg/actuation mist for inhalation (Spiriva Respimat) ipratropium 0.5 mg-albuterol 3 mg 3 ml NEB QIDR #30 mL 05/20/22 Unknown (2.5 mg base)/3 mL nebulization soln lorazepam 0.5 mg tablet 0.5 mg PO BID PRN anxiety #10 tabs 05/20/22 05/24/22 Unknown oxycodone 5 mg tablet 5 mg PO Q4H PRN pain #18 tabs 05/20/22 05/24/22 Unknown spironolactone 25 mg tablet 12.5 mg PO DAILY #30 tabs 05/20/22 05/24/22 Unknown cyclobenzaprine 10 mg tablet 10 mg PO HS PRN Spasms 05/24/22 05/24/22 Unknown ferrous fumarate-folic acid 324 mg 1 tab PO DAILY 05/24/22 05/24/22 Unknown (106 mg iron)-1 mg tablet (Hematinic/Folic Acid) hydrochlorothiazide 12.5 mg tablet 12.5 mg PO Q2D 05/24/22 05/24/22 Unknown hydroxyzine HCl 10 mg tablet 10 mg PO TID PRN Anxiety 05/24/22 05/24/22 Unknown oxycodone 10 mg tablet 10 mg PO Q4 PRN Severe Pain (Scale 05/24/22 05/24/22 Unknown Score 7-10) prochlorperazine maleate 10 mg 10 mg PO Q6H PRN Nausea And 05/24/22 05/24/22 Unknown tablet Vomiting Active Medications Generic Name Dose Route Start Last Admin Trade Name Freq PRN Reason Stop Dose Admin Acetaminophen 1,000 mg 05/22/22 13:08 06/03/22 17:58 Acetaminophen 500 Mg Tab PO 06/21/22 13:07 1,000 mg Q6H PRN Administration Pain (Scale 1-5) or Fever Anastrozole 1 mg 05/24/22 09:00 06/04/22 08:07 Anastrozole 1 Mg Tab PO 06/23/22 08:59 1 mg QAM ANA Administration Budesonide 0.5 mg 05/24/22 19:00 06/04/22 07:38 Budesonide 0.5 Mg/2 Ml Vial (Pulmicort) NEB 06/23/22 18:59 0.5 mg BIDR ANA Administration Cyanocobalamin 1,000 mcg 05/24/22 09:00 06/04/22 08:06 Cyanocobalamin (B-12) 500 Mcg Tablet PO 06/23/22 08:59 1,000 mcg QAM ANA Administration Dexamethasone 4 mg 05/23/22 21:00 06/04/22 08:06 Dexamethasone 4 Mg Tab PO 06/22/22 20:59 4 mg TID ANA Administration Diltiazem HCl 240 mg 06/01/22 09:00 06/04/22 08:06 Diltiazem Hcl 240 Mg Capcr PO 07/01/22 08:59 240 mg QAM ANA Administration Enoxaparin Sodium 40 mg 06/01/22 14:30 06/04/22 08:06 Enoxaparin Inj 40 Mg/0.4 Ml Syr SQ 07/01/22 14:29 40 mg QAM ANA Administration Ferrous Sulfate 325 mg 05/31/22 09:00 06/04/22 08:06 Ferrous Sulfate 325 Mg Tab PO 06/30/22 08:59 325 mg DAILY ANA Administration Folic Acid 1 mg 05/31/22 09:00 06/04/22 08:06 Folic Acid 1 Mg Tab PO 06/30/22 08:59 1 mg DAILY ANA Administration Formoterol Fumarate 20 mcg 12/09/22 19:00 06/04/22 07:37 Formoterol 20 Mcg/2 Ml Vial INH 06/23/22 18:59 20 mcg BIDR ANA Administration Gabapentin 300 mg 05/24/22 14:00 06/04/22 08:06 Gabapentin 300 Mg Cap PO 06/23/22 13:59 300 mg TID ANA Administration Lorazepam 0.5 mg 05/23/22 19:11 06/03/22 21:07 Lorazepam 0.5 Mg Tab PO 06/22/22 19:10 0.5 mg BID PRN Administration Anxiety Ondansetron HCl 4 mg 05/21/22 15:55 05/23/22 02:46 Ondansetron Inj 2 Mg/Ml 2 Ml Vial IV 06/20/22 15:54 4 mg Q6H PRN Administration Nausea Oxycodone HCl 10 mg 05/24/22 08:19 06/04/22 08:06 Oxycodone Hcl Ir 5 Mg Tab (Immediate Release) PO 06/07/22 08:18 10 mg Q4H PRN Administration Moderate Pain 4-6/10 Polyethylene Glycol 17 gm 06/01/22 12:38 06/01/22 13:42 Polyethylene (Miralax) 17 Gm Pack PO 07/01/22 12:37 17 gm DAILY PRN Administration Constipation PG Care Time/CCT Total # of Minutes Spent Total Time Spent with Patient: Total time spent is greater than 50% in coordination of care (as documented) at patient's floor/unit and/or counseling patient: Coding Level of Care Code 43437 Subseq Hosp Care Lvl 2 Diagnoses Acute on chronic respiratory failure with hypercapnia J96.22 Pneumonia J18.9 Lung cancer C34.90 Malignant neoplasm of upper-outer quadrant of left breast in female, estrogen receptor positive C50.412; Z17.0 Brain metastasis C79.31 Hypertension I10 Anxiety F41.9 Atrial fibrillation I48.91 Leg pain, bilateral M79.604; M79.605
--- NOTE | 2022-06-04 14:53 | Palliative Care Progress Note ---
Date of Service June 04, 2022 Assessment & Plan (1) Palliative care encounter: Plan: When I came to see patient today, she was alone in the room. She tells me that her was frustrated and had to "go take a walk to cool off and get some space." She shares that he was very frustrated with her not being able to articulate her wishes or make a decision. She adds that this is a very difficult process for her because she finds it extremely overwhelming both emotionally and physically which in turn leads to significant respiratory distress due to her anxiety. She acknowledges the importance of needing to make her wishes known. She states that this recent experience has been a tough lesson because it caused her family to tell her they did not know what the her wishes were and they did not want to have to make a decision based on their guesses. She states her told her that he did not want to have to make a decision for her and would much prefer it if she would have her wishes documented on a POLST form that he could produce when needed. She shares that this is a pattern that is prevailed through there is 3+ decades of marriage. She states that he is does not like to be the lead in making decisions and has always looked to her for decision-making authority and guidance. She admits that this is at times overwhelming and frustrating. (2) Physician orders for life-sustaining treatment (POLST) form indicates patient wish for limited interventions status: Plan: Advance care planning conversation regarding a POLST form was conducted with the patient for 28 minutes in direct [id number] conversation. Daily states that in contemplating what her wishes would be as her advanced illnesses progress, she was clear about several points: She does not want to be intubated or placed on a machine. She also does not ever want a tracheostomy or vent SNF facility she wants to be home with her family at the end of her life and would be agreeable to the addition of home hospice if needed. She is willing to use BiPAP but this is the top end of what she is willing to tolerate as far as advanced respiratory therapies. She does not want chest compressions but is willing to have medications, IVs or even a short trial of defibrillation if needed. A POLST form was completed today with a DNR/DNI selection in the event of a natural , and in the event of being found with a pulse and/or breathing a trial of limited intervention should be attempted without any respiratory interventions such as intubation or mechanical ventilation. If she is in an end-of-life process she does not wish to have any antibiotics or artificial nutrition or hydration. These wishes were documented on a POLST form for her today. She signed this document and requested 3 additional copies to provide to her family. I advised patient the original stays with her and so then she needed only 2 additional copies which were made at her request. Additionally, at her request, these documents were placed into a large blue [place] folder because "I do not want to have to keep seeing the pink form." The folder was given to the patient who placed it on her nightstand below her com puter. A copy was sent for medical scanning. Primary team and nursing were updated. CODE STATUS has been changed to conditional code with no intubation, no chest compressions, cardiac drugs and defibrillation allowed. (3) Counseling regarding advanced directives and goals of care: Plan: See above. (4) Acute on chronic respiratory failure with hypercapnia: Plan: Patient is willing to use BiPAP at home. She is planning to have an overnight oximetry study to qualify her. Pulmonary medicine has already made recommendations for settings. (5) Lung cancer: Plan: * Extensive psychosocial support and reassurance provided to patient today. * She states she is willing to go to rehab because she wants every chance to try and get stronger but her has been pushing for her to come home. I advised her that should she choose to go home then she should seek a referral to pulmonary rehab which is an outpatient rehabilitation program for advanced lung disease patients. * I advised her of the following information and guidance regarding pulmonary rehab: Pulmonary rehab, as an outpatient, would offer you a lot of benefit. Pulmonary rehabilitation is a program of education and exercise that helps you manage your breathing problem, increase your stamina (energy) and decrease your breathlessness. The education part of the program teaches you to be in charge of your breathing instead of your breathing being in charge of you. Pulmonary Rehabilitation Program helps people who have chronic pulmonary disease. The specialists in this program work with you to improve your health and reduce your risk of future pulmonary disease and medical complications. You will work with a multidisciplinary team including respiratory therapists, physical therapists, occupational therapists, social workers and dietitians to ensure you get exactly the care you need. Most people go through the comprehensive evaluation, educational and exercise components on an outpatient basis. The staff in the Pulmonary Rehabilitation Program helps you focus on several ways to improve your quality of life and health and reduce your risk of future pulmonary events, such as: Breathing and relaxation techniques, which can help you better cope with stressful situations Improving your physical activity habits Maximizing your energy level Improving your overall health and well-being Participation in the program may help you: Better understand your disease Develop methods to cope with your disease Develop your perception of well-being Decrease the number of times you go to the hospital The Pulmonary Rehabilitation Program may include: Education sessions discussing breathing techniques, disease processes, respiratory medications, oxygen therapy, exercise techniques Exercise reconditioning sessions Oxygen dosing A nutrition education session Energy conservation techniques An individualized session to go over results of tests, program recommendations, exercise prescription and any questions you may have Recommendations to physicians of any changes or additional tests deemed necessary, such as oxygen therapy, overnight oximetry and medication changes. (6) Brain metastasis: (7) Malignant neoplasm of upper-outer quadrant of left breast in female, estrogen receptor positive: Plan * She is willing to try pulmonary rehab if acute inpatient rehab is not an option. * She is aware that she will have an overnight oximetry study tonight to try and qualify her BiPAP at home. She states she is willing to use the BiPAP at home. I reminded her that she is declined at the last several nights while here in the hospital and she states that this was because she was told she was doing better and so she felt she did not need it. * I encouraged her to keep regular and routine follow-up with pulmonary medicine given the advanced nature of her COPD. * I provided my contact information for ongoing follow-up and additional support as needed. * She has ongoing cancer pain management through her cancer providers. I did not make any modifications to her pain management regimen at this time. Reina Tanner DNP Clinical Director, Palliative Medicine Admission and Anticipated Discharge Date Admission Date: May 21, 2022 Subjective Patient is sitting out of bed in chair, eating lunch. She is awake and alert and engaging appropriately. As of this morning, patient has been requested to discharge home with supportive care from visiting nurses. When we met yesterday, they had been in agreement for rehab. Patient states they were under the impression that a rehab bed was going to be very hard to find. She states her felt it was best that she come home however she is feeling that she wants a trial of rehab because she would like to optimize her chances of getting stronger and being able to do more for herself which she recognizes would not likely happen with a discharge home. She also asked me to assist in completing a POLST form today She feels her breathing is better overall. She is short of breath with any minimal exertion or prolonged conversation. Most of her sentences are approximately 3-5 words. She has an intermittent cough with a small amount of marie sputum. Her appetite is stable. Her mood is subdued and depressed. She is easily tearful. She admits to being anxious and worried about her future. She shares that advised her she needed to make some decisions about what she wanted in the event of an end-of-life situation because he did not want to make that decision for her. She adds that this has been an ongoing point of contention through their 3 decades together, as he is always and needed her to be the decision maker about everything in their lives. She is a bit frustrated by his lack of willingness on this issue however she also recognizes that is incredibly complex, emotional and overwhelming to his spouse and therefore felt it best to get a POLST completed so that her wishes are documented and that her would have more peace of mind with her wishes known and documented. Review of Systems Review of Systems: All systems reviewed & are unremarkable except as noted in Subjective Physical Exam Physical Exam: Patient is sitting out of bed in a chair by the window. She is eating lunch independently. She is short of breath with conversation for minimal exertion. There is use of accessory muscles noted. There is an intermittent bronchitic cough. Lungs are overall very diminished with a few rhonchi. There is faint wheezing noted on the expiratory stage. Heart tones are normal without any obvious murmur. Abdomen is soft and nontender with bowel sounds present. Extremities with generalized weakness and 1-2+ peripheral edema to the lower extremities. Skin is pale but warm. She is awake alert and oriented x3. She is able to follow simple commands. Her mood is depressed and intermittently she is tearful Results & Data ([facility]) Vital Signs (Past 12 Hours) Vital Signs Temp Pulse Resp BP Pulse Ox O2 Del Method O2 Flow Rate 06/04/22 07:20 Nasal Cannula 3 06/04/22 07:38 86 18 95 Nasal Cannula 3 06/04/22 07:07 36.5 C 82 20 136/93 96 Nasal Cannula 3 Laboratory Results Labs and imaging reviewed Diagnostic Findings Labs and imaging reviewed PG Care Time/CCT Total # of Minutes Spent Total Time Spent: 78 Total Time Spent with Patient: Total time spent is greater than 50% in coordination of care (as documented) at patient's floor/unit and/or counseling patient:yes Prolonged Care Time Prolonged Care Time: Yes Advanced Care Planning 99198 Advanced Care Planning 30 Min C[place] [address] Subseq Hosp Care Lvl 3 Patient Type Established History Detailed Exam Detailed Medical Decision Making Moderate Complexity Diagnoses Palliative care encounter Z51.5 Physician orders for life-sustaining treatment (POLST) form indicates patient wish for limited interventions status Z78.9 Counseling regarding advanced directives and goals of care Z71.89 Acute on chronic respiratory failure with hypercapnia J96.22 Lung cancer C34.90 Brain metastasis C79.31 Malignant neoplasm of upper-outer quadrant of left breast in female, estrogen receptor positive C50.412; Z17.0 Additional Codes Prolonged Care Time - Prolonged Care Time: Yes ([id number]) Advanced Care Planning - 45834 Advanced Care Planning 30 Min: 95845 Advanced Care Planning 30 Min ([id number])
[2022-06-04] MEDS: LORazepam 0.5 MG TAB PO PRN (21:33)
[2022-06-05] MEDS: oxyCODONE HCL IR 5 MG TAB (IMMEDIATE RELEASE) PO PRN ×4 (06:13→20:43)
[2022-06-05] MEDS: FERROUS SULFATE 325 MG TAB PO SCH (08:07)
[2022-06-05] MEDS: dexAMETHasone 4 MG TAB PO SCH ×3 (08:07→20:42)
[2022-06-05] MEDS: ENOXAPARIN INJ 40 MG/0.4 ML SYR SQ SCH (08:07)
[2022-06-05] MEDS: dilTIAZem HCL 240 MG CAPCR PO SCH (08:07)
[2022-06-05] MEDS: CYANOCOBALAMIN (B-12) 500 MCG TABLET PO SCH (08:08)
[2022-06-05] MEDS: GABAPENTIN 300 MG CAP PO SCH ×3 (08:08→20:42)
[2022-06-05] MEDS: ANASTROZOLE 1 MG TAB PO SCH (08:08)
[2022-06-05] MEDS: FOLIC ACID 1 MG TAB PO SCH (08:08)
[2022-06-05] MEDS: BUDESONIDE 0.5 MG/2 ML VIAL (PULMICORT) NEB SCH ×2 (08:26→20:48)
[2022-06-05] MEDS: FORMOTEROL 20 MCG/2 ML VIAL INH SCH ×2 (08:27→20:48)
[2022-06-05 09:13] LABS: Base Excess ABG 18.7 mEq/L (-9-1.8); HCO3 ABG 47 mmol/L (19-24); Oxygen Saturation ABG 98.7 % (90-95); PCO2 ABG 67 mmHg (35-46); PO2 ABG 99 mmHg (80-95); pH ABG 7.45 (7.35-7.45)
[2022-06-05 09:18] LABS: Allen Test Pos (Pos)
--- NOTE | 2022-06-05 14:52 | Hospitalist Progress Note ---
Date of Service June 05, 2022 Assessment & Plan (1) Acute on chronic respiratory failure with hypercapnia: Plan: COPD Gold Class D . Stable on 3 L of oxygen at rest. She uses 3 L of oxygen chronically at home. A noninvasive ventilator has been ordered for home use. She apparently does not qualify for BiPAP at this time. Smoking cessation encouraged. (2) Pneumonia: Plan: Possible right lower lobe infiltrate seen on x-ray on admission. Continue Augmentin therapy considering blood cultures are positive for alpha strep. (3) Lung cancer: Plan: Completed chemotherapy and radiation therapy with carboplatin and maintenance atezolizumab. Receives care from [facility]. Next appointment there for radiation of brain mets July 2022. Palliative care consult appreciated. (4) Malignant neoplasm of upper-outer quadrant of left breast in female, estrogen receptor positive: Plan: Follows with oncology. She has completed radiation and surgical resection of her breast tumor. Anastrozole therapy (5) Brain metastasis: Plan: Head CT: Patchy areas of hypodensity within the white matter of left posterior frontal lobe and left parietal lobe which are new from the prior study, nonspecific findings but could be due to underlying vasogenic edema or subacute infarcts. Family refused MRI. Patient went to [facility] for a second opinion and she underwent SRS to the 2 brain lesions in March. Next appointment July. She is on a dexamethasone for brain metastases causing vasogenic edema. (6) Hypertension: Plan: blood pressures were low on admission and medications were held. Amlodipine has been switched to diltiazem for heart rate control. Now stable (7) Anxiety: Plan: Treated with as needed lorazepam. Stable (8) Atrial fibrillation: Plan: Telemetry. Amlodipine switched to diltiazem CD this admission. (9) Leg pain, bilateral: Plan: Treated with gabapentin and oxycodone. Plan Anticipate discharge to home tomorrow, June 06, with home health services, home oxygen, noninvasive ventilator. Admission and Anticipated Discharge Date Admission Date: May 21, 2022 Subjective Alert and oriented. Family is at the bedside. She understands she probably wi ll go home tomorrow. A noninvasive ventilator is being ordered for home use. She does not qualify for a BiPAP machine at this time. Review of Systems Review of Systems: Constitutional-no fever or chills ENT-no blurred vision, no double vision, no epistaxis, no sore throat Respiratory-shortness of breath at rest and aggravated by minimal exertion. Occasional cough which is nonproductive. No hemoptysis. Cardiac-no chest pain, no syncope. Occasional palpitations GI-no nausea, vomiting, diarrhea, melena, hematochezia -no urinary retention, no urinary incontinence, no dysuria, no hematuria Musculoskeletal-no joint pain, no muscle tenderness Skin-no bruising, no rashes, no pruritus Neuro-no isolated weakness, no paresthesia, no weakness Psych-depressed affect Physical Exam Physical Exam: General-alert and oriented x3, no fevers, no chills HEENT-head atraumatic and normocephalic, pupils equal and reactive to light, extraocular muscles intact Neck-no lymphadenopathy or thyromegaly, trachea midline Chest-diminished breath sounds bilaterally. Increased AP diameter. No rales wheezing or rhonchi Cardiac-mildly tachycardic regular rhythm, normal S1 and S2 Abdomen-normal bowel sounds, nontender, no hepatosplenomegaly Extremities-no cyanosis, clubbing, or edema Neuro-cranial nerves II through XII intact, motor and sensory function within normal limits, strength symmetrical , no focal deficits Psych-depressed affect Results & Data Results & Data ([facility]) Vital Signs (Past 12 Hours) Vital Signs Temp Pulse Pulse Resp BP Pulse Ox Pulse Ox 06/05/22 11:24 36.5 C 91 H 20 142/85 H 97 06/05/22 09:22 06/05/22 08:27 78 18 100 06/05/22 07:37 36.6 C 81 20 138/88 93 06/05/22 05:32 67 98 06/05/22 04:01 36.7 C 90 18 145/88 H 98 O2 Del Method O2 Del Method O2 Flow Rate O2 Flow Rate 06/05/22 11:24 Nasal Cannula 2.5 06/05/22 09:22 Nasal Cannula 5 06/05/22 08:27 Nasal Cannula 5 06/05/22 07:37 Nasal Cannula 3 06/05/22 05:32 Nasal Cannula 3 06/05/22 04:01 Nasal Cannula 3 Laboratory Results 05/26/22 04:09 05/26/22 04:09 PG Care Time/CCT Total # of Minutes Spent Total Time Spent with Patient: Total time spent is greater than 50% in coordination of care (as documented) at patient's floor/unit and/or counseling patient: Coding Level of Care Code 89201 Subseq Hosp Care Lvl 3 Diagnoses Acute on chronic respiratory failure with hypercapnia J96.22 Pneumonia J18.9 Lung cancer C34.90 Malignant neoplasm of upper-outer quadrant of left breast in female, estrogen receptor positive C50.412; Z17.0 Brain metastasis C79.31 Hypertension I10 Anxiety F41.9 Atrial fibrillation I48.91 Leg pain, bilateral M79.604; M79.605
[2022-06-06 07:05] VITALS: BP 138/91; TEMP 98.1
[2022-06-06] MEDS: BUDESONIDE 0.5 MG/2 ML VIAL (PULMICORT) NEB SCH (08:03)
[2022-06-06] MEDS: FORMOTEROL 20 MCG/2 ML VIAL INH SCH (08:03)
[2022-06-06 08:05] VITALS: O2SAT 91
[2022-06-06] MEDS: FERROUS SULFATE 325 MG TAB PO SCH (09:06)
[2022-06-06] MEDS: FOLIC ACID 1 MG TAB PO SCH (09:06)
[2022-06-06] MEDS: CYANOCOBALAMIN (B-12) 500 MCG TABLET PO SCH (09:06)
[2022-06-06] MEDS: dexAMETHasone 4 MG TAB PO SCH (09:06)
[2022-06-06] MEDS: GABAPENTIN 300 MG CAP PO SCH (09:06)
[2022-06-06] MEDS: dilTIAZem HCL 240 MG CAPCR PO SCH (09:06)
[2022-06-06] MEDS: ENOXAPARIN INJ 40 MG/0.4 ML SYR SQ SCH (09:07)
[2022-06-06] MEDS: ANASTROZOLE 1 MG TAB PO SCH (09:07)
[2022-06-06] MEDS: oxyCODONE HCL IR 5 MG TAB (IMMEDIATE RELEASE) PO PRN ×2 (09:15→13:42)
--- NOTE | 2022-06-06 10:44 | Discharge Summary ---
Date of Service June 06, 2022 Admission HPI Per Admitting Provider Yanet Guido is a 61-year-old female with metastatic breast cancer to brain, lung cancer, pulmonary hypertension, COPD, anxiety, hypertension presenting today from home via EMS after being found down on the ground and unresponsive by her . She has recently admitted to our facility 05/16- for COPD exacerbation and was discharged home just yesterday on her usual home oxygen. Patient has been home less than 24 hours and her said it was a hard night for her, as she was breathing very hard and still feeling as though she was not getting enough oxygen, felt too weak to car for herself, fell twice out of bed, and was incontinent of bowel on several occasions. This morning he found her down on the ground unresponsive, therefore EMS was summoned bring her to the ED for further evaluation. Patient was brought in by EMS on 15 L nonrebreather mask, in ED a POC ABG was obtained revealing a pH of 7.24 and CO2 110, bicarb 47. She was subsequently placed on BIPAP. She is also tachycardic in ED to 120s, hypertensive 161/112, afebrile. Labs are otherwise notable for troponin of 115, calcium 8.1, AST 43, ALT 87, PCT 1.03, lactate 1.2. CXR shows mild pulmonary congestion without overt edema and right lower lobe infiltrate. Head CT w/ patchy areas of hypodensity within the white matter of the left posterior frontal lobe and left parietal lobe which are new from the prior study. Since is nonspecific but could be due to underlying vasogenic edema or subacute infarcts. Principal Diagnosis Acute on chronic hypercapnic respiratory failure, acute exacerbation COPD, alpha strep bacteremia, right lower lobe pneumonia, lung mass suspicious for primary lung cancer Discharge Exam General-alert and oriented x3, no fevers, no chills HEENT-head atraumatic and normocephalic, pupils equal and reactive to light, extraocular muscles intact Neck-no lymphadenopathy or thyromegaly, trachea midline Chest-diminished breath sounds bilaterally. Increased AP diameter. No rales wheezing or rhonchi Cardiac-mildly tachycardic regular rhythm, normal S1 and S2 Abdomen-normal bowel sounds, nontender, no hepatosplenomegaly Extremities-no cyanosis, clubbing, or edema Neuro-cranial nerves II through XII intact, motor and sensory function within normal limits, strength symmetrical , no focal deficits Psych-depressed affect Discharge Data Allergies Allergy/AdvReac Type Severity Reaction Status Date / Time paclitaxel AdvReac Severe Difficulty Verified 03/06/22 09:57 Breathing Consultations 05/21/22 14:06 ED Decision to Admit Stat 05/21/22 15:55 Consult Palliative Care Routine 05/24/22 11:23 Consult Pulmonology Routine Ordered Studies 05/21/22 12:47 CT head/brain wo con Stat 05/22/22 14:51 MR brain wo con Routine Hospital Course (1) Acute on chronic respiratory failure with hypercapnia: COPD Gold Class D . Stable on 3 L of oxygen at rest. She uses 3 L of oxygen chronically at home. A noninvasive ventilator has been ordered for home use. She apparently does not qualify for BiPAP at this time. Smoking cessation encouraged. (2) Pneumonia: Possible right lower lobe infiltrate seen on x-ray on admission. Continue Augmentin therapy considering blood cultures are positive for alpha strep. (3) Lung cancer: Completed chemotherapy and radiation therapy with carboplatin and maintenance atezolizumab. Receives care from [facility]. Next appointment there for radiation of brain mets July 2022. Palliative care consult appreciated. (4) Malignant neoplasm of upper-outer quadrant of left breast in female, estrogen receptor positive: Follows with oncology. She has completed radiation and surgical resection of her breast tumor. Anastrozole therapy (5) Brain metastasis: Head CT: Patchy areas of hypodensity within the white matter of left posterior frontal lobe and left parietal lobe which are new from the prior study, nonspecific findings but could be due to underlying vasogenic edema or subacute infarcts. Family refused MRI. Patient went to [facility] for a second opinion and she underwent SRS to the 2 brain lesions in March. Next appointment July. She is on a dexamethasone for brain metastases causing vasogenic edema. (6) Hypertension: blood pressures were low on admission and medications were held. Amlodipine has been switched to diltiazem for heart rate control. Now stable (7) Anxiety: Treated with as needed lorazepam. Stable (8) Atrial fibrillation: Telemetry. Amlodipine switched to diltiazem CD this admission. (9) Leg pain, bilateral: Treated with gabapentin and oxycodone. Plan Discharge to home today, June 06, with home health services, home oxygen, noninvasive ventilator. Total Time Total Time Spent Total Time Spent (In Minutes): 40 minutes Discharge Plan Discharge Items Patient Disposition: Home - Home Health Services Reason For Visit: hypercarbic respiratory failure Discharge Diagnosis: Acute on chronic hypercapnic respiratory failure, right lower lobe pneumonia, alpha strep bacteremia, acute exacerbation COPD, known lung cancer Condition on Discharge: Serious Activity: Resume your previous activity Non-emergency contact: Primary Care Provider and Oncologist Call non-emergency contact if: you have any medication questions and your symptoms worsen Follow-up/Referrals: Cookie Fontenot CRNP [Primary Care Provider] - Diet: Heart Healthy Addtl Attending Provider Instructions: Take medications as directed, use noninvasive home ventilation unit to keep carbon dioxide levels within a reasonable range Pending Studies at Discharge: No Stand-Alone Forms: My Foruforever, Smoking Cessation Medications and DC Order Prescriptions: New diltiazem HCl 240 mg Capsule,Extended Release 24hr 240 mg PO QAM Qty: 30 0RF lorazepam 0.5 mg Tablet 0.5 mg PO BID PRN (Reason: anxiety) Qty: 30 0RF gabapentin 300 mg Capsule 300 mg PO TID Qty: 100 0RF oxycodone 5 mg Tablet 10 mg PO Q4H PRN (Reason: pain) Qty: 30 0RF Continued acetaminophen [Tylenol Extra Strength] 500 mg tablet 500 mg PO Q6H PRN (Reason: Pain) [id number]-[id number]-uxiz 50-325-40 mg tablet 1 tab PO Q6H PRN (Reason: migraines) anastrozole [Arimidex] 1 mg tablet 1 mg PO QAM dexamethasone 4 mg tablet 4 mg PO TID Qty: 30 0RF albuterol sulfate [ProAir HFA] 90 mcg/actuation HFA aerosol inhaler 2 puff inhalation Q6H PRN (Reason: sob) cyanocobalamin (vitamin B-12) [Vitamin B-12] 1,000 mcg Tablet 1,000 mcg PO QAM budesonide-formoterol [Symbicort] 160-4.5 mcg/actuation Hfa Aerosol Inhaler 2 puff INHALATION BID diclofenac sodium 3 % gel 1 applic TOPICAL QID PRN (Reason: pain/swelling) Spiriva Respimat 1.25 mcg/actuation mist 1 puff INHALATION DAILY spironolactone 25 mg Tablet 12.5 mg PO DAILY Qty: 30 0RF ipratropium-albuterol 0.5 mg-3 mg(2.5 mg base)/3 mL Solution For Nebulization 3 ml NEB QIDR Qty: 30 0RF oxycodone 5 mg tablet 5 mg PO Q4H PRN (Reason: pain) Qty: 18 0RF lorazepam 0.5 mg tablet 0.5 mg PO BID PRN (Reason: anxiety) Qty: 10 0RF cyclobenzaprine [Flexeril] 10 mg Tablet 10 mg PO HS PRN (Reason: Spasms) prochlorperazine maleate 10 mg Tablet 10 mg PO Q6H PRN (Reason: Nausea And Vomiting) hydroxyzine HCl 10 mg Tablet 10 mg PO TID PRN (Reason: Anxiety) hydrochlorothiazide 12.5 mg Tablet 12.5 mg PO Q2D oxycodone 10 mg Tablet 10 mg PO Q4 PRN (Reason: Severe Pain (Scale Score 7-10)) Rx Instructions: q4-6 hrs Hematinic/Folic Acid 324 mg (106 mg iron)-1 mg Tablet 1 tab PO DAILY Rx Instructions: administer between meals Discontinued gabapentin 300 mg capsule 600 mg PO TID Discharge Orders: Discharge Order (Routine); Ordered 06/06/22 Ordered By: Michi Stephens Admission Data Admit Date/Time: 05/21/22 14:44 Attending Provider: Michi Stephens Admit Provider: Parth Olmstead Primary Care Provider: Cookie Fontenot Other Providers: Kiera Bowling at [facility] ; [facility] ; [facility] ; [facility] ; Parth Olmstead ; Ashley Maradiaga ; Dominic Mojica ; [facility] Coding Level of Care Code D/C DAY MANAGEMENT >30 MINS Diagnoses Acute on chronic respiratory failure with hypercapnia J96.22 Pneumonia J18.9 Lung cancer C34.90 Malignant neoplasm of upper-outer quadrant of left breast in female, estrogen receptor positive C50.412; Z17.0 Brain metastasis C79.31 Hypertension I10 Anxiety F41.9 Atrial fibrillation I48.91 Leg pain, bilateral M79.604; M79.605
[2022-06-06] MEDS: LORazepam 0.5 MG TAB PO PRN (11:26)
[2022-06-06 14:00] VITALS: PULSE 86
--- NOTE | 2022-06-13 18:50 | Coding Query ---
CODING QUERY To promote full compliance with coding requirements relating to patient care, provider participation is requested in all cases of drafter geological uncertainty. Please assist us with the question(s) below: Coding Question(s): Pt admitted with acute/chronic respiratory failure, COPD , Pneumonia and Malignancy of lung. Please document the type of pneumonia, if known. Iniital progress notes mentioned suspected aspiration. Thanks for your help. Vinicius Beckman [facility] Physician's Response(s): Suspected aspiration pneumonia Principal Diagnosis: "that condition established after study, to be chiefly responsible for occasioning the admission of the patient to the hospital for care." Co-Existing Principal Diagnosis: "when two or more diagnoses equally meet the criteria for principal diagnosis as determined by the circumstances of admission, diagnostic work up, and/or therapy provided, and the Alphabetic Index, Tabular List, or another coding guideline does not provide sequencing direction, any one of the diagnoses may be sequenced first." "When the physician has documented what appears to be a current diagnosis in the body of the record, but has not included the diagnosis in the final diagnostic statement, the physician should be asked whether the diagnosis should be added." (Source Coding [facility] 2 QTR90. p3-4) FINESSE
== END 2022-06-06 14:55 | disposition home health service (06) | DRG 177 ==
LOC: ED 12:24 → SUATTDRO 14:44 → EDINP 14:44 → 4W 15:54 → 3N 06-05 18:21

== ENCOUNTER 2022-06-21 12:46 | Inpatient (IN) ==
[2022-06-21] MEDS ORDERED: SODIUM CHLORIDE 0.9% 500 ML IV STA (12:56)
--- NOTE | 2022-06-21 13:08 | Emergency Department Note ---
Impression & Plan Bursitis DC ED Provider Note HPI: The patient is a 61-year-old female with history of metastatic lung cancer, presents the emergency department with chief complaint of positive blood cultures and synovial fluid cultures from her right elbow. Patient states she has had an ongoing bursitis from her right elbow, states this is "gotten worse" over the past week. Patient states that she recently had cultures done at [facility] orthopedics by Dr. Markham, she was contacted today by the office to come to the emergency room as a blood culture and also bursa fluid culture returned positive for gram-positive bacteria. On arrival here to the ED the patient is alert, she is hemodynamically stable on her baseline nasal cannula oxygen, she is otherwise in no acute distress ROS: - Per HPI *Outpatient medications and allergy history reviewed. *Pertinent external medical records reviewed. PE: General: Alert, frail-appearing HEENT: Normocephalic, trachea midline Eyes: Extraocular eye movement is intact, no scleral erythema Pulmonary: Clear to auscultation bilaterally, no wheezing Cardio: Regular rate and rhythm GI: Abdomen is soft, nontender : No suprapubic tenderness MSK: There is moderate swelling and erythema with a dry scab over the olecranon process of the right elbow consistent with bursitis, otherwise no evidence of trauma or malformation of the extremities, no edema, range of motion of the right elbow is intact on my exam Skin: No evidence of rash Neuro: Alert, no focal deficits Psychiatric: Cooperative satellite project site monitor: - An order was placed for continuous cardiac monitoring - Patient was noted to be in sinus rhythm with a rate of 80 EKG: (As interpreted by myself): Rate: 91 Rhythm: Sinus rhythm Intervals: Within normal limits ST changes: No ST elevation Time: 1311 Interventions provided in ED: -IV vancomycin Medical Decision Making: Patient presented to the emergency department with some positive cultures in the outpatient setting of both the right elbow bursa as well as a blood culture that both returned positive for gram-positive cocci. On arrival here to the ED the patient does not appear to be in any acute distress, she does have an acute bursitis of the right elbow clinically on exam. Case was discussed with the patient's outpatient sports medicine provider who did the cultures, Dr. Markham of [facility] sports medicine, he states that the patient's cultures returned positive today and the patient was contacted by his office for admission to the ER and initiation of IV antibiotics. He does feel that this is likely a process that will require surgical intervention. IVs established, lab work obtained, blood new blood cultures were sent. Lab work does not show any evidence of any leukocytosis, there is hyponatremia noted at 128, patient appears to be asymptomatic from this standpoint. I did also consult on-call [facility] orthopedics here at [facility], Dr. Benitez, who did evaluate the patient here at the bedside, will plan for washout procedure tomorrow morning and patient was initiated on IV antibiotics with vancomycin here during her stay. [facility] hospitalist service was consulted for admission with plan for orthopedic intervention tomorrow morning, patient will remain on IV antibiotics pending repeat cultures, patient and her at the bedside are in agreement to the above plan and the patient was admitted in stable condition for further care. Disposition discussion held by myself with: Patient and Diagnosis: 1. Septic bursitis, right elbow 2. Septicemia/positive outpatient blood cultures 3. Hyponatremia, acute Disposition: Admission Marcos Rich DO Emergency Medicine Past Med/Surg History Medical History Acute exacerbation of chronic obstructive pulmonary disease Acute respiratory failure with hypoxia Anxiety Brain metastasis Breast cancer, left Dx 12/2020 Cancer Cancer related pain Chronic hypercapnic respiratory failure COPD (chronic obstructive pulmonary disease) Counseling regarding advanced directives and goals of care History of migraine Hypertension Hypoxia Iron deficiency anemia Hx iron infusions Lung cancer Non small cell cancer dx 12/2020; chemo/radiation (per pt, completed 3 mo ago but still on IV prophylaxis trtmt q3wks, Tecentriq per heme records) Malignant neoplasm of upper-outer quadrant of left breast in female, estrogen receptor positive On home oxygen therapy oxygen at night 1.5 lpm via n/c Palliative care encounter Physician orders for life-sustaining treatment (POLST) form indicates patient wish for limited interventions status Pulmonary hypertension Cardio feels likely secondary to COPD and possible MARTELL Thyroid nodule Surgical History H/O esophagogastroduodenoscopy History of breast biopsy History of lung biopsy History of tubal ligation Hx of colonoscopy Status post left breast lumpectomy (07/09/21) Left lumpectomy with sentinel lymph node biopsy and also excision of superior left axillary lymph node with additional axillary tissue. Dr. Andres 07/09/2021 Family History Father Myocardial infarction CABG x 3 Mother , 84yo Emphysema lung Smoker Brother No problems noted. Sister No problems noted. Sister Asthma Son No problems noted. Daughter No problems noted. 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 [employer] Safe at Home: Yes caffeine: Yes (2-4 cups/day) during the past year weight has: remained stable Assistive Devices: CPAP and Oxygen - at Night Allergies Allergies Allergy/AdvReac Type Severity Reaction Status Date / Time paclitaxel AdvReac Severe Difficulty Verified 06/21/22 15:03 Breathing Home Meds Home Medications Medication Instructions Recorded Confirmed budesonide-formoterol HFA 160 2 puff inhalation BID 11/08/20 06/21/22 mcg-4.5 mcg/actuation aerosol inhaler (Symbicort) cyanocobalamin (vitamin B-12) 1,000 mcg PO QAM 11/08/20 06/21/22 1,000 mcg tablet (Vitamin B-12) albuterol sulfate 90 mcg/actuation 2 puff inhalation Q6H PRN sob 01/03/21 06/21/22 aerosol inhaler (ProAir HFA) acetaminophen 500 mg tablet 500 mg PO Q6H PRN Pain 01/31/21 06/21/22 (Tylenol Extra Strength) anastrozole 1 mg tablet (Arimidex) 1 mg PO QAM 01/31/21 06/21/22 aokwqmnhjv-gbqjdtdjegcon-rhonybdn 1 tab PO Q6H PRN migraines 01/31/21 06/21/22 50 mg-325 mg-40 mg tablet diclofenac sodium 3 % topical gel 1 applic topical QID PRN 08/18/21 01/06/23 pain/swelling tiotropium bromide 1.25 1 puff inhalation DAILY 03/06/22 06/21/22 mcg/actuation mist for inhalation (Spiriva Respimat) cyclobenzaprine 10 mg tablet 10 mg PO HS PRN Spasms 05/24/22 06/21/22 ferrous fumarate-folic acid 324 mg 1 tab PO DAILY 05/24/22 06/21/22 (106 mg iron)-1 mg tablet (Hematinic/Folic Acid) hydrochlorothiazide 12.5 mg tablet 12.5 mg PO Q2D 05/24/22 06/21/22 hydroxyzine HCl 10 mg tablet 10 mg PO TID PRN Anxiety 05/24/22 06/21/22 prochlorperazine maleate 10 mg 10 mg PO Q6H PRN Nausea And 05/24/22 06/21/22 tablet Vomiting amoxicillin 875 mg tablet 875 mg PO BID 06/20/22 06/21/22 doxycycline hyclate 100 mg capsule 100 mg PO BID 06/20/22 06/21/22 Previous Rx's Medication Instructions Recorded dexamethasone 4 mg tablet 4 mg PO TID Vasogenic edema #30 03/06/22 tabs ipratropium 0.5 mg-albuterol 3 mg 3 ml NEB QIDR #30 mL 05/20/22 (2.5 mg base)/3 mL nebulization soln oxycodone 5 mg tablet 5 mg PO Q4H PRN pain #18 tabs 05/20/22 spironolactone 25 mg tablet 12.5 mg PO DAILY #30 tabs 05/20/22 diltiazem HCl 240 mg 240 mg PO QAM #30 caps 06/06/22 capsule,extended release 24 hr gabapentin 300 mg capsule 300 mg PO TID #100 caps 06/06/22 lorazepam 0.5 mg tablet 0.5 mg PO BID PRN anxiety #30 tabs 06/06/22 Results & Data (ED) Vital Signs Vital Signs - 24 hr 06/21/22 12:32 06/21/22 17:00 06/21/22 17:05 Temperature 36.4 C L Temperature Source Oral Pulse Rate 91 H 89 Pulse Rate [Left Finger] 84 Pulse Rhythm Regular Pulse Rhythm [Left Finger] Regular Respiratory Rate 24 21 Respiratory Effort / Characteristics SOB on Exertion Respiratory Pattern Regular Blood Pressure 149/99 H Blood Pressure [Right Arm] 145/109 H Blood Pressure Mean 115 Blood Pressure Mean [Right Arm] 121 Blood Pressure Position [Right Arm] Lying Pulse Oximetry 100 98 100 Oxygen Delivery Method Nasal Cannula Nasal Cannula Nasal Cannula Oxygen Flow Rate 4 4 4 Sepsis Recent Fever Within 48 Hours Yes Sepsis New/Unexplained Change in Mental Status No Sepsis Action Taken by Nursing No Action Required Laboratory Data 06/21/22 14:50 06/21/22 14:50 Lab Results 06/21/22 06/21/22 06/21/22 Range/Units 14:45 14:50 14:50 WBC 6.58 (4.8-10.8) K/ul RBC 4.19 (3.93-5.22) M/uL Hgb 13.3 (12.0-16.0) g/dl Hct 40.1 (34.1-44.9) % MCV 95.7 (80.0-100.0) fL MCH 31.7 (25.0-34.0) pg MCHC 33.2 (32.0-36.0) g/dL RDW Std Deviation 57.0 H (36.4-46.3) fL RDW Coeff of Kp 16.0 H (11.5-14.5) % Plt Count 146 (130-400) K/uL MPV 9.6 (9.4-12.3) fL Immature Gran % (Auto) 1.8 % Neut % (Auto) 90.1 % Lymph % (Auto) 5.0 % Coke % (Auto) 2.6 % Eos % (Auto) 0.0 % Baso % (Auto) 0.5 % Neut # (Auto) 5.93 (1.4-6.5) K/uL Lymph # (Auto) 0.33 L (1.2-3.4) K/uL Coke # (Auto) 0.17 L (0.24-0.82) K/uL Eos # (Auto) 0.00 (0-0.50) K/uL Baso # (Auto) 0.03 (0-0.2) K/uL Immature Gran # (Auto) 0.12 H (0.00-0.02) K/uL Absolute Nucleated RBC 0.07 H (0-0) K/uL Nucleated RBC % (auto) 1.1 % PT 10.0 (9.0-12.0) Seconds INR 0.9 (0.9-1.1) APTT < 20.0 L (21.0-31.0) Seconds PTT Ratio 0.7 Sodium (136-145) mmol/L Potassium (3.5-5.1) mmol/L Chloride (98-107) mmol/L Carbon Dioxide (21-32) mmol/L Anion Gap (3-11) BUN (6-23) mg/dl Creatinine (0.6-1.2) mg/dl Est Cr Clr Drug Dosing ml/min Est GFR ( Amer) ml/min Est GFR (Non-Af Amer) ml/min BUN/Creatinine Ratio (10-20) Glucose (70-99(Fasting)) mg/dl Osmolality (280-300) mOsm/kg Calcium (8.5-10.1) mg/dl Total Bilirubin (0.2-1.0) mg/dl AST (13-39) U/L ALT (7-52) U/L Alkaline Phosphatase (34-104) U/L Troponin I High Sens (0-14) pg/ml Total Protein (6.0-8.3) gm/dl Albumin (3.4-5.0) gm/dl Globulin (2.5-4.0) gm/dl Albumin/Globulin Ratio (0.9-2) Lipase (11-82) U/L Urine Color Urine Appearance (Clear) Urine pH (4.5-7.5) Ur Specific [place] (1.000-1.030) Urine Protein (Negative) Urine Glucose (UA) (Negative) Urine Ketones (Negative) Urine Blood (Negative) Urine Nitrite (Negative) Urine Bilirubin (Negative) Urine Urobilinogen (Negative) Ur Leukocyte Esterase (Negative) Urine WBC (Auto) (0-5) /hpf Urine RBC (Auto) (0-4) /hpf U Hyaline Cast (Auto) (0-5) /lpf U Epithel Cells (Auto) (0-5) /lpf Urine Bacteria (Auto) (Negative) Ur Renal Epithelial Cell (0-5) /lpf SARS-CoV-2 (PCR) NEGATIVE (Negative) Influenza Type A (PCR) Negative (Neg) Influenza Type B (PCR) Negative (Neg) RSV (RT-PCR) Negative (Neg) 06/21/22 06/21/22 06/21/22 Range/Units 14:50 14:50 14:50 WBC (4.8-10.8) K/ul RBC (3.93-5.22) M/uL Hgb (12.0-16.0) g/dl Hct (34.1-44.9) % MCV (80.0-100.0) fL MCH (25.0-34.0) pg MCHC (32.0-36.0) g/dL RDW Std Deviation (36.4-46.3) fL RDW Coeff of Kp (11.5-14.5) % Plt Count (130-400) K/uL MPV (9.4-12.3) fL Immature Gran % (Auto) % Neut % (Auto) % Lymph % (Auto) % Coke % (Auto) % Eos % (Auto) % Baso % (Auto) % Neut # (Auto) (1.4-6.5) K/uL Lymph # (Auto) (1.2-3.4) K/uL Coke # (Auto) (0.24-0.82) K/uL Eos # (Auto) (0-0.50) K/uL Baso # (Auto) (0-0.2) K/uL Immature Gran # (Auto) (0.00-0.02) K/uL Absolute Nucleated RBC (0-0) K/uL Nucleated RBC % (auto) % PT (9.0-12.0) Seconds INR (0.9-1.1) APTT (21.0-31.0) Seconds PTT Ratio Sodium 128 L (136-145) mmol/L Potassium 3.7 (3.5-5.1) mmol/L Chloride 79 L (98-107) mmol/L Carbon Dioxide 43 H* (21-32) mmol/L Anion Gap 6 (3-11) BUN 19 (6-23) mg/dl Creatinine 0.47 L (0.6-1.2) mg/dl Est Cr Clr Drug Dosing 99.4 ml/min Est GFR ( Amer) 123.6 ml/min Est GFR (Non-Af Amer) 106.6 ml/min BUN/Creatinine Ratio 40.4 H (10-20) Glucose 199 H (70-99(Fasting)) mg/dl Osmolality 272 L (280-300) mOsm/kg Calcium 8.8 (8.5-10.1) mg/dl Total Bilirubin 0.7 (0.2-1.0) mg/dl AST 18 (13-39) U/L ALT 59 H (7-52) U/L Alkaline Phosphatase 53 (34-104) U/L Troponin I High Sens 24.6 H (0-14) pg/ml Total Protein 6.2 (6.0-8.3) gm/dl Albumin 3.4 (3.4-5.0) gm/dl Globulin 2.8 (2.5-4.0) gm/dl Albumin/Globulin Ratio 1.2 (0.9-2) Lipase 36 (11-82) U/L Urine Color Yellow Urine Appearance Clear (Clear) Urine pH 5.5 (4.5-7.5) Ur Specific [place] 1.017 (1.000-1.030) Urine Protein Trace H (Negative) Urine Glucose (UA) Negative (Negative) Urine Ketones Negative (Negative) Urine Blood Negative (Negative) Urine Nitrite Negative (Negative) Urine Bilirubin Negative (Negative) Urine Urobilinogen Negative (Negative) Ur Leukocyte Esterase Trace H (Negative) Urine WBC (Auto) 10-30 H (0-5) /hpf Urine RBC (Auto) 0-4 (0-4) /hpf U Hyaline Cast (Auto) 1-5 (0-5) /lpf U Epithel Cells (Auto) >30 H (0-5) /lpf Urine Bacteria (Auto) Negative (Negative) Ur Renal Epithelial Cell 0-5 (0-5) /lpf SARS-CoV-2 (PCR) (Negative) Influenza Type A (PCR) (Neg) Influenza Type B (PCR) (Neg) RSV (RT-PCR) (Neg) Administered Medications Discontinued Medications Sodium Chloride (Nss) 500 mls @ 999 mls/hr IV .Q31M STA Stop: 06/21/22 13:26 Last Infusion: 06/21/22 16:06 Dose: 0 mls/hr Documented By: Admin: 06/21/22 14:58 Dose: 999 mls/hr Documented By: KACIE Vancomycin HCl 1,250 mg/ (Sodium Chloride) 525 mls @ 200 mls/hr IV NOW ONE Stop: 06/21/22 15:56 Last Admin: 06/21/22 14:58 Dose: 200 mls/hr Documented By: GGG Imaging Data Radiologist's Impression: Chest X-Ray 06/21/22 12:57 SINGLE VIEW CHEST CLINICAL HISTORY: Atypical chest pain. FINDINGS: An AP, portable, upright chest radiograph is compared to study dated 06/20/2022. Correlation is made with chest CT dated 05/16/2022. The heart is top normal for projection noting atherosclerotic calcification of the thoracic aorta. Enlargement of the central pulmonary arteries suggests pulmonary hyperten neli. Emphysema and chronic interstitial thickening is similar to previous. 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 There is mild bibasilar scarring/atelectasis. No airspace consolidation or large pleural effusion is identified. No pneumothorax is seen. The skeletal structures are osteopenic. The bony thorax is grossly intact. IMPRESSION: Emphysematous change with no active disease in the chest. ACT 112: Negative or not required by law. Electronically signed by: Marcelino Webb M.D. 06/21/2022 1:27 PM Elbow X-Ray 06/21/22 13:13 XR elbow RT min 3V routine CLINICAL HISTORY: Olecranon swelling. COMPARISON STUDY: None. FINDINGS: No fracture or dislocation within the right elbow. Probable small joint effusion. Soft tissue swelling within the right elbow most pronounced at the olecranon. Mild degenerative changes at the elbow joint. IMPRESSION: 1. No acute fracture or dislocation within the right elbow. 2. Soft tissue swelling throughout the right elbow most pronounced at the olecranon. This favors an olecranon bursitis. 3. Probable small joint effusion. ACT 112: Negative or not required by law. Electronically signed by: Mateo Alvarado M.D. 06/21/2022 3:10 PM Discharge Plan Visit Data Chief Complaint: Infection, Wound Stated Complaint: WEAKNESS ED Provider: Marcos Rich Discharge Problem: Bursitis Forms Stand Alone Forms: [facility] Prescriptions Prescriptions: No Action acetaminophen [Tylenol Extra Strength] 500 mg tablet 500 mg PO Q6H PRN (Reason: Pain) [id number]-aduiisrsweqsm-duzn 50-325-40 mg tablet 1 tab PO Q6H PRN (Reason: migraines) anastrozole [Arimidex] 1 mg tablet 1 mg PO QAM dexamethasone 4 mg tablet 4 mg PO TID Qty: 30 0RF albuterol sulfate [ProAir HFA] 90 mcg/actuation HFA aerosol inhaler 2 puff inhalation Q6H PRN (Reason: sob) cyanocobalamin (vitamin B-12) [Vitamin B-12] 1,000 mcg Tablet 1,000 mcg PO QAM budesonide-formoterol [Symbicort] 160-4.5 mcg/actuation Hfa Aerosol Inhaler 2 puff INHALATION BID diclofenac sodium 3 % gel 1 applic TOPICAL QID PRN (Reason: pain/swelling) Spiriva Respimat 1.25 mcg/actuation mist 1 puff INHALATION DAILY spironolactone 25 mg Tablet 12.5 mg PO DAILY Qty: 30 0RF ipratropium-albuterol 0.5 mg-3 mg(2.5 mg base)/3 mL Solution For Nebulization 3 ml NEB QIDR Qty: 30 0RF oxycodone 5 mg tablet 5 mg PO Q4H PRN (Reason: pain) Qty: 18 0RF cyclobenzaprine 10 mg Tablet 10 mg PO HS PRN (Reason: Spasms) prochlorperazine maleate 10 mg Tablet 10 mg PO Q6H PRN (Reason: Nausea And Vomiting) hydroxyzine HCl 10 mg Tablet 10 mg PO TID PRN (Reason: Anxiety) hydrochlorothiazide 12.5 mg Tablet 12.5 mg PO Q2D Hematinic/Folic Acid 324 mg (106 mg iron)-1 mg Tablet 1 tab PO DAILY Rx Instructions: administer between meals diltiazem HCl 240 mg Capsule,Extended Release 24hr 240 mg PO QAM Qty: 30 0RF lorazepam 0.5 mg Tablet 0.5 mg PO BID PRN (Reason: anxiety) Qty: 30 0RF gabapentin 300 mg Capsule 300 mg PO TID Qty: 100 0RF doxycycline hyclate 100 mg capsule 100 mg PO BID Rx Instructions: STARTED 06/20/22 FOR 10 DAYS. amoxicillin 875 mg tablet 875 mg PO BID Rx Instructions: STARTED 06/20/22 FOR 10 DAYS Referrals Referrals: Cookie Fontenot CRNP [Primary Care Provider] - : Bursitis Qualifiers: Bursitis location: elbow Elbow bursitis location: other elbow bursa Laterality: right Qualified Code(s): M70.31 - Other bursitis of elbow, right elbow
[2022-06-21] MEDS ORDERED: VANCOMYCIN CONSULT ACTIVE PRN ×2 (13:19→19:34)
[2022-06-21] MEDS ORDERED: VANCOMYCIN HCL 1,250 MG in SODIUM CHLORIDE 0.9% 500 ML IV ONE (13:19)
--- NOTE | 2022-06-21 13:29 | XRay Report ---
SINGLE VIEW CHEST CLINICAL HISTORY: Atypical chest pain. FINDINGS: An AP, portable, upright chest radiograph is compared to study dated 06/20/2022. Correlation is made with chest CT dated 05/16/2022. The heart is top normal for projection noting atherosclerotic calcification of the thoracic aorta. Enlargement of the central pulmonary arteries suggests pulmonary hypertension. Emphysema and chronic interstitial thickening is similar to previous. A Bochdalek sylwia ia is again seen at the left lung base. There is mild bibasilar scarring/atelectasis. No airspace con solidation or large pleural effusion is identified. No pneumothorax is seen. The skeletal structures are osteopenic. The bony thorax is grossly intact. IMPRESSION: Emphysematous change with no active disease in the chest. ACT 112: Negative or not required by law. Electronically signed by: Marcelino Webb M.D. 06/21/2022 1:27 PM
--- NOTE | 2022-06-21 14:51 | Orthopedic Progress Note ---
Date of Service June 21, 2022 Assessment & Plan (1) Septic olecranon bursitis of right elbow: Plan -hospitalist to admit and start on IV ABX -Booked for rt elbow washout tomorrow (06/22/2021) in the morning -wound care consult after surgery Subjective 61y female, in ER per [facility] primary care directive, for admission and IV Abx. Dx: right elbow septic bursitis. Review of Systems Review of Systems: See admitting physician H&P Physical Exam Musculoskeletal: Rt elbow: erythema, scab, no drainage or purulence, +signs for septic bursitis Results & Data ([facility]) Vital Signs (Past 12 Hours) Vital Signs Temp Pulse Resp BP Pulse Ox O2 Del Method O2 Flow Rate 06/21/22 12:32 36.4 C L 91 H 24 149/99 H 100 Nasal Cannula 4 Laboratory Results elbow aspirate (results on [facility] from 06/20/2021): staph A (sensitive to oxacillin) Diagnostic Findings Impressions Chest X-Ray 06/21/22 12:57 SINGLE VIEW CHEST CLINICAL HISTORY: Atypical chest pain. FINDINGS: An AP, portable, upright chest radiograph is compared to study dated 06/20/2022. Correlation is made with chest CT dated 05/16/2022. The heart is top normal for projection noting atherosclerotic calcification of the thoracic aorta. Enlargement of the central pulmonary arteries suggests pulmonary hypertension. Emphysema and chronic interstitial thickening is similar to previous. 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 There is mild bibasilar scarring/atelectasis. No airspace consolidation or large pleural effusion is identified. No pneumothorax is seen. The skeletal structures are osteopenic. The bony thorax is grossly intact. IMPRESSION: Emphysematous change with no active disease in the chest. ACT 112: Negative or not required by law. Electronically signed by: Marcelino Webb M.D. 06/21/2022 1:27 PM
[2022-06-21 15:09] LABS: Hematocrit (blood only) 40.1 % (34.1-44.9); Hemoglobin 13.3 g/dl (12.0-16.0); Mean Corpuscular Hemoglobin 31.7 pg (25.0-34.0); Mean Corpuscular Hgb Conc 33.2 g/dL (32.0-36.0); Mean Corpuscular Volume 95.7 fL (80.0-100.0); Mean Platelet Volume 9.6 fL (9.4-12.3); Nucleated RBC # (auto) 0.07 K/uL (0-0); Nucleated RBC % (auto) 1.1 %; Platelet Count 146 K/uL (130-400); Red Blood Count 4.19 M/uL (3.93-5.22); White Blood Count 6.58 K/ul (4.8-10.8)
--- NOTE | 2022-06-21 15:11 | XRay Report ---
XR elbow RT min 3V routine CLINICAL HISTORY: Olecranon swelling. COMPARISON STUDY: None. FINDINGS: No fracture or dislocation within the right elbow. Probable small joint effusion. Soft tiss ue swelling within the right elbow most pronounced at the olecranon. Mild degenerative changes at the elbow joint. IMPRESSION: 1. No acute fracture or dislocation within the right elbow. 2. Soft tissue swelling throughout the right elbow most pronounced at the olecranon. This favors an o lecranon bursitis. 3. Probable small joint effusion. ACT 112: Negative or not required by law. Electronically signed by: Mateo Alvarado M.D. 06/21/2022 3:10 PM
[2022-06-21 15:24] LABS: Appearance Urine Clear (Clear); Bacteria Urine Automated Negative (Negative); Bilirubin Urine Negative (Negative); Blood Urine Negative (Negative); Color Urine Yellow; Epithelial Cell Urine Auto >30 /lpf (0-5); Glucose Urine UA Negative (Negative); Ketones Urine Negative (Negative); Leukocyte Esterase Urine Trace (Negative); Nitrite Urine Negative (Negative); Protein Urine Trace (Negative); RBC Urine Automated 0-4 /hpf (0-4); Specific Gravity Urine 1.017 (1.000-1.030); Urobilinogen Urine Negative (Negative); pH Urine 5.5 (4.5-7.5)
[2022-06-21 15:25] LABS: INR 0.9 (0.9-1.1); Partial Thromboplastin Ratio 0.7
[2022-06-21 15:40] LABS: Partial Thromboplastin Time < 20.0 Seconds (21.0-31.0)
--- NOTE | 2022-06-21 15:41 | Anesthesiology Consultation ---
Date of Service June 21, 2022 Assessment & Plan (1) Encounter for pre-operative examination: Chart Review Chart Review: entry writer initiated History Surgery Operation Date: 06/22/22 07:30 Proposed Procedures p Right Elbow Incision and Drainage - Luis Alfredo Benitez MD Height/Weight Height: 5 ft 2 in Weight: 56.9 kg Allergies Allergy/AdvReac Type Severity Reaction Status Date / Time paclitaxel AdvReac Severe Difficulty Verified 06/21/22 15:03 Breathing Medications Home Medications Medication Instructions Recorded Confirmed Last Taken budesonide-formoterol HFA 160 2 puff inhalation BID 11/08/20 06/21/22 06/21/22 08:00 mcg-4.5 mcg/actuation aerosol inhaler (Symbicort) cyanocobalamin (vitamin B-12) 1,000 mcg PO QAM 11/08/20 06/21/22 06/21/22 1,000 mcg tablet (Vitamin B-12) albuterol sulfate 90 mcg/actuation 2 puff inhalation Q6H PRN sob 01/03/21 06/21/22 Unknown aerosol inhaler (ProAir HFA) acetaminophen 500 mg tablet 500 mg PO Q6H PRN Pain 01/31/21 06/21/22 07/08/21 20:00 (Tylenol Extra Strength) anastrozole 1 mg tablet (Arimidex) 1 mg PO QAM 01/31/21 06/21/22 06/21/22 [id number]-[id number] 1 tab PO Q6H PRN migraines 01/31/21 06/21/22 Unknown 50 mg-325 mg-40 mg tablet diclofenac sodium 3 % topical gel 1 applic topical QID PRN 01/31/21 06/21/22 07/08/21 20:00 pain/swelling dexamethasone 4 mg tablet 4 mg PO TID Vasogenic edema #30 03/06/22 06/21/22 06/21/22 08:00 tabs tiotropium bromide 1.25 1 puff inhalation DAILY 03/06/22 06/21/22 06/21/22 mcg/actuation mist for inhalation (Spiriva Respimat) ipratropium 0.5 mg-albuterol 3 mg 3 ml NEB QIDR #30 mL 05/20/22 06/21/22 06/21/22 (2.5 mg base)/3 mL nebulization soln oxycodone 5 mg tablet 5 mg PO Q4H PRN pain #18 tabs 05/20/22 06/21/22 Unknown spironolactone 25 mg tablet 12.5 mg PO DAILY #30 tabs 05/20/22 06/21/22 06/21/22 cyclobenzaprine 10 mg tablet 10 mg PO HS PRN Spasms 05/24/22 06/21/22 Unknown ferrous fumarate-folic acid 324 mg 1 tab PO DAILY 05/24/22 06/21/22 06/21/22 (106 mg iron)-1 mg tablet (Hematinic/Folic Acid) hydrochlorothiazide 12.5 mg tablet 12.5 mg PO Q2D 05/24/22 06/21/22 06/21/22 hydroxyzine HCl 10 mg tablet 10 mg PO TID PRN Anxiety 05/24/22 06/21/22 Unknown prochlorperazine maleate 10 mg 10 mg PO Q6H PRN Nausea And 05/24/22 06/21/22 Unknown tablet Vomiting diltiazem HCl 240 mg 240 mg PO QAM #30 caps 06/06/22 06/21/22 06/21/22 capsule,extended release 24 hr gabapentin 300 mg capsule 300 mg PO TID #100 caps 06/06/22 06/21/22 06/21/22 08:00 lorazepam 0.5 mg tablet 0.5 mg PO BID PRN anxiety #30 tabs 06/06/22 06/21/22 Unknown amoxicillin 875 mg tablet 875 mg PO BID 06/20/22 06/21/22 06/21/22 08:00 doxycycline hyclate 100 mg capsule 100 mg PO BID 06/20/22 06/21/22 06/21/22 08:00 Active Medications Generic Name Dose Route Start Last Admin Trade Name Freq PRN Reason Stop Dose Admin Vancomycin HCl 1,250 mg/ 525 mls @ 200 mls/hr 06/21/22 13:19 06/21/22 14:58 Sodium Chloride IV 06/21/22 15:56 200 mls/hr NOW ONE Administration Past Medical History Medical History Acute exacerbation of chronic obstructive pulmonary disease Acute respiratory failure with hypoxia Anxiety Brain metastasis Breast cancer, left Dx 12/2020 Cancer Cancer related pain Chronic hypercapnic respiratory failure COPD (chronic obstructive pulmonary disease) Counseling regarding advanced directives and goals of care History of migraine Hypertension Hypoxia Iron deficiency anemia Hx iron infusions Lung cancer Non small cell cancer dx 12/2020; chemo/radiation (per pt, completed 3 mo ago but still on IV prophylaxis trtmt q3wks, Tecentriq per heme records) Malignant neoplasm of upper-outer quadrant of left breast in female, estrogen receptor positive On home oxygen therapy oxygen at night 1.5 lpm via n/c Palliative care encounter Physician orders for life-sustaining treatment (POLST) form indicates patient wish for limited interventions status Pulmonary hypertension Cardio feels likely secondary to COPD and possible MARTELL Thyroid nodule Past Family History Family History Father Myocardial infarction CABG x 3 Mother , 84yo Emphysema lung Smoker Brother No problems noted. Sister No problems noted. Sister Asthma Son No problems noted. Daughter No problems noted. Other No family history of adverse response to anesthesia Past Surgical History Surgical History H/O esophagogastroduodenoscopy History of breast biopsy History of lung biopsy History of tubal ligation Hx of colonoscopy Status post left breast lumpectomy (07/09/21) Left lumpectomy with sentinel lymph node biopsy and also excision of superior left axillary lymph node with additional axillary tissue. Dr. Andres 07/09/2021 Social History Smoking Status: Former smoker tobacco type: cigarettes Hx Alcohol Use: Yes Alcohol type: wine and hard liquor alcohol intake frequency: 3 or more drinks per day Hx Substance Use: No substance use type: does not use Physical Exam Vital Signs Last Vital Signs Temp 97.5 F L 06/21/22 12:32 Pulse 91 H 06/21/22 12:32 Resp 24 06/21/22 12:32 BP 149/99 H 06/21/22 12:32 Pulse Ox 100 06/21/22 12:32 O2 Del Method 06/21/22 12:32 O2 Flow Rate 4 06/21/22 12:32 Testing Laboratory Results 06/21/22 14:50 Urine Color Yellow 06/21/22 14:50 Urine Appearance Clear (Clear) 06/21/22 14:50 Urine pH 5.5 (4.5-7.5) 06/21/22 14:50 Ur Specific [place] 1.017 (1.000-1.030) 06/21/22 14:50 Urine Protein Trace (Negative) H 06/21/22 14:50 Urine Glucose (UA) Negative (Negative) 06/21/22 14:50 Urine Ketones Negative (Negative) 06/21/22 14:50 Urine Nitrite Negative (Negative) 06/21/22 14:50 Ur Leukocyte Esterase Trace (Negative) H 06/21/22 14:50 Electrocardiogram Date: 06/20/22 Sinus rhythm with Premature atrial complexes in a pattern of bigeminy, rate 95 bpm Possible Left atrial enlargement Cannot rule out Anterior infarct (cited on or before 22-MAY-2022) Abnormal ECG When compared with ECG of 22-MAY-2022 03:40, Sinus rhythm has replaced Atrial fibrillation Vent. rate has decreased BY 63 BPM Questionable change in initial forces of Septal leads T wave amplitude has decreased in Anterolateral leads Chest X-Ray Date: 06/21/22 FINDINGS: An AP, portable, upright chest radiograph is compared to study dated 06/20/2022. Correlation is made with chest CT dated 05/16/2022. The heart is top normal for projection noting atherosclerotic calcification of the thoracic aorta. Enlargement of the central pulmonary arteries suggests pulmonary hypertension. Emphysema and chronic interstitial thickening is similar to previous. 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 There is mild bibasilar scarring/atelectasis. No airspace consolidation or large pleural effusion is identified. No pneumothorax is seen. The skeletal structures are osteopenic. The bony thorax is grossly intact. IMPRESSION: Emphysematous change with no active disease in the chest. Echocardiogram Date: 05/21/22 LV is hyperdynamic No regional wall motion abnormalities noted EF =>70% No significant valve pathology Compared with study of 09/26/2017, no significant change
[2022-06-21 15:46] LABS: Renal Epithelial Cells Urine 0-5 /lpf (0-5)
[2022-06-21 15:50] LABS: Troponin I High Sensitivity 24.6 pg/ml (0-14)
[2022-06-21 15:53] LABS: Influenza A virus by PCR Negative (Neg); Influenza B virus by PCR Negative (Neg); RSV by PCR Negative (Neg); SARS CoV2 RNA(COVID-19) Ceph NEGATIVE (Negative)
[2022-06-21 16:11] LABS: Albumin Globulin Ratio 1.2 (0.9-2); Albumin Level 3.4 gm/dl (3.4-5.0); BUN Creatinine Ratio 40.4 (10-20); Bilirubin,Total 0.7 mg/dl (0.2-1.0); Calcium 8.8 mg/dl (8.5-10.1); Creatinine Clr Calc Pharmacy 99.4 ml/min; Est GFR (African American) 123.6 ml/min; Est GFR (Non-African American) 106.6 ml/min; Globulin 2.8 gm/dl (2.5-4.0); Potassium 3.7 mmol/L (3.5-5.1); Total Protein 6.2 gm/dl (6.0-8.3)
--- NOTE | 2022-06-21 16:11 | Electrocardiogram Report ---
Test Reason : Blood Pressure : / mmHG Vent. Rate : 091 BPM Atrial Rate : 091 BPM P-R Int : 136 ms QRS Dur : 074 ms QT Int : 316 ms P-R-T Axes : 051 037 024 degrees QTc Int : 388 ms Poor data quality, interpretation may be adversely affected Sinus rhythm with Premature atrial complexes with Aberrant conduction Otherwise normal ECG When compared with ECG of 20-JUN-2022 18:27, No significant change was found Confirmed by Manuel Sun ([id number]) on 06/21/2022 4:11:15 PM Referred By: REFERRED SELF Confirmed By:Manuel Sun
[2022-06-21 16:31] LABS: Basophils # (auto) 0.03 K/uL (0-0.2); Basophils % (auto) 0.5 %; Immature Granulocytes # (auto) 0.12 K/uL (0.00-0.02); Immature Granulocytes % (auto) 1.8 %; Lymphocytes # (auto) 0.33 K/uL (1.2-3.4); Monocytes # (auto) 0.17 K/uL (0.24-0.82); Monocytes % (auto) 2.6 %; Neutrophils # (auto) 5.93 K/uL (1.4-6.5); Neutrophils % (auto) 90.1 %
--- NOTE | 2022-06-21 16:36 | History & Physical Report ---
Date of Service June 21, 2022 Assessment & Plan (1) Septic olecranon bursitis of right elbow: Plan: - 1 week of acutely worsening redness, swelling, pain of her right elbow - Aspiration this week in office with bacterial growth (do not see these records in our EMR). Started on Augmentin and doxycycline with progression. - Elbow XR: Soft tissue swelling throughout the right elbow most pronounced at the olecranon. This favors an olecranon bursitis. Probable small joint effusion - Empirically started on vancomycin in ED, will continue. - NPO at midnight for I&D in OR tomorrow. - Continue Tylenol, oxycodone for pain control. 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 - Urine osm, serum osm, urine sodium pending. (3) Chronic hypercapnic respiratory failure: Plan: - Multifactorial 2/2 lung cancer, breast cancer with brain mets, end-stage COPD. Chronic CO2 retention, CO2 of 43 today is consistent with her baseline. Chronically on 34 L NC. - No evidence of exacerbation today. Continue home inhalers, oxygen therapy. (4) Lung cancer: Plan: - Completed chemoradiation to the lung with carboplatin and maintenance atezolizumab. - Receives care from [facility]. (5) Breast cancer, left: Plan: - Continue anastrozole. - Patient is on a dexamethasone taper for brain metastases with vasogenic edema. Currently on dexamethasone 4 mg TID. (6) Atrial fibrillation: Plan: - Diagnoses during last admission. - Echo 05/21/22: hyperdynamic left ventricle, no rmwa, EF > 70%, no significant valvular disease. - Continue diltiazem. - Trop minimally elevated at 24, EkG without ST segment or T wave changes, patient without chest pain; suspect demand due to chronic respiratory failure. Will repeat in AM. (7) Hypertension: Plan: - Hold HCTZ, spironolactone pre-operatively/low Na. Plan - Admit to medicine with telemetry. - SCDs for VTE ppx. - Conditional Code; NO CPR/artificial airway/intubation but YES to defibrillation, pressors, other ACLS medications. History of Present Illness Chief Complaint: "elbow infection" Primary Care Provider: ERMA Baltazar Yanet Guido is a 61-year-old female with a past medical history significant for metastatic breast cancer to brain, lung cancer, pulmonary hypertension, COPD, atrial fibrillation, hypertension, and anxiety is presenting today with an elbow abscess. For the past month her right elbow has been more red and swollen which she attributes to rubbing it on furniture at home, but within the past week it has become "akhil red, big, swollen, and painful ". She had a needle aspiration of the right elbow performed this week which showed septic olecranon bursitis and was started on oral antibiotics as an outpatient. She had positive blood cultures and due to the worsening bursitis with possible abscess development she was referred to the ED for further evaluation. She has been evaluated by orthopedic group in the ED, patient will be admitted for IV antibiotics with plan for elbow I&D tomorrow, 06/22. On presentation in the ED she is mildly tachycardic with HR 91, BP 149/99, afebrile and on her usual 4 L NC. Labs largely unrevealing, without leukocytosis. Troponin minimally elevated at 24. Her sodium is low at 128. Her CO2 on BMP is 43, which is about baseline for her Allergies Allergy/AdvReac Type Severity Reaction Status Date / Time paclitaxel AdvReac Severe Difficulty Verified 06/21/22 15:03 Breathing Home Medications Medication Instructions Recorded Confirmed Type budesonide-formoterol HFA 160 2 puff inhalation BID 11/08/20 06/21/22 History mcg-4.5 mcg/actuation aerosol inhaler (Symbicort) cyanocobalamin (vitamin B-12) 1,000 mcg PO QAM 11/08/20 06/21/22 History 1,000 mcg tablet (Vitamin B-12) albuterol sulfate 90 mcg/actuation 2 puff inhalation Q6H PRN sob 01/03/21 06/21/22 History aerosol inhaler (ProAir HFA) acetaminophen 500 mg tablet 500 mg PO Q6H PRN Pain 01/31/21 06/21/22 History (Tylenol Extra Strength) anastrozole 1 mg tablet (Arimidex) 1 mg PO QAM 01/31/21 06/21/22 History qygvelkfql-uwghetnidteoa-dfxrljho 1 tab PO Q6H PRN migraines 01/31/21 06/21/22 History 50 mg-325 mg-40 mg tablet diclofenac sodium 3 % topical gel 1 applic topical QID PRN 01/31/21 06/21/22 History pain/swelling dexamethasone 4 mg tablet 4 mg PO TID Vasogenic edema #30 03/06/22 06/21/22 Rx tabs tiotropium bromide 1.25 1 puff inhalation DAILY 03/06/22 06/21/22 History mcg/actuation mist for inhalation (Spiriva Respimat) ipratropium 0.5 mg-albuterol 3 mg 3 ml NEB QIDR #30 mL 05/20/22 06/21/22 Rx (2.5 mg base)/3 mL nebulization soln oxycodone 5 mg tablet 5 mg PO Q4H PRN pain #18 tabs 05/20/22 06/21/22 Rx spironolactone 25 mg tablet 12.5 mg PO DAILY #30 tabs 05/20/22 06/21/22 Rx cyclobenzaprine 10 mg tablet 10 mg PO HS PRN Spasms 05/24/22 06/21/22 History ferrous fumarate-folic acid 324 mg 1 tab PO DAILY 05/24/22 06/21/22 History (106 mg iron)-1 mg tablet (Hematinic/Folic Acid) hydrochlorothiazide 12.5 mg tablet 12.5 mg PO Q2D 05/24/22 06/21/22 History hydroxyzine HCl 10 mg tablet 10 mg PO TID PRN Anxiety 05/24/22 06/21/22 History prochlorperazine maleate 10 mg 10 mg PO Q6H PRN Nausea And 05/24/22 06/21/22 History tablet Vomiting diltiazem HCl 240 mg 240 mg PO QAM #30 caps 06/06/22 06/21/22 Rx capsule,extended release 24 hr gabapentin 300 mg capsule 300 mg PO TID #100 caps 06/06/22 06/21/22 Rx lorazepam 0.5 mg tablet 0.5 mg PO BID PRN anxiety #30 tabs 06/06/22 06/21/22 Rx amoxicillin 875 mg tablet 875 mg PO BID 06/20/22 06/21/22 History doxycycline hyclate 100 mg capsule 100 mg PO BID 06/20/22 06/21/22 History Past Med/Surg History Medical History Acute exacerbation of chronic obstructive pulmonary disease Acute respiratory failure with hypoxia Anxiety Brain metastasis Breast cancer, left Dx 12/2020 Cancer Cancer related pain Chronic hypercapnic respiratory failure COPD (chronic obstructive pulmonary disease) Counseling regarding advanced directives and goals of care History of migraine Hypertension Hypoxia Iron deficiency anemia Hx iron infusions Lung cancer Non small cell cancer dx 12/2020; chemo/radiation (per pt, completed 3 mo ago but still on IV prophylaxis trtmt q3wks, Tecentriq per heme records) Malignant neoplasm of upper-outer quadrant of left breast in female, estrogen receptor positive On home oxygen therapy oxygen at night 1.5 lpm via n/c Palliative care encounter Physician orders for life-sustaining treatment (POLST) form indicates patient wish for limited interventions status Pulmonary hypertension Cardio feels likely secondary to COPD and possible MARTELL Thyroid nodule Surgical History H/O esophagogastroduodenoscopy History of breast biopsy History of lung biopsy History of tubal ligation Hx of colonoscopy Status post left breast lumpectomy (07/09/21) Left lumpectomy with sentinel lymph node biopsy and also excision of superior left axillary lymph node with additional axillary tissue. Dr. Andres 07/09/2021 Family History Father Myocardial infarction CABG x 3 Mother , 84yo Emphysema lung Smoker Brother No problems noted. Sister No problems noted. Sister Asthma Son No problems noted. Daughter No problems noted. 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 [employer] Feels Safe at Home: Yes caffeine: Yes (2-4 cups/day) during the past year weight has: remained stable Assistive Devices: CPAP and Oxygen - at Night Review of Systems Review of Systems: Constitutional: No fever/chills, weakness, fatigue, myalgias, anorexia, night sweats Eyes: No diplopia, no worsening or blurred vision ENT: normal hearing, no trouble swallowing Respiratory: No cough, sputum, dyspnea at rest or on exertion Cardiovascular: No chest pain, tightness or palpitations Abdomen: No pain, nausea, vomiting, diarrhea or constipation : Denies dysuria, hematuria, increased urgency/frequency, urinary retention Musculoskeletal: Right elbow is painful, swollen, red; otherwise no joint pain, calf pain, swelling Neurologic: No weakness, numbness/tingling, or balance problems Psychiatric: No anxiety or depression Skin: No rash or itch Physical Exam Physical Exam: General: awake, alert, no apparent distress Head: Normocephalic, atraumatic ENT: PERRL, EOMI, no pharyngeal exudate, mucous membranes moist Chest: Breath sounds reduced throughout throughout; on 4 L NC Cardiac: Regular rate and rhythm, no murmur, no JVD, normal peripheral pulses, good capillary refill Abdominal: NABS x 4 quadrants, soft, nontender to palpation, no rebound, guarding or tenderness Extremities: Right elbow is very erythematous, edematous, warm and painful to the touch, no drainage noted; otherwise normal inspection, no peripheral edema or erythema, calfs nontender to palpation Psych: Normal mood and affect Neuro: AAO x 3, strength intact bilaterally and rated 5/5, no motor deficits, speech is clear, no peripheral sensory deficits Skin: no rash or erythema Results & Data Results & Data ([facility]) Vital Signs (Past 12 Hours) Vital Signs Temp Pulse Resp BP Pulse Ox O2 Del Method O2 Flow Rate 06/21/22 12:32 36.4 C L 91 H 24 149/99 H 100 Nasal Cannula 4 Laboratory Results Abnormal lab results 06/21/22 06/21/22 06/21/22 Range/Units 14:50 14:50 14:50 RDW Std Deviation 57.0 H (36.4-46.3) fL RDW Coeff of Kp 16.0 H (11.5-14.5) % Lymph # (Auto) 0.33 L (1.2-3.4) K/uL Coal # (Auto) 0.17 L (0.24-0.82) K/uL Immature Gran # (Auto) 0.12 H (0.00-0.02) K/uL Absolute Nucleated RBC 0.07 H (0-0) K/uL APTT < 20.0 L (21.0-31.0) Seconds Sodium 128 L (136-145) mmol/L Chloride 79 L (98-107) mmol/L Carbon Dioxide 43 H* (21-32) mmol/L Creatinine 0.47 L (0.6-1.2) mg/dl BUN/Creatinine Ratio 40.4 H (10-20) Glucose 199 H (70-99(Fasting)) mg/dl ALT 59 H (7-52) U/L Troponin I High Sens 24.6 H (0-14) pg/ml Urine Protein (Negative) Ur Leukocyte Esterase (Negative) Urine WBC (Auto) (0-5) /hpf U Epithel Cells (Auto) (0-5) /lpf 06/21/22 Range/Units 14:50 RDW Std Deviation (36.4-46.3) fL RDW Coeff of Kp (11.5-14.5) % Lymph # (Auto) (1.2-3.4) K/uL Coal # (Auto) (0.24-0.82) K/uL Immature Gran # (Auto) (0.00-0.02) K/uL Absolute Nucleated RBC (0-0) K/uL APTT (21.0-31.0) Seconds Sodium (136-145) mmol/L Chloride (98-107) mmol/L Carbon Dioxide (21-32) mmol/L Creatinine (0.6-1.2) mg/dl BUN/Creatinine Ratio (10-20) Glucose (70-99(Fasting)) mg/dl ALT (7-52) U/L Troponin I High Sens (0-14) pg/ml Urine Protein Trace H (Negative) Ur Leukocyte Esterase Trace H (Negative) Urine WBC (Auto) 10-30 H (0-5) /hpf U Epithel Cells (Auto) >30 H (0-5) /lpf Diagnostic Findings Chest X-Ray 06/21/22 12:57 SINGLE VIEW CHEST CLINICAL HISTORY: Atypical chest pain. FINDINGS: An AP, portable, upright chest radiograph is compared to study dated 06/20/2022. Correlation is made with chest CT dated 05/16/2022. The heart is top normal for projection noting atherosclerotic calcification of the thoracic aorta. Enlargement of the central pulmonary arteries suggests pulmonary hyperten neli. Emphysema and chronic interstitial thickening is similar to previous. 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 There is mild bibasilar scarring/atelectasis. No airspace consolidation or large pleural effusion is identified. No pneumothorax is seen. The skeletal structures are osteopenic. The bony thorax is grossly intact. IMPRESSION: Emphysematous change with no active disease in the chest. ACT 112: Negative or not required by law. Electronically signed by: Marcelino Webb M.D. 06/21/2022 1:27 PM Elbow X-Ray 06/21/22 13:13 XR elbow RT min 3V routine CLINICAL HISTORY: Olecranon swelling. COMPARISON STUDY: None. FINDINGS: No fracture or dislocation within the right elbow. Probable small joint effusion. Soft tissue swelling within the right elbow most pronounced at the olecranon. Mild degenerative changes at the elbow joint. IMPRESSION: 1. No acute fracture or dislocation within the right elbow. 2. Soft tissue swelling throughout the right elbow most pronounced at the olecranon. This favors an olecranon bursitis. 3. Probable small joint effusion. ACT 112: Negative or not required by law. Electronically signed by: Mateo Alvarado M.D. 06/21/2022 3:10 PM Code Status & VTE Plan Code Status Conditional code; yes defibrillation, pressors, ACLS medications; no chest compressions, intubation or artificial airway Supervising Physician Co-Signing Physician Notes Patient seen and examined, chart reviewed, case discussed with Magui Villalba PA-C and I agree with the assessment and plan as above except as otherwise noted Labs and images reviewed 61-year-old female with past medical history of metastatic breast cancer, pulmonary hypertension, anxiety, COPD, atrial fibrillation, hypertension who presents with septic olecranon bursitis pending surgical drainage by orthopedics, patient is admitted to medicine due to multiple comorbidities. At bedside patient reports she is very anxious and would like her medications verified, and does have some left leg discomfort with chronic swelling and weeping wounds at baseline, in addition to some tenderness at her elbow. No chest pain, chest pressure, shortness of breath, fever or chills. Right elbow is warm, erythematous with central area of eschar. Legs are with edema bilaterally, warm and tender to touch. Patient was converted to vancomycin and on ER admission for olecranon bursitis which progressed on Augmentin/doxycycline. Culture was reportedly gram-positive per report. Continue vancomycin. Patient has symmetrical tenderness and weeping fluid in lower extremities, without spreading erythema. Low suspicion for cellulitis at this time, will defer gram-negative coverage and patient also recently was on Augmentin/doxycycline. Patient does show evidence of pulmonary edema on admission, suspect weeping wounds and pain is with venous stasis. Wrap legs, continue management as noted above PG Care Time/CCT Total # of Minutes Spent Total Time Spent with Patient: Total time spent is greater than 50% in coordination of care (as documented) at patient's floor/unit and/or counseling patient: Coding Level of Care Code 53985 INT INP/OBS CARE 2MIN Diagnoses Septic olecranon bursitis of right elbow M71.121 Hyponatremia E87.1 Chronic hypercapnic respiratory failure J96.12 Lung cancer C34.90 Breast cancer, left C50.912 Atrial fibrillation I48.91 Hypertension I10
--- NOTE | 2022-06-21 18:56 | Communication Note ---
Date of Service: June 21, 2022 I discussed case with Dr Benitez. I am glad to take over care. I spoke with pt and family . will plan for I and D of septi olecranon bursitis in AM. May have diet now, NPO after MN.
[2022-06-21] MEDS ORDERED: BUTALBITAL/ACETAMIN/CAFFEINE TAB PO PRN (19:34)
[2022-06-21] MEDS ORDERED: ALBUTEROL HFA 8 GM INHALER INH PRN (19:34)
[2022-06-21] MEDS ORDERED: LACTATED RINGER'S 1,000 ML IV SCH (19:34)
[2022-06-21] MEDS: ALBUT/IPRATROP 3MG/0.5MG NEB 3 ML VIAL NEB SCH (21:00)
[2022-06-21] MEDS: oxyCODONE HCL IR 5 MG TAB (IMMEDIATE RELEASE) PO PRN (21:41)
[2022-06-21] MEDS: GABAPENTIN 300 MG CAP PO SCH (22:11)
[2022-06-21] MEDS: dexAMETHasone 4 MG TAB PO SCH (22:12)
[2022-06-21] MEDS: VANCOMYCIN HCL 1,000 MG in SODIUM CHLORIDE 0.9% 250 ML IV SCH (23:26)
[2022-06-22] MEDS: ONDANSETRON INJ 2 MG/ML 2 ML VIAL IV PRN ×2 (01:52→22:23)
[2022-06-22] MEDS: LORazepam 0.5 MG TAB PO PRN ×2 (02:12→22:29)
[2022-06-22 06:37] LABS: Hemoglobin 10.9 g/dl (12.0-16.0); Mean Corpuscular Hemoglobin 31.7 pg (25.0-34.0); Mean Corpuscular Volume 95.9 fL (80.0-100.0); Nucleated RBC # (auto) 0.06 K/uL (0-0); Nucleated RBC % (auto) 1.2 %; Platelet Count 144 K/uL (130-400); RDW Standard Deviation 57.3 fL (36.4-46.3); Red Blood Count 3.44 M/uL (3.93-5.22); White Blood Count 5.19 K/ul (4.8-10.8)
[2022-06-22 07:01] LABS: Basophilic Stippling 1+; Basophils # (auto) 0.02 K/uL (0-0.2); Basophils % (auto) 0.4 %; Immature Granulocytes # (auto) 0.19 K/uL (0.00-0.02); Immature Granulocytes % (auto) 3.7 %; Lymphocytes # (auto) 0.32 K/uL (1.2-3.4); Lymphocytes % (auto) 6.2 %; Monocytes # (auto) 0.14 K/uL (0.24-0.82); Monocytes % (auto) 2.7 %; Neutrophils # (auto) 4.52 K/uL (1.4-6.5); Polychromasia 1+; Troponin I High Sensitivity 27.7 pg/ml (0-14)
[2022-06-22] MEDS: ALBUT/IPRATROP 3MG/0.5MG NEB 3 ML VIAL NEB SCH ×4 (07:11→20:43)
[2022-06-22] MEDS ORDERED: MIDAZOLAM HCL 1 MG/ML 2ML VIAL ONE (07:15)
[2022-06-22] MEDS ORDERED: PROPOFOL IV EMULSION 10 MG/ML 20 ML VIAL IV ONE (07:15)
[2022-06-22] MEDS ORDERED: fentaNYL citrate 100 MCG/2 ML VIAL ONE (07:15)
[2022-06-22] MEDS ORDERED: LIDOCAINE 2% MPF LOCAL 5 ML VIAL INFIL ONE (07:16)
[2022-06-22] MEDS ORDERED: BUPIVACAINE 0.5 % 5 MG/1 ML MPF 30ML VIAL ONE (07:33)
[2022-06-22 07:44] LABS: BUN Creatinine Ratio 27.7 (10-20); Calcium 7.7 mg/dl (8.5-10.1); Creatinine Clr Calc Pharmacy 99.4 ml/min; Est GFR (African American) 123.6 ml/min; Est GFR (Non-African American) 106.6 ml/min; Magnesium 1.7 mg/dl (1.7-2.4); Potassium 3.5 mmol/L (3.5-5.1)
[2022-06-22] MEDS ORDERED: ONDANSETRON INJ 2 MG/ML 2 ML VIAL IV PRN (07:45)
[2022-06-22] MEDS ORDERED: ePHEDrine sulfate 50 MG/ML AMP IV PRN (07:45)
[2022-06-22] MEDS ORDERED: ATROPINE SULFATE 0.1 MG/ML 10ML SYR IV PRN (07:45)
[2022-06-22] MEDS ORDERED: fentaNYL citrate 100 MCG/2 ML VIAL IV PRN (07:45)
--- NOTE | 2022-06-22 08:04 | History & Physical Bridge Note ---
Date of Service June 22, 2022 History & Physical Bridge Note I have examined the patient, reviewed the History & Physical and in the interval since the performance of the History & Physical I have noted the following changes of clinical significance: no changes noted I saw Yanet the preoperative holding area we discussed risk benefits reasonable outcomes and expectations for right elbow I&D and excision of olecranon bursa.
[2022-06-22] MEDS ORDERED: ONDANSETRON INJ 2 MG/ML 2 ML VIAL ONE (08:48)
--- NOTE | 2022-06-22 08:54 | Post Operative Brief Note ---
Immediate Post Op Note v1 Date of Surgery June 22, 2022 Pre & Post Diagnosis Right septic olecranon bursitis Operation Date: 06/22/22 07:30 <No data on this case meets the specified criteria> I identified the patient and participated in the time-out.: Yes Procedure I&D right septic olecranon bursitis with partial excision of bursa Operation Date: 06/22/22 07:30 <No data on this case meets the specified criteria> Surgeon Usman Flower MD Political Researcher Kendrick Mccoy PA-C Estimated Blood Loss 5 Findings Consistent with Post-Op Diagnosis Gross purulence in the olecranon bursa.
[2022-06-22] MEDS ORDERED: VANCOMYCIN HCL 750 MG in SODIUM CHLORIDE 0.9% 500 ML IV SCH (09:00)
[2022-06-22] MEDS ORDERED: [UNRECOGNIZED DRUG - OTHER] PO SCH (09:00)
--- NOTE | 2022-06-22 10:14 | Anesthesiology Progress Note ---
Date of Service June 22, 2022 Anesthesia Post Procedure Vital Signs Vital Signs: Temp Pulse Pulse Pulse Resp BP BP 06/22/22 10:00 78 22 117/92 06/22/22 09:50 95 H 22 136/84 06/22/22 09:40 97.9 F 92 H 18 137/87 06/22/22 09:30 76 16 128/86 06/22/22 09:20 72 15 127/78 06/22/22 09:10 96.8 F L 74 16 134/86 06/22/22 07:12 63 18 06/22/22 03:35 97.7 F 88 22 148/88 H 06/22/22 02:26 79 06/22/22 00:38 06/21/22 23:16 97.7 F 90 20 06/21/22 21:24 97.5 F L 85 22 142/92 H 06/21/22 21:42 06/21/22 21:42 97.5 F L 85 19 06/21/22 21:00 89 18 06/21/22 20:30 94 H 15 06/21/22 19:00 96 H 19 136/90 06/21/22 17:05 84 21 06/21/22 17:00 89 06/21/22 12:32 97.5 F L 91 H 24 149/99 H BP Pulse Ox O2 Del Method O2 Flow Rate 06/22/22 10:00 100 Oxymask 4 06/22/22 09:50 100 Oxymask 4 06/22/22 09:40 100 Oxymask 4 06/22/22 09:30 99 Oxymask 4 06/22/22 09:20 100 Oxymask 7 06/22/22 09:10 100 Oxymask 9 06/22/22 07:12 99 Nasal Cannula 4 06/22/22 03:35 98 Nasal Cannula 4 06/22/22 02:26 06/22/22 00:38 4 06/21/22 23:16 131/86 99 Nasal Cannula 4 06/21/22 21:24 97 Nasal Cannula 4 06/21/22 21:42 Nasal Cannula 4 06/21/22 21:42 142/92 H 97 Nasal Cannula 4 06/21/22 21:00 90 Nasal Cannula 4 06/21/22 20:30 96 Nasal Cannula 4 06/21/22 19:00 96 Nasal Cannula 3.5 06/21/22 17:05 145/109 H 100 Nasal Cannula 4 06/21/22 17:00 98 Nasal Cannula 4 06/21/22 12:32 100 Nasal Cannula 4 Transfer of Care Handoff Completed per policy Notes Mental Status: alert / awake / arousable and participated in evaluation Patient Amnestic to Procedure: Yes Nausea / Vomiting: adequately controlled Pain: adequately controlled Airway Patency, RR, SpO2: stable & adequate BP & HR: stable & adequate Hydration State: stable & adequate Anesthetic Complications: no major complications apparent and Pt Satisfied with anesthetic care
[2022-06-22] MEDS ORDERED: diphenhydrAMINE Capsule 25 MG CAP PO PRN (10:18)
[2022-06-22] MEDS ORDERED: bisacodyL 10 MG SUPP PR PRN (10:18)
[2022-06-22] MEDS ORDERED: NALOXONE HCL 0.4 MG/1 ML VIAL/CARP IV PRN (10:18)
[2022-06-22] MEDS: oxyCODONE HCL IR 5 MG TAB (IMMEDIATE RELEASE) PO PRN ×2 (10:23→19:40)
[2022-06-22] MEDS: dexAMETHasone 4 MG TAB PO SCH ×3 (10:24→19:42)
[2022-06-22] MEDS: GABAPENTIN 300 MG CAP PO SCH ×3 (10:25→19:42)
[2022-06-22] MEDS: dilTIAZem HCL 240 MG CAPCR PO SCH (10:26)
[2022-06-22] MEDS: ANASTROZOLE 1 MG TAB PO SCH (10:26)
[2022-06-22] MEDS: CYANOCOBALAMIN (B-12) 500 MCG TABLET PO SCH (10:35)
[2022-06-22] MEDS: METOCLOPRAMIDE HCL INJ 5 MG/ML 2 ML VIAL IV PRN (10:39)
[2022-06-22] MEDS: SODIUM CHLORIDE 0.9% 1000ML 1,000 ML IV SCH ×2 (12:06→21:00)
[2022-06-22] MEDS: VANCOMYCIN HCL 1,000 MG in SODIUM CHLORIDE 0.9% 250 ML IV SCH ×2 (12:07→23:54)
--- NOTE | 2022-06-22 14:33 | Pharmacy Report ---
Pharmacy PK ABX Note - Date of Service June 22, 2022 - Assessment and Plan Assessment 61 year old F receiving vancomycin for treatment of septic bursitis. Pertinent microbiologic data includes: Elbow culture pending, blood cultures pending, urine culture no growth. Patient s/p I&D on 06/22. Plan Vancomycin * Loading dose: 1250 mg IV x 1 * Maintenance dose: 1000 mg IV every 12 hours * Regimen is predicted to achieve target AUC/LENO of 400-600 mg/L.hr * Trough ordered for 06/23 @ 11:30 Pharmacy will continue to follow and will adjust dose/frequency as necessary. Thank you. Pharmacy has transitioned to AUC monitoring for vancomycin. AUC/LENO is the preferred PK/PD target and is associated with decreased risk of nephrotoxicity compared to traditional trough targets.
[2022-06-22] MEDS: UMECLIDINIUM BROMIDE 62.5MCG/BLISTER 7 PUFFS/INHALER INH SCH (14:41)
[2022-06-22] MEDS: FLUTICASONE/VILANTEROL 100/25MCG 14 PUFFS/INHALER INH SCH (14:41)
[2022-06-22] MEDS: ACETAMINOPHEN 1,000 MG/100 ML VIAL IV PRN (18:31)
[2022-06-22] MEDS: SENNA 8.6 MG TAB PO SCH (19:43)
[2022-06-22] MEDS: DOCUSATE SODIUM 100 MG CAP PO SCH (19:43)
[2022-06-22] MEDS ORDERED: FLUCONAZOLE 50 MG TAB PO ONE (22:54)
--- NOTE | 2022-06-22 22:59 | Hospitalist Progress Note ---
Date of Service June 22, 2022 Assessment & Plan (1) Septic olecranon bursitis of right elbow: Plan: - 1 week of acutely worsening redness, swelling, pain of her right elbow - Aspiration this week in office with bacterial growth (do not see these records in our EMR). Started on Augmentin and doxycycline with progression. - Elbow XR: Soft tissue swelling throughout the right elbow most pronounced at the olecranon. This favors an olecranon bursitis. Probable small joint effusion - Empirically started on vancomycin in ED, will continue. -Or drainage completed. - Continue Tylenol, oxycodone for pain control. 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 - Urine osm, serum osm, urine sodium pending. (3) Chronic hypercapnic respiratory failure: Plan: - Multifactorial 2/2 lung cancer, breast cancer with brain mets, end-stage COPD. Chronic CO2 retention, CO2 of 43 today is consistent with her baseline. Chronically on 34 L NC. - No evidence of exacerbation today. Continue home inhalers, oxygen therapy. (4) Lung cancer: Plan: - Completed chemoradiation to the lung with carboplatin and maintenance atezolizumab. - Receives care from [facility]. (5) Breast cancer, left: Plan: - Continue anastrozole. - Patient is on a dexamethasone taper for brain metastases with vasogenic edema. Currently on dexamethasone 4 mg TID. (6) Atrial fibrillation: Plan: - Diagnoses during last admission. - Echo 05/21/22: hyperdynamic left ventricle, no rmwa, EF > 70%, no significant valvular disease. - Continue diltiazem. - Trop minimally elevated at 24, EkG without ST segment or T wave changes, patient without chest pain; suspect demand due to chronic respiratory failure. Will repeat in AM. (7) Hypertension: Plan: - Hold HCTZ, spironolactone pre-operatively/low Na. Plan - Admission and Anticipated Discharge Date Admission Date: June 21, 2022 Subjective 61y female, in ER per [facility] primary care directive, for admission and IV Abx. 61-year-old female with past medical history of metastatic breast cancer, pulmonary hypertension, anxiety, COPD, atrial fibrillation, hypertension who presents with septic olecranon bursitis pending surgical drainage by orthopedics, patient is admitted to medicine due to multiple comorbidities. Patient pain is better controlled Patient was converted to vancomycin and on ER admission for olecranon bursitis which progressed on Augmentin/doxycycline. Culture was reportedly gram-positive per report. Continue vancomycin. Physical Exam Physical Exam: Head and ENT no thyroid enlargement trachea midline Cardiovascular S1-S2 are normal no S3 Lungs bilateral air entry fair no wheezing Abdomen soft nondistended positive bowel sounds no rebound tenderness Extremity shows trace edema bursitis improving Neurologically no focal deficits Skin shows no rash no cyanosis Results & Data Results & Data ([facility]) Vital Signs (Past 12 Hours) Vital Signs Temp Pulse Pulse Resp BP Pulse Ox O2 Del Method 06/22/22 20:47 97 H 16 92 Nasal Cannula 06/22/22 18:41 36.7 C 86 16 109/70 91 Room Air 06/22/22 16:07 36.8 C 89 19 108/74 89 L Nasal Cannula 06/22/22 15:17 86 16 Nasal Cannula 06/22/22 14:03 80 06/22/22 14:11 97 Nasal Cannula 06/22/22 12:13 36.6 C 82 110/73 100 Nasal Cannula 06/22/22 11:19 36.2 C L 82 120/79 100 Nasal Cannula 06/22/22 11:00 Nasal Cannula O2 Flow Rate 06/22/22 20:47 2 06/22/22 18:41 2 06/22/22 16:07 2 06/22/22 15:17 1 06/22/22 14:03 06/22/22 14:11 2 06/22/22 12:13 4 06/22/22 11:19 4 06/22/22 11:00 4 Laboratory Results Short CBC 06/22/22 Range/Units 05:35 WBC 5.19 (4.8-10.8) K/ul Hgb 10.9 L (12.0-16.0) g/dl Hct 33.0 L (34.1-44.9) % Plt Count 144 (130-400) K/uL BMP 06/22/22 05:35 Sodium 130 L Potassium 3.5 Chloride 82 L Carbon Dioxide 45 H* BUN 13 Creatinine 0.47 L Glucose 194 H Calcium 7.7 L PG Care Time/CCT Total # of Minutes Spent Total Time Spent with Patient: Total time spent is greater than 50% in coordination of care (as documented) at patient's floor/unit and/or counseling patient: Coding Level of Care Code 75401 SUB INP/OBS CARE MIN Diagnoses Septic olecranon bursitis of right elbow M71.121 Hyponatremia E87.1 Chronic hypercapnic respiratory failure J96.12 Lung cancer C34.90 Breast cancer, left C50.912 Atrial fibrillation I48.91 Hypertension I10
[2022-06-23] MEDS: LORazepam 0.5 MG TAB PO PRN (04:53)
[2022-06-23] MEDS: oxyCODONE HCL IR 5 MG TAB (IMMEDIATE RELEASE) PO PRN ×4 (04:53→20:32)
[2022-06-23] MEDS: ALBUT/IPRATROP 3MG/0.5MG NEB 3 ML VIAL NEB SCH ×4 (07:40→19:32)
[2022-06-23] MEDS: DOCUSATE SODIUM 100 MG CAP PO SCH ×2 (07:53→20:45)
[2022-06-23] MEDS: GABAPENTIN 300 MG CAP PO SCH ×3 (07:53→20:43)
[2022-06-23] MEDS: dilTIAZem HCL 240 MG CAPCR PO SCH (07:54)
[2022-06-23] MEDS: MULTIVITAMIN TAB PO SCH (07:54)
[2022-06-23] MEDS: ANASTROZOLE 1 MG TAB PO SCH (07:54)
[2022-06-23] MEDS: CYANOCOBALAMIN (B-12) 500 MCG TABLET PO SCH (07:54)
[2022-06-23 08:03] LABS: Basophils # (auto) 0.02 K/uL (0-0.2); Basophils % (auto) 0.3 %; Hematocrit (blood only) 33.8 % (34.1-44.9); Hemoglobin 10.9 g/dl (12.0-16.0); Immature Granulocytes # (auto) 0.22 K/uL (0.00-0.02); Immature Granulocytes % (auto) 3.7 %; Lymphocytes # (auto) 0.33 K/uL (1.2-3.4); Lymphocytes % (auto) 5.6 %; Mean Corpuscular Hemoglobin 32.2 pg (25.0-34.0); Mean Corpuscular Hgb Conc 32.2 g/dL (32.0-36.0); Mean Corpuscular Volume 99.7 fL (80.0-100.0); Mean Platelet Volume 9.9 fL (9.4-12.3); Monocytes # (auto) 0.15 K/uL (0.24-0.82); Monocytes % (auto) 2.5 %; Neutrophils # (auto) 5.18 K/uL (1.4-6.5); Neutrophils % (auto) 87.9 %; Nucleated RBC # (auto) 0.03 K/uL (0-0); Nucleated RBC % (auto) 0.5 %; Platelet Count 143 K/uL (130-400); RDW Coefficient of Variation 15.9 % (11.5-14.5); RDW Standard Deviation 58.6 fL (36.4-46.3); Red Blood Count 3.39 M/uL (3.93-5.22)
[2022-06-23 08:28] LABS: BUN Creatinine Ratio 26.3 (10-20); Calcium 7.6 mg/dl (8.5-10.1); Creatinine Clr Calc Pharmacy 134.1 ml/min; Est GFR (African American) 132.5 ml/min; Est GFR (Non-African American) 114.3 ml/min; Potassium 4.4 mmol/L (3.5-5.1)
--- NOTE | 2022-06-23 08:32 | Orthopedic Progress Note ---
Date of Service June 23, 2022 Assessment & Plan (1) Septic olecranon bursitis of right elbow: Plan POD #1 I&D right septic olecranon bursitis with partial excision of bursa -Keep splint in place -ROM of the hand/digits as tolerated -Plan for dressing change and packing removal tomorrow -Intra-operative cultures pending. Gram + cocci on gram stain -Continue Vancomycin until final cultures return -Pain control as ordered Admission and Anticipated Discharge Date Admission Date: June 21, 2022 Supervising Physician Co-Signing Physician Notes Patient seen and examined. Agree with RHONA Burgos's note as above. Patient is resting comfortably. She reports that her elbow pain is significantly improved compared to preoperatively. She does seem to be forcefully flexing her elbow and bending her splint. She is also leaning her elbow on her chair armrest currently. I encouraged her to avoid excessive elbow flexion and avoid direct pressure on the posterior aspect of her elbow with leaning on the elbow as much as possible to allow the wound to heal. Currently on vancomycin. Cultures are growing Staphylococcus species. Subjective Patient did well overnight. She states that her elbow feels much better after having surgery yesterday. No other acute complaints. Physical Exam Constitutional: WD/WN, vitals as above no acute distress Musculoskeletal: Left elbow dressing c/d/i. Neurovascularly intact. Fingers mobile. Neurologic: moves all extremities and awake Speech / Cognition: + abnormal speech Results & Data ([facility]) Vital Signs (Past 12 Hours) Vital Signs Temp Pulse Pulse Pulse Resp BP Pulse Ox 06/23/22 07:41 82 16 92 06/23/22 07:35 36.4 C L 68 16 146/89 H 93 06/22/22 22:30 101 H 06/23/22 03:27 36.4 C L 86 16 126/84 97 06/23/22 00:03 36.4 C L 83 18 120/83 97 06/22/22 22:00 36.4 C L 93 H 18 120/83 91 06/22/22 20:47 97 H 16 92 O2 Del Method O2 Flow Rate 06/23/22 07:41 Nasal Cannula 2 06/23/22 07:35 Nasal Cannula 2 06/22/22 22:30 06/23/22 03:27 Nasal Cannula 2 06/23/22 00:03 Nasal Cannula 2 06/22/22 22:00 Nasal Cannula 3 06/22/22 20:47 Nasal Cannula 2 Laboratory Results Laboratory Tests 06/23/22 06/23/22 07:30 07:30 RBC 3.39 L Hgb 10.9 L Hct 33.8 L Neut # (Auto) 5.18 Lymph # (Auto) 0.33 L [place] # (Auto) 0.15 L Eos # (Auto) 0.00 Baso # (Auto) 0.02 Immature Gran # (Auto) 0.22 H Absolute Nucleated RBC 0.03 H BUN 10 Creatinine 0.38 L Calcium 7.6 L
[2022-06-23] MEDS: hydrOXYzine HCl 10 MG TAB PO PRN ×2 (10:05→20:33)
[2022-06-23] MEDS: FLUTICASONE/VILANTEROL 100/25MCG 14 PUFFS/INHALER INH SCH (11:00)
[2022-06-23] MEDS: dexAMETHasone 4 MG TAB PO SCH ×3 (11:00→20:43)
[2022-06-23] MEDS: UMECLIDINIUM BROMIDE 62.5MCG/BLISTER 7 PUFFS/INHALER INH SCH (11:01)
[2022-06-23] MEDS ORDERED: VANCOMYCIN LEVEL ONE (11:30)
[2022-06-23] MEDS: VANCOMYCIN HCL 1,000 MG in SODIUM CHLORIDE 0.9% 250 ML IV SCH ×3 (11:53→20:48)
--- NOTE | 2022-06-23 13:51 | Pharmacy Report ---
Pharmacy PK ABX Note - Date of Service June 23, 2022 - Assessment and Plan Assessment 61 year old F receiving vancomycin for treatment of septic bursitis. Pertinent microbiologic data includes: Elbow culture pending, blood cultures pending, urine culture no growth. Patient s/p I&D on 06/22. 06/23: Elbow culture preliminary staph species continuing on vancomycin until further speciation/sensitivities. Noon dose delayed d/t IV infiltration. Plan 06/23: Trough this AM 10.7 which predicts an AUC/LENO below target Adjust dose to 1000 mg q8H Additional level in 2-3 days 06/22: Vancomycin * Loading dose: 1250 mg IV x 1 * Maintenance dose: 1000 mg IV every 12 hours * Regimen is predicted to achieve target AUC/LENO of 400-600 mg/L.hr * Trough ordered for 06/23 @ 11:30 Pharmacy will continue to follow and will adjust dose/frequency as necessary. Thank you. Pharmacy has transitioned to AUC monitoring for vancomycin. AUC/LENO is the preferred PK/PD target and is associated with decreased risk of nephrotoxicity compared to traditional trough targets.
[2022-06-23] MEDS: ACETAMINOPHEN 1,000 MG/100 ML VIAL IV PRN (18:19)
--- NOTE | 2022-06-23 20:01 | Hospitalist Progress Note ---
Date of Service June 23, 2022 Assessment & Plan (1) Septic olecranon bursitis of right elbow: Plan: - 1 week of acutely worsening redness, swelling, pain of her right elbow - Aspiration this week in office with bacterial growth (do not see these records in our EMR). Started on Augmentin and doxycycline with progression. - Elbow XR: Soft tissue swelling throughout the right elbow most pronounced at the olecranon. This favors an olecranon bursitis. Probable small joint effusion - Empirically started on vancomycin in ED, will continue. -Or drainage completed. - Continue Tylenol, oxycodone for pain control. 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 -Strict I & os monitoring and patient needs to be fluid restricted to 1.5 L Trial of loop diuretic therapy with Lasix for 2 days as patient has lower extremity edema (3) Chronic hypercapnic respiratory failure: Plan: - Multifactorial 2/2 lung cancer, breast cancer with brain mets, end-stage COPD. Chronic CO2 retention, CO2 of 43 today is consistent with her baseline. Chronically on 34 L NC. - No evidence of exacerbation today. Continue home inhalers, oxygen therapy. (4) Lung cancer: Plan: - Completed chemoradiation to the lung with carboplatin and maintenance atezolizumab. - Receives care from [facility]. (5) Breast cancer, left: Plan: - Continue anastrozole. - Patient is on a dexamethasone taper for brain metastases with vasogenic edema. Currently on dexamethasone 4 mg TID. (6) Atrial fibrillation: Plan: - Diagnoses during last admission. - Echo 05/21/22: hyperdynamic left ventricle, no rmwa, EF > 70%, no significant valvular disease. - Continue diltiazem. - Trop minimally elevated at 24, EkG without ST segment or T wave changes, patient without chest pain; suspect demand due to chronic respiratory failure. Will repeat in AM. (7) Hypertension: Plan: - Hold HCTZ, spironolactone pre-operatively/low Na. Plan - Admission and Anticipated Discharge Date Admission Date: June 21, 2022 Supervising Physician Co-Signing Physician Notes Subjective Patient reports improvement in her elbow pain compared to yesterday Still has diffuse body aches reported and lower extremity swelling . Review of Systems Review of Systems: Constitutional: No fever/chills, weakness, fatigue, myalgias, anorexia, night sweats Eyes: No diplopia, no worsening or blurred vision ENT: normal hearing, no trouble swallowing Respiratory: No cough, sputum, dyspnea at rest or on exertion Cardiovascular: No chest pain, tightness or palpitations Abdomen: No pain, nausea, vomiting, diarrhea or constipation : Denies dysuria, hematuria, increased urgency/frequency, urinary retention Musculoskeletal: Right elbow pain improving reports diffuse body pain Physical Exam Physical Exam: Head and ENT no thyroid enlargement trachea midline Cardiovascular S1-S2 are normal no S3 Lungs bilateral air entry fair no wheezing Abdomen soft nondistended positive bowel sounds no rebound tenderness Extremity shows trace edema bursitis improving right elbow Neurologically no focal deficits Skin shows no rash no cyanosis Results & Data Results & Data ([facility]) Vital Signs (Past 12 Hours) Vital Signs Temp Pulse Pulse Resp BP Pulse Ox O2 Del Method 06/23/22 19:38 89 18 97 Nasal Cannula 06/23/22 15:21 104 H 06/23/22 14:08 88 06/23/22 08:00 Nasal Cannula 06/23/22 15:46 76 18 94 Nasal Cannula 06/23/22 15:21 36.7 C 92 H 18 136/81 91 Nasal Cannula 06/23/22 13:27 36.5 C 131/85 06/23/22 10:37 90 18 97 Nasal Cannula O2 Flow Rate 06/23/22 19:38 2 06/23/22 15:21 06/23/22 14:08 06/23/22 08:00 2 06/23/22 15:46 2 06/23/22 15:21 2 06/23/22 13:27 06/23/22 10:37 2 PG Care Time/CCT Total # of Minutes Spent Total Time Spent with Patient: Total time spent is greater than 50% in coordination of care (as documented) at patient's floor/unit and/or counseling patient: Coding Level of Care Code 83868 SUB INP/OBS CARE 2/35MIN Diagnoses Septic olecranon bursitis of right elbow M71.121 Hyponatremia E87.1 Chronic hypercapnic respiratory failure J96.12 Lung cancer C34.90 Breast cancer, left C50.912 Atrial fibrillation I48.91 Hypertension I10
[2022-06-23] MEDS: SENNA 8.6 MG TAB PO SCH (20:44)
[2022-06-23] MEDS: FUROSEMIDE INJ 20 MG/2 ML VIAL IV SCH (22:32)
[2022-06-24] MEDS: LORazepam 0.5 MG TAB PO PRN ×2 (02:27→21:05)
[2022-06-24] MEDS: VANCOMYCIN HCL 1,000 MG in SODIUM CHLORIDE 0.9% 250 ML IV SCH (05:11)
[2022-06-24] MEDS: ALBUT/IPRATROP 3MG/0.5MG NEB 3 ML VIAL NEB SCH ×4 (07:17→19:03)
--- NOTE | 2022-06-24 08:06 | Operative Report (OR) ---
PREOPERATIVE DIAGNOSIS: Right septic olecranon bursitis. POSTOPERATIVE DIAGNOSIS: Right septic olecranon bursitis. PROCEDURES: 1. Right, incision and drainage, septic olecranon bursitis. 2. Right elbow partial excision of olecranon bursa. PRETZEL COOKER: Kendrick Mccoy PA-C, who was necessary for prepping, draping, retraction, exposure, and c losure. ANESTHESIA: General. INDICATIONS: This 61-year-old female with progressive pain and swelling over the olecranon bursa. S he has failed aspiration and oral antibiotics. She presents for admission to the hospital with other multiple medical comorbidities. The risks and benefits have been discussed including, but not limited to, risk of infection, nerve in jury, stiffness, loss of motion, failure to improve, etc. Reasonable outcomes and options of treatmen t were discussed. An explanation of appropriate alternatives to the procedure that may be advantageou s were discussed and their risks and benefits, as well as the risks and benefits of not proceeding wi th treatment. I offered to answer any additional inquiries concerning the treatment involved. All the patients questions were answered. The patient is agreeable, understanding of the treatment plan and alternatives, and wishes to proceed with the treatment plan. DESCRIPTION OF PROCEDURE: The patient has an eschar over the tip of the elbow. I elected to avoid t his area given concern for wound breakdown. I elected to proceed with a minimally invasive procedure to prevent further wound breakdown. I placed an incision over the lateral aspect of the elbow on th e nontension side of the olecranon bursa. I made a small 1.5 cm incision. Dissection was carried th rough the skin and subcutaneous tissue. Moderate amount of fluid was encountered consistent with savannah ss infection and this was drained performing an incision and drainage of the elbow. I debrided the a herman of skin, subcutaneous tissue and fascia. Cultures were sent of the infected fluid. I then irrig ated the area copiously with 3 liters of normal saline. I inspected the bursa. There was some devitalized bursal tissue. I performed a partial excision of bursa with curette and rongeur. Once this was accomplished, we were able to fairly clean. I closed the skin with timoteo and placed a small amount of iodoform gauze packing distally. Patient was plac ed in a splint with the elbow in extension. POSTOPERATIVE PLAN: Will be 3 weeks of immobilization in extension. We will remove timoteo at appro ximately 3 weeks for interval wound healing. We will check cultures and monitor antibiotics as appro judit. Job ID: [id number]
[2022-06-24 08:42] LABS: Basophils # (auto) 0.02 K/uL (0-0.2); Basophils % (auto) 0.3 %; Hematocrit (blood only) 35.1 % (34.1-44.9); Hemoglobin 11.2 g/dl (12.0-16.0); Immature Granulocytes # (auto) 0.27 K/uL (0.00-0.02); Immature Granulocytes % (auto) 4.7 %; Lymphocytes # (auto) 0.39 K/uL (1.2-3.4); Lymphocytes % (auto) 6.7 %; Mean Corpuscular Hemoglobin 31.9 pg (25.0-34.0); Mean Corpuscular Hgb Conc 31.9 g/dL (32.0-36.0); Mean Platelet Volume 9.3 fL (9.4-12.3); Monocytes % (auto) 1.7 %; Neutrophils # (auto) 5.02 K/uL (1.4-6.5); Neutrophils % (auto) 86.6 %; Nucleated RBC # (auto) 0.03 K/uL (0-0); Nucleated RBC % (auto) 0.5 %; Platelet Count 145 K/uL (130-400); RDW Coefficient of Variation 15.9 % (11.5-14.5); RDW Standard Deviation 59.2 fL (36.4-46.3); Red Blood Count 3.51 M/uL (3.93-5.22)
[2022-06-24 09:12] LABS: BUN Creatinine Ratio 26.2 (10-20); Blood Urea Nitrogen 11 mg/dl (6-23); Calcium 8.3 mg/dl (8.5-10.1); Carbon Dioxide > 45 mmol/L (21-32); Chloride 87 mmol/L (98-107); Creatinine Clr Calc Pharmacy 122.1 ml/min; Est GFR (African American) 128.2 ml/min; Est GFR (Non-African American) 110.6 ml/min; Glucose 196 mg/dl (70-99(Fasting)); Glucose Fasting 196 mg/dl (70-99)
[2022-06-24] MEDS: CYANOCOBALAMIN (B-12) 500 MCG TABLET PO SCH (09:12)
[2022-06-24] MEDS: dexAMETHasone 4 MG TAB PO SCH ×3 (09:12→19:53)
[2022-06-24] MEDS: ANASTROZOLE 1 MG TAB PO SCH (09:12)
[2022-06-24] MEDS: MULTIVITAMIN TAB PO SCH (09:13)
[2022-06-24] MEDS: UMECLIDINIUM BROMIDE 62.5MCG/BLISTER 7 PUFFS/INHALER INH SCH (09:13)
[2022-06-24] MEDS: GABAPENTIN 300 MG CAP PO SCH ×3 (09:13→19:53)
[2022-06-24] MEDS: FLUTICASONE/VILANTEROL 100/25MCG 14 PUFFS/INHALER INH SCH (09:13)
[2022-06-24] MEDS: DOCUSATE SODIUM 100 MG CAP PO SCH ×2 (09:13→19:58)
[2022-06-24] MEDS: FUROSEMIDE INJ 20 MG/2 ML VIAL IV SCH (09:13)
[2022-06-24 09:23] LABS: Sodium 135 mmol/L (136-145)
[2022-06-24] MEDS ORDERED: DAPTOMYCIN IV SCH (09:30)
[2022-06-24] MEDS: DAPTOmycin 200 MG in SYRINGE 0 ML IV SCH (10:26)
[2022-06-24] MEDS: dilTIAZem HCL 240 MG CAPCR PO SCH (11:14)
[2022-06-24] MEDS: oxyCODONE HCL IR 5 MG TAB (IMMEDIATE RELEASE) PO PRN ×2 (11:21→20:05)
--- NOTE | 2022-06-24 13:25 | Orthopedic Progress Note ---
Date of Service June 24, 2022 Assessment & Plan (1) Septic olecranon bursitis of right elbow: Plan: POD #2 s/p I&D right septic olecranon bursitis with partial excision of bursa -Dressing changed today. Approximately 1.5-2 inches of packing removed from the surgical site. Area was redressed with Adaptic, gauze, ABD, Kerlix, and anterior splint placed. -ROM of the hand/digits as tolerated -Intra-operative cultures growing staph aureus with sensitivities noted above. -The patient will probably benefit from IV antibiotics while inpatient. She could transition to oral antibiotics for approximately 2 weeks upon discharge. -Pain control as ordered -Discharge planningshe is able to be discharged when medicine feels she is stable. From an orthopedic standpoint, we will sign off and see the patient in the office in approximately 10-12 days postop. She is to continue the anterior splint until seen back. Recommend daily dressing changes. Admission and Anticipated Discharge Date Admission Date: June 21, 2022 Subjective Patient is doing well today. States her arm feels much better now than it did preoperatively. Her was present during today's visit and the dressing change. Physical Exam Constitutional: WD/WN, vitals as above no acute distress Musculoskeletal: Extremities: + elbow/forearm abnormality Right (Approximated incision olecranon. Improved erythema. Sloughing at previous eschar) Skin: no rashes, warm and dry Neurologic: normal touch/pain/proprioception Psychiatric: Orientation: alert and cooperative Results & Data ([facility]) Vital Signs (Past 12 Hours) Vital Signs Temp Pulse Pulse Resp BP Pulse Ox O2 Del Method 06/24/22 11:40 36.4 C L 78 16 133/76 95 Nasal Cannula 06/24/22 10:46 95 H 18 94 Nasal Cannula 06/24/22 07:52 36.5 C 95 H 16 126/83 94 Nasal Cannula 06/24/22 07:44 76 06/24/22 07:18 81 18 96 Nasal Cannula 06/24/22 05:17 Nasal Cannula 06/24/22 04:37 36.9 C 89 18 143/75 H 94 Nasal Cannula 06/24/22 04:02 78 O2 Flow Rate 06/24/22 11:40 1 06/24/22 10:46 2 06/24/22 07:52 2 06/24/22 07:44 06/24/22 07:18 2 06/24/22 05:17 2 06/24/22 04:37 2 06/24/22 04:02 Laboratory Results Spec: [id number] Collected: 06/22/22 Received: 06/22/[address]: Usman Flower MD Copy To: Bentley Fountain MD Source: Elbow,Right OV Order: Ordered: Aer/Delia Cult/Sm Comments: Comment Culture #1--Right Olecranon Bursa Procedure Result Verified Site Gram Stain Final 06/22/22 Gram Stain Result Few Epithelial Cells Many Polys Rare Mononucleated Cells Many Gram Positive Cocci Aero/Delia Cult Preliminary 06/24/22 Organism 1 Staphylococcus aureus Quantity Many Sens Sensitivities to Follow S aureus RX M.I.C. --- --------- Clindamycin R <=0.5 Daptomycin S <=0.5 Erythromycin R >4 Oxacillin S <=0.25 Tetracycline S <=4 Trimeth/Sulfa S <=0.5/9.5 Vancomycin S 1 S = SENSITIVE I = INTERMEDIATE R = RESISTANT
[2022-06-24] MEDS ORDERED: oxyCODONE HCL IR 5 MG TAB (IMMEDIATE RELEASE) PO PRN (13:34)
[2022-06-24] MEDS: ACETAMINOPHEN 500 MG TAB PO PRN (13:41)
[2022-06-24 14:37] LABS: Base Excess ABG 19.4 mEq/L (-9-1.8); HCO3 ABG 45 mmol/L (19-24); Oxygen Saturation ABG 99.7 % (90-95); PCO2 ABG 58 mmHg (35-46); PO2 ABG 154 mmHg (80-95)
[2022-06-24 14:59] LABS: Allen Test Pos (Pos)
--- NOTE | 2022-06-24 15:14 | Hospitalist Progress Note ---
Date of Service June 24, 2022 Assessment & Plan (1) Hyponatremia: Plan: Chronic. History of SIADH. Fluid restriction. Serial labs (2) Hypertension: Plan: Acceptable with current medication management (3) Septic olecranon bursitis of right elbow: Plan: Appreciate orthopedic consultation and I&D procedure completed June 22. MSSA isolated. She is now on intravenous daptomycin which replaces intravenous vancomycin. She will be discharged on an oral antibiotic for 2 weeks per orthopedic request when she goes home, possibly tomorrowJune 25 (4) Chronic hypercapnic respiratory failure: Plan: Keep oxygen saturation in the 90 to 92% range to minimize CO2 retention. The patient and request resting ABG to measure PCO2 level (5) Cancer related pain: Plan: Oxycodone as needed for pain (6) Atrial fibrillation: Plan: Controlled with current medical management Plan Hopeful discharge to home tomorrowJune 25, on oral antibiotic for 2 weeks Admission and Anticipated Discharge Date Admission Date: June 21, 2022 Subjective Alert and oriented. Unpleasant though. is at the bedside. They both request resting ABG done to measure PCO2 level which could help them get BiPAP at home. Orthopedic surgery entry noted. We will convert at discharge to oral antibiotic for 2 more weeks. Hopefully home tomorrowJune 25 Review of Systems Review of Systems: Constitutional-no fever or chills ENT-no blurred vision, no double vision, no epistaxis, no sore throat Respiratory-no cough, no wheezing. Short of breath with exertion which is chronic Cardiac-no palpitations, no chest pain, no syncope GI-no nausea, vomiting, diarrhea, melena, hematochezia -no urinary retention, no urinary incontinence, no dysuria, no hematuria Musculoskeletal-right arm heavily bandaged Skin-no bruising, no rashes, no pruritus Neuro-no isolated weakness, no paresthesia, no weakness Psych-no depression, no anxiety Physical Exam Physical Exam: General-alert and oriented x3, no fevers, no chills HEENT-head atraumatic and normocephalic, pupils equal and reactive to light, extraocular muscles intact Neck-no lymphadenopathy or thyromegaly, trachea midline Chest-markedly diminished breath sounds bilaterally. Bibasilar dullness to percussion. No wheezing Cardiac-regular rate and rhythm, normal S1 and S2 Abdomen-normal bowel sounds, nontender, no hepatosplenomegaly Extremities-right arm heavily bandaged Neuro-cranial nerves II through XII intact, motor and sensory function within normal limits, strength symmetrical , no focal deficits Psych-unpleasant, depressed affect Results & Data Results & Data ([facility]) Vital Signs (Past 12 Hours) Vital Signs Temp Pulse Pulse Resp BP Pulse Ox O2 Del Method 06/24/22 14:15 100 H 96 Nasal Cannula 06/24/22 07:30 Nasal Cannula 06/24/22 11:40 36.4 C L 78 16 133/76 95 Nasal Cannula 06/24/22 10:46 95 H 18 94 Nasal Cannula 06/24/22 07:52 36.5 C 95 H 16 126/83 94 Nasal Cannula 06/24/22 07:44 76 06/24/22 07:18 81 18 96 Nasal Cannula 06/24/22 05:17 Nasal Cannula 06/24/22 04:37 36.9 C 89 18 143/75 H 94 Nasal Cannula 06/24/22 04:02 78 O2 Flow Rate 06/24/22 14:15 2 06/24/22 07:30 2 06/24/22 11:40 1 06/24/22 10:46 2 06/24/22 07:52 2 06/24/22 07:44 06/24/22 07:18 2 06/24/22 05:17 2 06/24/22 04:37 2 06/24/22 04:02 Laboratory Results 06/24/22 08:21 06/24/22 08:21 PG Care Time/CCT Total # of Minutes Spent Total Time Spent with Patient: Total time spent is greater than 50% in coordination of care (as documented) at patient's floor/unit and/or counseling patient: Coding Level of Care Code 50074 SUB INP/OBS CARE 3/50MIN Diagnoses Hyponatremia E87.1 Hypertension I10 Septic olecranon bursitis of right elbow M71.121 Chronic hypercapnic respiratory failure J96.12 Cancer related pain G89.3 Atrial fibrillation I48.91
[2022-06-24] MEDS ORDERED: Nursing to Pharmacy Communication PRN (18:11)
[2022-06-24] MEDS: SENNA 8.6 MG TAB PO SCH (19:54)
[2022-06-24] MEDS: CYCLOBENZAPRINE HCL 10 MG TAB PO PRN (19:58)
[2022-06-24] MEDS: ONDANSETRON INJ 2 MG/ML 2 ML VIAL IV PRN (21:05)
[2022-06-25] MEDS: ALBUT/IPRATROP 3MG/0.5MG NEB 3 ML VIAL NEB SCH ×4 (07:03→19:55)
[2022-06-25] MEDS: oxyCODONE HCL IR 5 MG TAB (IMMEDIATE RELEASE) PO PRN ×3 (07:53→23:28)
[2022-06-25 08:00] LABS: Hematocrit (blood only) 30.7 % (34.1-44.9); Mean Corpuscular Hemoglobin 32.1 pg (25.0-34.0); Mean Corpuscular Hgb Conc 32.6 g/dL (32.0-36.0); Mean Corpuscular Volume 98.4 fL (80.0-100.0); Mean Platelet Volume 9.7 fL (9.4-12.3); Nucleated RBC # (auto) 0.05 K/uL (0-0); Nucleated RBC % (auto) 0.9 %; Platelet Count 140 K/uL (130-400); RDW Coefficient of Variation 15.8 % (11.5-14.5); RDW Standard Deviation 56.4 fL (36.4-46.3); Red Blood Count 3.12 M/uL (3.93-5.22); White Blood Count 5.47 K/ul (4.8-10.8)
[2022-06-25] MEDS: FLUTICASONE/VILANTEROL 100/25MCG 14 PUFFS/INHALER INH SCH (08:19)
[2022-06-25] MEDS: dexAMETHasone 4 MG TAB PO SCH ×3 (08:19→20:09)
[2022-06-25] MEDS: ANASTROZOLE 1 MG TAB PO SCH (08:19)
[2022-06-25] MEDS: GABAPENTIN 300 MG CAP PO SCH ×3 (08:19→20:10)
[2022-06-25] MEDS: CYANOCOBALAMIN (B-12) 500 MCG TABLET PO SCH (08:19)
[2022-06-25] MEDS: UMECLIDINIUM BROMIDE 62.5MCG/BLISTER 7 PUFFS/INHALER INH SCH (08:19)
[2022-06-25] MEDS: MULTIVITAMIN TAB PO SCH (08:19)
[2022-06-25] MEDS: dilTIAZem HCL 240 MG CAPCR PO SCH (08:19)
[2022-06-25] MEDS: DOCUSATE SODIUM 100 MG CAP PO SCH ×2 (08:24→20:15)
[2022-06-25 08:33] LABS: BUN Creatinine Ratio 29.3 (10-20); Blood Urea Nitrogen 12 mg/dl (6-23); Carbon Dioxide > 45 mmol/L (21-32); Chloride 86 mmol/L (98-107); Creatinine Clr Calc Pharmacy 124.5 ml/min; Est GFR (African American) 129.2 ml/min; Est GFR (Non-African American) 111.5 ml/min; Glucose 184 mg/dl (70-99(Fasting)); Potassium 4.3 mmol/L (3.5-5.1); Sodium 134 mmol/L (136-145)
[2022-06-25 08:43] LABS: Basophils # (auto) 0.03 K/uL (0-0.2); Basophils % (auto) 0.5 %; Immature Granulocytes # (auto) 0.39 K/uL (0.00-0.02); Immature Granulocytes % (auto) 7.1 %; Lymphocytes # (auto) 0.42 K/uL (1.2-3.4); Lymphocytes % (auto) 7.7 %; Monocytes # (auto) 0.15 K/uL (0.24-0.82); Monocytes % (auto) 2.7 %; Neutrophils # (auto) 4.48 K/uL (1.4-6.5)
--- NOTE | 2022-06-25 10:19 | Discharge Summary ---
Date of Service June 25, 2022 Admission HPI Per Admitting Provider Yanet Guido is a 61-year-old female with a past medical history significant for metastatic breast cancer to brain, lung cancer, pulmonary hypertension, COPD, atrial fibrillation, hypertension, and anxiety is presenting today with an elbow abscess. For the past month her right elbow has been more red and swollen which she attributes to rubbing it on furniture at home, but within the past week it has become "akhil red, big, swollen, and painful ". She had a needle aspiration of the right elbow performed this week which showed septic olecranon bursitis and was started on oral antibiotics as an outpatient. She had positive blood cultures and due to the worsening bursitis with possible abscess development she was referred to the ED for further evaluation. She has been evaluated by orthopedic group in the ED, patient will be admitted for IV antibiotics with plan for elbow I&D tomorrow, 06/22. On presentation in the ED she is mildly tachycardic with HR 91, BP 149/99, afebrile and on her usual 4 L NC. Labs largely unrevealing, without leukocytosis. Troponin minimally elevated at 24. Her sodium is low at 128. Her CO2 on BMP is 43, which is about baseline for her Principal Diagnosis Septic right elbow olecranon bursitis Discharge Exam General-alert and oriented x3, no fevers, no chills HEENT-head atraumatic and normocephalic, pupils equal and reactive to light, extraocular muscles intact Neck-no lymphadenopathy or thyromegaly, trachea midline Chest-markedly diminished breath sounds bilaterally. Bibasilar dullness to percussion. No wheezing Cardiac-regular rate and rhythm, normal S1 and S2 Abdomen-normal bowel sounds, nontender, no hepatosplenomegaly Extremities-erythema and induration of the right elbow olecranon bursa markedly improved after I&D and antibiotic treatment Neuro-cranial nerves II through XII intact, motor and sensory function within normal limits, strength symmetrical , no focal deficits Psych-unpleasant, depressed affect Discharge Data Allergies Allergy/AdvReac Type Severity Reaction Status Date / Time paclitaxel AdvReac Severe Difficulty Verified 06/21/22 15:03 Breathing Consultations 06/21/22 16:21 ED Decision to Admit Stat 06/21/22 19:34 Consult Orthopedic Surgery Routine Procedures Performed Operation Date: 06/22/22 07:30 Actual Procedures p Right Elbow Incision and Drainage Olecranon Bursa, Partial Excision Right Olecranon Bursa(Right) - Usman Flower MD Hospital Course (1) Hyponatremia: Chronic. History of SIADH. Fluid restriction. Serial labs (2) Hypertension: Acceptable with current medication management (3) Septic olecranon bursitis of right elbow: Appreciate orthopedic consultation and I&D procedure completed June 22. MSSA isolated. Treated with intravenous daptomycin which replaced intravenous vancomycin. She will be discharged on Bactrim for 2 weeks per orthopedic request when she goes home today, June 25 (4) Chronic hypercapnic respiratory failure: Keep oxygen saturation in the 90 to 92% range to minimize CO2 retention. The patient and request resting ABG to measure PCO2 level (5) Cancer related pain: Oxycodone as needed for pain (6) Atrial fibrillation: Controlled with current medical management Plan Discharge to home todayJune 25 on Bactrim for 2 weeks Total Time Total Time Spent Total Time Spent (In Minutes): 35 minutes Discharge Plan Discharge Items Patient Disposition: Home - Self-Care Reason For Visit: SEPTIC OLECRANON BURSITIS Discharge Diagnosis: Septic right elbow olecranon bursitis Activity: Resume your previous activity Non-emergency contact: Primary Care Provider Call non-emergency contact if: you have any medication questions and your symptoms worsen Follow-up/Referrals: Usman Flower MD [Physician] - (Call to make an appointment for 12- 14 days from the surgery date.) Cookie Fontenot CRNP [Primary Care Provider] - Diet: Heart Healthy Addcarrie Attending Provider Instructions: Take Bactrim antibiotic for 2 weeks. See orthopedic surgery for follow-up in 2 weeks Addtl [employer] Provider Instructions: ACTIVITY RECOMMENDATIONS: * Avoid lifting anything heavier than a medium water glass until your first post operative visit. SPECIAL CARE INSTRUCTIONS: * Your bandage should be left in place until your first postoperative visit. * Some drainage onto the dressing may occur. This is normal. * If the bandage feels excessively tight, you may loosen the elastic bandage. Then call the physician's office for further instructions. * If possible, keep your hand elevated above the level of your heart for the first 2 post operative days. You may use a sling if necessary. * You should move your fingers regularly (50-100 motions per hour) unless otherwise instructed. SPECIAL PRECAUTIONS: * If you notice increased drainage, fever over 101 degrees F. or severe, unr emitting pain, call your physician/office at . * You may have been prescribed pain medication. If you experience nausea and/or skin rash, discontinue this medication and contact our office for an alternative medication. FOLLOW UP VISIT: If appointment is not already scheduled: Please call [facility] [place] to make a follow-up appointment for 12-14 days after your surgery at . Pending Studies at Discharge: No Stand-Alone Forms: My [place] [employer], Smoking Cessation Medications and DC Order Prescriptions: New sulfamethoxazole-trimethoprim [Bactrim DS] 800-160 mg tablet 1 tab PO Q12H 14 Days Qty: 28 0RF Continued acetaminophen [Tylenol Extra Strength] 500 mg tablet 500 mg PO Q6H PRN (Reason: Pain) cmogbzabid-kuobjashadrho-qpnd 50-325-40 mg tablet 1 tab PO Q6H PRN (Reason: migraines) anastrozole [Arimidex] 1 mg tablet 1 mg PO QAM dexamethasone 4 mg tablet 4 mg PO TID Qty: 30 0RF albuterol sulfate [ProAir HFA] 90 mcg/actuation HFA aerosol inhaler 2 puff inhalation Q6H PRN (Reason: sob) cyanocobalamin (vitamin B-12) [Vitamin B-12] 1,000 mcg Tablet 1,000 mcg PO QAM budesonide-formoterol [Symbicort] 160-4.5 mcg/actuation Hfa Aerosol Inhaler 2 puff INHALATION BID diclofenac sodium 3 % gel 1 applic TOPICAL QID PRN (Reason: pain/swelling) Spiriva Respimat 1.25 mcg/actuation mist 1 puff INHALATION DAILY spironolactone 25 mg Tablet 12.5 mg PO DAILY Qty: 30 0RF ipratropium-albuterol 0.5 mg-3 mg(2.5 mg base)/3 mL Solution For Nebulization 3 ml NEB QIDR Qty: 30 0RF oxycodone 5 mg tablet 5 mg PO Q4H PRN (Reason: pain) Qty: 18 0RF cyclobenzaprine 10 mg Tablet 10 mg PO HS PRN (Reason: Spasms) prochlorperazine maleate 10 mg Tablet 10 mg PO Q6H PRN (Reason: Nausea And Vomiting) hydroxyzine HCl 10 mg Tablet 10 mg PO TID PRN (Reason: Anxiety) hydrochlorothiazide 12.5 mg Tablet 12.5 mg PO Q2D Hematinic/Folic Acid 324 mg (106 mg iron)-1 mg Tablet 1 tab PO DAILY Rx Instructions: administer between meals diltiazem HCl 240 mg Capsule,Extended Release 24hr 240 mg PO QAM Qty: 30 0RF lorazepam 0.5 mg Tablet 0.5 mg PO BID PRN (Reason: anxiety) Qty: 30 0RF gabapentin 300 mg Capsule 300 mg PO TID Qty: 100 0RF Discontinued doxycycline hyclate 100 mg capsule 100 mg PO BID Rx Instructions: STARTED 06/20/22 FOR 10 DAYS. amoxicillin 875 mg tablet 875 mg PO BID Rx Instructions: STARTED 06/20/22 FOR 10 DAYS Discharge Orders: Discharge Order (Routine); Ordered 06/25/22 Ordered By: Michi Stephens Admission Data Admit Date/Time: 06/21/22 17:27 Attending Provider: Michi Stephens Admit Provider: Bentley Fountain Primary Care Provider: Cookie Fontenot Other Providers: Bentley Fountain ; Usman Flower Coding Level of Care Code HOSP INP/OBS DISCH >30 MIN Diagnoses Hyponatremia E87.1 Hypertension I10 Septic olecranon bursitis of right elbow M71.121 Chronic hypercapnic respiratory failure J96.12 Cancer related pain G89.3 Atrial fibrillation I48.91
[2022-06-25] MEDS: DAPTOmycin 200 MG in SYRINGE 0 ML IV SCH (10:41)
--- NOTE | 2022-06-25 12:41 | Hospitalist Progress Note ---
Date of Service June 25, 2022 Assessment & Plan (1) Hyponatremia: Plan: Chronic. History of SIADH. Fluid restriction. Serial labs (2) Hypertension: Plan: Acceptable with current medication management (3) Septic olecranon bursitis of right elbow: Plan: Appreciate orthopedic consultation and I&D procedure completed June 22. MSSA isolated. Treated with intravenous daptomycin which replaced intravenous vancomycin. Switched to Bactrim DS today, Jun 25, for 2 more weeks per orthopedic recommendation (4) Chronic hypercapnic respiratory failure: Plan: Keep oxygen saturation in the 90 to 92% range to minimize CO2 retention. ABG reveals pCO2 of 50l (5) Cancer related pain: Plan: Oxycodone as needed for pain (6) Atrial fibrillation: Plan: Controlled with current medical management Plan to be determined. OT and PT assessments requested Admission and Anticipated Discharge Date Admission Date: June 21, 2022 Subjective Refuses discharge. OT and PT assessments requested. IV antibiotics switched to po Bactrim DS for 2 weeks Review of Systems Review of Systems: Constitutional-no fever or chills ENT-no blurred vision, no double vision, no epistaxis, no sore throat Respiratory-no cough, no wheezing. Short of breath with exertion which is ch ronic Cardiac-no palpitations, no chest pain, no syncope GI-no nausea, vomiting, diarrhea, melena, hematochezia -no urinary retention, no urinary incontinence, no dysuria, no hematuria Musculoskeletal-right arm heavily bandaged Skin-no bruising, no rashes, no pruritus Neuro-no isolated weakness, no paresthesia, no weakness Psych-no depression, no anxiety Physical Exam Physical Exam: General-alert and oriented x3, no fevers, no chills HEENT-head atraumatic and normocephalic, pupils equal and reactive to light, extraocular muscles intact Neck-no lymphadenopathy or thyromegaly, trachea midline Chest-markedly diminished breath sounds bilaterally. Bibasilar dullness to percussion. No wheezing Cardiac-regular rate and rhythm, normal S1 and S2 Abdomen-normal bowel sounds, nontender, no hepatosplenomegaly Extremities-erythema and induration of the right elbow olecranon bursa markedly improved after I&D and antibiotic treatment Neuro-cranial nerves II through XII intact, motor and sensory function within normal limits, strength symmetrical , no focal deficits Psych-unpleasant, depressed affect Results & Data Results & Data ([facility]) Vital Signs (Past 12 Hours) Vital Signs Temp Pulse Pulse Pulse Resp BP BP 06/25/22 10:39 94 H 19 06/25/22 10:32 36.8 C 83 100 H 20 132/88 131/86 06/25/22 10:29 36.8 C 83 100 H 20 132/88 131/86 06/25/22 07:51 36.8 C 100 H 20 132/88 06/25/22 07:29 87 06/25/22 07:03 91 H 19 06/25/22 04:23 36.5 C 92 H 20 152/92 H 06/25/22 03:20 91 H 06/25/22 01:24 06/25/22 00:41 36.8 C 63 18 136/90 Pulse Ox O2 Del Method O2 Flow Rate 06/25/22 10:39 95 Nasal Cannula 2 06/25/22 10:32 94 06/25/22 10:29 94 06/25/22 07:51 94 Nasal Cannula 2 06/25/22 07:29 06/25/22 07:03 94 Nasal Cannula 2 06/25/22 04:23 95 Nasal Cannula 2 06/25/22 03:20 06/25/22 01:24 Nasal Cannula 2 06/25/22 00:41 92 Nasal Cannula 2 Laboratory Results 06/25/22 07:34 06/25/22 07:34 PG Care Time/CCT Total # of Minutes Spent Total Time Spent with Patient: Total time spent is greater than 50% in coordination of care (as documented) at patient's floor/unit and/or counseling patient: Coding Level of Care Code 47043 SUB INP/OBS CARE 3/50MIN Diagnoses Hyponatremia E87.1 Hypertension I10 Septic olecranon bursitis of right elbow M71.121 Chronic hypercapnic respiratory failure J96.12 Cancer related pain G89.3 Atrial fibrillation I48.91
[2022-06-25] MEDS: LORazepam 0.5 MG TAB PO PRN ×2 (14:51→22:23)
[2022-06-25] MEDS: SENNA 8.6 MG TAB PO SCH (20:10)
[2022-06-25] MEDS: SULFAMETHOXAZOLE/TRIMETHOPRIM DS 800/160MG TAB PO SCH (20:10)
[2022-06-25] MEDS: ACETAMINOPHEN 500 MG TAB PO PRN (22:23)
[2022-06-26] MEDS: CYCLOBENZAPRINE HCL 10 MG TAB PO PRN ×2 (03:28→21:26)
[2022-06-26] MEDS: oxyCODONE HCL IR 5 MG TAB (IMMEDIATE RELEASE) PO PRN ×3 (03:29→21:24)
[2022-06-26] MEDS: ALBUT/IPRATROP 3MG/0.5MG NEB 3 ML VIAL NEB SCH ×4 (07:13→19:44)
[2022-06-26 08:05] LABS: Mean Corpuscular Hemoglobin 31.9 pg (25.0-34.0); Mean Corpuscular Hgb Conc 32.4 g/dL (32.0-36.0); Mean Corpuscular Volume 98.6 fL (80.0-100.0); Mean Platelet Volume 9.3 fL (9.4-12.3); Nucleated RBC # (auto) 0.16 K/uL (0-0); Nucleated RBC % (auto) 2.5 %; Platelet Count 144 K/uL (130-400); RDW Standard Deviation 58.4 fL (36.4-46.3); Red Blood Count 3.45 M/uL (3.93-5.22)
[2022-06-26] MEDS: dilTIAZem HCL 240 MG CAPCR PO SCH (08:27)
[2022-06-26] MEDS: FLUTICASONE/VILANTEROL 100/25MCG 14 PUFFS/INHALER INH SCH (08:27)
[2022-06-26] MEDS: dexAMETHasone 4 MG TAB PO SCH ×3 (08:27→21:26)
[2022-06-26] MEDS: SULFAMETHOXAZOLE/TRIMETHOPRIM DS 800/160MG TAB PO SCH ×2 (08:27→21:28)
[2022-06-26] MEDS: CYANOCOBALAMIN (B-12) 500 MCG TABLET PO SCH (08:27)
[2022-06-26] MEDS: UMECLIDINIUM BROMIDE 62.5MCG/BLISTER 7 PUFFS/INHALER INH SCH (08:27)
[2022-06-26] MEDS: GABAPENTIN 300 MG CAP PO SCH ×3 (08:27→21:27)
[2022-06-26] MEDS: MULTIVITAMIN TAB PO SCH (08:27)
[2022-06-26] MEDS: ANASTROZOLE 1 MG TAB PO SCH (08:28)
[2022-06-26] MEDS: DOCUSATE SODIUM 100 MG CAP PO SCH ×2 (08:29→21:24)
[2022-06-26 08:51] LABS: Anion Gap 4 (3-11); Blood Urea Nitrogen 12 mg/dl (6-23); Carbon Dioxide 43 mmol/L (21-32); Chloride 86 mmol/L (98-107); Creatinine Clr Calc Pharmacy 127.4 ml/min; Est GFR (African American) 130.3 ml/min; Est GFR (Non-African American) 112.4 ml/min; Glucose 173 mg/dl (70-99(Fasting)); Sodium 133 mmol/L (136-145)
[2022-06-26 09:10] LABS: Basophils # (auto) 0.03 K/uL (0-0.2); Basophils % (auto) 0.5 %; Immature Granulocytes # (auto) 0.53 K/uL (0.00-0.02); Immature Granulocytes % (auto) 8.4 %; Lymphocytes # (auto) 0.59 K/uL (1.2-3.4); Lymphocytes % (auto) 9.4 %; Microcytosis Present; Monocytes # (auto) 0.17 K/uL (0.24-0.82); Monocytes % (auto) 2.7 %; Neutrophils # (auto) 4.98 K/uL (1.4-6.5)
[2022-06-26] MEDS: LORazepam 0.5 MG TAB PO PRN ×2 (13:23→21:26)
--- NOTE | 2022-06-26 14:38 | Hospitalist Progress Note ---
Date of Service June 26, 2022 Assessment & Plan (1) Hyponatremia: Plan: Chronic. History of SIADH. Fluid restriction. Serial labs (2) Hypertension: Plan: Acceptable with current medication management (3) Septic olecranon bursitis of right elbow: Plan: Appreciate orthopedic consultation and I&D procedure completed June 22. MSSA isolated. Treated with intravenous daptomycin which replaced intravenous vancomycin. Switched to Bactrim DS on Jun 25, for 2 more weeks per orthopedic recommendation (4) Chronic hypercapnic respiratory failure: Plan: Keep oxygen saturation in the 90 to 92% range to minimize CO2 retention. ABG reveals pCO2 of 50l (5) Cancer related pain: Plan: Oxycodone as needed for pain (6) Atrial fibrillation: Plan: Controlled with current medical management Plan to be determined. If family cannot provide 24-hour care at home she will need SNF placement. Admission and Anticipated Discharge Date Admission Date: June 21, 2022 Subjective No new problems. OT and PT state that family needs to provide 24-hour care and if they cannot she should go to an SNF facility. Palliative care consultation pending. She is now on Bactrim DS twice daily for the septic right olecranon bursitis growing MSSA. Review of Systems Review of Systems: Constitutional-no fever or chills ENT-no blurred vision, no double vision, no epistaxis, no sore throat Respiratory-no cough, no wheezing. Short of breath with exertion which is chronic Cardiac-no palpitations, no chest pain, no syncope GI-no nausea, vomiting, diarrhea, melena, hematochezia -no urinary retention, no urinary incontinence, no dysuria, no hematuria Musculoskeletal-right arm heavily bandaged Skin-no bruising, no rashes, no pruritus Neuro-no isolated weakness, no paresthesia, no weakness Psych-no depression, no anxiety Physical Exam Physical Exam: General-alert and oriented x3, no fevers, no chills HEENT-head atraumatic and normocephalic, pupils equal and reactive to light, extraocular muscles intact Neck-no lymphadenopathy or thyromegaly, trachea midline Chest-markedly diminished breath sounds bilaterally. Bibasilar dullness to percussion. No wheezing Cardiac-regular rate and rhythm, normal S1 and S2 Abdomen-normal bowel sounds, nontender, no hepatosplenomegaly Extremities-erythema and induration of the right elbow olecranon bursa markedly improved after I&D and antibiotic treatment Neuro-cranial nerves II through XII intact, motor and sensory function within normal limits, strength symmetrical , no focal deficits Psych-unpleasant, depressed affect Results & Data Results & Data ([facility]) Vital Signs (Past 12 Hours) Vital Signs Temp Pulse Pulse Resp BP BP Pulse Ox 06/26/22 11:43 06/26/22 11:00 36.8 C 108 H 20 122/72 98 06/26/22 10:44 36.3 C L 120 H 90 22 142/96 H 131/86 96 06/26/22 09:00 06/26/22 08:33 96 06/26/22 08:00 36.3 C L 120 H 22 142/96 H 96 06/26/22 07:14 90 18 95 06/26/22 03:41 36.5 C 85 19 154/82 H 95 Pulse Ox O2 Del Method O2 Flow Rate O2 Flow Rate 06/26/22 11:43 97 3 06/26/22 11:00 Nasal Cannula 2 06/26/22 10:44 06/26/22 09:00 Nasal Cannula 2 06/26/22 08:33 Nasal Cannula 06/26/22 08:00 Nasal Cannula 2 06/26/22 07:14 Nasal Cannula 3 06/26/22 03:41 Nasal Cannula 2 Laboratory Results 06/26/22 07:32 06/26/22 08:58 PG Care Time/CCT Total # of Minutes Spent Total Time Spent with Patient: Total time spent is greater than 50% in coordination of care (as documented) at patient's floor/unit and/or counseling patient: Coding Level of Care Code 18818 SUB INP/OBS CARE 2/35MIN Diagnoses Hyponatremia E87.1 Hypertension I10 Septic olecranon bursitis of right elbow M71.121 Chronic hypercapnic respiratory failure J96.12 Cancer related pain G89.3 Atrial fibrillation I48.91
--- NOTE | 2022-06-26 15:02 | Palliative Care Consultation ---
Date of Consultation June 26, 2022 Assessment & Plan (1) Palliative care encounter: Patient is well-known to the palliative medicine service. She and her are very familiar with the range of services offered by our medicine subspecialty. Additional education on palliative medicine was not required today. (2) Counseling regarding advanced directives and goals of care: Together with care management, Angelia SCHOFIELD, I met with patient and her at the bedside. A prolonged 60-minute discussion ensued. Reviewed with patient and the overall progression and decline we are seeing. Reviewed the medical teams are concerned she is no longer able to get the care she needs in the home setting due to the rising intensity of her needs. Additionally reviewed that after discussion with oncology, it is noted she is not a candidate for active chemotherapy at this time and it has been suspended for over 2 months due to her multiple hospital admissions. As we discussed on prior admission, it is suspected that her progressive, end-stage COPD is reaching its terminal stages. This is causing her continued decline in performance status and she is now bordering an ECOG 4. She is not able to get up or change positions in bed without assistance. She is largely bedridden and unable to perform her ADLs. She requires 2 people to assist her to get up at the edge of her bed and sit on the commode. There is significant skin breakdown beginning to have been in the bilateral heels as well as changes in her skin from hypertrophy and skin neglect. Her lung disease is end-stage and terminal. Her heart is strained with pulmonary hypertension due to the very advanced nature of her lung disease. Additionally she has breast cancer which is currently in remission along with an active lung cancer with brain mets for which she has not been able to receive chemotherapy for over 2 months. Her brain radiation was completed at [facility] and does not require any additional treatment at this time. We discussed that she has overall multisystem organ failure evolving. The lungs, the heart and even the skin is a system are failing. Her frailty is further compounded by the decline in her performance status. I believe she is transitioning to an end-of-life chapter. I recommended a focus of transitioning to comfort and quality of life with better symptom management as patient continues to endorse complaints of severe cancer-related pain especially to the lower extremities. Although work-ups to date not indicated any cancer related complications to her lower extremities, this may likely be related to vascular disease due to her chronic and long-term heavy smoking. We discussed options at this junction would include a discharge to a chcf facility for a possible trial of rehab should physical therapy here deem that she may be a candidate versus a discharge home with the addition of home hospice. states that he met with his children last night to discuss his overall concerns. He is no longer able to meet patient's needs physically and is beginning to burnout. He has been on his own caring for her intensifying needs for a very long time. Additionally, he has been trying to access their long-term care benefits but notes that the long-term care benefit company requires an in-home evaluation before they will decided to approve accessing the benefit. It is unclear at this time if they would provide the in-home support or if they give patient and her the funding to obtain the support on their own. I advised him that [place]. There are agencies that provide staffing however there have been several reports by patient's that the designated agency representatives are not showing up on their assigned shifts and patients are going for days to weeks without their assigned caregiver support in the home. I reviewed hospice as a supportive care measure, advising that although it is the highest level of in-home support Medicare will provide it is not an zcjwhk-uzu-[id number] service with presence in their home 247. I advised that this is a visiting nurse service that provides assistance with medical management, wound care, dressing management as well as personal care but that their presence in the home is generally 1 to 2 hours at a time, at most. They are on-call for the family 06/01 and can come to the house to evaluate patient for any acute changes, but their presence in the home is limited. Majority of the hands-on care would come from family. states he does not think they will be able to accommodate this as son works full-time a nd daughter lives in [facility] and is not able to help at all. I advised at this point the only remaining option would be to submit referrals to chcf facilities in hopes that she may qualify for rehab bed which after the trial of rehab/the rehab these are used up, the nursing project coordinator can then apply for Medicaid and convert patient to long-term care at the skilled nursing with the addition of hospice. I advised him at that point Medicaid will pay for the skilled nursing bed and board fees while Medicare will pay for hospice. It is possible that their long-term care benefit may be utilized to offset the cost of the skilled nursing, was advised by care management to further investigate this with their private company provider. Care management will submit referrals for chcf facilities. Patient remains a conditional code at this time for trial of cardiac meds however she is very clear that she remains a DNI and does not wish any aggressive or invasive interventions the event of a natural . We very briefly discussed the transition of CODE STATUS to a full DNR/DNI however patient became very tearful, closed her eyes and put her head down and refused to further engage in this conversation. I encouraged him to further discuss this together as a family with a plan to tentatively follow-up in the next day or 2. (3) Septic olecranon bursitis: Antibiotics underway. Patient is status post I&D. (4) Cancer related pain: Patient continues to complain of pain to the lower extremities although does not appear to be cancer related. She has required escalating doses of opioids but in the setting of her advanced COPD and a conditional CODE STATUS, I would not be comfortable escalating her opioids beyond the current regimen due to the likelihood of sedation as a side effect. Given her advanced respiratory failure she will become quickly hypercapnic. (5) Dyspnea and respiratory abnormalities: Due to her declining attention level and intermittent drifting off, I suggest we put her back on BiPAP as needed (with rest/naps and nighttime) while she was here in the hospital. I would also consider trying to qualify her for BiPAP at the skilled nursing if that is the direction to go although if she chooses to go home with the addition of hospice, BiPAP could be obtained through hospice without the additional requirements and testing that Medicaid would need under other circumstances. (6) Acute on chronic respiratory failure with hypercapnia: Plan Extensive family discussion and plan of care as outlined above. Patient is no longer eligible for chemotherapy given her ECOG performance status decline to a 4. Her COPD is reaching its terminal stages. She is no longer able to assist in any ADLs without 1-2 people physically helping her. Her has burned out with significant caregiver fatigue. They do not have additional help at home. Their son works full-time and the daughter lives in [facility], neither are able to help the patient in an ksllon-[id number] or reliable manner. would like to utilize their long-term care benefits however access to this coverage and the timeframe for which this may happen is unclear and no definitive answers have been obtained at this time. He does agree to a chcf home referral possibly with a trial of rehab should she be deemed a reasonable candidate for same with a likely transition to long-term care and hospice at the skilled nursing. Care management noted that it is most likely her long-term care benefit will help offset the cost of the skilled nursing and I would suggest that if she is not a candidate for physical therapy at the home that may be these long-term care benefits can be used to help offset hospice and comfort care at the skilled nursing. Care management and I will continue to follow this patient. I have updated the primary team, oncology, care management. Reina Tanner DNP Clinical Director, Palliative Medicine History of Present Illness Reason for Consultation: COPD, cancer Attending Physician: Michi Stephens MD History of Present Illness Yanet Guido is a 61-year-old female with very severe COPD, breast cancer, lung cancer mets to brain who is well-known to the palliative medicine service, last seen 06/03/2022 during inpatient admission. She presented to the emergency room on 06/21/2022 with a complaint of 1 week acutely worsening erythema, swelling and pain in her right elbow. She was found to have septic olecranon bursitis of the right elbow. She was seen in a local outpatient office and had an aspiration with reported bacterial growth for which she was started on Augmentin and doxycycline. Unfortunately her symptoms continue to progress. On arrival to the ED the elbow x-ray demonstrated soft tissue swelling throughout the right elbow most pronounced at the olecranon, with a small joint effusion. She is empirically started on vancomycin and kept n.p.o. for an I&D in the OR with orthopedics. She underwent I&D on 06/22/2022 of the right septic olecranon bursitis with a partial excision of the bursa. A splint was placed and intraoperative cultures were sent. Initial findings were gram-positive cocci on the gram stain. She has a history of left breast cancer which is currently in remission but along with an active non-small cell lung cancer with brain mets. Her maintenance chemotherapy Tecentriq has been on hold/suspended for over 2 months in the setting of multiple hospital admissions and complications. Her performance status is pushing for on the ECOG scale. She is no longer eligible for ongoing chemotherapy given her poor performance status. Her is asked for a palliative medicine consultation to discuss options for additional care particularly chcf versus home with hospice. Allergies Allergy/AdvReac Type Severity Reaction Status Date / Time paclitaxel AdvReac Severe Difficulty Verified 06/21/22 15:03 Breathing Home Medications Medication Instructions Recorded Confirmed Type budesonide-formoterol HFA 160 2 puff inhalation BID 11/08/20 06/21/22 History mcg-4.5 mcg/actuation aerosol inhaler (Symbicort) cyanocobalamin (vitamin B-12) 1,000 mcg PO QAM 11/08/20 06/21/22 History 1,000 mcg tablet (Vitamin B-12) albuterol sulfate 90 mcg/actuation 2 puff inhalation Q6H PRN sob 01/03/21 06/21/22 History aerosol inhaler (ProAir HFA) acetaminophen 500 mg tablet 500 mg PO Q6H PRN Pain 01/31/21 06/21/22 History (Tylenol Extra Strength) anastrozole 1 mg tablet (Arimidex) 1 mg PO QAM 01/31/21 06/21/22 History dclejnwywc-ikqgrayrhmbel-aitwfaud 1 tab PO Q6H PRN migraines 01/31/21 06/21/22 History 50 mg-325 mg-40 mg tablet diclofenac sodium 3 % topical gel 1 applic topical QID PRN 01/31/21 06/21/22 History pain/swelling dexamethasone 4 mg tablet 4 mg PO TID Vasogenic edema #30 03/06/22 06/21/22 Rx tabs tiotropium bromide 1.25 1 puff inhalation DAILY 03/06/22 06/21/22 History mcg/actuation mist for inhalation (Spiriva Respimat) ipratropium 0.5 mg-albuterol 3 mg 3 ml NEB QIDR #30 mL 05/20/22 06/21/22 Rx (2.5 mg base)/3 mL nebulization soln oxycodone 5 mg tablet 5 mg PO Q4H PRN pain #18 tabs 05/20/22 06/21/22 Rx spironolactone 25 mg tablet 12.5 mg PO DAILY #30 tabs 05/20/22 06/21/22 Rx cyclobenzaprine 10 mg tablet 10 mg PO HS PRN Spasms 05/24/22 06/21/22 History ferrous fumarate-folic acid 324 mg 1 tab PO DAILY 05/24/22 06/21/22 History (106 mg iron)-1 mg tablet (Hematinic/Folic Acid) hydrochlorothiazide 12.5 mg tablet 12.5 mg PO Q2D 05/24/22 06/21/22 History hydroxyzine HCl 10 mg tablet 10 mg PO TID PRN Anxiety 05/24/22 06/21/22 History prochlorperazine maleate 10 mg 10 mg PO Q6H PRN Nausea And 05/24/22 06/21/22 History tablet Vomiting diltiazem HCl 240 mg 240 mg PO QAM #30 caps 06/06/22 06/21/22 Rx capsule,extended release 24 hr gabapentin 300 mg capsule 300 mg PO TID #100 caps 06/06/22 06/21/22 Rx lorazepam 0.5 mg tablet 0.5 mg PO BID PRN anxiety #30 tabs 06/06/22 06/21/22 Rx sulfamethoxazole 800 1 tab PO Q12H 14 days #28 tabs 06/25/22 Rx mg-trimethoprim 160 mg tablet (Bactrim DS) Patient History Medical History (Updated 06/26/22 @ 15:25 by Reina Tanner DNP) Acute exacerbation of chronic obstructive pulmonary disease Acute respiratory failure with hypoxia Anxiety Brain metastasis Breast cancer, left Dx 12/2020 Cancer Cancer related pain Chronic hypercapnic respiratory failure COPD (chronic obstructive pulmonary disease) Counseling regarding advanced directives and goals of care Dyspnea and respiratory abnormalities History of migraine Hypertension Hypoxia Iron deficiency anemia Hx iron infusions Lung cancer Non small cell cancer dx 12/2020; chemo/radiation (per pt, completed 3 mo ago but still on IV prophylaxis trtmt q3wks, Tecentriq per heme records) Malignant neoplasm of upper-outer quadrant of left breast in female, estrogen receptor positive On home oxygen therapy oxygen at night 1.5 lpm via n/c Palliative care encounter Palliative care encounter Physician orders for life-sustaining treatment (POLST) form indicates patient wish for limited interventions status Pulmonary hypertension Cardio feels likely secondary to COPD and possible MARTELL Thyroid nodule Surgical History H/O esophagogastroduodenoscopy History of breast biopsy History of lung biopsy History of tubal ligation Hx of colonoscopy Status post left breast lumpectomy (07/09/21) Left lumpectomy with sentinel lymph node biopsy and also excision of superior left axillary lymph node with additional axillary tissue. Dr. Andres 07/09/2021 Family History Father Myocardial infarction CABG x 3 Mother , 84yo Emphysema lung Smoker Brother No problems noted. Sister No problems noted. Sister Asthma Son No problems noted. Daughter No problems noted. 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 She will awaken to voice and then quickly drifts back to sleep. She will answer simple questions but her sentences are no longer than 3- 4 words. There is no overt respiratory distress noted conversational dyspnea is present. There is use of accessory muscles. She is on nasal cannula. Lung sounds are dramatically diminished bilaterally. Heart tones are normal. Abdomen is soft and nontender. Her right arm is splinted and wrapped. Her extremities are slightly edematous but nontender. Her lower extremities are edematous, +1-2 pitting edema, with wraps noted at bilateral heels. There is significant hypertrophic skin noted on the soles of both feet along with significant onychomycotic nail disease bilaterally. Her skin is pale and cool to touch. Results & Data ([facility] Vital Signs (Past 12 Hours) Vital Signs Temp Pulse Pulse Pulse Resp BP BP 06/26/22 14:57 110 H 06/26/22 11:43 06/26/22 11:00 36.8 C 108 H 20 122/72 06/26/22 10:44 36.3 C L 120 H 90 22 142/96 H 131/86 06/26/22 09:00 06/26/22 08:33 06/26/22 08:00 36.3 C L 120 H 22 142/96 H 06/26/22 07:14 90 18 06/26/22 03:41 36.5 C 85 19 154/82 H Pulse Ox Pulse Ox O2 Del Method O2 Flow Rate O2 Flow Rate 06/26/22 14:57 06/26/22 11:43 97 3 06/26/22 11:00 98 Nasal Cannula 2 06/26/22 10:44 96 06/26/22 09:00 Nasal Cannula 2 06/26/22 08:33 96 Nasal Cannula 06/26/22 08:00 96 Nasal Cannula 2 06/26/22 07:14 95 Nasal Cannula 3 06/26/22 03:41 95 Nasal Cannula 2 Laboratory Results Data reviewed Diagnostic Findings Data reviewed, see HPI PG Care Time/CCT Total # of Minutes Spent Total Time Spent: 95 Total Time Spent with Patient: Total time spent is greater than 50% in coordination of care (as documented) at patient's floor/unit and/or counseling patient: Prolonged Care Time Prolonged Care Time: Yes Advanced Care Planning 09612 Advanced Care Planning Additional 30 Min Coding Level of Care Code New Pt INP/OBS CONSULT LVL 5, 80 MIN Patient Type New History Comprehensive Exam Comprehensive Medical Decision Making High Complexity Diagnoses Palliative care encounter Z51.5 Counseling regarding advanced directives and goals of care Z71.89 Septic olecranon bursitis M71.129 Cancer related pain G89.3 Dyspnea and respiratory abnormalities R06.00; R06.89 Acute on chronic respiratory failure with hypercapnia J96.22 Additional Codes Prolonged Care Time - Prolonged Care Time: Yes ([id number]) Advanced Care Planning - 63028 Advanced Care Planning Additional 30 Min: 77332 Advanced Care Planning Additional 30 Min ([id number])
--- NOTE | 2022-06-26 15:04 | Communication Note ---
Date of Service: June 26, 2022 Mrs. Yanet Guido has a history of left breast cancer, currently in remission, along with active non-small cell lung cancer with brain metastasis. She was previously receiving Tecentriq maintenance therapy every 21 days but has not received this infusion for >2 months in the setting of multiple hospital admissions. Patient is currently admitted to [facility] for hyponatremia, chronic hypercapnic respiratory failure and generalized deconditioning/weakness. We recommend discharge to a senior care facility for continued rehabilitation services. The patient currently carries a performance status of 3 (capable of very limited self-care, confined to bed or chair for 50% of walking hours). Her treatments will be suspended at the current time due to poor performance status and will not be resumed until patient has fully recovered following senior care facility admission.
[2022-06-26] MEDS: MAGNESIUM HYDROXIDE SUSP 30 ML UDC PO PRN (16:50)
[2022-06-26] MEDS: POLYETHYLENE (MIRALAX) 17 GM PACK PO PRN (21:24)
[2022-06-26] MEDS: SENNA 8.6 MG TAB PO SCH (21:27)
[2022-06-27 06:53] LABS: Hematocrit (blood only) 33.8 % (34.1-44.9); Hemoglobin 10.9 g/dl (12.0-16.0); Mean Corpuscular Hgb Conc 32.2 g/dL (32.0-36.0); Mean Corpuscular Volume 99.1 fL (80.0-100.0); Mean Platelet Volume 10.3 fL (9.4-12.3); Nucleated RBC # (auto) 0.19 K/uL (0-0); Nucleated RBC % (auto) 3.3 %; Platelet Count 134 K/uL (130-400); RDW Standard Deviation 58.3 fL (36.4-46.3); Red Blood Count 3.41 M/uL (3.93-5.22); White Blood Count 5.83 K/ul (4.8-10.8)
[2022-06-27] MEDS: ALBUT/IPRATROP 3MG/0.5MG NEB 3 ML VIAL NEB SCH ×4 (07:15→20:29)
[2022-06-27 07:29] LABS: Basophils # (auto) 0.03 K/uL (0-0.2); Basophils % (auto) 0.5 %; Immature Granulocytes # (auto) 0.55 K/uL (0.00-0.02); Immature Granulocytes % (auto) 9.4 %; Lymphocytes # (auto) 0.44 K/uL (1.2-3.4); Lymphocytes % (auto) 7.5 %; Monocytes # (auto) 0.15 K/uL (0.24-0.82); Monocytes % (auto) 2.6 %; Neutrophils # (auto) 4.66 K/uL (1.4-6.5); Polychromasia 1+
[2022-06-27] MEDS: SULFAMETHOXAZOLE/TRIMETHOPRIM DS 800/160MG TAB PO SCH ×2 (08:19→20:55)
[2022-06-27] MEDS: UMECLIDINIUM BROMIDE 62.5MCG/BLISTER 7 PUFFS/INHALER INH SCH (08:19)
[2022-06-27] MEDS: dilTIAZem HCL 240 MG CAPCR PO SCH (08:19)
[2022-06-27] MEDS: ANASTROZOLE 1 MG TAB PO SCH (08:19)
[2022-06-27] MEDS: GABAPENTIN 300 MG CAP PO SCH ×3 (08:19→20:54)
[2022-06-27] MEDS: MULTIVITAMIN TAB PO SCH (08:19)
[2022-06-27] MEDS: dexAMETHasone 4 MG TAB PO SCH ×3 (08:19→20:54)
[2022-06-27] MEDS: FLUTICASONE/VILANTEROL 100/25MCG 14 PUFFS/INHALER INH SCH (08:19)
[2022-06-27] MEDS: CYANOCOBALAMIN (B-12) 500 MCG TABLET PO SCH (08:19)
[2022-06-27] MEDS: oxyCODONE HCL IR 5 MG TAB (IMMEDIATE RELEASE) PO PRN ×3 (08:21→20:53)
[2022-06-27] MEDS: DOCUSATE SODIUM 100 MG CAP PO SCH ×2 (08:21→20:52)
--- NOTE | 2022-06-27 08:53 | Hospitalist Progress Note ---
Date of Service June 27, 2022 Assessment & Plan (1) Hyponatremia: Plan: Chronic and history of SIADH. On fluid restriction. Serial labs (2) Hypertension: Plan: BP stable 130/85 Continue Diltiazem (3) Septic olecranon bursitis of right elbow: Plan: Appreciate orthopedic consultation and I&D procedure completed June 22. MSSA isolated. Treated with intravenous daptomycin which replaced intravenous vancomycin. Switched to Bactrim DS on Jun 25, for 2 more weeks per orthopedic recommendation Post op day #5 (need ortho follow up on day 10-12 ) (4) Chronic hypercapnic respiratory failure: Plan: Keep oxygen saturation in the 90 to 92% range to minimize CO2 retention. ABG reveals pCO2 of 50l Patient is always trying to increase her NC Oxygen Patient is willing to try the Bipap as needed and at night (5) Cancer related pain: Plan: Oxycodone as needed for pain (6) Atrial fibrillation: Plan: Controlled with current medical management Plan CM working on SNF placement in [place] area Admission and Anticipated Discharge Date Admission Date: June 21, 2022 Subjective Patient is awake sitting up at the side of her bed. She states she feels slightly better. She is aware that she needs more care than her is able to provide and is willing to go to placement as long as it is in [place] so her family can visit her. She has no new complaints today. Review of Systems Constitutional: + fatigue, + malaise and + weakness; no sweats Respiratory: no cough, no change in sputum and no hemoptysis Cardiovascular: no chest pain, no syncope and no calf pain Gastrointestinal: no abdominal pain, no nausea and no vomiting Genitourinary: no dysuria, no urinary frequency and no urinary hesitancy Musculoskeletal: Right elbow pain, complaining of splint cutting into wrist. Psychiatric: + depression, + irritability and + anxiety; no confusion, no auditory hallucinations and no visual hallucinations Endocrine: no polydipsia, no polyphagia and no polyuria Physical Exam Constitutional: + ill appearing Neck: trachea midline, no thyromegaly Respiratory: + labored breathing, able to speak in complete sentences and + pursed lip breathing Auscultation: + diminished lung sounds Cardiovascular: RRR, no murmur, no edema Extremities: + edema; no calf tenderness Gastrointestinal (Abdomen): normal bowel sounds, soft, nontender, no hepatosplenomegaly Skin: Re dressed splint right arm and added gauze to wrist area Psychiatric: Orientation: alert and oriented x 3 Mood: + depressed mood and + anxious mood Cognition: recent memory grossly intact and remote memory grossly intact Results & Data Results & Data ([facility]) Vital Signs (Past 12 Hours) Vital Signs Temp Pulse Pulse Resp BP Pulse Ox O2 Del Method 06/27/22 07:38 36.7 C 98 H 20 130/85 96 Nasal Cannula 06/27/22 07:15 102 H 18 97 Nasal Cannula 06/27/22 00:00 98 H 06/27/22 03:25 36.5 C 109 H 18 121/81 97 Nasal Cannula 06/26/22 23:11 36.6 C 105 H 20 129/80 93 Nasal Cannula O2 Flow Rate 06/27/22 07:38 3 06/27/22 07:15 3 06/27/22 00:00 06/27/22 03:25 3 06/26/22 23:11 3 Laboratory Results Abnormal lab results 06/27/22 06/27/22 Range/Units 06:01 06:01 RBC 3.41 L (3.93-5.22) M/uL Hgb 10.9 L (12.0-16.0) g/dl Hct 33.8 L (34.1-44.9) % RDW Std Deviation 58.3 H (36.4-46.3) fL RDW Coeff of Kp 16.0 H (11.5-14.5) % Lymph # (Auto) 0.44 L (1.2-3.4) K/uL [place] # (Auto) 0.15 L (0.24-0.82) K/uL Immature Gran # (Auto) 0.55 H (0.00-0.02) K/uL Absolute Nucleated RBC 0.19 H (0-0) K/uL Sodium 134 L (136-145) mmol/L Chloride 86 L (98-107) mmol/L Carbon Dioxide > 45 H* (21-32) mmol/L Creatinine 0.44 L (0.6-1.2) mg/dl BUN/Creatinine Ratio 25.0 H (10-20) Glucose 181 H (70-99(Fasting)) mg/dl Calcium 8.2 L (8.5-10.1) mg/dl PG Care Time/CCT Total # of Minutes Spent Total Time Spent with Patient: Total time spent is greater than 50% in coordination of care (as documented) at patient's floor/unit and/or counseling patient: Coding Level of Care Code 22669 SUB INP/OBS CARE 07/10MIN Diagnoses Hyponatremia E87.1 Hypertension I10 Septic olecranon bursitis of right elbow M71.121 Chronic hypercapnic respiratory failure J96.12 Cancer related pain G89.3 Atrial fibrillation I48.91
[2022-06-27] MEDS: ONDANSETRON INJ 2 MG/ML 2 ML VIAL IV PRN ×2 (09:03→18:11)
[2022-06-27 09:08] LABS: Blood Urea Nitrogen 11 mg/dl (6-23); Calcium 8.2 mg/dl (8.5-10.1); Carbon Dioxide > 45 mmol/L (21-32); Chloride 86 mmol/L (98-107); Est GFR (African American) 126.3 ml/min; Est GFR (Non-African American) 108.9 ml/min; Glucose 181 mg/dl (70-99(Fasting)); Potassium 4.3 mmol/L (3.5-5.1); Sodium 134 mmol/L (136-145)
[2022-06-27] MEDS: MAGNESIUM HYDROXIDE SUSP 30 ML UDC PO PRN ×2 (10:56→20:52)
[2022-06-27] MEDS: LORazepam 0.5 MG TAB PO PRN ×2 (14:02→20:53)
[2022-06-27] MEDS: CYCLOBENZAPRINE HCL 10 MG TAB PO PRN (20:52)
[2022-06-27] MEDS: POLYETHYLENE (MIRALAX) 17 GM PACK PO PRN (20:52)
[2022-06-27] MEDS: SENNA 8.6 MG TAB PO SCH (20:54)
[2022-06-28] MEDS: ALBUT/IPRATROP 3MG/0.5MG NEB 3 ML VIAL NEB SCH ×4 (07:18→19:16)
[2022-06-28 08:35] LABS: Hematocrit (blood only) 31.8 % (34.1-44.9); Hemoglobin 10.5 g/dl (12.0-16.0); Mean Corpuscular Hemoglobin 32.1 pg (25.0-34.0); Mean Corpuscular Volume 97.2 fL (80.0-100.0); Mean Platelet Volume 9.6 fL (9.4-12.3); Nucleated RBC # (auto) 0.17 K/uL (0-0); Nucleated RBC % (auto) 2.7 %; Platelet Count 118 K/uL (130-400); RDW Coefficient of Variation 16.1 % (11.5-14.5); RDW Standard Deviation 57.8 fL (36.4-46.3); Red Blood Count 3.27 M/uL (3.93-5.22); White Blood Count 6.34 K/ul (4.8-10.8)
[2022-06-28] MEDS: oxyCODONE HCL IR 5 MG TAB (IMMEDIATE RELEASE) PO PRN ×4 (08:44→23:12)
[2022-06-28] MEDS: dilTIAZem HCL 240 MG CAPCR PO SCH (08:44)
[2022-06-28] MEDS: dexAMETHasone 4 MG TAB PO SCH ×3 (08:44→20:58)
[2022-06-28] MEDS: DOCUSATE SODIUM 100 MG CAP PO SCH ×2 (08:44→20:59)
[2022-06-28] MEDS: CYANOCOBALAMIN (B-12) 500 MCG TABLET PO SCH (08:44)
[2022-06-28] MEDS: ANASTROZOLE 1 MG TAB PO SCH (08:44)
[2022-06-28] MEDS: FLUTICASONE/VILANTEROL 100/25MCG 14 PUFFS/INHALER INH SCH (08:44)
[2022-06-28] MEDS: UMECLIDINIUM BROMIDE 62.5MCG/BLISTER 7 PUFFS/INHALER INH SCH (08:45)
[2022-06-28] MEDS: GABAPENTIN 300 MG CAP PO SCH ×3 (08:45→20:57)
[2022-06-28] MEDS: MULTIVITAMIN TAB PO SCH (08:45)
[2022-06-28] MEDS: SULFAMETHOXAZOLE/TRIMETHOPRIM DS 800/160MG TAB PO SCH ×2 (08:45→14:22)
[2022-06-28 09:12] LABS: BUN Creatinine Ratio 33.3 (10-20); Calcium 7.7 mg/dl (8.5-10.1); Creatinine Clr Calc Pharmacy 144.2 ml/min; Est GFR (African American) 134.9 ml/min; Est GFR (Non-African American) 116.4 ml/min; Potassium 5.1 mmol/L (3.5-5.1)
--- NOTE | 2022-06-28 13:42 | Hospitalist Progress Note ---
Date of Service June 28, 2022 Assessment & Plan (1) Hyponatremia: Plan: Chronic and history of SIADH. On fluid restriction. Sodium stable (2) Hypertension: Plan: BP stable 132/83 Continue Diltiazem (3) Septic olecranon bursitis of right elbow: Plan: Appreciate orthopedic consultation and I&D procedure completed June 22. MSSA isolated. Treated with intravenous daptomycin which replaced intravenous vancomycin. Switched to Bactrim DS on Jun 25, for 2 more weeks per orthopedic recommendation Patient was having trouble swallowing the Bactrim DS Changed to Bactrim 400/80 take 2 pills q 12 hours Post op day #6 (need ortho follow up on day 10-12 ) (4) Chronic hypercapnic respiratory failure: Plan: Keep oxygen saturation in the 90 to 92% range to minimize CO2 retention. ABG reveals pCO2 of 50l Patient is always trying to increase her NC Oxygen Patient is willing to try the Bipap as needed and at night (5) Cancer related pain: Plan: Oxycodone as needed for pain (6) Atrial fibrillation: Plan: Controlled with current medical management Plan CM working on SNF placement in [facility] Admission and Anticipated Discharge Date Admission Date: June 21, 2022 Subjective Patient was sleeping, I spoke with and he stated she just decided to take a nap. He said she was still complaining of the splint rubbing into her w rist and also she does not like the size of the Bactrim DS pills and is unwilling to crush or take in a liquid form. Review of Systems Review of Systems: ROS unable secondary to patient sleeping. Came by later and she was able to complete ROS Constitutional: + fatigue, + malaise and + weakness; no sweats Respiratory: no cough, no change in sputum and no hemoptysis Cardiovascular: no chest pain, no syncope and no calf pain Gastrointestinal: no abdominal pain, no nausea and no vomiting Genitourinary: no dysuria, no urinary frequency and no urinary hesitancy Musculoskeletal: Right elbow pain, complaining of splint cutting into wrist. Psychiatric: + depression, + irritability and + anxiety; no confusion, no auditory hallucinations and no visual hallucinations Endocrine: no polydipsia, no polyphagia and no polyuria Physical Exam Constitutional: + ill appearing Neck: trachea midline, no thyromegaly Respiratory: + labored breathing, able to speak in complete sentences and + pursed lip breathing Auscultation: + diminished lung sounds Cardiovascular: RRR, no murmur, no edema Extremities: + edema; no calf tenderness Gastrointestinal (Abdomen): normal bowel sounds, soft, nontender, no hepatosplenomegaly Psychiatric: Orientation: alert and oriented x 3 Mood: + depressed mood and + anxious mood Cognition: recent memory grossly intact and remote memory grossly intact Results & Data Results & Data ([facility]) Vital Signs (Past 12 Hours) Vital Signs Temp Pulse Pulse Resp BP Pulse Ox O2 Del Method 06/28/22 11:39 36.7 C 114 H 20 132/83 95 Nasal Cannula 06/28/22 11:17 107 H 20 95 Nasal Cannula 06/28/22 08:49 36.7 C 103 H 20 132/83 93 Nasal Cannula 06/28/22 07:45 113 H 06/28/22 03:00 36.5 C 95 H 20 132/74 94 Nasal Cannula 06/28/22 03:47 16 93 Nasal Cannula 06/28/22 03:47 16 86 L Nasal Cannula O2 Flow Rate 06/28/22 11:39 4 06/28/22 11:17 4 06/28/22 08:49 4 06/28/22 07:45 06/28/22 03:00 4 06/28/22 03:47 4 06/28/22 03:47 3 Laboratory Results Abnormal lab results 06/28/22 06/28/22 Range/Units 07:53 07:53 RBC 3.27 L (3.93-5.22) M/uL Hgb 10.5 L (12.0-16.0) g/dl Hct 31.8 L (34.1-44.9) % RDW Std Deviation 57.8 H (36.4-46.3) fL RDW Coeff of Kp 16.1 H (11.5-14.5) % Plt Count 118 L (130-400) K/uL Absolute Nucleated RBC 0.17 H (0-0) K/uL Sodium 130 L (136-145) mmol/L Chloride 86 L (98-107) mmol/L Carbon Dioxide 44 H* (21-32) mmol/L Anion Gap 0 L (3-11) Creatinine 0.36 L (0.6-1.2) mg/dl BUN/Creatinine Ratio 33.3 H (10-20) Glucose 188 H (70-99(Fasting)) mg/dl Calcium 7.7 L (8.5-10.1) mg/dl PG Care Time/CCT Total # of Minutes Spent Total Time Spent with Patient: Total time spent is greater than 50% in coordination of care (as documented) at patient's floor/unit and/or counseling patient: Coding Level of Care Code 88741 SUB INP/OBS CARE 07/10MIN Diagnoses Hyponatremia E87.1 Hypertension I10 Septic olecranon bursitis of right elbow M71.121 Chronic hypercapnic respiratory failure J96.12 Cancer related pain G89.3 Atrial fibrillation I48.91
[2022-06-28] MEDS: SULFA/TRIMETH 400/80MG TAB PO SCH (18:53)
[2022-06-28] MEDS: ACETAMINOPHEN 1,000 MG/100 ML VIAL IV PRN (20:55)
[2022-06-28] MEDS: LORazepam 0.5 MG TAB PO PRN (20:56)
[2022-06-28] MEDS: SENNA 8.6 MG TAB PO SCH (20:59)
[2022-06-29] MEDS: SULFA/TRIMETH 400/80MG TAB PO SCH ×2 (05:49→18:10)
[2022-06-29] MEDS: ALBUT/IPRATROP 3MG/0.5MG NEB 3 ML VIAL NEB SCH ×4 (07:17→19:36)
[2022-06-29 07:48] LABS: Hematocrit (blood only) 37.8 % (34.1-44.9); Hemoglobin 12.3 g/dl (12.0-16.0); Mean Corpuscular Hemoglobin 31.8 pg (25.0-34.0); Mean Corpuscular Hgb Conc 32.5 g/dL (32.0-36.0); Mean Corpuscular Volume 97.7 fL (80.0-100.0); Mean Platelet Volume 9.3 fL (9.4-12.3); Nucleated RBC # (auto) 0.17 K/uL (0-0); Nucleated RBC % (auto) 2.2 %; Platelet Count 136 K/uL (130-400); RDW Coefficient of Variation 16.1 % (11.5-14.5); RDW Standard Deviation 57.3 fL (36.4-46.3); Red Blood Count 3.87 M/uL (3.93-5.22)
--- NOTE | 2022-06-29 08:06 | Hospitalist Progress Note ---
Date of Service June 29, 2022 Assessment & Plan (1) Hyponatremia: Plan: Chronic and history of SIADH. On fluid restriction. Sodium stable (2) Hypertension: Plan: BP stable 136/86 Continue Diltiazem (3) Septic olecranon bursitis of right elbow: Plan: Appreciate orthopedic consultation and I&D procedure completed June 22. MSSA isolated. Treated with intravenous daptomycin which replaced intravenous vancomycin. Switched to Bactrim DS on Jun 25, for 2 more weeks per orthopedic recommendation Patient was having trouble swallowing the Bactrim DS Changed to Bactrim 400/80 take 2 pills q 12 hours Post op day #7 (need ortho follow up on day 10-12 ) (4) Chronic hypercapnic respiratory failure: Plan: Keep oxygen saturation in the 90 to 92% range to minimize CO2 retention. ABG reveals pCO2 of 50l Patient is always trying to increase her NC Oxygen, now on face mask Patient has been refusing to try the Bipap as needed and at night (5) Cancer related pain: Plan: Oxycodone as needed for pain (6) Atrial fibrillation: Plan: Controlled with current medical management (7) Hyperkalemia: Plan: will continue to monitor may need to increase po fluid intake repeat labs in AM (8) Pressure injury of skin of left heel: Plan: Pressure pad placed, nurse aware and will continue to monitor (9) Hyperglycemia: Plan: will check fasting glucose and HgbA1C Plan CM working on SNF placement in [facility] They left a message at [employer] to see if they may have a bed next week Admission and Anticipated Discharge Date Admission Date: June 21, 2022 Subjective Patient was awake in bed. She states she feels slightly better today but states she has some epigastric discomfort but denies any nausea or vomiting. She had one BM today. Hgb improved to 12.3. Review of Systems Constitutional: + fatigue, + malaise and + weakness; no sweats Respiratory: no cough, no change in sputum and no hemoptysis Cardiovascular: no chest pain, no syncope and no calf pain Gastrointestinal: no nausea and no vomiting mild epigastric discomfort Genitourinary: no dysuria, no urinary frequency and no urinary hesitancy Integumentary: pressure injury left heel, applied pad cracked right heel, applied pad Psychiatric: + depression, + irritability and + anxiety; no confusion, no auditory hallucinations and no visual hallucinations Endocrine: no polydipsia, no polyphagia and no polyuria Physical Exam Constitutional: + ill appearing Neck: trachea midline, no thyromegaly Respiratory: + labored breathing, able to speak in complete sentences and + pursed lip breathing Auscultation: + diminished lung sounds Cardiovascular: RRR, no murmur, no edema Extremities: + edema; no calf tenderness Gastrointestinal (Abdomen): normal bowel sounds, soft, nontender, no hepatosplenomegaly Skin: pressure injury left heel with cracked skin right heel Psychiatric: Orientation: alert and oriented x 3 Mood: + depressed mood and + anxious mood Cognition: recent memory grossly intact and remote memory grossly intact Results & Data Results & Data ([facility]) Vital Signs (Past 12 Hours) Vital Signs Temp Pulse Pulse Resp BP Pulse Ox O2 Del Method 06/29/22 07:44 36.9 C 101 H 20 118/83 97 Nasal Cannula 06/29/22 07:34 96 H 06/29/22 07:18 101 H 22 93 Nasal Cannula 06/28/22 22:00 117 H 06/29/22 01:58 Nasal Cannula 06/28/22 22:00 36.4 C L 120 H 20 138/88 95 Nasal Cannula O2 Flow Rate 06/29/22 07:44 4 06/29/22 07:34 06/29/22 07:18 4 06/28/22 22:00 06/29/22 01:58 4 06/28/22 22:00 3 Laboratory Results Abnormal lab results 06/29/22 06/29/22 06/29/22 Range/Units 07:29 07:29 07:45 RBC 3.87 L (3.93-5.22) M/uL RDW Std Deviation 57.3 H (36.4-46.3) fL RDW Coeff of Kp 16.1 H (11.5-14.5) % MPV 9.3 L (9.4-12.3) fL Absolute Nucleated RBC 0.17 H (0-0) K/uL Sodium 128 L (136-145) mmol/L Potassium 5.2 H (3.5-5.1) mmol/L Chloride 84 L (98-107) mmol/L Carbon Dioxide 41 H* (21-32) mmol/L Creatinine 0.48 L (0.6-1.2) mg/dl BUN/Creatinine Ratio 27.1 H (10-20) Glucose 181 H (70-99(Fasting)) mg/dl POC Glucose 238 H (70-99) mg/dl Calcium 8.1 L (8.5-10.1) mg/dl PG Care Time/CCT Total # of Minutes Spent Total Time Spent with Patient: Total time spent is greater than 50% in coordination of care (as documented) at patient's floor/unit and/or counseling patient: Coding Level of Care Code 12510 SUB INP/OBS CARE 07/10MIN Diagnoses Hyponatremia E87.1 Hypertension I10 Septic olecranon bursitis of right elbow M71.121 Chronic hypercapnic respiratory failure J96.12 Cancer related pain G89.3 Atrial fibrillation I48.91 Hyperkalemia E87.5 Pressure injury of skin of left heel L89.629 Hyperglycemia R73.9
[2022-06-29 08:38] LABS: BUN Creatinine Ratio 27.1 (10-20); Calcium 8.1 mg/dl (8.5-10.1); Creatinine Clr Calc Pharmacy 107.5 ml/min; Est GFR (African American) 122.7 ml/min; Est GFR (Non-African American) 105.9 ml/min; Potassium 5.2 mmol/L (3.5-5.1)
[2022-06-29] MEDS: UMECLIDINIUM BROMIDE 62.5MCG/BLISTER 7 PUFFS/INHALER INH SCH (08:52)
[2022-06-29] MEDS: MULTIVITAMIN TAB PO SCH (08:52)
[2022-06-29] MEDS: GABAPENTIN 300 MG CAP PO SCH ×3 (08:52→21:04)
[2022-06-29] MEDS: FLUTICASONE/VILANTEROL 100/25MCG 14 PUFFS/INHALER INH SCH (08:52)
[2022-06-29] MEDS: CYANOCOBALAMIN (B-12) 500 MCG TABLET PO SCH (08:52)
[2022-06-29] MEDS: ANASTROZOLE 1 MG TAB PO SCH (08:52)
[2022-06-29] MEDS: dilTIAZem HCL 240 MG CAPCR PO SCH (08:52)
[2022-06-29] MEDS: dexAMETHasone 4 MG TAB PO SCH ×3 (08:52→21:04)
[2022-06-29] MEDS: DOCUSATE SODIUM 100 MG CAP PO SCH ×2 (08:58→21:05)
[2022-06-29] MEDS: oxyCODONE HCL IR 5 MG TAB (IMMEDIATE RELEASE) PO PRN ×3 (08:58→23:31)
[2022-06-29] MEDS: LORazepam 0.5 MG TAB PO PRN ×2 (09:38→21:03)
[2022-06-29] MEDS: PANTOprazole 40 MG TAB PO SCH (14:09)
[2022-06-29] MEDS: SENNA 8.6 MG TAB PO SCH (21:05)
[2022-06-30] MEDS: oxyCODONE HCL IR 5 MG TAB (IMMEDIATE RELEASE) PO PRN ×4 (05:19→21:02)
[2022-06-30] MEDS: SULFA/TRIMETH 400/80MG TAB PO SCH ×2 (06:13→17:52)
[2022-06-30 07:01] LABS: Hemoglobin 11.3 g/dl (12.0-16.0); Mean Corpuscular Hemoglobin 32.4 pg (25.0-34.0); Mean Corpuscular Hgb Conc 33.2 g/dL (32.0-36.0); Mean Corpuscular Volume 97.4 fL (80.0-100.0); Mean Platelet Volume 10.4 fL (9.4-12.3); Nucleated RBC # (auto) 0.17 K/uL (0-0); Nucleated RBC % (auto) 2.4 %; Platelet Count 121 K/uL (130-400); RDW Standard Deviation 57.1 fL (36.4-46.3); Red Blood Count 3.49 M/uL (3.93-5.22); White Blood Count 7.23 K/ul (4.8-10.8)
[2022-06-30] MEDS: ALBUT/IPRATROP 3MG/0.5MG NEB 3 ML VIAL NEB SCH ×2 (07:29→20:00)
--- NOTE | 2022-06-30 07:42 | Hospitalist Progress Note ---
Date of Service June 30, 2022 Assessment & Plan (1) Hyponatremia: Plan: Chronic and history of SIADH. Fluid restriction (2) Hypertension: Plan: BP stable 136/86 Continue Diltiazem (3) Septic olecranon bursitis of right elbow: Plan: Appreciate orthopedic consultation and I&D procedure completed June 22. MSSA isolated. Treated with intravenous daptomycin which replaced intravenous vancomycin. Switched to Bactrim DS on Jun 25, for 2 more weeks per orthopedic recommendation Patient was having trouble swallowing the Bactrim DS Changed to Bactrim 400/80 take 2 pills q 12 hours Post op day #8 (need ortho follow up on day 10-12 ) (4) Chronic hypercapnic respiratory failure: Plan: Keep oxygen saturation in the 90 to 92% range to minimize CO2 retention. ABG reveals pCO2 of 50l Patient is always trying to increase her NC Oxygen Patient has been refusing to try the Bipap as needed and at night (5) Cancer related pain: Plan: Oxycodone as needed for pain (6) Atrial fibrillation: Plan: Controlled with current medical management (7) Hyperkalemia: Plan: will continue to monitor may need to increase po fluid intake repeat labs in AM (8) Pressure injury of skin of left heel: Plan: Pressure pad placed, nurse aware and will continue to monitor (9) Hyperglycemia: Plan: HgbA1C 7 Likely elevated due to steroid use Offered routine blood sugar reading and some sliding scale coverage with Novolog Patient became very anxious and refused to add another medication or intervention at this time Plan CM working on SNF placement in [place] They left a message at [facility] to see if they may have a bed next week Admission and Anticipated Discharge Date Admission Date: June 21, 2022 Subjective Patient was awake in bed. She states she feels slightly better today. Per nurse she had a very hard time trying to get from the bed to the bedside commode. Now using the bedpan as needed. She had one BM today. Hgb stable Respiratory asked to decrease patient's nebulizer treatments to BID from QID. Patient was angry about getting breathing treatments 4 x per day, she stated she only did nebulizer treatments 2 x per day. Discussed her elevated blood sugars and the A1C of 7. stated likely increased due to the steroids and offered to routinely check BSGs and insulin to try and decrease the blood sugars and patient became very anxious and told me that she will address the blood sugar issue at another date. She is not willing to add any other medications or therapy at this time. Review of Systems Constitutional: + fatigue, + malaise and + weakness; no sweats Respiratory: no cough, no change in sputum and no hemoptysis Cardiovascular: no chest pain, no syncope and no calf pain Gastrointestinal: no nausea and no vomiting mild epigastric discomfort Genitourinary: no dysuria, no urinary frequency and no urinary hesitancy Musculoskeletal: Right elbow pain, complaining of splint cutting into wrist. Integumentary: pressure injury left heel, applied pad cracked right heel, applied pad Psychiatric: + depression, + irritability and + anxiety; no confusion, no auditory hallucinations and no visual hallucinations Endocrine: no polydipsia, no polyphagia and no polyuria Physical Exam Constitutional: + ill appearing Neck: trachea midline, no thyromegaly Respiratory: + labored breathing, able to speak in complete sentences and + pursed lip breathing Auscultation: + diminished lung sounds Cardiovascular: RRR, no murmur, no edema Extremities: + edema; no calf tenderness Gastrointestinal (Abdomen): normal bowel sounds, soft, nontender, no hepatosplenomegaly Psychiatric: Orientation: alert and oriented x 3 Mood: + depressed mood and + anxious mood Cognition: recent memory grossly intact and remote memory grossly intact Results & Data Results & Data ([facility]) Vital Signs (Past 12 Hours) Vital Signs Temp Pulse Pulse Resp BP Pulse Ox O2 Del Method 06/30/22 07:11 36.7 C 105 H 20 117/78 92 Nasal Cannula 06/30/22 02:44 36.5 C 112 H 18 134/91 91 Nasal Cannula 06/29/22 22:15 118 H 06/30/22 02:07 Nasal Cannula 06/29/22 22:00 36.8 C 114 H 20 136/97 97 Nasal Cannula O2 Flow Rate 06/30/22 07:11 4 06/30/22 02:44 4 06/29/22 22:15 06/30/22 02:07 4 06/29/22 22:00 4 Laboratory Results Abnormal lab results 06/30/22 06/30/22 06/30/22 Range/Units 06:02 06:02 06:02 RBC 3.49 L (3.93-5.22) M/uL Hgb 11.3 L (12.0-16.0) g/dl Hct 34.0 L (34.1-44.9) % RDW Std Deviation 57.1 H (36.4-46.3) fL RDW Coeff of Kp 16.0 H (11.5-14.5) % Plt Count 121 L (130-400) K/uL Absolute Nucleated RBC 0.17 H (0-0) K/uL Sodium 128 L (136-145) mmol/L Chloride 83 L (98-107) mmol/L Carbon Dioxide 43 H* (21-32) mmol/L Anion Gap 2 L (3-11) Creatinine 0.46 L (0.6-1.2) mg/dl BUN/Creatinine Ratio 26.1 H (10-20) Glucose 214 H (70-99(Fasting)) mg/dl Hemoglobin A1c 7.0 H (4.5-5.6) % Calcium 7.9 L (8.5-10.1) mg/dl PG Care Time/CCT Total # of Minutes Spent Total Time Spent with Patient: Total time spent is greater than 50% in coordination of care (as documented) at patient's floor/unit and/or counseling patient: Coding Level of Care Code 84363 SUB INP/OBS CARE 07/10MIN Diagnoses Hyponatremia E87.1 Hypertension I10 Septic olecranon bursitis of right elbow M71.121 Chronic hypercapnic respiratory failure J96.12 Cancer related pain G89.3 Atrial fibrillation I48.91 Hyperkalemia E87.5 Pressure injury of skin of left heel L89.629 Hyperglycemia R73.9
[2022-06-30 07:52] LABS: BUN Creatinine Ratio 26.1 (10-20); Calcium 7.9 mg/dl (8.5-10.1); Creatinine Clr Calc Pharmacy 113.3 ml/min; Est GFR (African American) 124.4 ml/min; Est GFR (Non-African American) 107.4 ml/min; Magnesium 2.2 mg/dl (1.7-2.4); Potassium 4.8 mmol/L (3.5-5.1)
[2022-06-30 08:10] LABS: Estimated Average Glucose 154 mg/dl
[2022-06-30] MEDS: hydrOXYzine HCl 10 MG TAB PO PRN ×2 (10:10→13:44)
[2022-06-30] MEDS: dexAMETHasone 4 MG TAB PO SCH ×3 (10:12→21:00)
[2022-06-30] MEDS: CYANOCOBALAMIN (B-12) 500 MCG TABLET PO SCH (10:12)
[2022-06-30] MEDS: FLUTICASONE/VILANTEROL 100/25MCG 14 PUFFS/INHALER INH SCH (10:12)
[2022-06-30] MEDS: dilTIAZem HCL 240 MG CAPCR PO SCH (10:12)
[2022-06-30] MEDS: ANASTROZOLE 1 MG TAB PO SCH (10:12)
[2022-06-30] MEDS: UMECLIDINIUM BROMIDE 62.5MCG/BLISTER 7 PUFFS/INHALER INH SCH (10:13)
[2022-06-30] MEDS: MULTIVITAMIN TAB PO SCH (10:13)
[2022-06-30] MEDS: PANTOprazole 40 MG TAB PO SCH (10:13)
[2022-06-30] MEDS: GABAPENTIN 300 MG CAP PO SCH ×3 (10:13→21:01)
[2022-06-30] MEDS: DOCUSATE SODIUM 100 MG CAP PO SCH ×2 (11:19→21:04)
[2022-06-30 16:05] LABS: Appearance Urine Clear (Clear); Bilirubin Urine Negative (Negative); Blood Urine Negative (Negative); Color Urine Yellow; Glucose Urine UA 2+ (Negative); Ketones Urine Negative (Negative); Leukocyte Esterase Urine Negative (Negative); Nitrite Urine Negative (Negative); Protein Urine Negative (Negative); Specific Gravity Urine 1.011 (1.000-1.030); Urobilinogen Urine Negative (Negative); pH Urine 7.5 (4.5-7.5)
[2022-06-30] MEDS: SENNA 8.6 MG TAB PO SCH (21:01)
[2022-06-30] MEDS: LORazepam 0.5 MG TAB PO PRN (21:02)
[2022-07-01] MEDS: oxyCODONE HCL IR 5 MG TAB (IMMEDIATE RELEASE) PO PRN ×4 (03:49→20:36)
[2022-07-01] MEDS: hydrOXYzine HCl 10 MG TAB PO PRN ×3 (03:50→23:57)
[2022-07-01] MEDS: SULFA/TRIMETH 400/80MG TAB PO SCH ×2 (05:09→18:17)
[2022-07-01] MEDS: POLYETHYLENE (MIRALAX) 17 GM PACK PO PRN (06:02)
[2022-07-01] MEDS: ALBUT/IPRATROP 3MG/0.5MG NEB 3 ML VIAL NEB SCH ×2 (07:36→20:06)
[2022-07-01] MEDS: LORazepam 0.5 MG TAB PO PRN ×2 (10:24→18:18)
[2022-07-01] MEDS: DOCUSATE SODIUM 100 MG CAP PO SCH ×2 (10:29→20:40)
[2022-07-01] MEDS: GABAPENTIN 300 MG CAP PO SCH ×3 (10:30→20:36)
[2022-07-01] MEDS: PANTOprazole 40 MG TAB PO SCH (10:30)
[2022-07-01] MEDS: CYANOCOBALAMIN (B-12) 500 MCG TABLET PO SCH (10:30)
[2022-07-01] MEDS: MULTIVITAMIN TAB PO SCH (10:31)
[2022-07-01] MEDS: ANASTROZOLE 1 MG TAB PO SCH (10:31)
[2022-07-01] MEDS: dexAMETHasone 4 MG TAB PO SCH ×3 (10:31→20:37)
[2022-07-01] MEDS: PROCHLORPERAZINE MALEATE 10 MG TAB PO PRN (10:31)
[2022-07-01] MEDS: dilTIAZem HCL 240 MG CAPCR PO SCH (10:32)
[2022-07-01] MEDS: UMECLIDINIUM BROMIDE 62.5MCG/BLISTER 7 PUFFS/INHALER INH SCH (10:33)
[2022-07-01] MEDS: FLUTICASONE/VILANTEROL 100/25MCG 14 PUFFS/INHALER INH SCH (10:33)
--- NOTE | 2022-07-01 12:47 | Hospitalist Progress Note ---
Date of Service July 01, 2022 Assessment & Plan (1) Hyponatremia: Plan: Chronic and history of SIADH. Fluid restriction (2) Hypertension: Plan: BP stable 135/76 Continue Diltiazem (3) Septic olecranon bursitis of right elbow: Plan: Appreciate orthopedic consultation and I&D procedure completed June 22. MSSA isolated. Treated with intravenous daptomycin which replaced intravenous vancomycin. Switched to Bactrim DS on Jun 25, for 2 more weeks per orthopedic recommendation Patient was having trouble swallowing the Bactrim DS Changed to Bactrim 400/80 take 2 pills q 12 hours Post op day #9 (need ortho follow up on day 10-12 ) (4) Chronic hypercapnic respiratory failure: Plan: Keep oxygen saturation in the 90 to 92% range to minimize CO2 retention. ABG reveals pCO2 of 50l Patient is always trying to increase her NC Oxygen Patient has been refusing to try the Bipap as needed and at night (5) Cancer related pain: Plan: Oxycodone as needed for pain (6) Atrial fibrillation: Plan: Controlled with current medical management (7) Hyperkalemia: Plan: will continue to monitor may need to increase po fluid intake repeat labs in AM (8) Pressure injury of skin of left heel: Plan: Pressure pad placed, nurse aware and will continue to monitor (9) Hyperglycemia: Plan: HgbA1C 7 Likely elevated due to steroid use Offered routine blood sugar reading and some sliding scale coverage with Novolog Patient became very anxious and refused to add another medication or intervention at this time Plan NATALIE working on SNF placement in [facility] They left a message at [employer] to see if they may have a bed next week Patient prefers [facility] over [facility] Admission and Anticipated Discharge Date Admission Date: June 21, 2022 Subjective Patient is awake sitting up in bed on her laptop. She was able to get to the bedside commode earlier. She denies any new complaints or problems. CM is working on [facility] and [facility] for possible placement. Had catheter placed due to not being able to urinate yesterday and as bladder scanned for over 500 Review of Systems Constitutional: + fatigue, + malaise and + weakness; no sweats Respiratory: no cough, no change in sputum and no hemoptysis Cardiovascular: no chest pain, no syncope and no calf pain Gastrointestinal: no nausea and no vomiting mild epigastric discomfort Genitourinary: Patient has cath in place Musculoskeletal: Complaining of splint cutting into upper arm (was readjusted due to rubbing wrist area ) Integumentary: pressure injury left heel, applied pad cracked right heel, applied pad Psychiatric: + depression, + irritability and + anxiety; no confusion, no auditory hallucinations and no visual hallucinations Endocrine: no polydipsia, no polyphagia and no polyuria Physical Exam Constitutional: + ill appearing Neck: trachea midline, no thyromegaly Respiratory: + labored breathing, able to speak in complete sentences and + pursed lip breathing Auscultation: + diminished lung sounds Cardiovascular: RRR, no murmur, no edema Extremities: + edema; no calf tenderness Gastrointestinal (Abdomen): normal bowel sounds, soft, nontender, no hepatosplenomegaly Psychiatric: Orientation: alert and oriented x 3 Mood: + depressed mood and + anxious mood Cognition: recent memory grossly intact and remote memory grossly intact Results & Data Results & Data ([facility]) Vital Signs (Past 12 Hours) Vital Signs Temp Pulse Pulse Resp BP Pulse Ox O2 Del Method 07/01/22 11:21 36.5 C 98 H 18 135/76 95 Nasal Cannula 07/01/22 07:38 105 H 18 91 Nasal Cannula 07/01/22 07:29 36.5 C 110 H 18 137/90 92 Aerosol Mask 07/01/22 04:03 36.6 C 90 18 139/81 94 Nasal Cannula O2 Flow Rate 07/01/22 11:21 3 07/01/22 07:38 3 07/01/22 07:29 3 07/01/22 04:03 2 Laboratory Results Abnormal lab results 06/30/22 Range/Units 15:50 Urine Glucose (UA) 2+ H (Negative) PG Care Time/CCT Total # of Minutes Spent Total Time Spent with Patient: Total time spent is greater than 50% in coordination of care (as documented) at patient's floor/unit and/or counseling patient: Coding Level of Care Code 06607 SUB INP/OBS CARE 07/10MIN Diagnoses Hyponatremia E87.1 Hypertension I10 Septic olecranon bursitis of right elbow M71.121 Chronic hypercapnic respiratory failure J96.12 Cancer related pain G89.3 Atrial fibrillation I48.91 Hyperkalemia E87.5 Pressure injury of skin of left heel L89.629 Hyperglycemia R73.9
[2022-07-01] MEDS: SENNA 8.6 MG TAB PO SCH (20:37)
[2022-07-02] MEDS: oxyCODONE HCL IR 5 MG TAB (IMMEDIATE RELEASE) PO PRN ×4 (01:03→21:14)
[2022-07-02] MEDS: ONDANSETRON INJ 2 MG/ML 2 ML VIAL IV PRN (03:32)
[2022-07-02] MEDS: LORazepam 0.5 MG TAB PO PRN ×3 (03:59→22:09)
[2022-07-02] MEDS: SULFA/TRIMETH 400/80MG TAB PO SCH ×2 (05:43→17:52)
[2022-07-02] MEDS: ALBUT/IPRATROP 3MG/0.5MG NEB 3 ML VIAL NEB SCH ×2 (06:59→19:42)
[2022-07-02] MEDS: PROCHLORPERAZINE MALEATE 10 MG TAB PO PRN (08:47)
[2022-07-02] MEDS: dexAMETHasone 4 MG TAB PO SCH ×3 (08:47→20:13)
[2022-07-02] MEDS: PANTOprazole 40 MG TAB PO SCH (08:47)
[2022-07-02] MEDS: GABAPENTIN 300 MG CAP PO SCH ×3 (08:47→20:13)
[2022-07-02] MEDS: ANASTROZOLE 1 MG TAB PO SCH (08:48)
[2022-07-02] MEDS: MULTIVITAMIN TAB PO SCH (08:48)
[2022-07-02] MEDS: dilTIAZem HCL 240 MG CAPCR PO SCH (08:48)
[2022-07-02] MEDS: CYANOCOBALAMIN (B-12) 500 MCG TABLET PO SCH (08:48)
[2022-07-02] MEDS: UMECLIDINIUM BROMIDE 62.5MCG/BLISTER 7 PUFFS/INHALER INH SCH (08:50)
[2022-07-02] MEDS: FLUTICASONE/VILANTEROL 100/25MCG 14 PUFFS/INHALER INH SCH (08:50)
[2022-07-02] MEDS: hydrOXYzine HCl 10 MG TAB PO PRN (08:50)
[2022-07-02] MEDS: DOCUSATE SODIUM 100 MG CAP PO SCH ×2 (08:51→21:12)
[2022-07-02] MEDS: METOCLOPRAMIDE HCL INJ 5 MG/ML 2 ML VIAL IV PRN (14:03)
--- NOTE | 2022-07-02 15:36 | Hospitalist Progress Note ---
Date of Service July 02, 2022 Assessment & Plan (1) Hyponatremia: Plan: Chronic and history of SIADH. Fluid restriction (2) Hypertension: Plan: BP stable 135/76 Continue Diltiazem (3) Septic olecranon bursitis of right elbow: Plan: Appreciate orthopedic consultation and I&D procedure completed June 22. MSSA isolated. Treated with intravenous daptomycin which replaced intravenous vancomycin. Switched to Bactrim DS on Jun 25, for 2 more weeks per orthopedic recommendation Patient was having trouble swallowing the Bactrim DS Changed to Bactrim 400/80 take 2 pills q 12 hours Post op day #9 (need ortho follow up on day 10-12 ) (4) Chronic hypercapnic respiratory failure: Plan: Keep oxygen saturation in the 90 to 92% range to minimize CO2 retention. ABG reveals pCO2 of 50l Patient is always trying to increase her NC Oxygen Patient has been refusing to try the Bipap as needed and at night (5) Cancer related pain: Plan: Oxycodone as needed for pain (6) Atrial fibrillation: Plan: Controlled with current medical management (7) Hyperkalemia: Plan: will continue to monitor may need to increase po fluid intake repeat labs in AM (8) Pressure injury of skin of left heel: Plan: Pressure pad placed, nurse aware and will continue to monitor (9) Hyperglycemia: Plan: HgbA1C 7 Likely elevated due to steroid use Offered routine blood sugar reading and some sliding scale coverage with Novolog Patient became very anxious and refused to add another medication or intervention at this time Plan CM working on SNF placement in [facility] Long discussion with patient and her regarding comfort care, hospice and code status. For now will increase her pain medication oxycodone from 5mg to 10mg q 4 hours as needed Admission and Anticipated Discharge Date Admission Date: June 21, 2022 Subjective Patient is awake sitting up in bed. She is confused slightly but is alert to person and place and time. Patient states she had a rough night. Per nursing and patient she feels the 5mg of her pain medication is not adequate. Review of Systems Review of Systems: ROS unable secondary to patient sleeping. Came by later and she was able to complete ROS Constitutional: + fatigue, + malaise and + weakness; no sweats Respiratory: no cough, no change in sputum and no hemoptysis Cardiovascular: no chest pain, no syncope and no calf pain Gastrointestinal: no nausea and no vomiting mild epigastric discomfort Genitourinary: Patient has cath in place Musculoskeletal: Complaining of splint cutting into upper arm (was readjusted due to rubbing wrist area ) Integumentary: pressure injury left heel, applied pad cracked right heel, applied pad Psychiatric: + depression, + irritability and + anxiety; no confusion, no auditory hallucinations and no visual hallucinations Endocrine: no polydipsia, no polyphagia and no polyuria Physical Exam Constitutional: + ill appearing Neck: trachea midline, no thyromegaly Respiratory: + labored breathing, able to speak in complete sentences and + pursed lip breathing Auscultation: + diminished lung sounds Cardiovascular: RRR, no murmur, no edema Extremities: + edema; no calf tenderness Gastrointestinal (Abdomen): normal bowel sounds, soft, nontender, no hepatospl enomegaly Psychiatric: Orientation: alert and oriented x 3 Mood: + depressed mood and + anxious mood Cognition: recent memory grossly intact and remote memory grossly intact Results & Data Results & Data ([facility]) Vital Signs (Past 12 Hours) Vital Signs Temp Pulse Pulse Resp BP Pulse Ox O2 Del Method 07/02/22 15:20 90 07/02/22 11:30 Nasal Cannula 07/02/22 11:16 36.6 C 93 H 20 157/96 H 94 Nasal Cannula 07/02/22 07:58 37.3 C 93 H 20 150/96 H 94 Nasal Cannula 07/02/22 07:24 94 H O2 Flow Rate 07/02/22 15:20 07/02/22 11:30 2 07/02/22 11:16 3 07/02/22 07:58 3 07/02/22 07:24 PG Care Time/CCT Total # of Minutes Spent Total Time Spent with Patient: Total time spent is greater than 50% in coordination of care (as documented) at patient's floor/unit and/or counseling patient: Coding Level of Care Code 51740 SUB INP/OBS CARE 2/35MIN Diagnoses Hyponatremia E87.1 Hypertension I10 Septic olecranon bursitis of right elbow M71.121 Chronic hypercapnic respiratory failure J96.12 Cancer related pain G89.3 Atrial fibrillation I48.91 Hyperkalemia E87.5 Pressure injury of skin of left heel L89.629 Hyperglycemia R73.9 Time Spent (min) 45
--- NOTE | 2022-07-02 15:40 | Communication Note ---
Date of Service: July 02, 2022 May consider keeping timoteo in for 3 weeks if wound is slow to heal. Pt is 10 days post op from I/D right septic olecranon bursa. Wound care team present to check other wounds. Elbow wound healing. No purulence. Area around the elbow with dusky erythema without drainage. 3 timoteo present in one small wound. Would leave timoteo in a total of 14 days. At that time, can reassess and likely remove/steristrip wound. Continue soft dressing changes every other day. No splint needed. Follow up with Dr. Flower in 2 weeks.
[2022-07-02] MEDS: SENNA 8.6 MG TAB PO SCH (20:13)
[2022-07-03] MEDS: oxyCODONE HCL IR 5 MG TAB (IMMEDIATE RELEASE) PO PRN (04:30)
[2022-07-03] MEDS: SULFA/TRIMETH 400/80MG TAB PO SCH ×2 (06:03→18:40)
[2022-07-03] MEDS: LORazepam 0.5 MG TAB PO PRN (06:13)
[2022-07-03] MEDS: ALBUT/IPRATROP 3MG/0.5MG NEB 3 ML VIAL NEB SCH (07:44)
[2022-07-03] MEDS: dilTIAZem HCL 240 MG CAPCR PO SCH (08:04)
[2022-07-03] MEDS: GABAPENTIN 300 MG CAP PO SCH ×3 (08:05→21:31)
[2022-07-03] MEDS: hydrOXYzine HCl 10 MG TAB PO PRN (08:05)
[2022-07-03] MEDS: CYANOCOBALAMIN (B-12) 500 MCG TABLET PO SCH (08:05)
[2022-07-03] MEDS: MULTIVITAMIN TAB PO SCH (08:05)
[2022-07-03] MEDS: dexAMETHasone 4 MG TAB PO SCH ×3 (08:05→21:31)
[2022-07-03] MEDS: PROCHLORPERAZINE MALEATE 10 MG TAB PO PRN (08:05)
[2022-07-03] MEDS: ANASTROZOLE 1 MG TAB PO SCH (08:06)
[2022-07-03] MEDS: PANTOprazole 40 MG TAB PO SCH (08:06)
[2022-07-03] MEDS: CYCLOBENZAPRINE HCL 10 MG TAB PO PRN (08:08)
[2022-07-03] MEDS: FLUTICASONE/VILANTEROL 100/25MCG 14 PUFFS/INHALER INH SCH (08:08)
[2022-07-03] MEDS: DOCUSATE SODIUM 100 MG CAP PO SCH ×2 (08:08→21:35)
[2022-07-03] MEDS: UMECLIDINIUM BROMIDE 62.5MCG/BLISTER 7 PUFFS/INHALER INH SCH (08:08)
[2022-07-03] MEDS ORDERED: GLYCOPYRROLATE 0.2 MG/ML VIAL IV PRN (12:02)
[2022-07-03] MEDS: LORazepam 2 MG/1 ML VIAL IV PRN (12:38)
--- NOTE | 2022-07-03 13:01 | Hospitalist Progress Note ---
Date of Service July 03, 2022 Assessment & Plan (1) Metastatic cancer: Plan: Patients made decision for patient to be changed to Comfort Care and wishes for SNF with Hospice Palliative following and to stop unnecessary medications Transferred from Med/Tele to Med/surg Palliative medicine managing pain and anxiety medications Discussed with case management and notified of the changes (2) End stage chronic obstructive pulmonary disease: Plan: She is currently on 2 Liters NC Keep oxygen saturation in the 90 to 92% range to minimize CO2 retention. ABG reveals pCO2 of 50l Patient is always trying to increase her NC Oxygen Patient has been refusing to try the Bipap as needed and at night (3) Hyponatremia: Plan: Chronic and history of SIADH. Previously was on fluid restriction, now [employer] DNR/DNI No dietary restrictions (4) Hypertension: Plan: BP elevated today On diltiazem (5) Septic olecranon bursitis of right elbow: Plan: Orthopedic consultation and I&D procedure completed June 22. MSSA isolated. Treated with intravenous daptomycin which replaced intravenous vancomycin. Switched to Bactrim DS on Jun 25, for 2 more weeks per orthopedic recommendation Patient was having trouble swallowing the Bactrim DS Changed to Bactrim 400/80 take 2 pills q 12 hours Post op day #11 Possibly could stop Bactrim now on [employer] (6) Chronic hypercapnic respiratory failure: Plan: As above Keep oxygen saturation in the 90 to 92% range to minimize CO2 retention. ABG reveals pCO2 of 50l Patient is always trying to increase her NC Oxygen Patient has been refusing to try the Bipap as needed and at night (7) Cancer related pain: Plan: Pain and anxiety medications adjusted by palliative medicine today, patient now [employer] (8) Atrial fibrillation: Plan: Controlled with current medical management therapist radiation taken off Patient now [employer] (9) Pressure injury of skin of left heel: Plan: Pressure pad placed, nurse aware and will continue to monitor Skin breakdown [employer] Plan CM working on SNF placement in [facility] possibly to [place] with Hospice care DNR/DNI now Admission and Anticipated Discharge Date Admission Date: June 21, 2022 Subjective Patient was awake and lethargic. Confused at times. Met with Palliative medicine, patient, her who was at bedside. Long discussion about patient's declining health status and multi system failure and decline. Patient's decided to move toward more comfort care at this time. Per nursing, patient was very restless this AM and was confused at times. Palliative medicine is following and patient was changed from Med/tele to Med/surg and her medications were adjusted accordingly by palliative. The decision was made to get patient to a SNF with Hospice care. Review of Systems Review of Systems: unable to complete a ROS with patient. She is confused and not answering appropriately Physical Exam Constitutional: + ill appearing anxious and irritable, then falls asleep easily Neck: trachea midline, no thyromegaly Respiratory: + labored breathing, able to speak in complete sentences and + p ursed lip breathing Auscultation: + diminished lung sounds Cardiovascular: RRR, no murmur, no edema Extremities: + edema; no calf tenderness Gastrointestinal (Abdomen): normal bowel sounds, soft, nontender, no hepatosplenomegaly Skin: skin break down, see wound care pictures Psychiatric: Orientation: alert, oriented to person and oriented to place Mood: + depressed mood, + anxious mood and + irritable mood Cognition: recent memory grossly intact and remote memory grossly intact Results & Data Results & Data ([facility]) Vital Signs (Past 12 Hours) Vital Signs Temp Pulse Pulse Resp BP Pulse Ox O2 Del Method 07/03/22 11:37 Nasal Cannula 07/03/22 08:00 36.9 C 101 H 20 157/96 H 98 Nasal Cannula 07/03/22 08:31 89 07/03/22 07:45 100 H 18 94 Nasal Cannula 07/03/22 03:26 36.8 C 96 H 18 140/96 95 Nasal Cannula O2 Flow Rate 07/03/22 11:37 2 07/03/22 08:00 2 07/03/22 08:31 07/03/22 07:45 3 07/03/22 03:26 3 PG Care Time/CCT Total # of Minutes Spent Total Time Spent with Patient: Total time spent is greater than 50% in coordination of care (as documented) at patient's floor/unit and/or counseling patient: Coding Level of Care Code 77230 SUB INP/OBS CARE 2/35MIN Diagnoses Metastatic cancer C79.31 Area of secondary neoplastic involvement: nervous system structure Nervous system structure secondary neoplasm location: metastatic to brain End stage chronic obstructive pulmonary disease J44.9 Hyponatremia E87.1 Hypertension I10 Septic olecranon bursitis of right elbow M71.121 Chronic hypercapnic respiratory failure J96.12 Cancer related pain G89.3 Atrial fibrillation I48.91 Pressure injury of skin of left heel L89.629 (1) Metastatic cancer Area of secondary neoplastic involvement: nervous system structure Nervous system structure secondary neoplasm location: metastatic to brain Qualified Code(s): C79.31 - Secondary malignant neoplasm of brain
[2022-07-03] MEDS: MoRPHine SULFATE 2 MG/ML CARP IV PRN ×3 (14:01→21:24)
--- NOTE | 2022-07-03 14:39 | Palliative Care Progress Note ---
Date of Service July 03, 2022 Assessment & Plan (1) Palliative care encounter: Plan: Decisional capacity: A patient's decision can be simultaneously unwise but valid for them, so long as a rational process was used to arrive at it. Decision making capacity determinations are decision and time specific. This patient does not have capacity with respect to this particular decision-making task at this time. Patient is unable to articulate reasons for decision(s) and shows signs of cognitive impairment +/- ?delirium thatinterferes with their ability to meaningfully understand information and appreciate the risks of refusing treatment disposition recommendations. The patient's decision making capacity could change in the future given that their mental status and various other factors can certainly fluctuate over time. (References: Glenna MAN. The Many Faces of Competency. [facility] Report. 1985;15(2):17-2. Benjamin Torres, Bishop Fleming. Practical Ethics for Students, Interns and Reside nts. A Short Reference Manual. 2nd Edition. [employer]; 1997. Geoffrey RC, Curtis T. A guide to assessing decision-making capacity. [facility] J Med. 2004; 71:971-5.) This was discussed with her Brenden at bedside. He is aware that she has been in and out of periods of more alertness and more confusion/restless/agitation. I advised him that I do not believe she is able at this time to make any decisions for herself and has lost her decisional capacity. He was in agreement. He asked how decision-making would unfold for her and I advised him of the POLST form she completed as well as [place] act 169. In prior discussions, patient had always been clear that if she was in a terminal condition she would wish to have comfort focused care without any further aggressive interventions such as CPR including chest compressions shocks or medications. At this stage, she is terminally ill and those interventions will not serve to provide a meaningful benefit. They will not reverse, cure or otherwise improve her underlying conditions. We discussed changing her CODE STATUS to DNR/DNI and he is in agreement. The code order has been written. (2) Counseling regarding advanced directives and goals of care: Plan: Together with Deborah Ontiveros PA-C from the primary team, we met with patient and her at the bedside. Patient is not able to participate in or follow this discussion. She is very anxious, restless at times tearful and at times drifting off to sleep. We reviewed with patient's that she is beginning a transition to an end-of-life phase. He responds that he is not surprised to hear this as he has been suspecting this as well. He asks what neck steps would be at this junction. We discussed the option of moving to a plan of care that would be more focused on her comfort and the management of her symptoms especially those of her pain, dyspnea and anxiety/agitation/restlessness. I advised him very specifically that the medications used to bring the symptoms under control often, the side effect of sedation as well as fatigue, therefore it is likely that in order to make her symptoms better and reduce her distress and suffering, we would have to accept the side effects as a trade off with priority to her symptom relief. He is in agreement. He would like removed to a comfort plan of care. We discussed disposition planning and options for care moving forward at this stage. He is not able to bring her home and does not have caregiver support apart from himself. He is burning out and is no longer able to meet her physical needs. She is not a candidate for skilled rehab at this time as she has been steadily refusing rehab participation while in the hospital and cannot meaningfully participate in rehab therapy programs. She would need to be discharged on a comfort plan of care possibly with the addition of hospice. He has been in contact with staff at [facility]. He had also inquired about [place] but care management advised earlier today that [place] does not have any long-term beds available and could only offer short-term care bed, for which patient does not qualify. Brenden is agreeable to having patient discharged to [facility] with the addition of hospice. He is aware that her stay at the intermediate will be private pay and therefore [id number] but acknowledges that they have a long-term care policy that should help offset these fees after a requisite waiting period. I advised him that her Medicare would cover hospice and this could be provided at the intermediate in addition to the comfort care program they may offer. He is in agreement with this noting that the priority at this time is to make sure she no longer suffers or has any distress. We talked about the process of comfort care including stopping the medications that are no longer necessary and de-escalating her medication reg imens to provide a more simple and straightforward regimen. We talked about adding additional medications to aid in comfort especially to relieve her pain, dyspnea, anxiety and agitation. A comfort plan of care is agreed upon, I recommend the following: Stop monitors, vitals, labs, diagnostics/imaging Comfort assessments/respirations Stop all non essential/non comfort meds including but not limited to vitamins, supplements, senior living preventives (ex. Lipid lowering medications) Ativan Intensol 1mg PO or under the tongue q6h prn anxiety, insomnia. I have also added an IV dose of Ativan for severe or refractory symptoms needing rapid release. I have added morphine IV to help with severe pain or terminal air hunger. Robinul elixir 0.5mg PO q4h prn moist secretions - avoid trans derm scop unless you are using Robinul very frequently as this can lead to excessive oral dryness and cause discomfort. Allow pt to take PO as tolerated for pleasure and comfort; no dietary restriction or limitations. I have stopped nonessential labs, monitoring, glucose checks. Keep an oscillating fan available to provide circulating air movement across the face to assist in the relief of dyspnea. I have provided education about the hospice benefit. Hospice is an interdisciplinary program offered by nurses, nurses aides, social workers, chaplains and a clinical specialist medical device for patients with a terminal condition and a life expectancy of less than 6 months. The goal would be to improve the quality of life of the patient in their home setting (home, intermediate, inpatient hospice setting) by providing symptoms management, psychosocial and spiritual support. However, they cannot offer 24 hours care and if the family is unable to provide that care, they will have to consider personal care with out of pocket cost vs. intermediate placement. I discussed changes pt may move through in the dying process including but not limited to sleeping more, disorientation when awake, restlessness, diminished senses/inability to respond to stimulus although ability to be aware of them r emains intact longer, changes in body temperatures, skin changes/mottling/cyanosis, respiratory pattern changes, oral secretions. Family verbalized understanding. The goal is to assure a peaceful . Brenden plans to update his children tonight. He notes that his daughter will likely not be able to visit until the weekend. (3) Dyspnea and respiratory abnormalities: (4) Chronic hypercapnic respiratory failure: (5) Pulmonary hypertension: (6) Altered mental status: (7) Brain metastasis: (8) Malignant neoplasm of upper-outer quadrant of left breast in female, estrogen receptor positive: (9) Lung cancer: Plan Patient will be moved to comfort care status and orders have been written. Comfort measures initiated and all nonessential labs, imaging and medications have been stopped. Patient will need to discharge coordinated to [facility], care management is aware. Hospice should also be referred to follow this patient to [facility] aware. Primary team, nursing and care management updated by me. Palliative medicine will continue to follow this patient throughout this admission. Reina Tanner DNP Clinical Director, Palliative Medicine Admission and Anticipated Discharge Date Admission Date: June 21, 2022 Subjective At the request of the primary team, palliative medicine is re-engaging to assist in the care of this patient. Daily remains acute inpatient status, worsening respiratory failure, worsening mentation, declining performance status and progressive skin breakdown. She is refusing or declined to participate in physical therapy. She has consistently refused to utilize BiPAP therapy. She is increasingly fatigued, lethargic or sleeping throughout the day. Performance status at this time is an ECOG 4. She is seen at bedside together with her , Brenden. Unfortunately Daily is beginning to show intermittent confusion, delirium, agitation and restlessness. She repeatedly asks to be helped out of bed so that she can urinate however she has a urinary catheter in place. She then requests "help me set up, help me set up" with urgency however she is sitting straight up in bed at nearly 90 degrees. She is having significant skin breakdown and frai lty. There are numerous dressings over both arms, heels and her legs. Review of Systems Review of Systems: Unobtainable due to cognitive status Physical Exam Physical Exam: Frail, critically, chronically ill female. She is confused and unable to follow commands. She is delirious, agitated and restless. She is not able to focus or follow a detailed discussion. Her neck is supple and without stridor. Lung sounds are diminished throughout with mild to moderate increased respiratory effort. When she does speak it is a 2-3 word sentences. She is easily agitated and has a very labile temperament today. Heart tones are normal S1-S2 tachycardic at 104 apically. Abdomen is soft, mildly distended, bowel sounds are present. There is multiple areas of skin breakdown dressed with foam dressings across her arms legs and her heels. There is significant discoloration and skin changes with venous insufficiency to her lower extremities. There is cracking skin at bilateral knees. She is alert to self when her name is called but is not able to consistently follow commands. She is otherwise restless, agitated and at times delirious. She is picking at the linens alternatingly trying to get out of bed without assistance and insisting that she has to urinate although she has a Luque catheter in place. She also repeatedly demands to help sit up in bed telling us that she is lying to flat however at the time of these request she is sitting upright in bed at a near 90 degree angle. Results & Data ([facility]) Vital Signs (Past 12 Hours) Vital Signs Temp Pulse Pulse Resp BP Pulse Ox O2 Del Method 07/03/22 11:37 Nasal Cannula 07/03/22 08:00 36.9 C 101 H 20 157/96 H 98 Nasal Cannula 07/03/22 08:31 89 07/03/22 07:45 100 H 18 94 Nasal Cannula 07/03/22 03:26 36.8 C 96 H 18 140/96 95 Nasal Cannula O2 Flow Rate 07/03/22 11:37 2 07/03/22 08:00 2 07/03/22 08:31 07/03/22 07:45 3 07/03/22 03:26 3 Laboratory Results Data reviewed Diagnostic Findings data reviewed PG Care Time/CCT Total # of Minutes Spent Total Time Spent: 84 Total Time Spent with Patient: Total time spent is greater than 50% in coordination of care (as documented) at patient's floor/unit and/or counseling patient: 10 minutes was spent in chart review, 15 minutes was spent directly with patient for [id number] exam and assessment. An additional 45 minutes was spent in direct [id number] family meeting with patient and her , unfortunately patient was not able to meaningfully participate. I spent 5 minutes in care coordination and 8 minutes in updating clinical team's, nursing, care management. Prolonged Care Time Prolonged Care Time: Yes [place] [id number] SUB INP/OBS CARE 3/50MIN Patient Type Established History Comprehensive Exam Comprehensive Medical Decision Making Moderate Complexity Diagnoses Palliative care encounter Z51.5 Counseling regarding advanced directives and goals of care Z71.89 Dyspnea and respiratory abnormalities R06.00; R06.89 Chronic hypercapnic respiratory failure J96.12 Pulmonary hypertension I27.20 Altered mental status R40.1 Altered mental status type: stupor Brain metastasis C79.31 Malignant neoplasm of upper-outer quadrant of left breast in female, estrogen receptor positive C50.412; Z17.0 Lung cancer C34.90 Additional Codes Prolonged Care Time - Prolonged Care Time: Yes ([id number]) (1) Altered mental status Altered mental status type: stupor Qualified Code(s): R40.1 - Stupor
[2022-07-03] MEDS: LORazepam 1 MG TAB PO PRN ×2 (14:54→22:38)
[2022-07-03] MEDS ORDERED: ALBUT/IPRATROP 3MG/0.5MG NEB 3 ML VIAL NEB PRN (15:49)
[2022-07-03] MEDS: SENNA 8.6 MG TAB PO SCH (21:33)
[2022-07-04] MEDS: MoRPHine SULFATE 2 MG/ML CARP IV PRN ×6 (00:52→13:13)
[2022-07-04] MEDS: LORazepam 2 MG/1 ML VIAL IV PRN ×2 (03:51→10:20)
[2022-07-04] MEDS: SULFA/TRIMETH 400/80MG TAB PO SCH ×2 (05:59→06:03)
[2022-07-04] MEDS: LORazepam 1 MG TAB PO PRN (07:41)
[2022-07-04] MEDS: oxyCODONE HCL IR 5 MG TAB (IMMEDIATE RELEASE) PO PRN (07:41)
[2022-07-04] MEDS: dexAMETHasone 4 MG TAB PO SCH (07:42)
[2022-07-04] MEDS: UMECLIDINIUM BROMIDE 62.5MCG/BLISTER 7 PUFFS/INHALER INH SCH (07:44)
[2022-07-04] MEDS: dilTIAZem HCL 240 MG CAPCR PO SCH (07:44)
[2022-07-04] MEDS: DOCUSATE SODIUM 100 MG CAP PO SCH (07:44)
[2022-07-04] MEDS: GABAPENTIN 300 MG CAP PO SCH (07:44)
[2022-07-04] MEDS: FLUTICASONE/VILANTEROL 100/25MCG 14 PUFFS/INHALER INH SCH (07:44)
[2022-07-04 08:00] VITALS: TEMP 97.5; O2SAT 100
[2022-07-04] MEDS ORDERED: oxyCODONE HCL IR 5 MG TAB (IMMEDIATE RELEASE) PO PRN (09:19)
[2022-07-04 11:40] VITALS: BP 131/86; PULSE 105
--- NOTE | 2022-07-04 18:45 | Discharge Summary ---
Date of Service July 04, 2022 Admission HPI Per Admitting Provider Yanet Guido is a 61-year-old female with a past medical history significant for metastatic breast cancer to brain, lung cancer, pulmonary hypertension, COPD, atrial fibrillation, hypertension, and anxiety is presenting today with an elbow abscess. For the past month her right elbow has been more red and swollen which she attributes to rubbing it on furniture at home, but within the past week it has become "akhil red, big, swollen, and painful ". She had a needle aspiration of the right elbow performed this week which showed septic olecranon bursitis and was started on oral antibiotics as an outpatient. She had positive blood cultures and due to the worsening bursitis with possible abscess development she was referred to the ED for further evaluation. She has been evaluated by orthopedic group in the ED, patient will be admitted for IV antibiotics with plan for elbow I&D tomorrow, 06/22. On presentation in the ED she is mildly tachycardic with HR 91, BP 149/99, afebrile and on her usual 4 L NC. Labs largely unrevealing, without leukocytosis. Troponin minimally elevated at 24. Her sodium is low at 128. Her CO2 on BMP is 43, which is about baseline for her Principal Diagnosis metastatic lung cancer transition to hospice care Septic right elbow olecranon bursitis s/p surgical drainage Discharge Exam Patient is seen in company of her . She woke and was bewilderment and agitated but she fell back asleep with some redirection. Her breathing seemed minorly labored Discharge Data Allergies Allergy/AdvReac Type Severity Reaction Status Date / Time paclitaxel AdvReac Severe Difficulty Verified 06/21/22 15:03 Breathing Consultations 06/21/22 16:21 ED Decision to Admit Stat 06/21/22 19:34 Consult Orthopedic Surgery Routine 06/26/22 12:13 Consult Palliative Care Routine Procedures Performed Operation Date: 06/22/22 07:30 Actual Procedures p Right Elbow Incision and Drainage Olecranon Bursa, Partial Excision Right Olecranon Bursa(Right) - Usman Flower MD Diabetes Follow up Diabetes Follow-up Needed for Newly Diagnosed Diabetes Hospital Course (1) Metastatic cancer: Chronic progressive unstable problem patients made decision for patient to be changed to Comfort Care and wishes for SNF with Hospice Palliative following and to stop unnecessary medications Transition to hospice care once at SNF Prescribed pain anxiety and nausea control medications for SNF and hospice doses (2) End stage chronic obstructive pulmonary disease: Chronic and stable she is currently on 2 Liters NC (3) Hyponatremia: Chronic and stable history of SIADH. DNR/DNI Discontinued monitoring and restrictions (4) Hypertension: (5) Septic olecranon bursitis of right elbow: Orthopedic consultation and I&D procedure completed June 22. MSSA isolated. Treated with intravenous daptomycin which replaced intravenous vancomycin. 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 (8) Atrial fibrillation: Plan DNR/DNI Total Time Total Time Spent Total Time Spent (In Minutes): It required greater than 30 minutes to prepare this patient for discharge Discharge Plan Discharge Items Patient Disposition: Hospice - Medical Facility Reason For Visit: SEPTIC OLECRANON BURSITIS Discharge Diagnosis: metastatic lung cancer transition to hospice care Septic right elbow olecranon bursitis s/p surgical drainage Activity: Resume your previous activity Non-emergency contact: Primary Care Provider Call non-emergency contact if: you have any medication questions and your symptoms worsen Follow-up/Referrals: Usman Flower MD [Physician] - (Call to make an appointment for 12- 14 days from the surgery date.) Cookie Fontenot CRNP [Primary Care Provider] - Diet: Heart Healthy Addcarrie Attending Provider Instructions: Take Bactrim antibiotic for 2 weeks. See orthopedic surgery for follow-up in 2 weeks Addtl Photography Intern Provider Instructions: ACTIVITY RECOMMENDATIONS: * Avoid lifting anything heavier than a medium water glass until your first post operative visit. SPECIAL CARE INSTRUCTIONS: * Your bandage should be left in place until your first postoperative visit. * Some drainage onto the dressing may occur. This is normal. * If the bandage feels excessively tight, you may loosen the elastic bandage. Then call the physician's office for further instructions. * If possible, keep your hand elevated above the level of your heart for the first 2 post operative days. You may use a sling if necessary. * You should move your fingers regularly (50-100 motions per hour) unless otherwise instructed. SPECIAL PRECAUTIONS: * If you notice increased drainage, fever over 101 degrees F. or severe, unremitting pain, call your physician/office at . * You may have been prescribed pain medication. If you experience nausea and/or skin rash, discontinue this medication and contact our office for an alternative medication. FOLLOW UP VISIT: If appointment is not already scheduled: Please call [facility] [place] to make a follow-up appointment for 12-14 days after your surgery at . Pending Studies at Discharge: No Stand-Alone Forms: My [facility] Skilled Items Patient informed of condition?: Yes DNR: Yes Discharge Level of Care: Skilled Communicable Disease: No Discharge Prognosis: Stable Lines: None Urinary Catheter: Yes Medications and DC Order Prescriptions: New sulfamethoxazole-trimethoprim [Bactrim DS] 800-160 mg tablet 1 tab PO Q12H 14 Days Qty: 28 0RF morphine concentrate 100 mg/5 mL (20 mg/mL) solution 20 mg sublingual Q6H PRN (Reason: pain) Qty: 120 0RF lorazepam [Ativan] 0.5 mg tablet 0.5 mg buccal Q6H Qty: 20 0RF ondansetron 4 mg tablet,disintegrating 4 mg PO Q6H Qty: 20 0RF Continued acetaminophen [Tylenol Extra Strength] 500 mg tablet 500 mg PO Q6H PRN (Reason: Pain) dsvboezyql-copfqmhmomwuo-excl 50-325-40 mg tablet 1 tab PO Q6H PRN (Reason: migraines) anastrozole [Arimidex] 1 mg tablet 1 mg PO QAM dexamethasone 4 mg tablet 4 mg PO TID Qty: 30 0RF albuterol sulfate [ProAir HFA] 90 mcg/actuation HFA aerosol inhaler 2 puff inhalation Q6H PRN (Reason: sob) cyanocobalamin (vitamin B-12) [Vitamin B-12] 1,000 mcg Tablet 1,000 mcg PO QAM budesonide-formoterol [Symbicort] 160-4.5 mcg/actuation Hfa Aerosol Inhaler 2 puff INHALATION BID diclofenac sodium 3 % gel 1 applic TOPICAL QID PRN (Reason: pain/swelling) Spiriva Respimat 1.25 mcg/actuation mist 1 puff INHALATION DAILY spironolactone 25 mg Tablet 12.5 mg PO DAILY Qty: 30 0RF ipratropium-albuterol 0.5 mg-3 mg(2.5 mg base)/3 mL Solution For Nebulization 3 ml NEB QIDR Qty: 30 0RF oxycodone 5 mg tablet 5 mg PO Q4H PRN (Reason: pain) Qty: 18 0RF cyclobenzaprine 10 mg Tablet 10 mg PO HS PRN (Reason: Spasms) prochlorperazine maleate 10 mg Tablet 10 mg PO Q6H PRN (Reason: Nausea And Vomiting) hydroxyzine HCl 10 mg Tablet 10 mg PO TID PRN (Reason: Anxiety) hydrochlorothiazide 12.5 mg Tablet 12.5 mg PO Q2D Hematinic/Folic Acid 324 mg (106 mg iron)-1 mg Tablet 1 tab PO DAILY Rx Instructions: administer between meals diltiazem HCl 240 mg Capsule,Extended Release 24hr 240 mg PO QAM Qty: 30 0RF lorazepam 0.5 mg Tablet 0.5 mg PO BID PRN (Reason: anxiety) Qty: 30 0RF gabapentin 300 mg Capsule 300 mg PO TID Qty: 100 0RF Discontinued doxycycline hyclate 100 mg capsule 100 mg PO BID Rx Instructions: STARTED 06/20/22 FOR 10 DAYS. amoxicillin 875 mg tablet 875 mg PO BID Rx Instructions: STARTED 06/20/22 FOR 10 DAYS Discharge Orders: Discharge Order (Routine); Ordered 07/04/22 Ordered By: Parth Brito/Other Patient Handouts: Taking Opioid Medicines Admission Data Admit Date/Time: 06/21/22 17:27 Attending Provider: Parth Olmstead Admit Provider: Bentley Fountain Primary Care Provider: Cookie Fontenot Other Providers: [facility] ; Kiera Bowling [facility] ; Bentley Fountain ; Usman Flower ; Ashley Maradiaga Other Interventions: Discharge Summary Assessment (RN) Last Done: 07/04/22 11:39 Coding Level of Care Code HOSP INP/OBS DISCH >30 MIN Diagnoses Metastatic cancer C79.31 Area of secondary neoplastic involvement: nervous system structure Nervous system structure secondary neoplasm location: metastatic to brain End stage chronic obstructive pulmonary disease J44.9 Hyponatremia E87.1 Hypertension I10 Septic olecranon bursitis of right elbow M71.121 Chronic hypercapnic respiratory failure J96.12 Cancer related pain G89.3 Atrial fibrillation I48.91
== END 2022-07-04 13:51 | disposition hospice, inpatient (51) | DRG 500 ==
LOC: ED 12:46 → SUATTDRO 17:27 → EDINP 17:27 → 2N 19:34 → 2W 06-23 14:08
DX: J44.9 Chronic obstructive pulmonary disease, unspecified; J96.21 Acute and chronic respiratory failure with hypoxia; J96.22 Acute and chronic respiratory failure with hypercapnia; R73.9 Hyperglycemia, unspecified; M71.121 Other infective bursitis, right elbow; I48.91 Unspecified atrial fibrillation; Z88.8 Allergy status to other drugs, medicaments and biological substances; J96.12 Chronic respiratory failure with hypercapnia; G93.6 Cerebral edema; I10 Essential (primary) hypertension; Z79.899 Other long term (current) drug therapy; G89.3 Neoplasm related pain (acute) (chronic); F41.9 Anxiety disorder, unspecified; Z66 Do not resuscitate; L89.629 Pressure ulcer of left heel, unspecified stage; C79.31 Secondary malignant neoplasm of brain; E87.5 Hyperkalemia; E87.1 Hypo-osmolality and hyponatremia; Z51.5 Encounter for palliative care; Z87.891 Personal history of nicotine dependence; C34.90 Malignant neoplasm of unspecified part of unspecified bronchus or lung